=== PATIENT | female | born 1975 | race Caucasian/White ===

== ENCOUNTER 2023-07-10 13:24 | Outpatient (OUT) | payer MEDICARE, MEDICAID, SELFPAY ==
[2023-07-10 14:11] LABS: Estimated GFR (African America >60 (>=60); Estimated GFR (Non-African Ame >60 (>=60); Thyroid Stimulating Hormone 4.291 uIU/mL (0.358-3.740)
== END 2023-07-10 13:25 | disposition home or self-care (01) ==
LOC: LAB 13:29
PROVIDERS: PCP Family Medicine; Visit Provider Psychiatry & Neurology Psychiatry
DX: Z79.899 Other long term (current) drug therapy (principal); F31.9 Bipolar disorder, unspecified
CPT/HCPCS: 36415; 80178; 82565; 84443

== ENCOUNTER 2024-03-11 12:08 | Outpatient (OUT) | payer OTHER, MEDICAID, SELFPAY ==
[2024-03-11 13:36] LABS: Estimated GFR (African America >60 (>=60 mL/min/1.73m^2); Estimated GFR (Non-African Ame >60 (>=60 mL/min/1.73m^2); Thyroid Stimulating Hormone 2.339 uIU/mL (0.358-3.740)
[2024-03-12 05:08] LABS: Lithium (Eskalith(R)), Serum 1.2 mmol/L (0.5-1.2)
== END 2024-03-11 12:09 | disposition home or self-care (01) ==
LOC: LAB 12:10
PROVIDERS: PCP Family Medicine; Visit Provider Psychiatry & Neurology Psychiatry
DX: F31.89 Other bipolar disorder (principal); Z79.899 Other long term (current) drug therapy
CPT/HCPCS: 36415; 80178; 82565; 84436; 84443

== ENCOUNTER 2024-08-13 13:42 | Outpatient (OUT) | payer OTHER, MEDICAID, SELFPAY ==
--- NOTE | 2024-08-13 18:07 | PM.WCHP ---
Wound Care H&P: HPI History of Present Illness Narrative: The patient is a 49-year-old female with history of type 2 diabetes, last hemoglobin A1c was 5.3. She presents for routine nail care today. She does have history of eye problems. Exam Narrative: Exam Narrative: Derm: Toenails 1 through 10 were elongated. And dystrophic. The 1st and 5th toenails on each foot are thickened, mycotic,. No ulcerative or preulcerative lesions are noted. Skin is diffusely dry. Vascular: DP and PT pulses are 2/4 bilaterally. Capillary refills less than 3 seconds bilaterally. Superficial varicosities are noted but no significant edema. Skin is warm to the touch. Digital hair is present. Neuro: Protective sensation is intact in 5/5 areas tested on each foot. Vibratory sensation is intact bilaterally. 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 Follow-up in 3 months. The patient was counseled about proper footcare Acute Procedures Podiatry Nail Debridement Class B Findings Advanced trophic changes as evidenced by any three of the following: decreased hair growth, nail changes (thickening) and skin texture (thin or shiny) Class C Findings Claudication: No Temperature changes: No Edema: No Nail debridement paresthesia (abnormal spontaneous sensations in the feet): No Burning: No Qualifies If: Qualifiers If:: A patient qualifies for nail debridement if they have: 1 class A finding (Q7) 2 class B findings (Q8) OR 1 class B & 2 class C findings in addition to a primary condition (Q9) Nail Procedure Nail Procedure Time out: Yes Nail procedure: other (Toenail debridement toes 1 through 10) Number of affected nails: 10 Location (toes): left and right Procedure successful: Yes Patient tolerated procedure: well and no complications Additional comments: Toenails 1 through 10 were sharply debrided without incident with nail nippers
== END 2024-08-13 13:43 | disposition home or self-care (01) ==
LOC: WC 13:42
PROVIDERS: PCP Family Medicine; Visit Provider Physician Assistant
DX: B35.1 Tinea unguium (principal); E11.39 Type 2 diabetes mellitus with other diabetic ophthalmic complication; L60.8 Other nail disorders
CPT/HCPCS: 11721

== ENCOUNTER 2024-09-25 11:10 | Outpatient (OUT) | payer OTHER, MEDICAID, SELFPAY ==
[2024-09-25 12:01] LABS: Estimated GFR (African America >60 (>=60 mL/min/1.73m^2); Estimated GFR (Non-African Ame >60 (>=60 mL/min/1.73m^2); Thyroid Stimulating Hormone 3.083 uIU/mL (0.358-3.740)
[2024-09-26 03:11] LABS: Lithium (Eskalith(R)), Serum 1.4 mmol/L (0.5-1.2)
== END 2024-09-25 11:11 | disposition home or self-care (01) ==
LOC: LAB 11:13
PROVIDERS: PCP Family Medicine; Visit Provider Psychiatry & Neurology Psychiatry
DX: Z79.899 Other long term (current) drug therapy (principal)
CPT/HCPCS: 36415; 80178; 82565; 84443

== ENCOUNTER 2024-10-07 11:52 | Outpatient (OUT) | payer OTHER, MEDICAID, SELFPAY ==
--- OUTSIDE RECORDS SUMMARY | 2023-11-07 09:00 | XMS_ITS ---
Author Organization The [facility] in [place] Address [address] [place] [address] Care Team Providers Care Video Recorder Mechanic Name Role Phone Yeison Del Valle MD Primary Care Provider Annalisa Overton Unavailable [phone] Allergies No Known Allergies REASON FOR VISIT Referral from Eligio for Nail Care Medications Medication SIG (Take, Route, Frequency, Duration) Notes Start Date End Date Status Metoprolol Succinate ER 25 MG 1 tablet Orally Once a day 11/07/2023 Active Atorvastatin Calcium 40 MG 1 tablet Oral ly Once a day 11/07/2023 Active Ozempic (1 MG/DOSE) 4 MG/3ML as directed Subcutaneous 11/07/2023 Act olya Pantoprazole Sodium 40 MG 1 tablet Orall y Once a day 11/07/2023 Active Levothyroxine Sodium 75 MCG 1 tablet in the morning on an empty stomach Orally Once a day 11/07/2023 Active metFORMIN HCl ER 500 MG 1 tablet with ev ening meal Orally 4x daily 11/07/2023 Active Hatfield Carbonate ER 300 MG 1 tablet at bedtime Orally Once a day 11/07/2023 Active OLANZapine 10 MG 1 tablet Orally Once a day 11/07/2023 Active OLANZapine 20 MG 1 tablet Orally Once a day 11/07/2023 Active Hatfield Carbonate ER 450 MG 2 @ bedtime Orally Once a day 11/07/2023 Active Social History Tobacco Use: Social History Observation Description Date Details (start date - stop date) Current Smoker NA - NA Tobacco Control (Standard) Question Answer Notes Tobacco use: Current smoker Problems Problem Type SNOMED Code ICD Code Onset Dates Problem Status W/U Status Risk Notes Problem [id number] Type 2 diabetes mellitus without complications (E11.9) Active confirmed Vital Signs Weight 230 lbs 11/07/2023 Height 64 in 11/07/2023 Temperature 97 degrees Fahrenheit 11/07/2023 Heart Rate 66 /min 11/07/2023 Respiratory Rate 16 /min 11/07/2023 BMI 39.48 kg/m2 11/07/2023 Encounters Encounter Location Date Provider Diagnosis [facility] (PODIATRY) [address] [place] [address] [place] [address] 11/07/2023 Annalisa Dover Type 2 diabetes mellitus without complications E11.9 Assessments Encounter Date Diagnosis (ICD Code) Assessment Notes Treatment Notes Treatment Clinical Notes Section Notes 11/07/2023 Type 2 diabetes mellitus without complications (ICD-10 - E11.9) The patient is a 48-year-old female, recently diagnosed with type 2 diabetes, who presents for foot examination. She was referred by her primary care physician, Dr. Del Valle. She has no complaints of foot pain. She does have thickened toenails, but no evidence of paronychia today. After verbal consent, toenails 1 through 10 were sharply debrided with nail nippers. Neurologic exam is essentially normal. The patient was counseled on proper footcare including tight blood sugar control and checking her feet twice daily for any skin changes. She should not go barefoot, especially outside. She should wear supportive shoes. She was encouraged to continue diabetes management with her primary care provider and follow-up with us on an as-needed basis. Plan Of Treatment Treatment Notes Assessment Notes Type 2 diabetes mellitus wit hout complications The patient is a 48-year-old female, recently diagnosed with type 2 diabetes, who presents for foot examination. She was referred by her primary care physician, Dr. Del Valle. She has no complaints of foot pain. She does have thickened toenails, but no evidence of paronychia today. After verbal consent, toenails 1 through 10 were sharply debrided with nail nippers. Neurologic exam is essentially normal. The patient was counseled on proper footcare including tight blood sugar control and checking her feet twice daily for any skin changes. She should not go barefoot, especially outside. She should wear supportive shoes. She was encouraged to continue diabetes management with her primary care provider and follow-up with us on an as-needed basis. Next Appt Details Follow Up: prn, Reason: Progress Notes * Manuel ERAZO:1975 ( 48 yo F)Acc No.[id number]:11/07/2023 New Patient Patient: Yeni PATEL Provider: Aguilar Dover PA-C :1975 A ge:48 Y S ex:Female Date:11/07/2023 Address:[place], [id number] Pcp:Yeison Del Valle MD Check In:01:01 PM ESTCheck O ut:01:28 PM EST Subjective: * Chief Complaints: * R eferral from Eligio for Nail Care * HPI: G eneral: Pt here for diabetic foot care. Pt has bilateral calluses to both heels. PT uses pumace stone and uses r Teals lotion to feet daily. PT was diagnosed in June 2023 and placed on Ozempic. Has lost weight and last A1C was 5.5 1 week ago. * ROS: G eneral/Constitutional: Chills d enies. F ever d enies. W eight gain�denies. W eight loss d enies. S kin: Skin Ulcers d enies. S kin lesion(s) d enies. � C ardiovascular: Difficulty breathing on exertion d enies. L eg cramps�denies. E radha d enies. C hest pain d enies. R espiratory: Difficulty breathing d enies. D yspnea d enies.�Cough d enies. G astrointestinal: Diarrhea d enies. N ausea d enies. V omiting�denies. M usculoskeletal: Bone/Joint Symptoms d enies. C anette Pain d enies.�Leg cramps d enies. N eurologic: Numbness d enies. T ingling d enies . G ait abnormality d enies. � H ematology: Anemia D enies. E asy bruising d enies. � A ll Other Systems: Review of Systems (ROS) S ee HPI for details,All others negative except those mentioned in HPI. * Active Problem List E11.9 Type 2 diabetes danna itus without complications Modified On:11/07/2023W/U Status:confirmed * Medical History: * Surgical History: D enies Past Surgical History * Hospitalization/Major Diagno stic Procedure: D enies Past Hospitalization * Family History: F ather: diagnosed with Unspecified essential hypertension. M other: diagnosed with Diabetes mellitus without mention of complication, type II or unspecified type, not stated as uncontrolled. * Social History: T obacco Use: T obacco Control (Standard) T obacco use: C urrent smoker * Medications: T akingAtorvastatin Calcium 40 MG Tablet 1 tablet Orally Once a day Levothyroxine Sodium 75 MCG Tablet 1 tablet in the morning on an empty stomach Orally Once a day Hatfield Carbonate ER 450 MG Tablet Extended Release 2 @ bedtime Orally Once a day Hatfield Carbonate ER 300 MG Tablet Extended Release 1 tablet at bedtime Orally Once a day metFORMIN HCl ER 500 MG Tablet Extended Release 24 Hour 1 tablet with evening meal Orally 4x daily Metoprolol Succinate ER 25 MG Tablet Extended Release 24 Hour 1 tablet Orally Once a day OLANZapine 10 MG Tablet 1 tablet Orally Once a day OLANZapine 20 MG Tablet 1 tablet Orally Once a day Ozempic (1 MG/DOSE)(Semaglutide (1 MG/DOSE)) 4 MG/3ML Solution Pen-injector as directed Subcutaneous Pantoprazole Sodium 40 MG Tablet Delayed Release 1 tablet Orally Once a day Medication List reviewed and reconciled with the patientTaking Atorvastatin Calcium 40 MG Tablet 1 tablet Orally Once a day Taking Levothyroxine Sodium 75 MCG Tablet 1 tablet in the morning on an empty stomach Orally Once a day Taking Hatfield Carbonate ER 450 MG Tablet Extended Release 2 @ bedtime Orally Once a day Taking Hatfield Carbonate ER 300 MG Tablet Extended Release 1 tablet at bedtime Orally Once a day Taking metFORMIN HCl ER 500 MG Tablet Extended Release 24 Hour 1 tablet with evening meal Orally 4x daily Taking Metoprolol Succinate ER 25 MG Tablet Extended Release 24 Hour 1 tablet Orally Once a day Taking OLANZapine 10 MG Tablet 1 tablet Orally Once a day Taking OLANZapine 20 MG Tablet 1 tablet Orally Once a day Taking Ozempic (1 MG/DOSE)(Semaglutide (1 MG/DOSE)) 4 MG/3ML Solution Pen-injector as directed Subcutaneous Taking Pantoprazole Sodium 40 MG Tablet Delayed Release 1 tablet Orally Once a day Medication List reviewed and reconciled with the patient * Allergies: N .K.D.A.no[Allergies Verified] Objective: * Vitals: W t:230lbs, Ht:64in, Temp:97F, HR:66/min, RR:16/min, BMI:39.48Index, Pain scale:01-10, Ht-cm: 162.56 cm, Wt-k.33 kg. * Examination: P odiatry Examination: SKIN: s kin intact, n o sign of infection toenails 1-10 are mildly thickened. MUSCULOSKELETAL: N o pain on palpation, Range of motion of ankle and foot is within normal limits, Muscle strength is 5/5 in all planes. NEUROLOGICAL: L ight touch sensation is intact in all nerve distributions, Negative Tinel sign Protective sensation intact Vibratory sensation is intact. VASCULAR: P alpable pedal pulses bilaterally, No swelling, No calf pain on squeeze. Assessment: * Assessment: 1. T ype 2 diabetes mellitus without complications - E11.9 (Primary) Plan: * Treatment: * Procedure Codes: * Preventive Medicine: Screenings/Counseling: B HI ACTION PLAN Above Normal BMI Follow-up D ietary management education, guidance, and counseling F ALL RISK SCREENING Fall Risk Assessment: N o falls in the past year * Follow Up: p rn * * Sign off status: Completed Visit Status: C HK (Check Out) true * Provider: Aguilar Dover PA-C Date: 0 11/07/2023 Generated for Betsy davis/Jeanette/Rayoitting on: 0 10/07/2024 11:55 AM EDT History and Physical Notes * HPI (History of Present Illness) Category Sub-Category Detail Notes Category Not es General Pt here for ayah betic foot care. Pt has bilateral calluses to both heels. PT uses pumace stone and uses r Teals lotion to feet daily. PT was diagnosed in June 2023 and placed on Ozempic. Has lost weight and last A1C was 5.5 1 week ago Examination Category Sub-Category Detail Notes Category Not es Podiatry Examination SKIN: skin intact , no sign of infection toenails 1-10 are mildly thickened MUSCULOSKELETAL: No pain on palpation , Range of motion of ankle and foot is within normal limits, Muscle strength is 5/5 in all planes NEUROLOGICAL: Light touch sensatio n is intact in all nerve distributions, Negative Tinel sign Protective sensation intact Vibratory sensation is intact VASCULAR: Palpable pedal pulse s bilaterally, No swelling, No calf pain on squeeze
--- OUTSIDE RECORDS SUMMARY | 2024-02-20 09:00 | XMS_ITS ---
Author Organization The [facility] in [place] Address [address] [place] [address] Care Team Providers Care Peoplesoft Fscm Developer Name Role Phone Yeison Del Valle MD Primary Care Provider Annalisa Overton [facility] [phone] REASON FOR VISIT Nail Care Vital Signs Weight 230 lbs 02/20/2024 Height 64 in 02/20/2024 Temperature 97.8 degrees Fahrenheit 02/20/20 Heart Rate 64 /min 02/20/2024 Respiratory Rate 14 /min 02/20/2024 BMI 39.48 kg/m2 02/20/2024 Oximetry 99 % 02/20/2024 Encounters Encounter Location Date Provider Diagnosis [facility] (PODIATRY) [address] [place] [address] [place] [address] 02/20/2024 Annalisa Dover Type 2 diabetes mellitus without complications E11.9 Assessments Encounter Date Diagnosis (ICD Code) Assessment Notes Treatment Notes Treatment Clinical Notes Section Notes 02/20/2024 Type 2 diabetes mellitus without complications (ICD-10 - E11.9) Plan Of Treatment Next Appt Details Follow Up: 3 Months, Reason: Progress Notes * Yeni ERAZODOB:1975 ( 48 yo F)Acc No.[id number]:02/20/2024 Nurse Visit Patient: Yeni PATEL Provider: Aguilar Dover PA-C :1975 A ge:48 Y S ex:Female Date:02/20/2024 Address:[facility] [id number] Pcp:Yeison Del Valle MD Check In:12:59 PM ESTCheck O ut:01:13 PM EST Subjective: * Chief Complaints: * N ail Care * HPI: G eneral: Patient here for diabetic foot care and routine nail care. Patient uses pumice stone and uses Dr Teals lotion to feet daily. Patient was diagnosed in June 2023 and placed on Ozempic to manage her blood sugar levels. Nails 1-10 elongated and thick. Trimmed and filed today without complications. * Active Problem List E11.9 Type 2 diabetes danna itus without complications Modified On:11/07/2023W/U Status:confirmed * Medical History: * Surgical History: * Hospitalization/Major Diagno stic Procedure: * Medications: Objective: * Vitals: W t:230lbs, Ht: 64 in, Temp:97.8F, HR:64/min, RR:14/min, BMI:39.48Index, Pain scale:01-10, Oxygen sat %:99%, Ht-cm: 162.56 cm, Wt-k.33 kg. Assessment: * Assessment: 1. T ype 2 diabetes mellitus without complications - E11.9 (Primary) Plan: * Treatment: * Procedure Codes: 1 1721 DEBRIDE.NAILS;SIX OR MORE, Modifiers: Q8 * Follow Up: 3 Months * * Sign off status: Completed Visit Status: C HK (Check Out) true * Provider: Aguilar Dover PA-C Date: 04/21/2023 Generated for Betsy davis/Jeanette/Rayoitting on: 0 10/07/2024 11:55 AM EDT History and Physical Notes * HPI (History of Present Illness) Category Sub-Category Detail Notes Category Not es General Patient here fo r diabetic foot care and routine nail care. Patient uses pumice stone and uses Dr Teals lotion to feet daily. Patient was diagnosed in June 2023 and placed on Ozempic to manage her blood sugar levels. Nails 1-10 elongated and thick. Trimmed and filed today without complications.
--- OUTSIDE RECORDS SUMMARY | 2024-05-21 09:00 | XMS_ITS ---
Author Organization The [facility] in [place] Address [address] [place] [address] Care Team Providers Care Parts Fabricator Name Role Phone Yeison Del Valle MD Primary Care Provider Annalisa Overton Unavailable [phone] REASON FOR VISIT Nail Care Vital Signs Height 64 in 05/21/2024 Temperature 97.4 degrees Fahrenheit 05/21/19 25 Heart Rate 71 /min 05/21/2024 Oximetry 99 % 05/21/2024 Encounters Encounter Location Date Provider Diagnosis [facility] (PODIATRY) [address] [place] [address] [place] [address] 05/21/2024 Annalisa Dover Type 2 diabetes mellitus without complications E11.9 Assessments Encounter Date Diagnosis (ICD Code) Assessment Notes Treatment Notes Treatment Clinical Notes Section Notes 05/21/2024 Type 2 diabetes mellitus without complications (ICD-10 - E11.9) Plan Of Treatment No Information Progress Notes * Yeni ERAZODOB:1975 ( 48 yo F)Acc No.[id number]:05/21/2024 Nurse Visit Patient: Yeni PATEL Provider: Aguilar Dover PA-C :1975 A ge:48 Y S ex:Female Date:05/21/2024 [id number] Pcp:Yeison Del Valle MD Check In:12:54 PM ESTCheck O ut:01:32 PM EST Subjective: * Chief Complaints: * N ail Care * HPI: G eneral: Patient in office today for nail care. Nails were elongated and thickened. Nails 1-10 filed and trimmed to her liking. * Active Problem List E11.9 Type 2 diabetes danna itus without complications Modified On:11/07/2023W/U Status:confirmed * Medical History: * Surgical History: * Hospitalization/Major Diagno stic Procedure: * Medications: Objective: * Vitals: H t: 64 in, Temp:97.4F, HR:71/min, Pain scale:01-10, Oxygen sat %:99%, Ht-cm: 162.56 cm. Assessment: * Assessment: 1. T ype 2 diabetes mellitus without complications - E11.9 (Primary) Plan: * Treatment: * Procedure Codes: * * Sign off status: Completed Visit Status: Yen POST (Check Out) true * Provider: Aguilar Dover PA-C Date: 0 05/21/2024 Generated for Printi ng/Jeanette/eTransmitting on: 0 10/07/2024 11:55 AM EDT History and Physical Notes * HPI (History of Present Illness) Category Sub-Category Detail Notes Category Not es General Patient in offi ce today for nail care. Nails were elongated and thickened. Nails 1-10 filed and trimmed to her liking.
--- OUTSIDE RECORDS SUMMARY | 2024-10-07 11:55 | XMS_ITS | Clinical Summary ---
Author Organization [facility] Address [address] [place] [address] Care Team Providers Care Fork Truck Operator Name Role Phone Jessie Coughlin MD Primary Care Provider [phone] Allergies No known active allergies Medications ARIPiprazole ER (ABILIFY MAINTENA) 400 mg SERR Inject 400 mg into the shoulder, thigh, or buttocks every 28 days . Active nicotine polacrilex (NICORETTE) 2 mg gum Apply 2 mg to the mouth or throat as needed for smoking cessation . Active OLANZapine (ZYPREXA) 10 MG tablet Take 10 mg by mouth nightly . Active metoprolol tartrate (LOPRESSOR) 25 MG tablet Take 25 mg by mouth 2 (two) times a day . Active gemfibroziL (LOPID) 600 MG tablet Take 600 mg by mouth 2 (two) times a day before meals . Active lisinopriL (PRINIVIL,ZESTR IL) 10 MG tablet Take 10 mg by mouth daily . Active pantoprazole (PROTONIX) 40 MG tablet Take 40 mg by mouth daily . Active ziprasidone (GEODON) 80 MG capsule Take 80 mg by mouth 2 (two) times a day with meals . Active Active Problems Problem Noted Date Diagnosed Date Bipolar 1 disorder 01/19/2021 Social History Tobacco Use Types Packs/Day Years Used Date Smoking Tobacco: Unknown Alcohol Use Standard Drinks/Week Comments Not Asked 0 (1 standard drink = 0.6 oz pur e alcohol) unable to assess Comments Unknown Sex and Gender Information Value Date Recorded Sex Assigned at Not on file Legal Sex Female 8:03 PM EDT Gender Identity Female 01/18/2021 8:39 PM EDT Sexual Orientation Choose not to disclose 2020 8:39 PM EDT Last Filed Vital Signs Vital Sign Reading Time Taken Comments Blood Pressure 147/93 01/18/2021 10:18 PM EDT Pulse 111 01/18/2021 10:18 PM EDT Temperature 36.7 C (98.1 F) 01/18/2021 10:18 PM EDT Respiratory Rate 18 01/18/2021 10:18 PM EDT Oxygen Saturation 98% 01/18/2021 10:18 PM EDT Inhaled Oxygen Concentration - - Weight 117.9 kg (260 lb) 01/18/2021 10:58 PM EDT Height - - Body Mass Index - - Plan of Treatment Not on file Insurance [place]ID [place] [employer] Care Teams Fork Truck Operator Relationship Specialty Start Date End Date Jessie Coughlin MD [address] [place] [address] PCP - General Family Medicine 01/18/21
--- OUTSIDE RECORDS SUMMARY | 2024-10-07 11:55 | XMS_ITS | Encounter Summary ---
Author Organization [facility] Address [address] [facility] [place] [place] [address] Care Team Providers Care In Flight Crew Member Name Role Phone Yeison Del Valle MD Primary Care Provider [phone] Yeison Del Valle MD Primary Care Provider [phone] Encounter Details Date Type Department Care Team (Late st Contact Info) Description 01/10/2023 Orders Only [facility] [address] [facility] [address] [place] [address] Beulah Gordon DO [address] [address] Social History Tobacco Use Types Packs/Day Years Used Date Smoking Tobacco: Never Assessed Comments Unknown Sex and Gender Information Value Date Recorded Sex Assigned at Not on file Legal Sex Female 6:57 PM EDT Gender Identity Female 06/20/2022 6:57 PM EDT Sexual Orientation Choose not to disclose 2022 6:57 PM EDT documented as of this encounter Plan of Treatment Upcoming Encounters Date Type Department Care Team (Late st Contact Info) Description 09/27/2025 2:00 PM EDT Office Visit [facility] [address] [place] [address] [address] Beulah Gordon DO [address] [address] documented as of this encounter Procedures Procedure Name Priority Date/Time Associated Diagnosis Comments MAMMOGRAM-DIAGNOSTIC* Routine 01/10/2023 2:47 PM EDT documented in this encounter Results * MAMMOGRAM-DIAGNOSTIC* (01/10/2023 2:47 PM EDT) Anatomical Region Laterality Modality Radiographic Yanique ging Beulah Gordon DO IMG XR PROCEDURES Final Re sult documented in this encounter Visit Diagnoses Not on filedocumented in this encounter Care Teams In Flight Crew Member Relationship Specialty Start Date End Date Yeison Del Valle MD PCP - General Family Medicine 09/18/23 09/21/24 Yeison Del Valle MD [address] [place] [id number] PCP - General Family Medicine 09/22/24 documented as of this encounter
--- OUTSIDE RECORDS SUMMARY | 2024-10-07 11:55 | XMS_ITS | Clinical Summary ---
Author Organization [facility] Address [address] [place] [address] Care Team Providers Care Pump House Operator Name Role Phone Unavailable Primary Care Provider Unavailabl e Social History Tobacco Use Types Packs/Day Years Used Date Smoking Tobacco: Never Assessed Comments Unknown Sex and Gender Information Value Date Recorded Sex Assigned at Not on file Legal Sex Female 11:30 PM EST Gender Identity Not on file Sexual Orientation Not on file Plan of Treatment Not on file
--- OUTSIDE RECORDS SUMMARY | 2024-10-07 11:55 | XMS_ITS | Patient Health Record ---
Author Organization [facility] in [place] Address [address] [place] [address] Care Team Providers Care Acute Specialist Name Role Phone Yeison Del Valle MD Primary Care Provider Annalisa Overton Unavailable [phone] Allergies No Known Allergies Reason For Referral No Information Medications Medication SIG (Take, Route, Frequency, Duration) Notes Start Date End Date Status metFORMIN HCl ER 500 MG 1 tablet with ev ening meal Orally 4x daily 11/07/2023 Active [place] Carbonate ER 300 MG 1 tablet at bedtime Orally Once a day 11/07/2023 Active Metoprolol Succinate ER 25 MG 1 tablet [...] stomach Orally Once a day 11/07/2023 Active OLANZapine 10 MG 1 tablet Orally Once a day 11/07/2023 Active OLANZapine 20 MG 1 tablet Orally Once a day 11/07/2023 Active [place] Carbonate ER 450 MG 2 @ bedtime Orally Once a day 11/07/2023 Active Social History Tobacco Use: Social History Observation Description Date Details (start date - stop date) Current Smoker NA - NA Tobacco Control (Standard) Question Answer Notes Tobacco use: Current smoker Problems Problem Type SNOMED Code ICD Code Onset Dates Problem Status W/U Status Risk Notes Problem [id number] Type 2 diabetes mellitus without complications (E11.9) Active confirmed Vital Signs Heart Rate 71 /min 05/21/2024 Temperature 97.4 degrees Fahrenheit 05/21/2024 Respiratory Rate 14 /min 02/20/2024 Oximetry 99 % 05/21/2024 Height 64 in 05/21/2024 Weight 230 lbs 02/20/2024 BMI 39.48 kg/m2 02/20/2024 Encounters Encounter Location Date Provider Diagnosis [facility] ([facility]) [address] [place] [address] [place] [phone] 11/07/2023 Annalisa Dover Type 2 diabetes mellitus without complications E11.9 [facility] ([facility]) [address] [place] [address] [place] [address] 02/20/2024 Annalisa Dover Type 2 diabetes mellitus without complications E11.9 [facility] ([facility]) [address] [place] [address] [place] [address] 05/21/2024 Annalisa Dover Type 2 diabetes mellitus [...] follow-up with us on an as-needed basis. 02/20/2024 Type 2 diabetes mellitus without complications (ICD-10 - E11.9) 05/21/2024 Type 2 diabetes mellitus without complications (ICD-10 - E11.9) Plan Of Treatment No Information Insurance Providers Payer Name Payer Address Payer Phone Subscriber Number Group Number Insured Name Patient Relationship to Insured Coverage Start Date Coverage End Date [facility] [address] [place] [phone] [id number] Yeni Erazo Self - patient is the insured [place] 2ND INS [address] [place], [place] [id number] Yeni Erazo Self - patient is the insured Medical (General) History Medical History History ICD Code hypertension diabetes hypercholesterolemia thyroid disease
--- OUTSIDE RECORDS SUMMARY | 2024-10-07 11:55 | XMS_ITS | Encounter Summary ---
Author Organization [facility] Address [address] [place] [address] Care Team Providers Care Oral Therapist Name Role Phone Yeison Del Valle MD Primary Care Provider [phone] Yeison Del Valle MD Primary Care Provider [phone] Reason for Visit * Reason Comments Med Refill Encounter Details Date Type Department Care Team (Late st Contact Info) Description 01/05/2023 Refill [facility] [phone] Beulah Gordon DO [address] [phone] Irregular menstruation, unspecified Social History Tobacco Use Types Packs/Day Years Used Date Smoking Tobacco: Never Assessed Comments Unknown Sex and Gender Information Value Date Recorded Sex Assigned at Not on file Legal Sex Female 6:57 PM EDT Gender Identity Female 06/20/2022 6:57 PM EDT Sexual Orientation Choose not to disclose 2022 6:57 PM EDT documented as of this encounter Miscellaneous Notes * Telephone Encounter - Beulah Gordon DO - 01/07/2023 7:52 PM EDT Approving, but needs appt for additional refills. documented in this encounter Plan of Treatment Upcoming Encounters Date Type Department Care Team (Late st Contact Info) Description 09/27/2025 2:00 PM EDT Office Visit [facility] [address] [facility] [address] [place] [phone] Beulah Gordon, DO [address] [phone] documented as of this encounter Visit Diagnoses Diagnosis Irregular menstruation, unspecified documented in this encounter Care Teams Oral Therapist Relationship Specialty Start Date End Date Yeison Del Valle MD PCP - General Family Medicine 09/18/23 09/21/24 Yeison Del Valle MD [address] [place] [id number] PCP - General Family Medicine 09/22/24 documented as of this encounter
[2024-10-08 05:08] LABS: Lithium (Eskalith(R)), Serum 0.9 mmol/L (0.5-1.2)
== END 2024-10-07 11:53 | disposition home or self-care (01) ==
LOC: LAB 11:53
PROVIDERS: PCP Family Medicine; Visit Provider Psychiatry & Neurology Psychiatry
DX: Z79.899 Other long term (current) drug therapy (principal); F31.9 Bipolar disorder, unspecified
CPT/HCPCS: 36415; 80178

== ENCOUNTER 2024-11-19 13:11 | Outpatient (OUT) | payer OTHER, MEDICAID, SELFPAY ==
--- OUTSIDE RECORDS SUMMARY | 2024-11-19 13:17 | XMS_ITS | CCD ---
Author Organization [facility] Care Team Providers Care Yard Caller Name Role Phone PANFILO SHEPPARD Primary Care Unavailable WIL ZEPEDA Attending UnavailWIL Valentino Admitting Unavailjaimie granger SHEPPARD ., DR PANFILO Granger Admitting Unavailable SHEPPARD ., DR PANFILO Granger Attending Unavailable SHEPPARD ., DR PANFILO Granger Primary Care Unavailable SHEPPARD ., DR PANFILO Granger Consulting Unavailable SHEPPARD ., DR PANFILO Granger Admitting Unavailable SHEPPARD ., DR PANFILO Granger Attending Unavailable SHEPPARD ., DR PANFILO Granger Primary Care Unavailable SHEPPARD ., DR PANFILO Granger Consulting Unavailable [place], DR WIL Mendieta Consulting Unavailable SHEPPARD ., DR PANFILO Granger Admitting Unavailable SHEPPARD ., DR PANFILO Granger Attending Unavailable SHEPPARD ., DR PANFILO Granger Primary Care Unavailable SHEPPARD ., DR PANFILO Granger Consulting Unavailable SPROUT, WENDY Admitting Unavailable SPROUT, WENDY Attending Unavailable SHEPPARD ., DR PANFILO Granger Primary Care Unavailable SPROUT, WENDY Consulting Unavailable SPROUT, WENDY Admitting Unavailable SPROUT, WENDY Attending Unavailable SHEPPARD ., DR PANFILO Grangre Primary Care Unavailable SPROUTWENDY Consulting Unavailable SHEPPARD ., DR PANFILO Granger Primary Care Unavailable MARKER ., DR FORMAN Admitting Unavailable MARKER ., DR FORMAN Attending Unavailable PAY ., DR SPIVEY Consulting Unavailable MARKER ., DR FORMAN Consulting Unavailable OTTO BHARDWAJ Consulting Unavailable SHEPPARD ., DR PANFILO Granger Primary Care Unavailable SHERLY ., EL Admitting Unavailable SHERLY ., EL Attending Unavailable WALLACE, DR NIRMAL Shaikh Consulting Unavailable SHERLY ., EL Consulting Unavailable MCC, DR GRANT Admitting Unavailable MISC, DR GRANT Attending Unavailable SHEPPARD ., DR PANFILO Granger Primary Care Unavailable MISC, DR GRANT Consulting Unavailable ROSALIND, WENDY Consulting Unavailable SAVANNAH May Attending Provider [phone] Lisandra May Unavailable Yeison Del Valle. Primary Care Physician Mera Funk Unavailable Unavailable Shayani, Torres Talal Admitting Unavaila ble Sarmini, Torres Talal Attending Unavaila ble Sarmini, Torres Talal Attending Unavaila ble Sarmini, Torres Talal Referring Unavaila ble Yeison Del Valle Attending Unavailable Barneymini, Torres Talal Admitting Unavaila ble Sarmini, Torres Talal Attending Unavaila ble NO FAMILY, PHYSICIAN Primary Care Provider Unava ilable MD Jerry Aponte Attending Provider DO Beulah Gordon Attending Provider MD Yeison Del Valle Primary Care Provider Luther Markhamd Jo Attending Unavaila Amarjit Patel Attending Unavailable MD Yeison Del Valle Attending Unavailable MD Yeison Del Valle Attending Unavailable MD Yeison Del Valle Attending Unavailable MD Yeison Del Valle Attending Unavailable MD Yeison Del Valle Attending Unavailable MD Yeison Del Valle Attending Unavailable MD Yeison Del Valle Referring Unavailable Amarjit Choe Attending Unavailable Amarjit Choe Referring Unavailable MD Yeison Del Valle Admitting Unavailable MD Yeison Del Valle Attending Unavailable Kian Stevens Attending Unavailable Yeison Del Valle Admitting Unavailable Yeison Del Valle Attending Unavailable Alyx Beverly Attending Unavailable Shahrzad, Torres Jo Attending Unavaila ble Barneyminsaad, Torres Hermesal Attending Unavaila ble Shahrzad, Torres Talal Referring Unavaila Yeison Orlando Attending Unavailable Yeison Del Valle Attending Unavailable Yeison Del Valle Attending Unavailable Yeison Del Valle MD Primary Care Provider BEULAH GORDON Attending Unavailable Yeison Del Valle Primary Care Unavailable Beulah Gordon Attending Unavailable Beulah Gordon Admitting Unavailable Jerry Aponte Attending Unavailab Jerry Mccall Admitting Unavailab le NO FAMILY, PHYSICIAN Primary Care Unavailable Yeison Del Valle Admitting Unavailable Yeison Del Valle Attending Unavailable MICHELLE YUN Attending Unavailable MICHELLE YUN Attending Unavailable Amarjit Choe Attending Unavailable Amarjit Choe Referring Unavailable MICHELLE YUN Admitting Unavailable MICHELLE YUN Attending Unavailable MD Yeison Del Valle Attending Unavailable MD Yeison Del Valle Admitting Unavailable MD Yeison Del Valle Attending Unavailable MD Yeison Del Valle Admitting Unavailable MIRYAM YUN Attending UnavailMIRYAM Carlos Attending Unavailjaimie YUN, MIRYAM Greene Admitting Unavailjaimie granger Medications Current Medications Medication Drug Class(es) Dates Sig (Normalized) Sig (Original) 3 ML semaglutide 1.34 MG/ML Pen Injector [Ozempic] (10 sources) Start: 01-03-2024 inject 1 mg by subcutaneous injection every week Start: 10-31-2023 inject 1 mg by subcu taneous injection every week Start: 08-20-2023 inject 1 mg by subcu taneous injection every week Ozempic (1 mg dose) 4 mg/3 mL subcutaneous solution 1 mg, SubCutaneous, qWeek, # 3 EA, Refills(s) 0, Pharmacy: [facility]/pharmacy #[id number], 160, cm, 08/20/23 14:44:00 EDT, Height/Length Dosing, 110.5, kg, 08/20/23 14:44:00 EDT, Weight Dosing Start Date: 08/20/23 Status: Ordered [id number] 200 actuat albuterol 0.09 mg/actuat metered dose inhaler (4 sources) beta2-Adrenergic Agonist Start: 09-13-2024 albut wilmer HFA 90 mcg/act inhaler 09/13/2024 Active Start: 08-13-2022 take 2 puff(s) by in halation every four to six hours as needed Albuterol Sulfate HFA 108 (90 Base) MCG/ACT 2 puffs as needed Inhalation every 4-6 hours for 14 days August, Active ARIPiprazole 10 mg oral tablet (4 sources) Atypical Antipsychotic Start: 12-18-2020 take 10 mg by mouth once daily Aripiprazole Active 10 MG PO Daily 01 15December 18, 2020 12:00am Start: 12-18-2020 Aripiprazole ( Abilify Maintena) 400 mg Suspension,Extended Rel Recon Active 400 MG IM Q28D December 18, 2020 12:00am Due on or around 01/12/21 atorvastatin 40 mg oral tablet (10 sources) HMG-CoA Reductase Inhibitor Start: 09-05-2024 take 1 tablet by mouth once daily atorvastatin (Lipitor) 40 MG tablet Take 40 mg by mouth Daily 09/05/2024 Active Start: 03-24-2024 take 1 tablet by davion once daily atorvastatin 40 mg Tab See Instructions, TAKE 1 TABLET BY MOUTH EVERY DAY, # 90 tab(s), Refills(s) 0, Pharmacy: [id number], 160, cm, 12/22/23 12:02:00 EDT, Height/Length Dosing, 100, kg, 12/22/23 12:02:00 EDT, Weight Dosing Start Date: 03/24/24 Status: Ordered Start: 12-16-2023 take 1 tablet by [facility] once daily atorvastatin 40 mg Tab See Instructions, TAKE 1 TABLET BY MOUTH EVERY DAY, # 90 tab(s), Refills(s) 0, Pharmacy: [id number], 160, cm, 12/12/23 15:03:00 EDT, Height/Length Dosing, 102, kg, 12/12/23 15:03:00 EDT, Weight Dosing Start Date: 12/16/23 Status: Ordered Start: 09-26-2023 take 1 tablet by davion once daily Lipitor 40 mg Tab 40 mg = 1 tab(s), Oral, Daily, # 90 tab(s), Refills(s) 0, Pharmacy: [facility]/pharmacy #[id number], 160, cm, 09/26/23 12:34:00 EDT, Height/Length Dosing, 105, kg, 09/26/23 12:34:00 EDT, Weight Dosing Start Date: 09/26/23 Status: Ordered bacitracin 0.4 unt/mg / neomycin 0.0035 mg/mg / polymyxin b 5 unt/mg topical ointment (2 sources) Aminoglycoside Antibacterial, Polymyxin-class Antibacterial Start: 12-18-2020 Tymntynh-Dxlzmxiukkp-Nskrbzl nb (Triple Antibiotic) 3.5mg-400 unit- 5,000 unit/gram Ointment Active 1 APPLIC TOPICAL Three times daily 0 December 18, 2020 12:00am cetirizine hydrochloride 10 mg oral tablet (4 sources) Histamine-1 Receptor Antagonist Start: 01-17-2023 take 1 tablet by mouth once daily as needed cetirizine 10 mg Tab See Instructions, TAKE 1 TABLET BY MOUTH ONCE EVERYDAY NEEDED FOR ALLERGY SYMPTOMS, # 90 tab(s), Refills(s) 1, Pharmacy: [id number], 160, cm, 12/24/22 11:04:00 EDT, Height/Length Dosing, 121.6, kg, 12/24/22 11:04:00 EDT, Weight Dosing Start Date: 01/17/23 Status: Ordered cholecalciferol 1.25 mg oral capsule (2 sources) Vitamin D Start: 12-13-2020 take 1250 ug by mouth every week Cholecalciferol (Vitamin D3) Active 1250 MCG PO every week December 13, 2020 12:00am Continuous Glucose Sensor (FreeStyle Rosalinda 2 Sensor) misc (2 sources) Start: 09-01-2024 Continuous Glucose Sensor (FreeStyle Rosalinda 2 Sensor) [facility] USE WITH FREESTYLE ROSALINDA TO CHECK BLOOD SUGARS DAILY (E11.69) 09/01/2024 Active dextromethorphan hydrobromide 1.5 mg/ml / pyrilamine maleate 1.5 mg/ml oral solution (2 sources) Uncompetitive L-vdxcaz-U-aspart ate Receptor Antagonist, Sigma-1 Agonist Start: 08-13-2022 take 10 mL by mouth every eight hours Nathrop DM 7.5-7.5 MG/5ML 10 mL Orally every 8 hours for 5 days August, Active erythromycin 0.005 mg/mg ophthalmic ointment (1 source) Macrolide, Macrolide Antimicrobial Start: 12-22-2023 End: 12-29-2023 erythromycin Opth 0.5% Oint 1/4 inch ribbon, Eye-Right, TID for 7 day(s), 3.5 gm, Refill(s) 0, [facility]/pharmacy #[id number], 160, cm, 12/22/23 12:02:00 EDT, Height/Length Dosing, 100, kg, 12/22/23 12:02:00 EDT, Weight Dosing Start Date: 12/22/23 Stop Date: 12/29/23 Status: Ordered Free style Rosalinda 2 reader (1 source) Start: 04-20-2024 Free style Rosalinda 2 reader Fr ee style Rosalinda 2 reader, See Instructions, 1 EA, 0, use to sven bs, [facility] #[id number], Supply, 160, cm, 03/24/24 14:43:00 EST, Height/Length Dosing, 102.8, kg, 03/24/24 14:43:00 EST, Weight Dosing Start Date: 04/20/24 Status: Ordered Free Style Rosalinda 2 Sensors (10 sources) Start: 04-20-2024 Free Style Rosalinda 2 Sensors F ree Style Rosalinda 2 Sensors, See Instructions, 2 EA, 3, To be used w/FS Rosalinda to check blood sugars daily. Dx: E11.69, [facility] #[id number], Supply, 160, cm, 03/24/24 14:43:00 EST, Height/Length Dosing, 102.8, kg, 03/24/24 14:43:00 EST, Weight Dosing Start Date: 04/20/24 Status: Ordered Start: 01-03-2024 Free Style Snow re 2 Sensors Free Style Rosalinda 2 Sensors, See Instructions, 2 EA, 3, To be used w/FS Rosalinda to check blood sugars daily. Dx: E11.69, [facility] #[id number], Supply, 160, cm, 12/22/23 12:02:00 EDT, Height/Length Dosing, 100, kg, 12/22/23 12:02:00 EDT, Weight Dosing Start Date: 01/03/24 Status: Ordered Start: 09-19-2023 Free Style Snow re 2 Sensors Free Style Rosalinda 2 Sensors, See Instructions, 2 EA, 3, To be used w/FS Rosalinda to check blood sugars daily. Dx: E11.69, [facility] #[id number], Supply, 160, cm, 08/20/23 14:44:00 EDT, Height/Length Dosing, 110.5, kg, 08/20/23 14:44:00 EDT, Weight Dosing Start Date: 09/19/23 Status: Ordered gemfibrozil 600 mg oral tablet (4 sources) Peroxisome Proliferator Receptor alpha Agonist Start: 03-15-2018 take 600 mg by mouth twice daily Gemfibrozil Active 600 MG PO Twice daily March 15, 2018 1:00am hydrocortisone 10 mg/ml / neomycin 3.5 mg/ml / polymyxin b [id number] unt/ml otic solution (2 sources) Aminoglycoside Antibacterial, Polymyxin-class Antibacterial, Corticosteroid Start: 10-08-2023 End: 10-15-2023 hydrocortisone/griselda mycin/polymyxin B Otic Radha 4 drop(s), Otic, TID for 7 day(s), 10 mL, Refill(s) 0, Right ear, [facility]/pharmacy #[id number], 160, cm, 10/08/23 13:02:00 EDT, Height/Length Dosing, 104.8, kg, 10/08/23 13:02:00 EDT, Weight Dosing Start Date: 10/08/23 Stop Date: 10/15/23 Status: Ordered levothyroxine sodium 0.075 mg oral tablet (18 sources) l-Thyroxine Start: 02-10-2024 take 1 tablet by mouth once daily levothyroxine 75 mcg (0.075 mg) Tab See Instructions, TAKE 1 TABLET BY MOUTH EVERY DAY, # 90 tab(s), Refills(s) 0, Pharmacy: [id number], 160, cm, 12/22/23 12:02:00 EDT, Height/Length Dosing, 100, kg, 12/22/23 12:02:00 EDT, Weight Dosing Start Date: 02/10/24 Status: Ordered Start: 11-04-2023 take 1 tablet by davion th once daily levothyroxine 75 mcg (0.075 mg) Tab See Instructions, TAKE 1 TABLET BY MOUTH EVERY DAY, # 90 tab(s), Refills(s) 0, Pharmacy: [id number], 160, cm, 10/31/23 15:41:00 EDT, Height/Length Dosing, 104.3, kg, 10/31/23 15:41:00 EDT, Weight Dosing Start Date: 11/04/23 Status: Ordered Start: 08-20-2023 take 1 tablet by davion th once daily levothyroxine 75 mcg (0.075 mg) Tab 75 mcg = 1 tab(s), Oral, Daily, # 90 tab(s), Refills(s) 0, Pharmacy: [facility]/pharmacy #[id number], 160, cm, 08/20/23 14:44:00 EDT, Height/Length Dosing, 110.5, kg, 08/20/23 14:44:00 EDT, Weight Dosing Start Date: 08/20/23 Status: Ordered Start: 04-26-2023 take 1 tablet by davion th once daily levothyroxine 50 mcg (0.05 mg) Tab 50 mcg = 1 tab(s), Oral, Daily, # 90 tab(s), Refills(s) 3, Pharmacy: [facility]/pharmacy #[id number], 160, cm, 03/25/23 15:22:00 EST, Height/Length Dosing, 121.2, kg, 03/25/23 15:22:00 EST, Weight Dosing Start Date: 04/26/23 Status: Ordered Start: 08-29-2022 take 1 tablet by davion th once daily levothyroxine 50 mcg (0.05 mg) Tab 50 mcg = 1 tab(s), Oral, Daily, Refills(s) 0 Start Date: 08/29/22 Status: Ordered take 1 tablet by davion once daily levothyroxine (Synthroid, Levoxyl) 75 MCG tablet Take 75 mcg by mouth Daily Active Levothyroxine So dium 50 MCG Oral for 90 Days Active lisinopril 10 mg oral tablet (4 sources) Angiotensin Converting Enzyme Inhibitor Start: 03-15-2018 take 10 mg by mouth once daily Lisinopril Active 10 MG PO Daily March 15, 2018 1:00am lithium carbonate 300 mg extended release oral tablet (20 sources) Start: 09-07-2024 take 1 tablet by mouth once daily, then take 1 tablet by mouth every twelve hours lithium ER (Lithobid) 300 MG 12 hr tablet Take 300 mg by mouth Daily 09/07/2024 Active Start: 12-24-2022 take 1 capsule by mo ut once daily in the morning lithium 300 mg Cap 300 mg = 1 cap(s), Oral, Daily, in the morning, Refills(s) 0 Start Date: 12/24/22 Status: Ordered Start: 12-24-2022 take 2 tablets by mo uth at bedtime lithium 450 mg oral tablet, extended release 900 mg = 2 tab(s), Oral, Bedtime, Refills(s) 0 Start Date: 12/24/22 Status: Ordered Start: 08-13-2022 take 1 tablet by [facility] every twenty-four hours Paramount Carbonate ER 450 MG 1 tablet at bedtime Orally Once a day for 30 day(s) August, Active Paramount Carbonat e ER 300 MG Oral for 30 Days Active loratadine 10 mg oral tablet (2 sources) Start: 12-13-2020 take 10 mg by mouth at bedtime Loratadine Active 10 MG PO Bedtime December 13, 2020 12:00am 24 hr metFORMIN hydrochloride 500 mg extended release oral tablet (14 sources) Biguanide Start: 07-15-2024 take 1 tablet by mouth every twenty-four hours in the morning metFORMIN XR (Glucophage-XR) 500 MG 24 hr tablet Take 1,000 mg by mouth in the morning and 1,000 mg before bedtime. 07/15/2024 Active Start: 04-27-2024 take 2 tablets by [facility] twice daily MetFORMIN (Eqv-Glucophage XR) 500 mg oral tablet, extended release See Instructions, TAKE 2 TABLETS BY MOUTH TWICE A DAY, # 360 tab(s), Refills(s) 1, [id number], cm, 04/27/24 10:49:00 EST, Height/Length Dosing, 101.2, kg, 04/27/24 10:49:00 EST, Weight Dosing Start Date: 04/27/24 Status: Ordered Start: 01-28-2024 take 2 tablets by [facility] twice daily MetFORMIN (Eqv-Glucophage XR) 500 mg oral tablet, extended release See Instructions, TAKE 2 TABLETS BY MOUTH TWICE A DAY, # 360 tab(s), Refills(s) 1, Pharmacy: [id number], 160, cm, 12/22/23 12:02:00 EDT, Height/Length Dosing, 100, kg, 12/22/23 12:02:00 EDT, Weight Dosing Start Date: 01/28/24 Status: Ordered Start: 05-22-2023 take 2 tablets by [facility] twice daily Glucophage XR 500 mg oral tablet, extended release 1,000 mg = 2 tab(s), Oral, BID, # 360 tab(s), Refills(s) 1, Pharmacy: [facility]/pharmacy #[id number], 160, cm, 05/22/23 12:27:00 EST, Height/Length Dosing, 120.5, kg, 05/22/23 12:27:00 EST, Weight Dosing Start Date: 05/22/23 Status: Ordered Start: 03-06-2023 take 2 tablets by mo [facility] twice daily Glucophage XR 500 mg oral tablet, extended release 1,000 mg = 2 tab(s), Oral, BID, # 180 tab(s), Refills(s) 1, [id number] 160, cm, 03/06/23 13:23:00 EST, Height/Length Dosing, 121.1, kg, 03/06/23 13:23:00 EST, Weight Dosing Start Date: 03/06/23 Status: Ordered methylPREDNISolone 4 mg oral tablet (2 sources) Corticosteroid Start: 08-13-2022 methylPREDNISolone 4 MG as directed Orally for daily dose take half with breakfast, half with dinner for 6 days August, Active 24 hr metoprolol succinate 25 mg extended release oral tablet (20 sources) beta-Adrenergic Teresa Start: 01-13-2024 take 1 tablet by mouth once daily metoprolol succinate 25 mg ER Tab 25 mg = 1 tab(s), Oral, Daily, # 90 tab(s), Refills(s) 4, [id number] 160, cm, 12/22/23 12:02:00 EDT, Height/Length Dosing, 100, kg, 12/22/23 12:02:00 EDT, Weight Dosing Start Date: 01/13/24 Status: Ordered Start: 11-04-2023 take 1 tablet by [facility] once daily metoprolol succinate 25 mg ER Tab 25 mg = 1 tab(s), Oral, Daily, # 90 tab(s), Refills(s) 1, Pharmacy: [facility]/pharmacy #[id number], 160, cm, 10/31/23 15:41:00 EDT, Height/Length Dosing, 104.3, kg, 10/31/23 15:41:00 EDT, Weight Dosing Start Date: 11/04/23 Status: Ordered Start: 07-17-2023 take 1 tablet by [facility] once daily metoprolol 25 mg ER Tab 25 mg = 1 tab(s), Oral, Daily, # 90 tab(s), Refills(s) 0, Pharmacy: [facility]/pharmacy #[id number], 160, cm, 06/24/23 14:13:00 EDT, Height/Length Dosing, 117.3, kg, 06/24/23 14:13:00 EDT, Weight Dosing Start Date: 07/17/23 Status: Ordered Start: 01-23-2023 take 1 tablet by davion th once daily metoprolol 25 mg ER Tab 25 mg = 1 tab(s), Oral, Daily, # 90 tab(s), Refills(s) 0, Pharmacy: [facility]/pharmacy #[id number], 160, cm, 05/22/23 12:27:00 EST, Height/Length Dosing, 120.5, kg, 05/22/23 12:27:00 EST, Weight Dosing Start Date: 05/22/23 Status: Ordered Start: 03-15-2018 End: 12-13-2020 take 25 mg by mouth twice daily Metoprolol Tartrate Active 25 MG PO Twice daily December 13, 2020 12:00am nicotine 2 mg chewing gum (4 sources) Cholinergic Nicotinic Agonist Start: 12-18-2020 Nicotine (Polacrilex ) Active 2 MG BUCCAL Q2H 60 December 18, 2020 12:00am Start: 03-21-2018 End: 11-17-2018 Nicotine (Polacrilex) (Nicor elief) 2 mg Gum Discontinued 2 MG BUCCAL Q2H March 21, 2018 1:00am November 17, 2018 2:28pm OLANZapine 20 mg oral tablet (20 sources) Atypical Antipsychotic Start: 12-24-2022 take 1 tablet by mouth at bedtime olanzapine 20 mg oral tablet 20 mg = 1 tab(s), Oral, Bedtime, Refills(s) 0 Start Date: 12/24/22 Status: Ordered Start: 12-18-2020 take 1 tablet by davion th once daily at bedtime, then take 2 tablets by mouth at bedtime olanzapine 10 mg Tab 10 mg = 1 tab(s), Oral, Once a day (at bedtime), along with 20mg at bedtime, Refills(s) 0 Start Date: 12/24/22 Status: Ordered OLANZapine 15 MG Oral for 90 Days Active Ozempic, 1 MG/DOSE, 4 MG/3ML solution pen-injector (2 sources) inject 1 mg by subcutaneous injection every week Ozempic, 1 MG/DOSE, 4 MG/3ML solution pen-injector INJECT 1MG SUBCUTANEOUSLY ONCE A WEEK Active pantoprazole 40 mg delayed release oral tablet (20 sources) Proton Pump Inhibitor Start: 12-14-19 take 1 tablet by mouth once daily Pantoprazole [address] Tab 40 mg = 1 tab(s), Oral, Daily, # 90 tab(s), Refills(s) 4, Pharmacy: [facility] #[id number], 160, cm, 03/25/23 15:22:00 EST, Height/Length Dosing, 121.2, kg, 03/25/23 15:22:00 EST, Weight Dosing Start Date: 05/15/23 Status: Ordered Protonix Active Completed/Discontinued Medications Medication Drug Class(es) Dates Sig (Normalized) Sig (Original) Asenapine (2 sources) Atypical Antipsychotic Start: 11-17-2018 End: 12-13-2020 take 5 mg under the tongue twice daily Asenapine Maleate Discontinued 5 MG SUBLINGUAL Twice daily November 17, 2018 12:00am December 13, 2020 8:36pm cariprazine 3 mg oral capsule (6 sources) Atypical Antipsychotic Start: 12-13-2020 End: 12-18-2020 take 1 capsule by mouth once daily Cariprazine (Vraylar) 3 mg capsule Discontinued 3 MG PO Daily December 13, 2020 12:00am December 18, 2020 10:35am Start: 03-15-2018 End: 11-17-2018 take 3 mg by mouth once daily Cariprazine Discontinued 3 MG PO Daily March 15, 2018 1:00am November 17, 2018 2:26pm Vraylar Not-Taki ng glucose meter (11 sources) Start: 05-15-2023 glucose meter glucose meter, See Instructions, 1 EA, 0, to check BS daily E11.9, [facility][id number], Supply, 160, cm, 03/25/23 15:22:00 EST, Height/Length Dosing, 121.2, kg, 03/25/23 15:22:00 EST, Weight Dosing Start Date: 05/15/23 Status: Ordered lurasidone hydrochloride 120 mg oral tablet (10 sources) Atypical Antipsychotic Start: 12-13-2020 End: 12-18-2020 take 1 tablet by mouth once daily Lurasidone (Latuda) 120 mg tablet Discontinued 120 MG PO Daily with supper December 13, 2020 12:00am December 18, 2020 10:35am Start: 03-21-2018 End: 12-13-2020 take 1 tablet by mouth once daily Lurasidone (Latuda) 40 mg tablet Discontinued 120 MG PO Daily with supper November 17, 2018 2:27pm December 13, 2020 8:32pm Start: 03-15-2018 End: 03-21-2018 take 1 tablet by mouth once daily Lurasidone (Latuda) 80 mg tablet Discontinued 80 MG PO Daily March 15, 2018 1:00am March 21, 2018 12:03pm medroxyPROGESTERone acetate 10 mg oral tablet (17 sources) Progestin Start: 12-13-2020 End: 09-22-2024 take 1 tablet by mouth once daily at mealtime medroxyPROGESTERone (Provera) 10 MG tablet Indications: History of irregular menstrual cycles , Irregular menstruation, unspecified TAKE 1 TABLET BY MOUTH ONCE A DAY WITH FOOD on Day #1 to Day #10 of the month 30 tablet 4 09/18/2023 09/22/2024 Discontinued (Reorder) mupirocin 0.02 mg/mg topical ointment (2 sources) RNA Synthetase Inhibitor Antibacterial Start: 11-28-2020 Mupirocin 2 % 1 application with Qtip to affected area Externally 2 times a day for 7 days Nov, Not-Taking QUEtiapine 200 mg oral tablet (4 sources) Atypical Antipsychotic Start: 12-13-2020 End: 12-18-2020 take 200 mg by mouth at bedtime Quetiapine Discontinued 200 MG PO Bedtime December 13, 2020 12:00am December 18, 2020 10:35am SEROquel Not-Bhupinder ing reader (7 sources) Start: 09-30-2023 reader reader, See Instructions, 1 EA, 0, freestyle rosalinda reader, [facility] #[id number], Supply, 160, cm, 09/26/23 12:34:00 EDT, Height/Length Dosing, 105, kg, 09/26/23 12:34:00 EDT, Weight Dosing Start Date: 09/30/23 Status: Ordered 24 hr divalproex sodium 500 mg extended release oral tablet (6 sources) Mood Stabilizer, Anti-epilepti c Agent Start: 03-21-2018 End: 11-17-2018 take 2500 mg by mouth at bedtime Divalproex Discontinued 2500 MG PO Bedtime 70 March 21, 2018 1:00am November 17, 2018 2:27pm Start: 03-15-2018 End: 03-15-2018 Divalproex Discontinued Dece mb2017 1:00am March 15, 2018 12:04pm Start: 03-15-2018 End: 03-21-2018 take 1500 mg by mouth at bedtime Divalproex Discontinued 1500 MG PO Bedtime March 15, 2018 1:00am March 21, 2018 11:59am ziprasidone 80 mg oral capsule (4 sources) Atypical Antipsychotic Start: 03-15-2018 End: 12-13-2020 take 80 mg by mouth twice daily at mealtime Ziprasidone Hcl Discontinued 80 MG PO Twice daily with meals March 15, 2018 1:00am December 13, 2020 8:37pm Problems Active Problems Problem Classification Problem Date Documented Da te Episodic/Chronic Administrative/social admission (1 source) Counseling procedure with explicit context; Translations: [Dietary counseling and surveillance] Episodic Chronic obstructive pulmonary disease and bronchiectasis (1 source) Bronchitis, not specified as acute or chronic Episodic Contraceptive and procreative management (2 sources) Oral contraception; Translations: [Encounter for surveillance of contraceptive pills] 09-21-2024 Episodic Diabetes mellitus with complications (13 sources) Type 2 diabetes mellitus in obese; Translations: [Complication due to diabetes mellitus] 03-04-2023 Chronic Comment on above: linked DM with morbi d obesity per OP CDI policy. Diabetes mellitus without complication (1 source) Type 2 diabetes mellitus 01-30-2023 Chronic Diseases of white blood cells (1 source) Leukocytosis 04-27-2024 Chronic Disorders of lipid metabolism (2 sources) Hypertriglyceridemi a; Translations: [Pure hyperglyceridemia] 03-15-2018 Chronic Esophageal disorders (3 sources) Gastro-esophageal reflux disease without esophagitis; Translations: [Gastro-esophageal reflux disease with esophagitis] Onset: 09-08-2021 Chronic Essential hypertension (17 sources) Essential (primary) hypertension; Translations: [Hypertensive disorder] Onset: 01-01-2022 03-15-2018 Chronic Gastrointestinal hemorrhage (4 sources) Hematemesis; Translations: [Hematemesis] 11-20-2018 Episodic Genitourinary symptoms and ill-defined conditions (14 sources) Mixed urinary incontinence 02-18-2019 Chronic Inflammation; infection of eye (except that caused by tuberculosis or sexually transmitteddisease) (1 source) External hordeolum; Translations: [Hordeolum externum unspecified eye, unspecified eyelid] Onset: 12-22-2023 Episodic Malaise and fatigue (1 source) Other fatigue; Translations: [OTHER FATIGUE] Onset: 05-01-2022 Episodic Menstrual disorders (2 sources) Irregular periods; Translations: [Irregular menstruation, unspecified] 09-22-2024 Chronic Mood disorders (20 sources) Bipolar disorder, unspecified; Translations: [Bipolar affective disorder, currently manic, severe, with psychosis] Onset: 06-28-2022 Chronic Nausea and vomiting (4 sources) Nausea and vomiting; Translations: [Nausea with vomiting, unspecified] Episodic Other aftercare (1 source) Other [facility] (current) drug therapy; Translations: [[facility] CURRENT DRUG THERAPY] Onset: 2022 Episodic Other aftercare (1 source) Long-term current use of oral hypoglycemic medication; Translations: [residential (current) use of oral hypoglycemic drugs] Episodic Other and unspecified benign neoplasm (5 sources) Polyp of colon; Translations: [Polyp of colon] Onset: 12-12-2023 Episodic Other ear and sense organ disorders (1 source) Otitis externa of right ear; Translations: [Unspecified otitis externa, right ear] Onset: 10-08-2023 Chronic Other female genital disorders (2 sources) History of clinical finding in subject; Translations: [Personal history of other diseases of the female genital tract] 09-22-2024 Episodic Other gastrointestinal disorders (10 sources) Loose stool 06-24-2023 Episodic Other gastrointestinal disorders (2 sources) Abnormal feces; Translations: [Other fecal abnormalities] Onset: 09-20-2023 Episodic Other lower respiratory disease (14 sources) Cough 12-24-2022 Episodic Other nervous system disorders (9 sources) 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 Episodic Other nervous system disorders (1 source) Tremor 04-27-2024 Episodic Other nutritional; endocrine; and metabolic disorders (1 source) Morbid (severe) obesity due to excess calories; Translations: [MORBID SEVERE OBES D/T EXCESS RADHA] Onset: 09-08-2021 Chronic Other nutritional; endocrine; and metabolic disorders (1 source) Body mass index (BMI) 31.0-31.9, adult; Translations: [BODY MASS INDEX BMI 31.0-31.9 ADULT] Onset: 09-08-2021 Chronic Other nutritional; endocrine; and metabolic disorders (2 sources) Body mass index 30+ - obesity; Translations: [Body mass index (BMI) 39.0-39.9, adult] Chronic Other nutritional; endocrine; and metabolic disorders (17 sources) Body mass index 40+ - severely obese; Translations: [Body mass index (BMI) 40.0-44.9, adult] Onset: 10-08-2023 08-29-2022 Chronic Other nutritional; endocrine; and metabolic disorders (14 sources) Obese class III 08-29-2022 Chronic Other nutritional; endocrine; and metabolic disorders (1 source) Obese class II; Translations: [Body mass index (BMI) 39.0-39.9, adult] Onset: 12-22-2023 Chronic Other nutritional; endocrine; and metabolic disorders (2 sources) Morbid obesity; Translations: [Morbid (severe) obesity due to excess calories] 09-22-2024 Chronic Other upper respiratory infections (1 source) Acute pharyngitis, unspecified Episodic Residual codes; unclassified (13 sources) Obstructive sleep apnea syndrome; Translations: [Obstructive sleep apnea (adult) (pediatric)] Onset: 09-23-2023 02-20-2023 Chronic Residual codes; unclassified (14 sources) Sleep disorder 12-24-2022 Episodic Schizophrenia and other psychotic disorders (6 sources) Paranoid schizophrenia; Translations: [Unspecified psychosis not due to a substance or known physiological condition] Onset: 09-06-2021 Chronic Substance-related disorders (17 sources) Tobacco user; Translations: [Nicotine dependence, unspecified, uncomplicated] Onset: 12-22-2023 03-15-2018 Chronic Comment on above: Added secondary to d ocumentation in Social History. Thyroid disorders (20 sources) Thyroiditis, unspecified; Translations: [Hypothyroidism, unspecified] Onset: 12-12-2021 Chronic Unclassified (1 source) CONTACT W/AND (SUSP) EXPOS COVID-19; Translations: [CONTACT W/AND (SUSP) EXPOS COVID-19] Onset: 01-01-2022 Unclassified (20 sources) Patient encounter status 12-24-2022 Unclassified (5 sources) Sebaceous cyst of skin 10-31-2023 Past or Other Problems Problem Classification Problem Date Documented Date Episodic/Chronic Fluid and electrolyte disorders (1 source) Hypokalemia; Translations: [HYPOKALEMIA] Onset: 01-01-2022 Episodic Other screening for suspected conditions (not mental disorders or infectious disease) (4 sources) Screening for malignant neoplasm of colon done; Translations: [Encounter for screening for malignant neoplasm of colon] Onset: 09-20-2023 Episodic Residual codes; unclassified (1 source) Patient's other noncompliance with medication regimen; Translations: [PT OTH NONCOMPLIANCE W/ MED REGIMEN] Onset: 01-01-2022 Episodic Results Test Name Value Interpretation Reference Range Facil ity Ambulatory Visit Summaryon 0 10-26-2024 Ambulatory Visit Summary Ambulatory Visit Summary WENDY ERAZO :1975 Visit Date:10/26/2024 Ambulatory Visit Instructions Your Diagnosis Type 2 diabetes mellitus with morbid obesity Morbid (severe) obesity due to excess calories Your Care Team Attending Physician - MICHELLE YUN CNP Primary Care Physician - Yeison Del Valle MD. This Is Your Medications List Contact prescribing physician if questions or concerns Misc Prescription (#####) Misc Prescription (Free Style Rosalinda 2 Sensors) Misc Prescription (Free style Rosalinda 2 reader) Misc Prescription (Freestyle Precision Griselda test Strips) Misc Prescription (LANCETS) Misc Prescription (TEST STRIPS) Misc Prescription (glucose meter) Misc Prescription (reader) albuterol (Albuterol (Eqv-Proventil HFA) 90 mcg/inh inhalation aerosol) atorvastatin (atorvastatin 40 mg Tab) levothyroxine (levothyroxine 75 mcg (0.075 mg) Tab) lithium (lithium 300 mg Cap) lithium (lithium 450 mg oral tablet, extended release) lithium (lithium 450 mg oral tablet, extended release) medroxyPROGESTERone medroxyPROGESTERone (medroxyPROGESTERon e 10 mg Tab) metformin (MetFORMIN (Eqv-Glucophage XR) 500 mg oral tablet, extended release) metoprolol (metoprolol succinate 25 mg ER Tab) olanzapine (olanzapine 10 mg Tab) olanzapine (olanzapine 20 mg oral tablet) pantoprazole (Pantoprazole [address] Tab) semaglutide (Ozempic (1 mg dose) 4 mg/3 mL subcutaneous solution) Procedures Performed Colonoscopy (11/05/2023), Colonoscopy (10/08/2023), EGD - esophagogastroduode noscopy (10/08/2023), Biopsy of vulva, Colonoscopy, Colposcopy, EGD (esophagogastroduod enoscopic) electrohydraulic lithotripsy of bezoar in stomach. Discharge Vitals Temperature (Temporal Artery) 36.4 ???C Heart Rate (Peripheral) 88 Respiratory Rate 18 Blood Pressure 128/84 Height 160.0 cm Height 63 in Weight 102.8 kg Weight 226.635 lb BMI 40.16 What to do next Scheduled Follow-Up Appointments Saturday 1:00 PM EST With: Where: [address] [address]- Saturday 2:20 PM EST With: MICHELLE YUN CNP Where: [address] [address]- You Need to Schedule the Following Appointments Follow Up with MICHELLE YUN CNP, FAM When: In 149 days 03/24/2025 EST Comments: Diabetes Where: [address] [place] [id number] Business (1) Medications What How Much When Instructions Unchanged albuterol (Albuterol (Eqv-Proventil HFA) 90 mcg/ inh inhalation aerosol) See instructions INHALE 2 PUFFS BY MOUTH EVERY 6 HOURS Contact prescribing physician if questions or concerns Unchanged atorvastatin (atorvastatin 40 mg Tab) See instructions TAKE 1 TABLET BY MOUTH EVERY DAY Contact prescribing physician if questions or concerns Unchanged levothyroxine (levothyroxine 75 mcg (0.075 mg) Tab) See instructions TAKE 1 TABLET BY MOUTH EVERY DAY Contact prescribing physician if questions or concerns Unchanged lithium (lithium 300 mg Cap) 1 Capsules By Mouth Every day in the morning Contact prescribing physician if questions or concerns Unchanged lithium (lithium 450 mg oral tablet, extended release) 1 Tablets By Mouth 2 times a day Contact prescribing physician if questions or concerns Unchanged lithium (lithium 450 mg oral tablet, extended release) 2 Tablets By Mouth At bedtime Contact prescribing physician if questions or concerns Unchanged medroxyPROGESTERone 10 Milligram By Mouth Contact prescribing physician if questions or concerns Unchanged medroxyPROGESTERone (medroxyPROGESTERon e 10 mg Tab) 30 EA, 0 Refill(s), TAKE 1 TABLET BY MOUTH ONCE A DAY WITH FOOD ON DAYS 1-10 OF THE MONTH Contact prescribing physician if questions or concerns Unchanged metformin (MetFORMIN (Eqv-Glucophage XR) 500 mg oral tablet, extended release) See instructions TAKE 2 TABLETS BY MOUTH TWICE A DAY Contact prescribing physician if questions or concerns Unchanged metoprolol (metoprolol succinate 25 mg ER Tab) 1 Tablets By Mouth Every day Contact prescribing physician if questions or concerns Unchanged Misc Prescription (#####) 0 2 EA, 0 Refill(s), USE TO CHECK BLOOD SUGARS DAILY *TO BE USED WITH FREESTYLE ROSALINDA* Contact prescribing physician if questions or concerns Unchanged Misc Prescription (Free style Rosalinda 2 reader) See instructions use to montior bs Contact prescribing physician if questions or concerns Unchanged Misc Prescription (Free Style Rosalinda 2 Sensors) See instructions To be used w/ FS Rosalinda to check blood sugars daily. Dx: E11.69 Contact prescribing physician if questions or concerns Unchanged Misc Prescription (Freestyle Precision Griselda test Strips) See instructions Use with Freestyle Rosalinda 2 reader once daily Contact prescribing physician if questions or concerns (more content not included)... Normal [facility] Family Medicine Office/Clini c Noteon 10-26-2024 Family Medicine Office/Clinic Note Family Medicine Office/Clinic Note Chief Complaint The patient presents for a diabetic follow-up and routine examination. HPI Staff Wendy is a 49 year old female presenting with 6 month f/u Do you have any of the following symptoms? Foot Exam: due today Eye Exam: Today she is making her appt.... she did have an appt earlier this year Hgb A1C %: 5.2 % (04/13/24 09:38:00) Hgb A1c POC: 5.5 % (10/22/23 14:27:00) Statin: Atorvastatin 40 mg refills needed: none at this time Rosalinda she has a hard time keeping it on her arm, it lasts about a week in a half History of Present Illness 49-year-old female presenting with a diabetic follow-up and routine examination. The patient has a history of type 2 diabetes mellitus with morbid obesity, managed with Ozempic, which has resulted in a last recorded A1c of 5.2. She reports issues with her Rosalinda sensor not lasting the full 14 days, requiring fingerstick calibrations. Her last HgbA1C was 5.2%. The patient also has morbid obesity due to excess caloric intake. She is aware of the need for regular foot care and attends appointments with a station supervisor for nail trimming and callus management. Review of Systems PHQ Score Initial Depression Screen Score: 2 SCORE - Endocrine: Reports stable blood glucose levels with Ozempic, denies hypoglycemic episodes - Dermatological: Reports calluses on feet, denies sores Physical Exam Vitals & Measurements T: 36.4 ???C(Temporal Artery) HR: 88(Peripheral) RR: 18 BP: 128/84 SpO2: 99% HT: 63 in HT: 160.0 cm WT: 226.635 lb WT: 102.8 kg BMI: 40.16 General: alert, no acute distress Cardiovascular: regular rate and rhythm, normal peripheral perfusion Respiratory: Lungs CTA, respirations non labored Extremities: no deformity, no trauma Foot: Normal sensation, normal pulses, no lesions, Presence of calluses on feet Neurological: oriented x 4, LOC appropriate for age speech normal Diabetic Foot Exam Decreased Monofilament Sensation Foot: Left - Normal, Right - Normal Bunions/Foot Deformity: Left - Normal, Right - Normal Abnormal Pulse Foot: Left - Normal, Right - Normal Skin Lesions Foot: Left - Normal, Right - Normal Vibratory Sensation Foot: Left - Normal, Right - Normal Foot Exam Result: Normal foot exam Assessment/Plan 1. Type 2 diabetes mellitus with morbid obesity (E11.69: Type 2 diabetes mellitus with other specified complication) - Recheck A1c levels - continue Ozempic therapy 1 mg subcutaneous weekly and , metformin 500 XR - Continue CGM - Investigate issues with Rosalinda sensor longevity. - Encourage low carb diet and daily exercise - f/u in 6 months Ordered: HgbA1c Lab Specimen Collect [id number] 2. Smoker (F17.200: Nicotine dependence, unspecified, uncomplicated) We strongly recommend to quit tobacco use. Cigarette smoking harms nearly every organ of the body, causes many diseases, and reduces the health of smokers in general. Quitting smoking lowers your risk for smoking-related diseases and can add years to your life. We encourage you to visit www.smokefree.gov access to helpful resources including free telephone support. If you decide on prescription treatment to help you quit, we would be happy to provide these. 3. Obesity, morbid, BMI 40.0-49.9, (E66.01: Morbid (severe) obesity due to excess calories)Class 3 severe obesity due to excess calories with body mass index (BMI) of 40.0 to 44.9 in adult, (E66.01: Morbid (severe) obesity due to excess calories)Morbid (severe) obesity due to excess calories The standard range for ages 18 and older is >=18.5 and < 25 kg/m2. Your BMI today was above this range, this falls in the overweight to obese category and there are medical benefits to weight loss. We can offer counselling, referral, and/or medical support in addressing this problem. Your BMI and weight management will be followed at subsequent visits. Body mass index [BMI] 40.0-44.9, adult (Z68.41: Body mass index [BMI] 40.0-44.9, adult) bmi 40.16 Follow-up With When Contact Information MICHELLE YUN CNP, FAM In 149 days 03/24/[address] [phone] Business (1) Additional Instructions: Diabetes Patient Education Type 2 Diabetes Mellitus, Self-Care, Adult Problem List/Past Medical History Ongoing Bipolar disorder, current episode mixed, moderate Breast cancer screening by mammogram Colon polyps Cough Hypothyroidism Leukocytosis Loose stools Mixed incontinence urge and stress Morbid obesity with BMI of 40.0-44.9, adult MANNY (obstructive sleep apnea) Primary hypertension Sebaceous cyst Sleep disorder Tremor Type 2 diabetes mellitus with morbid obesity Historical BMI 45.0-49.9, adult Depression Procedure/Surgical History Colonoscopy (11/05/2023), Colonoscopy (10/08/2023), EGD - esophagogastroduode noscopy (10/08/2023), Biopsy of vulva, Colonoscopy, Colposcopy, EGD (esophagogastroduod enoscopic) electrohydraulic lithotripsy of bezoar i (more content not included)... Normal [facility] Comment on above: Result Comment: Elec tronically Signed By: MICHELLE YUN CNP\Date and Time Signed: 10/26/24 14:50 EDT [id number] 10-26-2024 HbA1c (Bld) [Mass fraction] 5.5 % Normal <=5.9 [facility] Comment on above: Performed By: #### [id number] #### [facility] [address] [place] [address] Sleep Office/Clinic Noteon 0 10-16-2024 Sleep Office/Clinic Note Sleep Office/Clinic Note History of Present Illness Here for follow-up for underlying obstructive sleep apnea. The patient reports that she has been using her BiPAP machine at a pressure of 24/18 cm via a fullface mask since her last visit with significant improvement in her sleep quality and daytime sleepiness. Recently she has been waking up and noticing that she takes her mask off unintentionally. Her weight has been relatively stable. Review of Systems Constitutional: no fever, no chills, no sweats, no weakness Skin: no Jaundice, no rash, no lesions, no petechiae ENT: no ear pain, no sore throat, no congestion, no hoarseness Respiratory: Denies shortness of breath, cough or wheezing Cardiovascular: no chest pain, no palpitations, no edema Gastrointestinal: no nausea, no vomiting, no diarrhea, no GI bleeding Genitourinary: no dysuria, no hematuria, no discharge, no pain Musculoskeletal: no back pain, no trauma Neurologic: no headache, no dizziness, no numbness, no weakness Psychiatric: no irritability, no mood swings/depression. Heme/Lymph: no bleeding tendency, no bruising tendency, no petechiae, no swollen nodes Allergy/Immunologic : no seasonal allergies, no food allergies, no recurrent infections, no impaired immunity Additional ROS info: Except as noted in the above Review of Systems and in the History of Present Illness all other systems have been reviewed and are negative or noncontributory. Physical Exam Vitals & Measurements HR: 98(Peripheral) BP: 129/82 SpO2: 99% HT: 160 cm WT: 101.9 kg BMI: 39.8 General: Awake and alert in no acute distress HEENT: NC, AT. Prolonged soft palate Neck: Supple no JVD Assessment/Plan 1. MANNY (obstructive sleep apnea) (G47.33: Obstructive sleep apnea (adult) (pediatric)) Appears to be doing well on current pressures without significant side effects with good tolerance and sub-optimal compliance with CPAP with a significant improvement in the apnea hypopnea index to 1.6/hour with minimal leakage based on her most recent download from September 15, 2024 till October 14, 2024 which was reviewed with the patient today. The patient was advised to clean the machine regularly and change supplies as needed. Avoid driving while sleepy and avoid sedatives and hypnotics such as alcohol. We will continue with same pressure unless new issues develop and see the patient back after 1 year. The patient will call us back in the meantime if any issues. Follow-up With When Contact Information Дмитрий MEDELLIN, Amarjit Martinez, JAS TRAN Within 1 year [address] [facility] [place] [address]- Additional Instructions: Problem List/Past Medical History Ongoing Bipolar disorder, current episode mixed, moderate BMI 40.0-44.9, adult Breast cancer screening by mammogram Class 3 obesity Colon polyps Cough Hypothyroidism Leukocytosis Loose stools Mixed incontinence urge and stress MANNY (obstructive sleep apnea) Primary hypertension Sebaceous cyst Sleep disorder Smoker Tremor Type 2 diabetes mellitus with morbid obesity Historical BMI 45.0-49.9, adult Depression Procedure/Surgical History Colonoscopy (11/05/2023), Colonoscopy (10/08/2023), EGD - esophagogastroduode noscopy (10/08/2023), Biopsy of vulva, Colonoscopy, Colposcopy, EGD (esophagogastroduod enoscopic) electrohydraulic lithotripsy of bezoar in stomach. Medications #####, 0 Albuterol (Eqv-ProAir HFA) 90 mcg/inh inhalation aerosol, 180 mcg= 2 inh, Inhalation, q6hr, 2 refills atorvastatin 40 mg Tab, See Instructions, 3 refills Free style Rosalinda 2 reader, See Instructions Free Style Rosalinda 2 Sensors, See Instructions, 3 refills Freestyle Precision Griselda test Strips, See Instructions, 11 refills glucose meter, See Instructions LANCETS, See Instructions, 4 refills levothyroxine 75 mcg (0.075 mg) Tab, See Instructions lithium 300 mg Cap, 300 mg= 1 cap(s), Oral, Daily lithium 300 mg oral tablet, extended release lithium 450 mg oral tablet, extended release, 900 mg= 2 tab(s), Oral, Bedtime medroxyPROGESTERone , 10 mg, Oral medroxyPROGESTERone 10 mg Tab MetFORMIN (Eqv-Glucophage XR) 500 mg oral tablet, extended release, See Instructions, 1 refills metoprolol succinate 25 mg ER Tab, 25 mg= 1 tab(s), Oral, Daily, 4 refills olanzapine 10 mg Tab, 10 mg= 1 tab(s), Oral, Once a day (at bedtime) olanzapine 20 mg oral tablet, 20 mg= 1 tab(s), Oral, Bedtime Ozempic (1 mg dose) 4 mg/3 mL subcutaneous solution, See Instructions Pantoprazole [address] Tab, See Instructions reader, See Instructions TEST STRIPS, See Instructions, 4 refills Allergies No Known Allergies Social History Alcohol - Denies Alcohol Use, 12/13/2020 Never., 10/15/2024 Never., 03/23/2024 Substance Abuse - Denies Substance Abuse, 12/13/2020 Never, 03/24/2024 Tobacco - High Risk, 12/13/2020 10 or more cigarettes (1/2 pack or more)/day in last 30 days Tobacco Use:. Never Smokeless Tobacco Use:. Cigarettes, 10 per day. Started age (more content not included)... Normal [facility] Comment on above: Result Comment: Elec tronically Signed By: Дмитрий MEDELLIN, Amarjit Martinez\.br\Date and Time Signed: 10/16/24 10:05 EDT Ambulatory Visit Summaryon 0 07-17-2024 Ambulatory Visit Summary Ambulatory Visit Summary WENDY ERAZO :1975 Visit Date:07/17/2024 Ambulatory Visit Instructions Your Diagnosis BMI 40.0-44.9, adult Class 3 obesity, Morbid (severe) obesity due to excess calories BMI 39.0-39.9,adult, Body mass index [BMI] 39.0-39.9, adult Class 2 severe obesity with serious comorbidity and body mass index (BMI) of 39.0 to 39.9 in adult Smoker Your Care Team Attending Physician - COURT TIMBER SPOTTER, MICHELLE A Primary Care Physician - Yeison Del Valle MD This Is Your Medications List Misc Prescription (#####) Misc Prescription (Free Style Rosalinda 2 Sensors) Misc Prescription (Free style Rosalinda 2 reader) Misc Prescription (Freestyle Precision Griselda test Strips) Misc Prescription (LANCETS) Misc Prescription (TEST STRIPS) Misc Prescription (glucose meter) Misc Prescription (reader) atorvastatin (atorvastatin 40 mg Tab) levothyroxine (levothyroxine 75 mcg (0.075 mg) Tab) lithium (lithium 300 mg Cap) lithium (lithium 300 mg oral tablet, extended release) lithium (lithium 450 mg oral tablet, extended release) medroxyPROGESTERone medroxyPROGESTERone (medroxyPROGESTERon e 10 mg Tab) metformin (MetFORMIN (Eqv-Glucophage XR) 500 mg oral tablet, extended release) metoprolol (metoprolol succinate 25 mg ER Tab) olanzapine (olanzapine 10 mg Tab) olanzapine (olanzapine 20 mg oral tablet) pantoprazole (Pantoprazole [address] Tab) semaglutide (Ozempic (1 mg dose) 4 mg/3 mL subcutaneous solution) Procedures Performed Colonoscopy (11/05/2023), Colonoscopy (10/08/2023), EGD - esophagogastroduode noscopy (10/08/2023), Biopsy of vulva, Colonoscopy, Colposcopy, EGD (esophagogastroduod enoscopic) electrohydraulic lithotripsy of bezoar in stomach. Discharge Vitals Temperature (Oral) 36.5 ???C Heart Rate (Peripheral) 114 Respiratory Rate 20 Blood Pressure 128/84 Height 160.0 cm Height 63 in Weight 101.1 kg Weight 222.887 lb BMI 39.49 What to do next Scheduled Follow-Up Appointments Saturday 1:00 PM EDT With: Yeison Del Valle MD Where: [address] [address]- Saturday 1:00 PM EST With: Where: [address] [address]- Medications What How Much When Instructions New Misc Prescription (#####) 0 2 EA, 0 Refill(s), USE TO CHECK BLOOD SUGARS DAILY *TO BE USED WITH FREESTYLE ROSALINDA* Changed lithium (lithium 300 mg Cap) 1 Capsules By Mouth Every day in the morning Changed lithium (lithium 300 mg oral tablet, extended release) 30 EA, 0 Refill(s), TAKE 1 TABLET BY MOUTH EVERY DAY Changed lithium (lithium 450 mg oral tablet, extended release) 2 Tablets By Mouth At bedtime Changed medroxyPROGESTERone 10 Milligram By Mouth Changed medroxyPROGESTERone (medroxyPROGESTERon e 10 mg Tab) 30 EA, 0 Refill(s), TAKE 1 TABLET BY MOUTH ONCE A DAY WITH FOOD ON DAYS 1-10 OF THE MONTH Unchanged atorvastatin (atorvastatin 40 mg Tab) See instructions TAKE 1 TABLET BY MOUTH EVERY DAY Unchanged levothyroxine (levothyroxine 75 mcg (0.075 mg) Tab) See instructions TAKE 1 TABLET BY MOUTH EVERY DAY Unchanged metformin (MetFORMIN (Eqv-Glucophage XR) 500 mg oral tablet, extended release) See instructions TAKE 2 TABLETS BY MOUTH TWICE A DAY Unchanged metoprolol (metoprolol succinate 25 mg ER Tab) 1 Tablets By Mouth Every day Unchanged Misc Prescription (Free style Rosalinda 2 reader) See instructions use to montior bs Unchanged Misc Prescription (Free Style Rosalinda 2 Sensors) See instructions To be used w/ FS Rosalinda to check blood sugars daily. Dx: E11.69 Unchanged Misc Prescription (Freestyle Precision Griselda test Strips) See instructions Use with Freestyle Rosalinda 2 reader once daily Unchanged Misc Prescription (glucose meter) See instructions to check BS daily E11.9 Unchanged Misc Prescription (LANCETS) See instructions use to check BS daily dx E11.9 Unchanged Misc Prescription (reader) See instructions freestyle rosalinda reader Unchanged Misc Prescription (TEST STRIPS) See instructions use to check BS daily dx E11.9 Unchanged olanzapine (olanzapine 10 mg Tab) 1 Tablets By Mouth Once a day (at bedtime) along with 20mg at bedtime Unchanged olanzapine (olanzapine 20 mg oral tablet) 1 Tablets By Mouth At bedtime Unchanged pantoprazole (Pantoprazole [address] Tab) See instructions TAKE 1 TABLET BY MOUTH EVERY DAY Unchanged semaglutide (Ozempic (1 mg dose) 4 mg/ 3 mL subcutaneous solution) See instructions INJECT 1 MG SUBCUTANEOUSLY WEEKLY Allergies No Known Allergies Problems Ongoing - Any problem that you are currently receiving treatment for. Bipolar disorder, current episode mixed, moderate BMI 40.0-44.9, adult Breast cancer screening by mammogram Class 3 obesity Colon polyps Cough Hypothyroidism Leukocytosis Loose stools Mixed incontinence urge and s (more content not included)... Normal [facility] Family Medicine Office/Clini c Noteon 07-17-2024 Family Medicine Office/Clinic Note Family Medicine Office/Clinic Note Chief Complaint Respiratory symptoms for two days. HPI Staff Wendy is a 49 year old female presenting with stuffy nose, loss of taste and smell and cough Onset: 2 days ago Body aches: yes Chills: no Fatigue: yes Cough: yes Sore throat: no Fever: no Headache: no on and off Nasal congestion: yes Loss of taste: yes Loss of smell: yes Eye itching/watering: yes Sneezing: yes SOB: yes Tried: Zyrtec and Mucinex.... did not help COVID tested IO- FLU tested IO I have reviewed and verified the staff HPI to be accurate for this encounter. History of Present Illness 49-year-old female patient of Dr. Margaret harmon presenting with respiratory symptoms, which began two days ago. She describes significant coughing, without an apparent fever, although it was noted she felt warm. Her use of feoz-anc-gmxzkvf medications includes Mucinex and Zyrtec, taken in possibly suboptimal doses. The patient's smoking habit is noted, and recent weather conditions raise concerns about mold affecting her symptoms. Initial tests for influenza and COVID-19 were negative; however, testing may have been prematurely conducted. The management plan favors a conservative approach at this time. Review of Systems PHQ Score Initial Depression Screen Score: 0 SCORE - Constitutional: Denies awareness of fever due to extensive sleep. - General: Reports feeling generally unwell, denies documented fever. - Respiratory: Reports significant coughing and slight wheezing. Physical Exam Vitals & Measurements T: 36.5 ???C(Oral) HR: 114(Peripheral) RR: 20 BP: 128/84 SpO2: 97% HT: 63 in HT: 160.0 cm WT: 101.1 kg WT: 222.887 lb BMI: 39.49 General: alert, no acute distress ENMT: TM's clear, oral mucosa moist, no pharyngeal erythema or exudate Cardiovascular: regular rate and rhythm, normal peripheral perfusion Respiratory: Lungs expiratory wheezes, respirations non labored Extremities: no deformity, no trauma Neurological: oriented x 4, LOC appropriate for age speech normal Assessment/Plan 1. Acute URI (J06.9: Acute upper respiratory infection, unspecified) - Symptomatic relief with Mucinex and Zyrtec. - [place] antibiotics for any symptoms persisting beyond seven days. - Ensure adequate hydration and rest for recovery support. - Use of albuterol inhaler for relief at 1-2 puffs every 4-6 hours. - Initiate treatment with Tessalon Perles for managing cough. - Reassess should symptoms not improve. Ordered: albuterol, 180 mcg, 2 inh, Inhalation, q6hr, 18 gm, Refill(s) 2, [id number], 160, cm, 07/17/24 11:44:00 EDT, Height/Length Dosing, 101.1, kg, 07/17/24 11:44:00 EDT, Weight Dosing benzonatate, 100 mg = 1 cap(s), Oral, TID, X 7 day(s), # 21 cap(s), Refills(s) 0, Pharmacy: [id number], 160, cm, 07/17/24 11:44:00 EDT, Height/Length Dosing, 101.1, kg, 07/17/24 11:44:00 EDT, Weight Dosing 2. BMI 40.0-44.9, adult (Z68.41: Body mass index [BMI] 40.0-44.9, adult) The standard range for ages 18 and older is >=18.5 and < 25 kg/m2. Your BMI today was above this range, this falls in the overweight to obese category and there are medical benefits to weight loss. We can offer counselling, referral, and/or medical support in addressing this problem. Your BMI and weight management will be followed at subsequent visits. Ordered: albuterol, 180 mcg, 2 inh, Inhalation, q6hr, 18 gm, Refill(s) 2, [id number], 160, cm, 07/17/24 11:44:00 EDT, Height/Length Dosing, 101.1, kg, 07/17/24 11:44:00 EDT, Weight Dosing benzonatate, 100 mg = 1 cap(s), Oral, TID, X 7 day(s), # 21 cap(s), Refills(s) 0, [id number] 160, cm, 07/17/24 11:44:00 EDT, Height/Length Dosing, 101.1, kg, 07/17/24 11:44:00 EDT, Weight Dosing 3. Class 3 obesity, (E66.01: Morbid (severe) obesity due to excess calories)Morbid (severe) obesity due to excess calories - Implement lifestyle modifications including dietary adjustments and enhancement of physical activity. - Evaluate the necessity of pharmacotherapy if lifestyle changes do not yield desired outcomes. - Schedule regular follow-ups to track weight loss progress and adjust plans as needed. Ordered: albuterol, 180 mcg, 2 inh, Inhalation, q6hr, 18 gm, Refill(s) 2, [id number], 160, cm, 07/17/24 11:44:00 EDT, Height/Length Dosing, 101.1, kg, 07/17/24 11:44:00 EDT, Weight Dosing benzonatate, 100 mg = 1 cap(s), Oral, TID, X 7 day(s), # 21 cap(s), Refills(s) 0, [id number] 160, cm, 07/17/24 11:44:00 EDT, Height/Length Dosing, 101.1, kg, 07/17/24 11:44:00 EDT, Weight Dosing 4. BMI 39.0-39.9,adult, (Z68.39: Body mass index [BMI] 39.0-39.9, adult)Body mass index [BMI] 39.0-39.9, adult Ordered: albuterol, 180 mcg, 2 inh, Inhalation, q6hr, 18 gm, Refill(s) 2, [id number], 160, cm, 07/17/24 11:44:00 EDT, Height/Length Dosing, 101.1, kg, 07/17/24 11:44:00 EDT, Weight Dosing benzonatate, 100 mg = 1 cap(s), Oral, TID, X 7 day(s), # 21 cap(s), Refills(s (more content not included)... Normal [facility] Comment on above: Result Comment: Elec tronically Signed By: MICHELLE YUN CNP\iraida\Date and Time Signed: 07/17/24 11:58 EDT Ambulatory Visit Summaryon 0 04-27-2024 Ambulatory Visit Summary Ambulatory Visit Summary WENDY ERAZO Ignacio :1975 Visit Date:04/27/2024 Ambulatory Visit Instructions Your Diagnosis Type 2 diabetes mellitus with morbid obesity Bipolar disorder, current episode mixed, moderate Morbid (severe) obesity due to excess calories Hypothyroidism Leukocytosis Tremor Your Care Team Attending Physician - Yeison Del Valle MD Primary Care Physician - Yeison Del Valle MD This Is Your Medications List metformin (MetFORMIN (Eqv-Glucophage XR) 500 mg oral tablet, extended release) Contact prescribing physician if questions or concerns Misc Prescription (Free Style Rosalinda 2 Sensors) Misc Prescription (Free style Rosalinda 2 reader) Misc Prescription (LANCETS) Misc Prescription (TEST STRIPS) Misc Prescription (glucose meter) Misc Prescription (reader) atorvastatin (atorvastatin 40 mg Tab) levothyroxine (levothyroxine 75 mcg (0.075 mg) Tab) lithium (lithium 300 mg Cap) lithium (lithium 450 mg oral tablet, extended release) medroxyPROGESTERone metoprolol (metoprolol succinate 25 mg ER Tab) olanzapine (olanzapine 10 mg Tab) olanzapine (olanzapine 20 mg oral tablet) pantoprazole (Pantoprazole [address] Tab) semaglutide (Ozempic (1 mg dose) 4 mg/3 mL subcutaneous solution) Procedures Performed Biopsy of vulva, Colonoscopy, Colposcopy, EGD (esophagogastroduod enoscopic) electrohydraulic lithotripsy of bezoar in stomach. Discharge Vitals Temperature (Oral) 36.6 ???C Heart Rate (Peripheral) 82 Respiratory Rate 18 Blood Pressure 124/82 Height 160.0 cm Height 63 in Weight 101.2 kg Weight 223.108 lb BMI 39.53 What to do next Scheduled Follow-Up Appointments Saturday 1:00 PM EDT With: Yeison Del Valle MD Where: [address] [address]- Saturday 1:00 PM EST With: Where: [facility] [place] [address] [place] [phone]- Medications What How Much When Instructions Unchanged metformin (MetFORMIN (Eqv-Glucophage XR) 500 mg oral tablet, extended release) See instructions TAKE 2 TABLETS BY MOUTH TWICE A DAY Pickup at [id number] Unchanged atorvastatin (atorvastatin 40 mg Tab) See instructions TAKE 1 TABLET BY MOUTH EVERY DAY Contact prescribing physician if questions or concerns Unchanged levothyroxine (levothyroxine 75 mcg (0.075 mg) Tab) See instructions TAKE 1 TABLET BY MOUTH EVERY DAY Contact prescribing physician if questions or concerns Unchanged lithium (lithium 300 mg Cap) 1 Capsules By Mouth Every day in the morning Contact prescribing physician if questions or concerns Unchanged lithium (lithium 450 mg oral tablet, extended release) 2 Tablets By Mouth At bedtime Contact prescribing physician if questions or concerns Unchanged medroxyPROGESTERone 10 Milligram By Mouth Contact prescribing physician if questions or concerns Unchanged metoprolol (metoprolol succinate 25 mg ER Tab) 1 Tablets By Mouth Every day Contact prescribing physician if questions or concerns Unchanged Misc Prescription (Free style Rosalinda 2 reader) See instructions use to montior bs Contact prescribing physician if questions or concerns Unchanged Misc Prescription (Free Style Rosalinda 2 Sensors) See instructions To be used w/ FS Rosalinda to check blood sugars daily. Dx: E11.69 Contact prescribing physician if questions or concerns Unchanged Misc Prescription (glucose meter) See instructions to check BS daily E11.9 Contact prescribing physician if questions or concerns Unchanged Misc Prescription (LANCETS) See instructions use to check BS daily dx E11.9 Contact prescribing physician if questions or concerns Unchanged Misc Prescription (reader) See instructions freestyle rosalinda reader Contact prescribing physician if questions or concerns Unchanged Misc Prescription (TEST STRIPS) See instructions use to check BS daily dx E11.9 Contact prescribing physician if questions or concerns Unchanged olanzapine (olanzapine 10 mg Tab) 1 Tablets By Mouth Once a day (at bedtime) along with 20mg at bedtime Contact prescribing physician if questions or concerns Unchanged olanzapine (olanzapine 20 mg oral tablet) 1 Tablets By Mouth At bedtime Contact prescribing physician if questions or concerns Unchanged pantoprazole (Pantoprazole [address] Tab) 1 Tablets By Mouth Every day Contact prescribing physician if questions or concerns Unchanged semaglutide (Ozempic (1 mg dose) 4 mg/ 3 mL subcutaneous solution) See instructions INJECT 1 MG SUBCUTANEOUSLY WEEKLY Contact prescribing physician if questions or concerns Pharmacy Information [id number]: [address], [place] [id number] [phone] Allergies No Known Allergies Problems Ongoing - Any problem that you are currently receiving treatment for. Bipolar disorder, current episode mixed, moderate BMI 40.0-44.9, adult (more content not included)... Normal [facility] CHEMISTRYOrdered By: SYSTEM SYSTEM on 04-27-2024 Albumin [Mass/Vol] 4.5 g/dL Normal 3.3 - 5.0 gm/dL R emisol Chem Albumin/Globulin [Mass ratio] 1.6 {ratio} Normal 1.1 - 2.2 Remisol Chem ALP [Catalytic activity/Vol] 113 [iU]/d High 21 - 98 Int._Unit/L Remisol Chem ALT No additional P-5'-P [Catalytic activity/Vol] 16 [iU]/d Normal 6 - 46 Int._Unit/L Remisol Chem Anion gap [Moles/Vol] 14 mmol/L Normal 6 - 16 mEq/L Remisol Chem AST [Catalytic activity/Vol] 22 [iU]/d Normal 5 - 43 Int._Unit/L Remisol Chem Bilirubin [Mass/Vol] 0.9 mg/dL Normal 0.0 - 1.1 mg/dL Remisol Chem Calcium [Mass/Vol] 9.9 mg/dL Normal 8.9 - 11.1 mg/dL Remisol Chem Chloride [Moles/Vol] 106 mmol/L Normal 101 - 111 mmol/L Remisol Chem CO2 [Moles/Vol] 21 mmol/L Normal 21 - 31 mmol/L Remis ol Chem Creatinine [Mass/Vol] 0.7 mg/dL Normal 0.5 - 1.3 mg/dL Remisol Chem eGFR 107 mL/min/1.73 m2 Normal >=59mL/min/1.73 m 2 Remisol Chem Globulin (S) [Mass/Vol] 2.9 g/dL Normal 1.4 - 4.0 gm/dL Remisol Chem Glucose [Mass/Vol] 102 mg/dL Normal 55 - 199 mg/dL Re misol Chem Potassium [Moles/Vol] 4.2 mmol/L Normal 3.5 - 5.3 mmol/L Remisol Chem Protein [Mass/Vol] 7.4 g/dL Normal 6.0 - 7.8 gm/dL R emisol Chem Sodium [Moles/Vol] 137 mmol/L Normal 135 - 145 mmol/L Remisol Chem Urea nitrogen [Mass/Vol] 8 mg/dL Normal 5 - 21 mg/dL Remisol Chem Urea nitrogen/Creatinin e [Mass ratio] 11 mg/mg Normal 10 - 20 Remisol Chem CMPon 04-27-2024 Albumin [Mass/Vol] 4.5 g/dL Normal 3.3-5.0 [facility] Comment on above: Performed By: #### 2 [id number] #### [facility] [address] [place] [address] Albumin/Globulin (S) [Mass conc ratio] 1.6 Normal 1.1-2.2 [facility] Comment on above: Performed By: #### 2 [id number] #### [facility] [address] [place] [address] ALP [Catalytic activity/Vol] 113 Int._Unit/L High 21- [facility] Comment on above: Performed By: #### 2 [id number] #### [facility] [address] [place] [address] ALT No additional P-5'-P [Catalytic activity/Vol] 16 Int._Unit/L Normal -46 [facility] Comment on above: Performed By: #### 2 [id number] #### [facility] [address] [place] [address] Anion gap [Moles/Vol] 14 mmol/L Normal 6-16 [facility] Comment on above: Performed By: #### 2 [id number] #### [facility] [address] [place] [address] AST [Catalytic activity/Vol] 22 Int._Unit/L Normal 5-43 [facility] Comment on above: Performed By: #### 2 [id number] #### [facility] [address] [place] [address] Bilirubin [Mass/Vol] 0.9 mg/dL Normal 0.0-1.1 [facility] Comment on above: Performed By: #### 2 [id number] #### [facility] [address] [place] [address] Calcium [Mass/Vol] 9.9 mg/dL Normal 8.9-11.1 [facility] Comment on above: Performed By: #### 2 [id number] #### [facility] [address] [place] [address] Chloride [Moles/Vol] 106 mmol/L Normal 101-111 [facility] Comment on above: Performed By: #### 2 [id number] #### [facility] [address] [place] [address] CO2 [Moles/Vol] 21 mmol/L Normal 21-31 [facility] Comment on above: Performed By: #### 2 [id number] #### [facility] [address] [place] [address] Creatinine [Mass/Vol] 0.7 mg/dL Normal 0.5-1.3 [facility] Comment on above: Performed By: #### 2 [id number] #### [facility] [address] [place] [address] Globulin (S) [Mass/Vol] 2.9 g/dL Normal 1.4-4.0 [facility] Comment on above: Performed By: #### 2 [id number] #### [facility] [address] [place] [address] Glucose [Mass/Vol] 102 mg/dL Normal 55-199 [facility] Comment on above: Performed By: #### 2 [id number] #### [facility] [address] [place] [address] Potassium [Moles/Vol] 4.2 mmol/L Normal 3.5-5.3 [facility] Comment on above: Performed By: #### 2 [id number] #### [facility] [address] [place] [address] Protein [Mass/Vol] 7.4 g/dL Normal 6.0-7.8 [facility] Comment on above: Performed By: #### 2 [id number] #### [facility] [address] [place] [address] Sodium [Moles/Vol] 137 mmol/L Normal 135-145 [facility] Comment on above: Performed By: #### 2 [id number] #### [facility] [address] [place] [address] Urea nitrogen [Mass/Vol] 8 mg/dL Normal 5-21 [facility] Comment on above: Performed By: #### 2 [id number] #### [facility] [address] [place] [address] Urea nitrogen/Creatinin e [Mass ratio] 11 No Units Normal 10-20 [facility] Comment on above: Performed By: #### 2 [id number] #### [facility] [address] [place] [address] Family Medicine Office/Clini c Noteon 04-27-2024 Family Medicine Office/Clinic Note Family Medicine Office/Clinic Note Chief Complaint The patient presents with concerns regarding her bipolar disorder and diabetes management. HPI Staff Wendy is a 48 year old female presenting for follow up DM- Do you have any of the following symptoms? Foot Exam: February- March 2024 Eye Exam: January 2024 Last A1C: Hgb A1C %: 8.3 % High (05/22/23 13:14:00) Hgb A1c POC: 5.5 % (10/22/23 14:27:00) Statin: atorvastatin 40 mg questions/concerns: she is fasting if labs are to be done today needs refills on Metformin History of Present Illness The patient is a 48 year old female presenting with concerns regarding the management of her bipolar disorder and type 2 diabetes mellitus. She describes experiencing involuntary shaking, specifically when performing activities, which affects her quality of life. This symptom is notable as it interfered during a social event when she felt unable to control shaking while holding a cup of coffee. She previously discussed these symptoms with her psychiatrist, but no clear etiology was established. She is currently managing these symptoms without significant exacerbation. The patient's history of type 2 diabetes is notable, with a recent assessment indicating a blood glucose level of 219 mg/dL contrasted with a hemoglobin A1c of 5.2%. This discrepancy suggests episodic hyperglycemia, with recent efforts to maintain blood glucose levels within the recommended 140 to 160 mg/dL range. She is also managing morbid obesity and hypothyroidism, for which she shows adequate thyroid control. She reports using her CPAP machine regularly, which is pertinent for her comorbid conditions. Recent laboratory evaluations are largely reassuring, with normal creatinine levels and favorable cholesterol profiles. Review of Systems PHQ Score Initial Depression Screen Score: 2 SCORE Physical Exam Vitals & Measurements T: 36.6 ???C(Oral) HR: 82(Peripheral) RR: 18 BP: 124/82 SpO2: 99% HT: 63 in HT: 160.0 cm WT: 101.2 kg WT: 223.108 lb BMI: 39.53 General: alert, no acute distress ENMT: oral mucosa moist Cardiovascular: Regular rate and rhythm, normal peripheral perfusion Respiratory: Lungs clear to auscultation, respirations non labored Extremities: no deformity, no trauma Neurological: oriented x 4, level of consciousness appropriate for age, CN II-XII intact, motor strength equal & normal bilaterally, speech normal, noted involuntary shaking when performing tasks Abdomen: Soft, Non-tender, Non-distended, + Bowel sounds Assessment/Plan 1. Type 2 diabetes mellitus with morbid obesity (E11.69: Type 2 diabetes mellitus with other specified complication) The patient should maintain efforts to keep blood glucose levels in the target range to mitigate the risk of complications from episodic hyperglycemia. Continued use of metformin is indicated, with refill confirmed. Regular monitoring of blood glucose levels is essential, and adjustments in dietary intake should be revisited. Ordered: Comprehensive Metabolic Panel 2. Bipolar disorder, current episode mixed, moderate (F31.62: Bipolar disorder, current episode mixed, moderate) Currently stable management with the psychiatrist. Monitoring for exacerbation of symptoms such as shaking is necessary, though further neurological investigation deferred at this time. Continual psychiatric review for medication adjustment as needed is recommended. Ordered: Comprehensive Metabolic Panel 3. Morbid (severe) obesity due to excess calories (E66.01: Morbid (severe) obesity due to excess calories) Weight management strategies are critical and may include dietary consultation and addressing lifestyle changes. Use of CPAP continues to be emphasized to manage obstructive sleep apnea. Ordered: Comprehensive Metabolic Panel 4. Hypothyroidism (E03.9: Hypothyroidism, unspecified) Thyroid levels appear well-controlled; no adjustment in management is noted. Continual monitoring via routine endocrine evaluation as indicated. Ordered: Comprehensive Metabolic Panel 5. Leukocytosis (D72.829: Elevated white blood cell count, unspecified) NO hx of illness at the time. Will monitor. Ordered: Comprehensive Metabolic Panel 6. Tremor (R25.1: Tremor, unspecified) Not visible when the patient does not pay attention. This maybe anxiety related. Will monitor. Ordered: Comprehensive Metabolic Panel Orders: metformin, See Instructions, TAKE 2 TABLETS BY MOUTH TWICE A DAY, # 360 tab(s), Refills(s) 1, Pharmacy: [id number], 160, cm, 04/27/24 10:49:00 EST, Height/Length Dosing, 101.2, kg, 04/27/24 10:49:00 EST, Weight Dosing 48 year old female with history of bipolar disorder, controlled with observed shaking, and type 2 diabetes mellitus presenting with concerns regarding the management of these chronic conditions. The episodic tremors seem to have a psychological component, considering absence during examination. The diabetes mellitus management is complicated b (more content not included)... Normal [facility] Comment on above: Result Comment: Elec tronically Signed By: Eligio MEDELLIN, Yeison Harris\.br\Date and Time Signed: 04/27/24 11:12 EST eGFRon 04-27-2024 eGFR 107 mL/min/1.73 m2 Normal >=59 [facility] Comment on above: Performed By: #### 1 [id number] #### [facility] [address] [place] [address] CBC w/ Auto Diffon 5 Basophils/100 WBC (Bld) 0.6 % Normal 0.0-2.0 [facility] Comment on above: Performed By: #### 2 [id number] #### [facility] [address] [place] [address] Basophils/Leukocyt es Auto (Bld) [Pure # fraction] 0.1 E9/L Normal 0.0-0.2 [facility] Comment on above: Performed By: #### 2 [id number] #### [facility] [address] [place] [address] Eosinophils (Bld) [#/Vol] 1.2 E9/L High 0.0-0.5 [facility] Comment on above: Performed By: #### 2 [id number] #### [facility] [address] [place] [address] Eosinophils/100 WBC (Bld) 9.8 % High 0.0-8.0 [facility] Comment on above: Performed By: #### 2 [id number] #### [facility] [address] [place] [address] Erythrocyte distribution width (RBC) [Ratio] 15.2 % High 10.9-14.2 [facility] Comment on above: Performed By: #### 2 [id number] #### [facility] [address] [place] [address] Hematocrit (Bld) [Volume fraction] 40.0 % Normal 34.0-46.0 [facility] Comment on above: Performed By: #### 2 [id number] #### [facility] [address] [place] [address] Hemoglobin (Bld) [Mass/Vol] 13.2 g/dL Normal 12.0-16.0 [facility] Comment on above: Performed By: #### 2 [id number] #### [facility] [address] [place] [address] Lymphocytes (Bld) [#/Vol] 3.6 E9/L Normal 1.0-4.0 [facility] Comment on above: Performed By: #### 2 [id number] #### [facility] [address] [place] [address] Lymphocytes/100 WBC (Bld) 30.0 % Normal 14.0-50.0 [facility] Comment on above: Performed By: #### 2 [id number] #### [facility] [address] [place] [address] MCH (RBC) [Entitic mass] 29.9 pg Normal 27.0-34.0 [facility] Comment on above: Performed By: #### 2 [id number] #### [facility] [address] [place] [address] MCHC (RBC) [Mass/Vol] 33.0 g/dL Normal 31.4-36.0 [facility] Comment on above: Performed By: #### 2 [id number] #### [facility] [address] [place] [address] MCV (RBC) [Entitic vol] 90.6 fL Normal 80.0-100.0 [facility] Comment on above: Performed By: #### 2 [id number] #### [facility] [address] [place] [address] Monocytes (Bld) [#/Vol] 0.6 E9/L Normal 0.2-1.0 [facility] Comment on above: Performed By: #### [id number] #### [facility] [address] [place] [address] Neutrophils (Bld) [#/Vol] 6.6 E9/L Normal 2.0-7.5 [facility] Comment on above: Performed By: #### 2 [id number] #### [facility] [address] [place] [address] Neutrophils/100 WBC (Bld) 54.6 % Normal 36.0-75.0 [facility] Comment on above: Performed By: #### 2 [id number] #### [facility] [address] [place] [address] Platelet mean volume (Bld) [Entitic vol] 9.0 fL Normal 6.4-10.8 [facility] Comment on above: Performed By: #### 2 [id number] #### [facility] [address] [place] [address] Platelets (Bld) [#/Vol] 235.0 E9/L Normal 150.0-500.0 [facility] Comment on above: Performed By: #### 2 [id number] #### [facility] [address] [place] [address] RBC (Bld) [#/Vol] 4.4 E12/L Normal 4.3-5.9 [facility] Comment on above: Performed By: #### 2 [id number] #### [facility] [address] [place] [address] WBC corrected for nucl RBC Auto (Bld) [#/Vol] 12.0 E9/L High 4.0-11.0 [facility] Comment on above: Performed By: #### 2 [id number] #### [facility] [address] [place] [address] CHEMISTRYOrdered By: SYSTEM SYSTEM on 04-13-2024 Albumin DL <= 20 mg/L (U) [Mass/Vol] 10.0 mg/dL High 0.0 - 1.9 mg/dL [facility] Albumin/Creatinine DL <= 20 mg/L (U) [Mass ratio] 104.9 mg/gm Cr High 0.0 - 30.0 mg/gm Cr [facility] Comment on above: Interpretive Data: 3 0-300 mg/g Cr indicates an increased risk for diabetic nephropathy. >300 mg/g Cr is consistent with clinical nephropathy. Cholesterol [Mass/Vol] 83 mg/dL Low 120 - 200 mg/dL [facility] Cholesterol in HDL [Mass/Vol] 31 mg/dL Invalid Interpretation Code [facility] Comment on above: Result Comment: '>= 60 LOW RISK' '<= 40 HIGH RISK' Cholesterol in LDL [Mass/Vol] 30 mg/dL Normal <=129mg/dL [facility] Cholesterol in VLDL [Mass/Vol] 55 mg/dL High 7 - 40 mg/dL [facility] Triglyceride [Mass/Vol] 276 mg/dL High <=149mg/dL [facility] TSH Qn 4.66 m[IU]/L Normal 0.34 - 5.60 mcIU/mL Rem isol Chem U Creatinine 95.3 mg/dL Invalid Interpretation Code [facility] CHEMISTRYOrdered By: Dnag Robertson on 04-13-2024 HbA1c (Bld) [Mass fraction] 5.2 % Normal <=5.9% [facility] ChemAutoSS HEMATOLOGYOrdered By: SYSTEM SYSTEM on 04-13-2024 Basophils/100 WBC (Bld) 0.6 % Normal 0.0 - 2.0 % [facility] Basophils/Leukocyt es Auto (Bld) [Pure # fraction] 0.1 E9/L Normal 0.0 - 0.2 E9/L [facility] Eosinophils (Bld) [#/Vol] 1.2 E9/L High 0.0 - 0.5 E9/L [facility] Eosinophils/100 WBC (Bld) 9.8 % High 0.0 - 8.0 % [facility] Erythrocyte distribution width (RBC) [Ratio] 15.2 % High 10.9 - 14.2 % [facility] Hematocrit (Bld) [Volume fraction] 40.0 % Normal 34.0 - 46.0 % [facility] Hemoglobin (Bld) [Mass/Vol] 13.2 g/dL Normal 12.0 - 16.0 gm/dL [facility] Lymphocytes (Bld) [#/Vol] 3.6 E9/L Normal 1.0 - 4.0 E9/L [facility] Lymphocytes/100 WBC (Bld) 30.0 % Normal 14.0 - 50.0 % [facility] MCH (RBC) [Entitic mass] 29.9 pg Normal 27.0 - 34.0 pg Rem[facility]e MCHC (RBC) [Mass/Vol] 33.0 g/dL Normal 31.4 - 36.0 gm/dL [facility] MCV (RBC) [Entitic vol] 90.6 fL Normal 80.0 - 100.0 fL [facility] Monocytes (Bld) [#/Vol] 0.6 E9/L Normal 0.2 - 1.0 E9/L [facility] Monocytes/100 WBC (Bld) 5.0 % Normal 4.0 - 14.0 % [facility] Neutrophils (Bld) [#/Vol] 6.6 E9/L Normal 2.0 - 7.5 E9/L [facility] Neutrophils/100 WBC (Bld) 54.6 % Normal 36.0 - 75.0 % [facility] Platelet mean volume (Bld) [Entitic vol] 9.0 fL Normal 6.4 - 10.8 fL [facility] Platelets (Bld) [#/Vol] 235.0 E9/L Normal 150.0 - 500.0 E9/L [facility]e RBC (Bld) [#/Vol] 4.4 E12/L Normal 4.3 - 5.9 E12/L Re misol Heme WBC corrected for nucl RBC Auto (Bld) [#/Vol] 12.0 E9/L High 4.0 - 11.0 E9/L Remisol Heme [id number] 04-13-2024 HbA1c (Bld) [Mass fraction] 5.2 % Normal <=5.9 [facility] Comment on above: Performed By: #### [id number] #### [facility] [address] [place] [address] Lipid Panelon 04-13-2024 Cholesterol [Mass/Vol] 83 mg/dL Low 120-200 [facility] Comment on above: Performed By: #### 2 [id number] #### [facility] [address] [place] [address] Cholesterol in HDL [Mass/Vol] 31 mg/dL Invalid Interpretation Code [facility] Comment on above: Result Comment: '>= 60 LOW RISK' '<= 40 HIGH RISK' Performed By: #### 2 [id number] #### [facility] [address] [place] [address] Cholesterol in LDL [Mass/Vol] 30 mg/dL Normal <=129 [facility] Comment on above: Performed By: #### 2 [id number] #### [facility] [address] [place] [address] Cholesterol in VLDL [Mass/Vol] 55 mg/dL High 7-40 [facility] Comment on above: Performed By: #### 2 [id number] #### [facility] [address] [place] [address] Triglyceride [Mass/Vol] 276 mg/dL High <=149 [facility] Comment on above: Performed By: #### 2 [id number] #### [facility] [address] [place] [address] TSHon 04-13-2024 TSH Qn 4.66 m[IU]/L Normal 0.34-5.60 [facility] Comment on above: Performed By: #### 2 [id number] #### [facility] [address] [place] [address] U MA/Cr Ratioon 04-13-2024 Albumin DL <= 20 mg/L (U) [Mass/Vol] 10.0 mg/dL High 0.0-1.9 [facility] Comment on above: Performed By: #### 1 [id number] #### [facility] [address] [place] [address] Albumin/Creatinine DL <= 20 mg/L (U) [Mass ratio] 104.9 mg/gm Cr High .0-30.0 [facility] Comment on above: Result Comment: 30-3 00 mg/g Cr indicates an increased risk for diabetic nephropathy. >300 mg/g Cr is consistent with clinical nephropathy. Performed By: #### 1 [id number] #### [facility] [address] [place] [address] U Creatinine 95.3 mg/dL Invalid Interpretation Code [facility] Comment on above: Performed By: #### 1 [id number] #### [facility] [address] [place] [address] Ambulatory Visit Summaryon 05-27-2023 Ambulatory Visit Summary Ambulatory Visit Summary WENDY ERAZO :1975 Visit Date:03/24/2024 Ambulatory Visit Instructions Your Diagnosis Encounter for subsequent annual wellness visit (AWV) in Medicare patient Type 2 diabetes mellitus with morbid obesity Class 3 obesity BMI 40.0-44.9, adult Bipolar disorder, current episode mixed, moderate Hypothyroidism Primary hypertension Screening for ischemic heart disease On statin therapy Advanced directives, counseling/discussi on Immunization declined Your Care Team Attending Physician - Yeison Del Valle MD Primary Care Physician - Yeison Del Valle MD This Is Your Medications List Misc Prescription (Free Style Rosalinda 2 Sensors) Misc Prescription (LANCETS) Misc Prescription (TEST STRIPS) Misc Prescription (glucose meter) Misc Prescription (reader) atorvastatin (atorvastatin 40 mg Tab) levothyroxine (levothyroxine 75 mcg (0.075 mg) Tab) lithium (lithium 300 mg Cap) lithium (lithium 450 mg oral tablet, extended release) medroxyPROGESTERone metformin (MetFORMIN (Eqv-Glucophage XR) 500 mg oral tablet, extended release) metoprolol (metoprolol succinate 25 mg ER Tab) olanzapine (olanzapine 10 mg Tab) olanzapine (olanzapine 20 mg oral tablet) pantoprazole (Pantoprazole [address] Tab) semaglutide (Ozempic (1 mg dose) 4 mg/3 mL subcutaneous solution) Procedures Performed Biopsy of vulva, Colonoscopy, Colposcopy, EGD (esophagogastroduod enoscopic) electrohydraulic lithotripsy of bezoar in stomach. Discharge Vitals Heart Rate (Peripheral) 84 Blood Pressure 136/74 Height 160 cm Height 63 in Weight 102.82 kg Weight 226.679 lb BMI 40.16 What to do next Scheduled Follow-Up Appointments Saturday 9:20 AM EST With: Where: [address] [address]- Saturday 10:45 AM EST With: Eligio MEDELLIN, Yeison Harris Where: [address] [address]- Saturday 1:00 PM EST With: Where: [address] [address]- You Need to Complete the Following CBC w/ Auto Diff, Blood, Routine collect, 03/24/24, Order for future visit, Lab Collect, Primary hypertension Type 2 diabetes mellitus with morbid obesity, Print Label By Order Location HgbA1c, Blood, Routine collect, 03/24/24, Order for future visit, Lab Collect, Type 2 diabetes mellitus with morbid obesity, Print Label By Order Location Lipid Panel, Blood, Routine collect, 03/24/24, Order for future visit, Lab Collect, Screening for ischemic heart disease, Print Label By Order Location Thyroid Stimulating Hormone, Blood, Routine collect, 03/24/24, Order for future visit, Lab Collect, Hypothyroidism, Print Label By Order Location Urine Microalbumin/Creati nine Ratio, Urine, Routine collect, 03/24/24, Order for future visit, Nurse collect, Primary hypertension Type 2 diabetes mellitus with morbid obesity, Print Label By Order Location Medications What How Much When Instructions Unchanged atorvastatin (atorvastatin 40 mg Tab) See instructions TAKE 1 TABLET BY MOUTH EVERY DAY Unchanged levothyroxine (levothyroxine 75 mcg (0.075 mg) Tab) See instructions TAKE 1 TABLET BY MOUTH EVERY DAY Unchanged lithium (lithium 300 mg Cap) 1 Capsules By Mouth Every day in the morning Unchanged lithium (lithium 450 mg oral tablet, extended release) 2 Tablets By Mouth At bedtime Unchanged medroxyPROGESTERone 10 Milligram By Mouth Unchanged metformin (MetFORMIN (Eqv-Glucophage XR) 500 mg oral tablet, extended release) See instructions TAKE 2 TABLETS BY MOUTH TWICE A DAY Unchanged metoprolol (metoprolol succinate 25 mg ER Tab) 1 Tablets By Mouth Every day Unchanged Misc Prescription (Free Style Rosalinda 2 Sensors) See instructions To be used w/ FS Rosalinda to check blood sugars daily. Dx: E11.69 Unchanged Misc Prescription (glucose meter) See instructions to check BS daily E11.9 Unchanged Misc Prescription (LANCETS) See instructions use to check BS daily dx E11.9 Unchanged Misc Prescription (reader) See instructions freestyle rosalinda reader Unchanged Misc Prescription (TEST STRIPS) See instructions use to check BS daily dx E11.9 Unchanged olanzapine (olanzapine 10 mg Tab) 1 Tablets By Mouth Once a day (at bedtime) along with 20mg at bedtime Unchanged olanzapine (olanzapine 20 mg oral tablet) 1 Tablets By Mouth At bedtime Unchanged pantoprazole (Pantoprazole [address] Tab) 1 Tablets By Mouth Every day Unchanged semaglutide (Ozempic (1 mg dose) 4 mg/ 3 mL subcutaneous solution) See instructions INJECT 1 MG SUBCUTANEOUSLY WEEKLY Allergies No Known Allergies Problems Ongoing - Any problem that you are currently receiving treatment for. Bipolar disorder, current episode mixed, moderate BMI 40.0-44.9, adult Breast c (more content not included)... Normal [facility] Family Medicine Office/Clini c Noteon 03-26-2024 Family Medicine Office/Clinic Note Family Medicine Office/Clinic Note Chief Complaint Subsequent Medicare Wellness Review of Systems PHQ Score Initial Depression Screen Score: 2 SCORE Physical Exam Vitals & Measurements HR: 84(Peripheral) BP: 136/74 SpO2: 98% HT: 160 cm HT: 63 in WT: 102.82 kg WT: 226.679 lb BMI: 40.16 Assessment/Plan 1. Encounter for subsequent annual wellness visit (AWV) in Medicare patient (Z00.00: Encounter for general adult medical examination without abnormal findings) The patient was given a customized and personalized print out of all the current AHRQ USPSTF???s recommendations for preventative services and all current CDC recommended immunizations, relevant risk recommendations and the following patient brochures were given. Reviewed Medicare Prevention Services checklist. CDC-Falls Prevention and home safety screening reviewed. Patient denies any falls in last 12 months, voices no worry about falling. Exhibits no problems with sitting, standing or ambulation. Patient aware with keeping walk way area free of clutter to prevent tripping and/or falling. [place] Advance Directives reviewed. Documents provided, see #9. Patient denies any problems with ADL???s and Instrumental ADL???s. Cognitive screening completed with memory and clock face drawing. No deficits noted. Patient recited 2/3 memory words. Immunization record reviewed, 2 COVID vaccines have been administered, with 1 Booster received. Allergies and medications reviewed and up to date. No concerns with taking medication as prescribed. Reviewed OTC medications, medication list up to date. Blood tests were reviewed: Discussed what tests need to be updated. Labs were ordered, will have completed prior to next PCP visit. Labs to be completed with [facility]. No concerns with bowel/ bladder. Colonoscopy last completed 11/05/2023. Reviewed pain symptoms: Patient denies pain today. Reviewed all outside providers that patient follows. Last visit summary notes available in chart and/or have been requested. Patient declines any signs or symptoms of depression at this time. 8 minutes spent with screening and documentation. PHQ2 screening score 0. Patient denies alcohol use. 8 minutes spent with screening and documentation. Audit score 0. Follow up scheduled with PCP, 04/27/2024 AWV has been scheduled, 03/24/2025 Medicare provides yearly screening for alcohol and depression concerns. This is completed during our Medicare wellness visit for those who do not have a current diagnosis of depression or concerns with alcohol use. I spent a total of 17 minutes on this date of service which included preparing to see the patient, face to face patient care, completing clinical documentation, obtaining and/or reviewing separately obtained history, counseling and educating the patient with handouts. Explanations were provided with reviewing questionnaires. AUDIT risk assessment screening completed, risk score (0) with patient denying concerns with use. Completed PHQ-2 risk assessment for depression with risk score (8), negative findings. Patient has been reminded to notify the provider if there would be a change or concerns with symptoms with fear, unable to sleep, worrying too much or feeling down and/or sad with lost of interest with daily activities. Will continue to monitor with screening yearly during Medicare wellness visits. 2. Type 2 diabetes mellitus with morbid obesity (E11.69: Type 2 diabetes mellitus with other specified complication) Patient is compliant on current DM medications: Metformin and Semaglutide. Patient does monitors BS at home: DM stoplight handout reviewed with s/s to monitor for and report to PCP. Discussed ADA dietary recommendations with low carbs and reduce sugar intake. Patient encouraged to increase daily physical activity, adequate water intake and maintain a healthy weight. Pt follows up with PCP with yearly DM foot checks, last completed . Reminded patient to perform at home foot checks to prevent future complications, wash with soap and water, apply lotion to bilateral feet and in-between toes to prevent dryness and/or cracking. Wear proper fitting shoes and loose fitting socks and/or hose. Follows up with yearly DM eye exams, last visit notes available in chart for review. A1C ordered and urine microalbumin/creati nine. see #3 3. Class 3 obesity (E66.01: Morbid (severe) obesity due to excess calories) The standard range for ages 18 and older is >=18.5 and < 25 kg/m2. Your BMI 40.16 today was above this range, this falls in the morbid obese category and there are medical benefits to weight loss. BMI monitoring is helpful with identifying a weight problem that may be related to a medical condition, or may increase the risk for medical problems. Your BMI and weight management will be followed at subsequent visits with your provider and monitored for progress. GOAL: promoting healthier lifestyle with diet changes in order to reach a healthy weight. 4. BMI 40.0-44.9, adult (Z68.41: Body mass (more content not included)... Normal [facility] Comment on above: Result Comment: Elec tronically Signed By: Alexa Kendall\.br\Date and Time Signed: 03/26/24 11:09 EST\.br\Electronically Co-Signed By: Aliyah Washington.br\Date and Time Co-Signed: 03/24/24 15:55 EST MM screening mammo BI w/CADo n 01-13-2024 MM screening mammo BI w/CAD [facility] [place] [address] [place] [address] Mammography Report Signed Patient: Wendy Erazo MR#: [id number] : 1975 Acct:[id number] Age/Sex: 48 / F ADM Date: 01/13/24 Loc: [place] Room: Type: [facility] Attending Dr: Beulah Gordon DO Copies to: BEULAH GORDON MD Ordering Provider: BEULAH GORDON DO Date of Service: 01/13/24 MM/MM screening mammo BI w/CAD: screening CLINICAL DATA: Screening for malignancy. SCREENING MAMMOGRAM - FULL FIELD DIGITAL WITH TOMOSYNTHESIS AND CAD COMPARISON:Mammogra ms dating back to 2015 Tomosynthesis craniocaudal and mediolateral oblique views of both breasts were obtained using low- dose digital technique. This examination was reviewed with the aid of CAD. FINDINGS: The breast tissue is almost entirely fatty. There are no dominant masses, typically malignant calcifications or architectural distortion. There has been no significant interval change. MM/MM screening mammo BI w/CAD IMPRESSION: NO MAMMOGRAPHIC EVIDENCE OF MALIGNANCY. ROUTINE FOLLOW-UP IS RECOMMENDED IN ONE YEAR. RESULT CODE: 1 Negative DENSITY CODE: 1 (<25% glandular) FOLLOW UP: 1YR The false-negative rate of mammography is approximately 10-percent. Management of a palpable abnormality must be based on clinical grounds. Patient was entered into a reminder system with a target due date for the next mammogram. Impression dictated by: Vikas Huerta Jr., D.O.01/13/2024 3:33 PM Dictation Location: [facility] Transcribed By: [facility] 01/13/24 1533 Dictated By: Vikas Huerta Jr, DO 01/13/24 153 Signed By: 01/13/24 1533 Normal [facility] Ambulatory Visit Summaryon 0 12-22-2023 Ambulatory Visit Summary Ambulatory Visit Summary WENDY ERAZO :1975 Visit Date:12/22/2023 Ambulatory Visit Instructions Your Diagnosis Hordeolum Smoker BMI 39.0-39.9,adult Your Care Team Attending Physician - ZHENG Beverly APRN, Alyx Segura Primary Care Physician - Yeison Del Valle MD This Is Your Medications List Contact prescribing physician if questions or concerns Misc Prescription (Free Style Rosalinda 2 Sensors) Misc Prescription (LANCETS) Misc Prescription (TEST STRIPS) Misc Prescription (glucose meter) Misc Prescription (reader) atorvastatin (atorvastatin 40 mg Tab) levothyroxine (levothyroxine 75 mcg (0.075 mg) Tab) lithium (lithium 300 mg Cap) lithium (lithium 450 mg oral tablet, extended release) medroxyPROGESTERone metformin (Glucophage XR 500 mg oral tablet, extended release) metoprolol (metoprolol succinate 25 mg ER Tab) olanzapine (olanzapine 10 mg Tab) olanzapine (olanzapine 20 mg oral tablet) pantoprazole (Pantoprazole [address] Tab) semaglutide (Ozempic (1 mg dose) 4 mg/3 mL subcutaneous solution) Procedures Performed Biopsy of vulva, Colonoscopy, Colposcopy, EGD (esophagogastroduod enoscopic) electrohydraulic lithotripsy of bezoar in stomach. Discharge Vitals Heart Rate (Peripheral) 100 Blood Pressure 120/60 Height 160 cm Height 63 in Weight 100 kg Weight 220 lb BMI 39.06 What to do next Scheduled Follow-Up Appointments Saturday 11:00 AM EST Where: [facility] [place] [address]- Medications What How Much When Instructions Unchanged atorvastatin (atorvastatin 40 mg Tab) See instructions TAKE 1 TABLET BY MOUTH EVERY DAY Contact prescribing physician if questions or concerns Unchanged levothyroxine (levothyroxine 75 mcg (0.075 mg) Tab) See instructions TAKE 1 TABLET BY MOUTH EVERY DAY Contact prescribing physician if questions or concerns Unchanged lithium (lithium 300 mg Cap) 1 Capsules By Mouth Every day in the morning Contact prescribing physician if questions or concerns Unchanged lithium (lithium 450 mg oral tablet, extended release) 2 Tablets By Mouth At bedtime Contact prescribing physician if questions or concerns Unchanged medroxyPROGESTERone 10 Milligram By Mouth Contact prescribing physician if questions or concerns Unchanged metformin (Glucophage XR 500 mg oral tablet, extended release) 2 Tablets By Mouth 2 times a day Contact prescribing physician if questions or concerns Unchanged metoprolol (metoprolol succinate 25 mg ER Tab) 1 Tablets By Mouth Every day Contact prescribing physician if questions or concerns Unchanged Misc Prescription (Free Style Rosalinda 2 Sensors) See instructions To be used w/ FS Rosalinda to check blood sugars daily. Dx: E11.69 Contact prescribing physician if questions or concerns Unchanged Misc Prescription (glucose meter) See instructions to check BS daily E11.9 Contact prescribing physician if questions or concerns Unchanged Misc Prescription (LANCETS) See instructions use to check BS daily dx E11.9 Contact prescribing physician if questions or concerns Unchanged Misc Prescription (reader) See instructions freestyle rosalinda reader Contact prescribing physician if questions or concerns Unchanged Misc Prescription (TEST STRIPS) See instructions use to check BS daily dx E11.9 Contact prescribing physician if questions or concerns Unchanged olanzapine (olanzapine 10 mg Tab) 1 Tablets By Mouth Once a day (at bedtime) along with 20mg at bedtime Contact prescribing physician if questions or concerns Unchanged olanzapine (olanzapine 20 mg oral tablet) 1 Tablets By Mouth At bedtime Contact prescribing physician if questions or concerns Unchanged pantoprazole (Pantoprazole [address] Tab) 1 Tablets By Mouth Every day Contact prescribing physician if questions or concerns Unchanged semaglutide (Ozempic (1 mg dose) 4 mg/ 3 mL subcutaneous solution) See instructions INJECT 1 MG SUBCUTANEOUSLY WEEKLY Contact prescribing physician if questions or concerns Medications and Immunizations Administered Not Given influenza virus vaccine, inactivated, Patient Refuses Allergies No Known Allergies Problems Ongoing - Any problem that you are currently receiving treatment for. Bipolar disorder, current episode mixed, moderate BMI 45.0-49.9, adult Breast cancer screening by mammogram Class 3 obesity Colon cancer screening Colon polyps Cough Hypothyroidism Loose stools Mixed incontinence urge and stress MANNY (obstructive sleep apnea) Primary hypertension Sebaceous cyst Sleep disorder Smoker Type 2 diabetes mellitus with morbid obesity Historical - Any problem that you are no longer receiving treatment for. Depression Patient Survey You may receive a survey via text or e-mail asking about your office visit. Please share your experience with us by completing your survey. We appreciate your feedback and (more content not included)... Normal [facility] Family Medicine Office/Clini c Notejessica 12-22-2023 Family Medicine Office/Clinic Note Family Medicine Office/Clinic Note Chief Complaint rt eye swelling HPI Staff complaints of rt eye pain Onset: 2 days Characteristics: swelling and drainage OTC tried: none History of Present Illness I have reviewed and verified the staff HPI to be accurate for this encounter. Portions of this record may have been created with voice recognition artificial intelligence software, specifically [employer], [employer] and or [employer]. Substitutions may have occurred due to the inherent limitations of voice recognition and artificial intelligence software. Patient presents in office today with complaints of right eyelid swelling, discomfort x 2 days. She denies any known injury or trauma. Denies any eye drainage, vision changes. Patient does wear contacts, eye make-up. She states she has been using cool compresses at home which does help to relieve the discomfort temporarily. Review of Systems PHQ Score Initial Depression Screen Score: 0 SCORE Physical Exam Vitals & Measurements HR: 100(Peripheral) BP: 120/60 SpO2: 97% HT: 63 in HT: 160 cm WT: 100 kg WT: 220 lb BMI: 39.06 General: Well developed, well nourished, in no acute distress Eyes: _PERRL, EOM intact. No drainage noted. Right lower eyelid is within normal limits. Right upper eyelid with mild edema noted more medially, there is a small augustin noted along the lash line. Patient does have increased discomfort on palpation of this area. No periorbital redness, edema, increased warmth to the touch. Ears: No deformity or lesion of external ear. Canals and TM appear normal bilaterally. TM?s intact, not inflamed, with normal light reflex. Hearing grossly normal to conversational speech Nose: No deformity, discharge, inflammation, or lesions Mouth: Mucous membranes moist. Normal oropharynx, and posterior pharynx without lesions or exudates. Tongue normal Neck: no adenopathy Lungs: clear to auscultation throughout, no wheezing, no rales. No respiratory distress Cardio: regular rate and rhythm, no murmur Abdomen: not assessed Musculoskeletal: not assessed Extremity: not assessed Neurologic: not assessed Skin: No rashes, ulcerations, or suspicious lesions Mental Status: Alert and oriented x3. Normal mood and affect Assessment/Plan 1. Hordeolum (H00.019: Hordeolum externum unspecified eye, unspecified eyelid) History exam consistent with stye. Discussed with patient styes generally resolve on their own. May use Tylenol/ibuprofen for discomfort. Encouraged use of warm compresses TID - QID to facilitate drainage. Will Rx erythromycin ophthalmic ointment to prevent further secondary infection. Patient to f/u with PCP if no gradual improvement over the next 1-2 weeks, sooner if significantly worsening. Patient verbalized understanding of tx plan. Ordered: erythromycin ophthalmic, 1/4 inch ribbon, Eye-Right, TID for 7 day(s), 3.5 gm, Refill(s) 0, [facility]/pharmacy #[id number], 160, cm, 12/22/23 12:02:00 EDT, Height/Length Dosing, 100, kg, 12/22/23 12:02:00 EDT, Weight Dosing 2. Smoker (F17.200: Nicotine dependence, unspecified, uncomplicated) We strongly recommend to quit tobacco use. Cigarette smoking harms nearly every organ of the body, causes many diseases, and reduces the health of smokers in general. Quitting smoking lowers your risk for smoking-related diseases and can add years to your life. We encourage you to visit www.smokefree.gov access to helpful resources including free telephone support. If you decide on prescription treatment to help you quit, we would be happy to provide these. 3. BMI 39.0-39.9,adult (Z68.39: Body mass index [BMI] 39.0-39.9, adult) The standard range for ages 18 and older is >=18.5 and < 25 kg/m2. Your BMI today was above this range, this falls in the overweight to obese category and there are medical benefits to weight loss. We can offer counselling, referral, and/or medical support in addressing this problem. Your BMI and weight management will be followed at subsequent visits. Ordered: Body Mass Index (BMI) documented 3008F Follow-up With When Contact Information Eligio MEDELLIN, Yeison Harris, [facility], MED Only if needed Additional Instructions: 2 weeks Patient Education Stye Steps to Quit Smoking BMI for Adults Problem List/Past Medical History Ongoing Bipolar disorder, current episode mixed, moderate BMI 45.0-49.9, adult Breast cancer screening by mammogram Class 3 obesity Colon cancer screening Colon polyps Cough Hypothyroidism Loose stools Mixed incontinence urge and stress MANNY (obstructive sleep apnea) Primary hypertension Sebaceous cyst Sleep disorder Smoker Type 2 diabetes mellitus with morbid obesity Historical Depression Procedure/Surgical History Biopsy of vulva, Colonoscopy, Colposcopy, EGD (esophagogastroduod enoscopic) electrohydraulic lithotripsy of bezoar in stomach. Medications atorvastatin 40 mg Tab, See Instructions erythromycin Opth 0.5% Oint, 1/4 inch ribbon (more content not included)... Normal [facility] Comment on above: Result Comment: Elec tronically Signed By: ZHENG Beverly APRN, Alyx Segura\.mariano\Date and Time Signed: 12/22/23 12:40 EDT Ambulatory Visit Summaryon 0 12-12-2023 Ambulatory Visit Summary Ambulatory Visit Summary WENDY ERAZO :1975 Visit Date:12/12/2023 Ambulatory Visit Instructions Your Diagnosis Loose stools Colon polyps Your Care Team Attending Physician - Shahrzad MEDELLIN, Melissa Osorio Primary Care Physician - Eligio MEDELLIN, Yeison Harris This Is Your Medications List Contact prescribing physician if questions or concerns Misc Prescription (Free Style Rosalinda 2 Sensors) Misc Prescription (LANCETS) Misc Prescription (TEST STRIPS) Misc Prescription (glucose meter) Misc Prescription (reader) atorvastatin (Lipitor 40 mg Tab) levothyroxine (levothyroxine 75 mcg (0.075 mg) Tab) lithium (lithium 300 mg Cap) lithium (lithium 450 mg oral tablet, extended release) medroxyPROGESTERone metformin (Glucophage XR 500 mg oral tablet, extended release) metoprolol (metoprolol succinate 25 mg ER Tab) olanzapine (olanzapine 10 mg Tab) olanzapine (olanzapine 20 mg oral tablet) pantoprazole (Pantoprazole [address] Tab) semaglutide (Ozempic (1 mg dose) 4 mg/3 mL subcutaneous solution) Procedures Performed Biopsy of vulva, Colonoscopy, Colposcopy, EGD (esophagogastroduod enoscopic) electrohydraulic lithotripsy of bezoar in stomach. Discharge Vitals Heart Rate (Peripheral) 76 Respiratory Rate 16 Blood Pressure 109/70 Height 160 cm Height 63 in Weight 102 kg Weight 224.4 lb BMI 39.84 What to do next Scheduled Follow-Up Appointments Saturday 11:00 AM EST Where: [facility] Medicine [address] [place] [address]- Medications What How Much When Why Instructions Unchanged atorvastatin (Lipitor 40 mg Tab) 1 Tablets By Mouth Every day Loose stools Contact prescribing physician if questions or concerns Unchanged levothyroxine (levothyroxine 75 mcg (0.075 mg) Tab) See instructions TAKE 1 TABLET BY MOUTH EVERY DAY Contact prescribing physician if questions or concerns Unchanged lithium (lithium 300 mg Cap) 1 Capsules By Mouth Every day in the morning Contact prescribing physician if questions or concerns Unchanged lithium (lithium 450 mg oral tablet, extended release) 2 Tablets By Mouth At bedtime Contact prescribing physician if questions or concerns Unchanged medroxyPROGESTERone 10 Milligram By Mouth Contact prescribing physician if questions or concerns Unchanged metformin (Glucophage XR 500 mg oral tablet, extended release) 2 Tablets By Mouth 2 times a day Contact prescribing physician if questions or concerns Unchanged metoprolol (metoprolol succinate 25 mg ER Tab) 1 Tablets By Mouth Every day Contact prescribing physician if questions or concerns Unchanged Misc Prescription (Free Style Rosalinda 2 Sensors) See instructions To be used w/ FS Rosalinda to check blood sugars daily. Dx: E11.69 Contact prescribing physician if questions or concerns Unchanged Misc Prescription (glucose meter) See instructions to check BS daily E11.9 Contact prescribing physician if questions or concerns Unchanged Misc Prescription (LANCETS) See instructions use to check BS daily dx E11.9 Contact prescribing physician if questions or concerns Unchanged Misc Prescription (reader) See instructions freestyle rosalinda reader Contact prescribing physician if questions or concerns Unchanged Misc Prescription (TEST STRIPS) See instructions use to check BS daily dx E11.9 Contact prescribing physician if questions or concerns Unchanged olanzapine (olanzapine 10 mg Tab) 1 Tablets By Mouth Once a day (at bedtime) along with 20mg at bedtime Contact prescribing physician if questions or concerns Unchanged olanzapine (olanzapine 20 mg oral tablet) 1 Tablets By Mouth At bedtime Contact prescribing physician if questions or concerns Unchanged pantoprazole (Pantoprazole [address] Tab) 1 Tablets By Mouth Every day Contact prescribing physician if questions or concerns Unchanged semaglutide (Ozempic (1 mg dose) 4 mg/ 3 mL subcutaneous solution) See instructions INJECT 1 MG SUBCUTANEOUSLY WEEKLY Contact prescribing physician if questions or concerns Medications and Immunizations Administered Not Given influenza virus vaccine, inactivated, Patient Refuses Allergies No Known Allergies Problems Ongoing - Any problem that you are currently receiving treatment for. Bipolar disorder, current episode mixed, moderate BMI 45.0-49.9, adult Breast cancer screening by mammogram Class 3 obesity Colon cancer screening Colon polyps Cough Hypothyroidism Loose stools Mixed incontinence urge and stress MANNY (obstructive sleep apnea) Primary hypertension Sebaceous cyst Sleep disorder Smoker Type 2 diabetes mellitus with morbid obesity Historical - Any problem that you are no longer receiving treatment for. Depression Patient Survey You may receive a survey via text or e-mail asking about your office visit. Please share your experience with us by completing your survey. We appreciate your feedback and than (more content not included)... Normal [facility] Gastroenterology Office/Clin ic Noteon 12-12-2023 Gastroenterology Office/Clinic Note Gastroenterology Office/Clinic Note Chief Complaint follow up to colonoscopy HPI Staff Patient is a(n) 48 year old female who presents today for a follow up to Colonoscopy on 11/05/23. Still having loose stools. BM's a day/week: morning and in the afternoon after meal. Any blood or mucus in stools? No. Takes Ozempic weekly. Denies blood thinners. Last visit 09/26/23 w/Dr. Markham: Assessment/Plan 1. Loose stools (R19.5: Other fecal abnormalities) over a year, likely d/t Paramount, DDx include celiac, IBS-D, MC... Increase Imodium to 4 mg daily, take 30 minutes before meals- If this doesn't work we will talk to Behavior health to see if we can change Paramount Thyroid was normal We will proceed with Celiac panel and Colonoscopy w/ Duodenal, random colon and TI intubation 2. Colon cancer screening (Z12.11: Encounter for screening for malignant neoplasm of colon) Proceed with Colonoscopy- hold Ozempic for a week prior- Discussed risk and benefits with patient- agreeable to proceeding EGD 10/08/23: 1. Normal examined esophagus 2. Mild patchy erythema through the antrum, minimal old blood with multiple fundic gland polyps, one of them was oozing 10mm in size, and semipedunculated, resected using cold snare completely and retrieved. Random bx were also taken to r/o h pylori 3. Normal examined duodenum, random biopsies were taken to r/o celiac disease Pathology: Final Diagnosis (Verified) A: DUODENUM, BIOPSY: - Duodenal mucosa within normal limits B: STOMACH, BIOPSY: - Gastric antral gland mucosa with mild chronic nonspecific gastritis - Negative for intestinal metaplasia or dysplasia - Negative for H. pylori (H&E stained slides) Note: H. pylori immunostaining requested and will be reported as an addendum. C: FUNDUS POLYP, POLYPECTOMY: - Fundic gland polyp - Negative for intestinal metaplasia or dysplasia - Negative for H. pylori (H&E stained slides) D: COLON, RANDOM BIOPSY: - Colonic mucosa within normal limits Addendum (Verified) No Helicobacter pylori microorganisms identified with immunohistochemical stain. Colonoscopy: 1. Small internal hemorrhoids 2. 5 mm sessile polyp in the proximal transverse colon, resected with cold snare completely and retrieved. Otherwise normal colonic mucosa. Random biopsies were taken as well to rule out microscopic colitis 3. Normal TI Recommendations: Repeat colonoscopy in 7 years. Pathology: Final Diagnosis (Verified) A: COLON, RANDOM, BIOPSY: - Benign colonic mucosa with focal hyperplastic changes. - No evidence of chronic, active or microscopic colitis identified. B: COLON, TRANSVERSE, POLYPECTOMY: - Fragments of tubular adenoma. History of Present Illness Doing well Physical Exam Vitals & Measurements HR: 76(Peripheral) RR: 16 BP: 109/70 HT: 63 in HT: 160 cm WT: 102 kg WT: 224.4 lb BMI: 39.84 Assessment/Plan 1. Loose stools (R19.5: Other fecal abnormalities) 2 bowel movements a day, loose, taking lithium We discussed using fibers [id number] Given she does not have any significant symptoms no interventions are needed at this point Random colon biopsies and random duodenal biopsies were negative 2. Colon polyps (K63.5: Polyp of colon) 1 small TA, repeat in 7 years Follow-up No qualifying data available Problem List/Past Medical History Ongoing Bipolar disorder, current episode mixed, moderate BMI 45.0-49.9, adult Breast cancer screening by mammogram Class 3 obesity Colon cancer screening Colon polyps Cough Hypothyroidism Loose stools Mixed incontinence urge and stress MANNY (obstructive sleep apnea) Primary hypertension Sebaceous cyst Sleep disorder Smoker Type 2 diabetes mellitus with morbid obesity Historical Depression Procedure/Surgical History Biopsy of vulva, Colonoscopy, Colposcopy, EGD (esophagogastroduod enoscopic) electrohydraulic lithotripsy of bezoar in stomach. Medications Free Style Rosalinda 2 Sensors, See Instructions, 3 refills Glucophage XR 500 mg oral tablet, extended release, 1000 mg= 2 tab(s), Oral, BID, 1 refills glucose meter, See Instructions LANCETS, See Instructions, 4 refills levothyroxine 75 mcg (0.075 mg) Tab, See Instructions Lipitor 40 mg Tab, 40 mg= 1 tab(s), Oral, Daily lithium 300 mg Cap, 300 mg= 1 cap(s), Oral, Daily lithium 450 mg oral tablet, extended release, 900 mg= 2 tab(s), Oral, Bedtime medroxyPROGESTERone , 10 mg, Oral metoprolol succinate 25 mg ER Tab, 25 mg= 1 tab(s), Oral, Daily, 1 refills olanzapine 10 mg Tab, 10 mg= 1 tab(s), Oral, Once a day (at bedtime) olanzapine 20 mg oral tablet, 20 mg= 1 tab(s), Oral, Bedtime Ozempic (1 mg dose) 4 mg/3 mL subcutaneous solution, See Instructions Pantoprazole [address] Tab, 40 mg= 1 tab(s), Oral, Daily, 4 refills reader, See Instructions TEST STRIPS, See Instructions, 4 refills Allergies No Known Allergies Social History Alcohol - Denies Alcohol Use, 12/13/2020 Ready to ch (more content not included)... Normal [facility] Comment on above: Result Comment: Elec tronically Signed By: Shahrzad MEDELLIN, Melissa Osorio\.br\Date and Time Signed: 12/12/23 15:19 EDT Reminderson 11-11-2023 Reminders Reminders -- From: Derick Cota To: [facility] - Reminders/Recalls; Sent: 11/11/2023 17:16:13 EDT Show up: 10/06/2030 17:16:00 EDT Subject: Ambulatory Reminder Due Date/Time: 11/04/2030 17:16:00 EDT Reminder/Recall Repeat colonoscopy in 7 years(2030) due to tubular adenoma Normal [facility] Result Letter Officeon 11-10 Result Letter Office Result Letter Office November 11, 2023 [place] [address] : 1975 Below is a summary of the results of your recent colonoscopy. Your results have been sent to your primary care provider along with recommendations on when the procedure should be repeated. COLONOSCOPY WITH POLYP REMOVAL OR BIOPSY Type of polyp tubular adenoma - not cancer but can become cancer if not removed. Additional colonoscopies will be necessary to monitor your condition and assure that new polyps have not developed. Based on your results we are recommending you repeat the procedure in 7 years You will be placed in our reminder system and will receive a reminder letter prior to your next due date. [facility] [phone] Normal [facility] Surgical Pathology Reporton 11-07-2023 Surgical Pathology Report [facility] [address] [place] [address]- Surgical Pathology Report Collected Date/Time: 11/05/2023 09:40 EDT Pathologist: Arsalan Denney MD Received Date/Time: 11/05/2023 18:00 EDT Shahrzad MEDELLIN, Melissa Markham MD, Melissa Osorio 07 Surgical Pathology Report - 11/07/2023 16:23 EDT - Auth (Verified) Final Diagnosis A: COLON, RANDOM, BIOPSY: - Benign colonic mucosa with focal hyperplastic changes. - No evidence of chronic, active or microscopic colitis identified. B: COLON, TRANSVERSE, POLYPECTOMY: - Fragments of tubular adenoma. (Electronic Signature) Yan. Jumana MD 11/07/2023 16:23 Clinical Information Pre-Op Diagnosis: Screening Procedure: Colonoscopy Specimen(s) Received A: Random Colon Biopsies B: Transverse colon polyp Gross Description A: Received in formalin labeled with patient name, number, and random colon biopsies are multiple fragments of head tissue ranging from less than 0.1 to 0.5 cm in greatest dimension. Specimen is entirely submitted in one cassette. B: Received in formalin labeled with patient name, number, and transverse colon polyp are multiple fragments of head tissue ranging from 0.2 to 0.6 cm and measuring in aggregate 1.3 x 0.6 x 0.2 cm. Specimen is entirely submitted in one cassette. (DC) DC:[facility] Microscopic Description A&B: Microscopic examination performed unless gross only specified. Normal [facility] Comment on above: Performed By: #### [id number] #### [facility] Laboratory [address] [place] [address] [facility] Medicine Office/Clini c Noteon 10-31-2023 Family Medicine Office/Clinic Note Family Medicine Office/Clinic Note HPI Staff Wendy is a 48 year old female presenting for acute visit Acute: cyst on back on neck right side present for 10 years and was lanced once then has come back and dissolved on its own and now back again and it hurts, patient wants it lanced, Dr wanted to see the cyst first to determine what kind of cyst and how to proceed Did make appt with consulting networking engineer who did it in past but can't get in til aug didn't know if Javier had one could see her sooner Physical Exam Vitals & Measurements T: 36.9 ?C(Temporal Artery) HR: 100(Peripheral) RR: 18 BP: 126/84 SpO2: 99% HT: 63 in HT: 160 cm WT: 104.3 kg WT: 229.46 lb BMI: 40.74 1cm possible cystic acne with no area of fluctuance noted. Assessment/Plan 1. Sebaceous cyst (L72.3: Sebaceous cyst) Unsure if this is a sebaceous cyst that is small versus cystic acne. There is not any area for lancing at this time. Patient will follow-up with dermatology. Warm compresses advised. Orders: semaglutide, 1 mg, SubCutaneous, qWeek, # 3 EA, Refills(s) 0, Pharmacy: [facility]/pharmacy #[id number], 160, cm, 08/20/23 14:44:00 EDT, Height/Length Dosing, 110.5, kg, 08/20/23 14:44:00 EDT, Weight Dosing semaglutide, See Instructions, INJECT 1 MG SUBCUTANEOUSLY WEEKLY, # 9 Unspecified/Unknown , Refills(s) 0, Pharmacy: [id number], 160, cm, 10/22/23 14:00:00 EDT, Height/Length Dosing, 105, kg, 10/22/23 14:00:00 EDT, Weight Dosing Follow-up No qualifying data available Problem List/Past Medical History Ongoing Bipolar disorder, current episode mixed, moderate BMI 45.0-49.9, adult Breast cancer screening by mammogram Class 3 obesity Colon cancer screening Cough Hypothyroidism Loose stools Mixed incontinence urge and stress MANNY (obstructive sleep apnea) Primary hypertension Sebaceous cyst Sleep disorder Smoker Type 2 diabetes mellitus with morbid obesity Historical Depression Procedure/Surgical History Biopsy of vulva, Colonoscopy, Colposcopy, EGD (esophagogastroduod enoscopic) electrohydraulic lithotripsy of bezoar in stomach. Medications Free Style Rosalinda 2 Sensors, See Instructions, 3 refills Glucophage XR 500 mg oral tablet, extended release, 1000 mg= 2 tab(s), Oral, BID, 1 refills glucose meter, See Instructions LANCETS, See Instructions, 4 refills levothyroxine 75 mcg (0.075 mg) Tab, 75 mcg= 1 tab(s), Oral, Daily Lipitor 40 mg Tab, 40 mg= 1 tab(s), Oral, Daily lithium 300 mg Cap, 300 mg= 1 cap(s), Oral, Daily lithium 450 mg oral tablet, extended release, 900 mg= 2 tab(s), Oral, Bedtime medroxyPROGESTERone , 10 mg, Oral metoprolol 25 mg ER Tab, 25 mg= 1 tab(s), Oral, Daily olanzapine 10 mg Tab, 10 mg= 1 tab(s), Oral, Once a day (at bedtime) olanzapine 20 mg oral tablet, 20 mg= 1 tab(s), Oral, Bedtime Ozempic (1 mg dose) 4 mg/3 mL subcutaneous solution, See Instructions Pantoprazole [address] Tab, 40 mg= 1 tab(s), Oral, Daily, 4 refills reader, See Instructions TEST STRIPS, See Instructions, 4 refills Allergies No Known Allergies Social History Alcohol - Denies Alcohol Use, 12/13/2020 Ready to change: No. Household alcohol concerns: No., 03/25/2023 Substance Abuse - Denies Substance Abuse, 12/13/2020 Tobacco - High Risk, 12/13/2020 10 or more cigarettes (1/2 pack or more)/day in last 30 days Tobacco Use:. Never Smokeless Tobacco Use:. Cigarettes, Started age 19.0 Years. Previous treatment: Counseling, Nicotine replacement. Ready to change: No. Household tobacco concerns: No. Yes, 10/31/2023 Family History Diabetes mellitus type 2: Mother. Hypertension: Father. Kidney disease: Mother. Immunizations Vaccine Date Status Comments influenza virus vaccine, inactivated - Not Given Postpone due to refusal SARS-CoV-2 (COVID-19) mRNA-1273 vaccine 07/29/2020 Recorded SARS-CoV-2 (COVID-19) mRNA-1273 vaccine 2020 Recorded SARS-CoV-2 (COVID-19) mRNA-1273 vaccine 06/21/2020 Recorded influenza virus vaccine, inactivated 02/21/2015 Recorded Normal [facility] Comment on above: Result Comment: Elec tronically Signed By: Eligio MEDELLIN, Yeison Harris\.br\Date and Time Signed: 10/31/23 15:51 EDT Ambulatory Visit Summaryon 0 10-22-2023 Ambulatory Visit Summary Ambulatory Visit Summary WENDY ERAZO Ignacio :1975 Visit Date:10/22/2023 Ambulatory Visit Instructions Your Diagnosis Primary hypertension Type 2 diabetes mellitus with morbid obesity BMI 40.0-44.9, adult Class 3 severe obesity due to excess calories with body mass index (BMI) of 40.0 to 44.9 in adult Smoker Your Care Team Attending Physician - Yeison Del Valle MD Primary Care Physician - Yeison Del Valle MD This Is Your Medications List Misc Prescription (Free Style Rosalinda 2 Sensors) Misc Prescription (LANCETS) Misc Prescription (TEST STRIPS) Misc Prescription (glucose meter) Misc Prescription (reader) atorvastatin (Lipitor 40 mg Tab) levothyroxine (levothyroxine 75 mcg (0.075 mg) Tab) lithium (lithium 300 mg Cap) lithium (lithium 450 mg oral tablet, extended release) medroxyPROGESTERone metformin (Glucophage XR 500 mg oral tablet, extended release) metoprolol (metoprolol 25 mg ER Tab) olanzapine (olanzapine 10 mg Tab) olanzapine (olanzapine 20 mg oral tablet) pantoprazole (Pantoprazole [address] Tab) semaglutide (Ozempic (1 mg dose) 4 mg/3 mL subcutaneous solution) Procedures Performed Biopsy of vulva, Colonoscopy, Colposcopy, EGD (esophagogastroduod enoscopic) electrohydraulic lithotripsy of bezoar in stomach. Discharge Vitals Temperature (Temporal Artery) 37.2 ?C Heart Rate (Peripheral) 92 Respiratory Rate 18 Blood Pressure 124/72 Height 160 cm Height 63 in Weight 105.0 kg Weight 231 lb BMI 41.02 What to do next Scheduled Follow-Up Appointments Saturday 11:00 AM EST Where: [facility] Medicine Penny Invalid Interpretation Code Type 2 diabetes mellitus with morbid obesity [facility] Office/Clini c Noteon 10-22-2023 Family Medicine Office/Clinic Note Family Medicine Office/Clinic Note HPI Staff Wendy is a 48 year old female presenting for 2 month follow up DM, htn Do you have any of the following symptoms? Foot Exam: none Eye Exam: UTD, one coming up on Last A1C: Hgb A1C %: 8.3 % High (05/22/23 13:14:00) Statin: Patient is here for follow up on hypertension. How often are you checking your blood pressure? Doesnt check BP at home What are your average readings? N/A, Not checking at home Yearly BMP: 01/23/23 questions/concerns: still having the colon issues, went for colonoscopy first part of october and she was muddy so it has to be repeated [facility] for earache, was given drops and seems to be healed History of Present Illness Patient here for follow-up. Patient states his blood sugars are 50-200. Patient taking medication. Patient needs a referral to podiatry for nail clippings. For more information see staff HPI. Physical Exam Vitals & Measurements T: 37.2 ?C(Temporal Artery) HR: 92(Peripheral) RR: 18 BP: 124/72 SpO2: 96% HT: 63 in HT: 160 cm WT: 105.0 kg WT: 231 lb BMI: 41.02 General: alert, no acute distress ENMT: oral mucosa moist, Cardiovascular: regular rate and rhythm, normal peripheral perfusion Respiratory: Lungs expiratory wheezes, respirations non labored Extremities: no deformity, no trauma Neurological: oriented x 4, LOC appropriate for age, CN II-XII intact, motor strength equal & normal bilaterally, speech normal Abdomen: Soft, Nontender, Non-distended, + BS Assessment/Plan 1. Primary hypertension (I10: Essential (primary) hypertension) - at goal. - NO issues. - Continue on meds as before Ordered: A1c POC 88173 Body Mass Index (BMI) documented 3008F Current tobacco smoker 1034F [facility] External Ambulatory Referral Influenza immunization administered or previously received 4274F Most recent diastolic blood pressure <80 mm Hg 3078F Systolic BP <130 mm Hg (Most Recent) 3074F 2. Type 2 diabetes mellitus with morbid obesity (E11.69: Type 2 diabetes mellitus with other specified complication) - Will check A1c today. -Will adjust Ozempic based off of labs. -Per patient blood sugars range from 50-200. Ordered: A1c POC 65145 Body Mass Index (BMI) documented 3008F Current tobacco smoker 1034F [facility] [place] External Ambulatory Referral Influenza immunization administered or previously received 4274F Most recent diastolic blood pressure <80 mm Hg 3078F Systolic BP <130 mm Hg (Most Recent) 3074F 3. BMI 40.0-44.9, adult (Z68.41: Body mass index [BMI] 40.0-44.9, adult) - BMI education added to the chart Ordered: A1c POC 45695 Body Mass Index (BMI) documented 3008F Current tobacco smoker 1034F [facility] [place] External Ambulatory Referral Influenza immunization administered or previously received 4274F Most recent diastolic blood pressure <80 mm Hg 3078F Systolic BP <130 mm Hg (Most Recent) 3074F 4. Class 3 severe obesity due to excess calories with body mass index (BMI) of 40.0 to 44.9 in adult (E66.01: Morbid (severe) obesity due to excess calories) - Diet and exercise advised. Ordered: A1c POC 96163 Body Mass Index (BMI) documented 3008F Current tobacco smoker 1034F [facility] External Ambulatory Referral Influenza immunization administered or previously received 4274F Most recent diastolic blood pressure <80 mm Hg 3078F Systolic BP <130 mm Hg (Most Recent) 3074F 5. Smoker (F17.200: Nicotine dependence, unspecified, uncomplicated) - Encouraged the patient to stop smoking. Patient is wheezing today. Not on any inhalers or diagnosed with COPD. Ordered: A1c POC 89667 Body Mass Index (BMI) documented 3008F Current tobacco smoker 1034F [facility] [place] External Ambulatory Referral Influenza immunization administered or previously received 4274F Most recent diastolic blood pressure <80 mm Hg 3078F Systolic BP <130 mm Hg (Most Recent) 3074F Follow-up No qualifying data available Problem List/Past Medical History Ongoing Bipolar disorder, current episode mixed, moderate BMI 45.0-49.9, adult Breast cancer screening by mammogram Class 3 obesity Colon cancer screening Cough Hypothyroidism Loose stools Mixed incontinence urge and stress MANNY (obstructive sleep apnea) Primary hypertension Sleep disorder Smoker Type 2 diabetes mellitus with morbid obesity Historical Depression Procedure/Surgical History Biopsy of vulva, Colonoscopy, Colposcopy, EGD (esophagogastroduod enoscopic) electrohydraulic lithotripsy of bezoar in stomach. Medications Free Style Rosalinda 2 Sensors, See Instructions, 3 refills Glucophage XR 500 mg oral tablet, extended release, 1000 mg= 2 tab(s), Oral, BID, 1 refills glucose meter, See Instructions LANCETS, See Instructions, 4 refills levothyroxine 75 mcg (0.075 mg) Tab, 75 mcg= 1 tab(s), Oral, Daily Lipitor 40 mg Tab, 40 mg= 1 tab(s), Oral, Daily lithium 300 mg Cap, 300 mg= 1 cap(s), Oral, Daily lithium 450 mg oral tablet, extended release, (more content not included)... Normal [facility] Comment on above: Result Comment: Elec tronically Signed By: Eligio MEDELLIN, Yeison Harris\.br\Date and Time Signed: 10/22/23 14:22 EDT 07 Addendum Reporton 024 07 Addendum Report [facility] [address] [place] [address]- Surgical Pathology Report Collected Date/Time: 10/08/2023 10:40 EDT Pathologist: Parker Duque MD Received Date/Time: 10/09/2023 07:48 EDT Shahrzad MEDELLIN, Melissa Markham MD, Melissa Osorio 07 Addendum Report - 10/14/2023 10:56 EDT - Auth (Verified) Addendum No Helicobacter pylori microorganisms identified with immunohistochemical stain. (Electronic Signature) Yan. Jumana MD 10/14/2023 10:56 Addendum Reason Initial diagnosis remains unchanged. Add procedure result or create for billing purpose. 07 Surgical Pathology Report - 10/11/2023 14:02 EDT - Auth (Verified) Final Diagnosis A: DUODENUM, BIOPSY: - Duodenal mucosa within normal limits B: STOMACH, BIOPSY: - Gastric antral gland mucosa with mild chronic nonspecific gastritis - Negative for intestinal metaplasia or dysplasia - Negative for H. pylori (H&E stained slides) Note: H. pylori immunostaining requested and will be reported as an addendum. C: FUNDUS POLYP, POLYPECTOMY: - Fundic gland polyp - Negative for intestinal metaplasia or dysplasia - Negative for H. pylori (H&E stained slides) D: COLON, RANDOM BIOPSY: - Colonic mucosa within normal limits (Electronic Signature) Shahram. Dunia MD 10/11/2023 14:02 Clinical Information Chronic diarrhea Pre-Op Diagnosis: Chronic diarrhea Procedure: EGD, colonoscopy Post-Op Diagnosis: 1. Normal examined esophagus 2. Mild patchy erythema through the antrum, minimal old blood with multiple fundic gland polyps 3. Normal examined duodenum, random biopsies were taken to rule out celiac disease 4. Significant amount of semisolid stool through the examined colon which limited the exam, but the examined colonic mucosa was normal. Random biopsies were taken to rule out microscopic colitis Specimen(s) Received A.Duodenum, Biopsy B.Gastric biopsy C.Fundus polyp D.Random colon biopsy Surgical Pathology Report Collected Date/Time: 10/08/2023 10:40 EDT Pathologist: Parker Duque MD Received Date/Time: 10/09/2023 07:48 EDT Shahrzad MEDELLIN, Melissa Markham MD, Melissa Osorio Gross Description A: Received in formalin labeled with patient name, number, and duodenal biopsy are three fragments of head/pink tissue ranging from 0.1 cm up to 0.3 cm in greatest dimension. The specimen is entirely submitted in one cassette. B: Received in formalin labeled with patient name, number, and gastric biopsy are two fragments of head tissue each measuring 0.2 cm. The specimen is entirely submitted in one cassette. C: Received in formalin labeled with patient name, number, and fundus polyp is a single head/pink polypoid tissue measuring 0.7 x 0.7 x 0.3 cm. The polyp is bisected and entirely submitted in one cassette. D: Received in formalin labeled with patient name, number, and random colon biopsy are multiple fragments of head/pink tissue ranging from less than 0.1 cm up to 0.3 cm in greatest dimension. Specimen is entirely submitted in one cassette. (DC) DC:MCA Microscopic Description Microscopic examination performed unless gross only specified. The use of one or more reagents in the above tests is regulated as an analyte specific reagent (ASR). The test or tests are ordered following initial H&E microscopic examination. The performance characteristics were determined by the Laboratory of [facility]. They have not been cleared or approved by the US Food and Drug Administration. The FDA has determined that such clearance or approval is not necessary. These tests are used for clinical purposes. They should not be regarded as investigational or for research. Appropriate positive and negative controls are performed and are acceptable. Normal [facility] Comment on above: Performed By: #### C [id number] #### [facility] [address] [place] [address] Surgical Pathology Reporton 10-11-2023 Surgical Pathology Report [facility] [address] [place] [address]- Surgical Pathology Report Collected Date/Time: 10/08/2023 10:40 EDT Pathologist: Parker Duque MD Received Date/Time: 10/09/2023 07:48 EDT Shahrzad MEDELLIN, Melissa Markham MD, Melissa Osorio 07 Surgical Pathology Report - 10/11/2023 14:02 EDT - Auth (Verified) Final Diagnosis A: DUODENUM, BIOPSY: - Duodenal mucosa within normal limits B: STOMACH, BIOPSY: - Gastric antral gland mucosa with mild chronic nonspecific gastritis - Negative for intestinal metaplasia or dysplasia - Negative for H. pylori (H&E stained slides) Note: H. pylori immunostaining requested and will be reported as an addendum. C: FUNDUS POLYP, POLYPECTOMY: - Fundic gland polyp - Negative for intestinal metaplasia or dysplasia - Negative for H. pylori (H&E stained slides) D: COLON, RANDOM BIOPSY: - Colonic mucosa within normal limits (Electronic Signature) Shahram. Dunia MD 10/11/2023 14:02 Clinical Information Chronic diarrhea Pre-Op Diagnosis: Chronic diarrhea Procedure: EGD, colonoscopy Post-Op Diagnosis: 1. Normal examined esophagus 2. Mild patchy erythema through the antrum, minimal old blood with multiple fundic gland polyps 3. Normal examined duodenum, random biopsies were taken to rule out celiac disease 4. Significant amount of semisolid stool through the examined colon which limited the exam, but the examined colonic mucosa was normal. Random biopsies were taken to rule out microscopic colitis Specimen(s) Received A.Duodenum, Biopsy B.Gastric biopsy C.Fundus polyp D.Random colon biopsy Gross Description A: Received in formalin labeled with patient name, number, and duodenal biopsy are three fragments of head/pink tissue ranging from 0.1 cm up to 0.3 cm in greatest dimension. The specimen is entirely submitted in one cassette. B: Received in formalin labeled with patient name, number, and gastric biopsy are two fragments of head tissue each measuring 0.2 cm. The specimen is entirely submitted in one cassette. C: Received in formalin labeled with patient name, number, and fundus polyp is a single head/pink polypoid tissue measuring 0.7 x 0.7 x 0.3 cm. The polyp is bisected and entirely submitted in one cassette. Surgical Pathology Report Collected Date/Time: 10/08/2023 10:40 EDT Pathologist: Parker Duque MD Received Date/Time: 10/09/2023 07:48 EDT Shahrzad MEDELLIN, Melissa Markham MD, Melissa Osorio Gross Description D: Received in formalin labeled with patient name, number, and random colon biopsy are multiple fragments of head/pink tissue ranging from less than 0.1 cm up to 0.3 cm in greatest dimension. Specimen is entirely submitted in one cassette. (DC) DC:MCA Microscopic Description Microscopic examination performed unless gross only specified. The use of one or more reagents in the above tests is regulated as an analyte specific reagent (ASR). The test or tests are ordered following initial H&E microscopic examination. The performance characteristics were determined by the [facility] of [facility]. They have not been cleared or approved by the US Food and Drug Administration. The FDA has determined that such clearance or approval is not necessary. These tests are used for clinical purposes. They should not be regarded as investigational or for research. Appropriate positive and negative controls are performed and are acceptable. Normal [facility] Comment on above: Performed By: #### [id number] #### [facility] [address] [place] [address] Ambulatory Visit Summaryon 0 10-08-2023 Ambulatory Visit Summary Ambulatory Visit Summary WENDY ERAZO :1975 Visit Date:10/08/2023 Ambulatory Visit Instructions Your Diagnosis Right otitis externa BMI 40.0-44.9, adult Your Care Team Attending Physician - Rodney VÁZQUEZ, Kian Florentino Primary Care Physician - Eligio MEDELLIN, Yeison Harris This Is Your Medications List hydrocortisone/neom ycin/polymyxin B otic (hydrocortisone/griselda mycin/polymyxin B Otic Radha) Contact prescribing physician if questions or concerns Misc Prescription (Free Style Rosalinda 2 Sensors) Misc Prescription (LANCETS) Misc Prescription (TEST STRIPS) Misc Prescription (glucose meter) Misc Prescription (reader) atorvastatin (Lipitor 40 mg Tab) levothyroxine (levothyroxine 75 mcg (0.075 mg) Tab) lithium (lithium 300 mg Cap) lithium (lithium 450 mg oral tablet, extended release) medroxyPROGESTERone metformin (Glucophage XR 500 mg oral tablet, extended release) metoprolol (metoprolol 25 mg ER Tab) olanzapine (olanzapine 10 mg Tab) olanzapine (olanzapine 20 mg oral tablet) pantoprazole (Pantoprazole [address] Tab) semaglutide (Ozempic (1 mg dose) 4 mg/3 mL subcutaneous solution) Procedures Performed Biopsy of vulva, Colposcopy, EGD (esophagogastroduod enoscopic) electrohydraulic lithotripsy of bezoar in stomach. Discharge Vitals Heart Rate (Peripheral) 96 Blood Pressure 124/86 Height 160 cm Height 63 in Weight 104.8 kg Weight 230.56 lb BMI 40.94 What to do next Scheduled Follow-Up Appointments Saturday 2:00 PM EDT With: Yeison Del Valle MD Where: [facility] Normal [address] [place], [place] [id number]- \.br\ Medications\.br\ What How Much When Why Instructions\.br\ New hydrocortisone/ neomycin/ polymyxin B otic (hydrocortisone/ neomycin/ polymyxin B Otic Radha) 4 Drops Otic 3 times a day Right otitis externa Duration: 7 Days Right ear Pickup at [id number]\.br\ Unchanged atorvastatin (Lipitor 40 mg Tab) 1 Tablets By Mouth Every day Loose stools Contact prescribing physician if questions or concerns \.br\ Unchanged levothyroxine (levothyroxine 75 mcg (0.075 mg) Tab) 1 Tablets By Mouth Every day Contact prescribing physician if questions or concerns \.br\ Unchanged lithium (lithium 300 mg Cap) 1 Capsules By Mouth Every day in the morning Contact prescribing physician if questions or concerns \.br\ Unchanged lithium (lithium 450 mg oral tablet, extended release) 2 Tablets By Mouth At bedtime Contact prescribing physician if questions or concerns \.br\ Unchanged medroxyPROGESTERone 10 Milligram By Mouth Contact prescribing physician if questions or concerns \.br\ Unchanged metformin (Glucophage XR 500 mg oral tablet, extended release) 2 Tablets By Mouth 2 times a day Contact prescribing physician if questions or concerns \.br\ Unchanged metoprolol (metoprolol 25 mg ER Tab) 1 Tablets By Mouth Every day Contact prescribing physician if questions or concerns \.br\ Unchanged Misc Prescription (Free Style Rosalinda 2 Sensors) See instructions To be used w/ FS Rosalinda to check blood sugars daily. Dx: E11.69 Contact prescribing physician if questions or concerns \.br\ Unchanged Misc Prescription (glucose meter) See instructions to check BS daily E11.9 Contact prescribing physician if questions or concerns \.br\ Unchanged Misc Prescription (LANCETS) See instructions use to check BS daily dx E11.9 Contact prescribing physician if questions or concerns \.br\ Unchanged Misc Prescription (reader) See instructions freestyle rosalinda reader Contact prescribing physician if questions or concerns \.br\ Unchanged Misc Prescription (TEST STRIPS) See instructions use to check BS daily dx E11.9 Contact prescribing physician if questions or concerns \.br\ Unchanged olanzapine (olanzapine 10 mg Tab) 1 Tablets By Mouth Once a day (at bedtime) along with 20mg at bedtime Contact prescribing physician if questions or concerns \.br\ Unchanged olanzapine (olanzapine 20 mg oral tablet) 1 Tablets By Mouth At bedtime Contact prescribing physician if questions or concerns \.br\ Unchanged pantoprazole (Pantoprazole [address] Tab) 1 Tablets By Mouth Every day Contact prescribing physician if questions or concerns \.br\ Unchanged semaglutide (Ozempic (1 mg dose) 4 mg/ 3 mL subcutaneous solution) 1 Milligram Subcutaneous Every week Contact prescribing physician if questions or concerns \.br\ Pharmacy Information\.br\ [id number]: [address], [place] [id number] [phone]\.br\ Allergies\.br\ No Known Allergies\.br\ Problems\.br\ Ongoing - Any problem that you are currently receiving treatment for.\.br\ Romero's palsy\.br\ Bipolar disorder, current episode mixed, moderate\.br\ BMI 45.0-49.9, adult\.br\ Breast cancer screening by mammogram\.br\ Class 3 obesity\.br\ Colon cancer screening\.br\ Cough\.br\ Hypothyroidism\.br\ Loose stools\.br\ Mixed incontinence urge and stress\.br\ MANNY (obstructive sleep apnea)\.br\ Primary hypertension\.br\ Sleep disorder\.br\ Smoker\.br\ Type 2 diabetes mellitus with morbid obesity\.br\ Historical - Any problem that you are no longer receiving treatment for.\.br\ Depression\.br\ Patient Survey\.br\ You may receive a survey via text or e-mail asking about your office visit. Please share your experience with us by completing your survey. We appreciate your feedback and thank you for choosing us for your care.\.br\ \.br\ [facility] Family Medicine Office/Clini c Noteon 10-08-2023 Family Medicine Office/Clinic Note Family Medicine Office/Clinic Note Chief Complaint R ear pain HPI Staff 48 yo female here d/t R ear pain radiating down side of face onset 4 days ago. Pt has tried peroxide in ear without relief. History of Present Illness I have reviewed and verified the staff HPI to be accurate for this encounter. Portions of this record have been created with voice recognition software. Occasional wrong-word or ?[id number]-[id number]? substitutions may have occurred due to the inherent limitations of voice recognition software. 48 yo female with history of Romero's palsy, bipolar disorder, hypothyroidism, sleep apnea, smoker, type 2 diabetes presents today with cc of right ear pain. Pt states ear pain started approximately 4 days ago. States she has tried peroxide in the right ear without much relief. States that the pain in the right ear will radiate down the side of her face into the right side of her neck. Patient states she had to have a colonoscopy completed this morning. States she had that done at the surgery center next-door states her ate over him of [place] but came over to see if she could be seen in regards to right ear pain. Patient states she had a small cut to the inside of her right ear in which she had been using peroxide for is unsure if that is infected but states it is very very sore. States that soreness radiates down into the right anterior cheek region. She denies any history of parotitis or salivary gland stones. She denies any dental pain or jaw pain. Denies any significant throat discomfort states a little bit from her upper EGD but denies any recent viral-like symptoms. Denies runny stuffy nose cough or cold-like symptoms. She has no other concerns at this time. Review of Systems PHQ Score Initial Depression Screen Score: 0 SCORE ROS negative unless otherwise stated in HPI. Physical Exam Vitals & Measurements HR: 96(Peripheral) BP: 124/86 HT: 63 in HT: 160 cm WT: 104.8 kg WT: 230.56 lb BMI: 40.94 General: Pleasant obese female, no acute distress Eyes: Bilateral conjunctiva within normal limits no injection Ears: Bilateral TMs are within normal limits no erythema or bulging. The right internal auditory canal appears to have an area of soreness and redness and swelling just at the internal opening. Will treat for otitis externa. Ear wick has not needed. Left external auditory canal is within normal limits no erythema edema or bulging. Nose: No deformity, discharge, inflammation, or lesions Mouth: Moist mucous membranes. Uvula is midline. There appears to be some trauma at the roof of the mouth on the left-hand side most likely due to patient's EGD this morning. No acute tonsillar erythema edema or exudate. No signs of peritonsillar abscess. No trismus or drooling. Neck: no adenopathy Lungs: Lung sounds are clear bilaterally. No wheezing rhonchi or crackles on exam. Cardio: S1, S2, regular rhythm. No murmurs gallops or rubs. Abdomen: not assessed Musculoskeletal: not assessed Extremity: not assessed Neurologic: not assessed Skin: not assessed Mental Status: Alert and oriented x3. Normal mood and affect Assessment/Plan I spoke with patient in regards to treatment for right otitis externa. Discussed treatment with Cortisporin eardrops 4 drops in the right ear 3 times daily x 7 days duration which patient agrees and understands plan if you develop any worsening or concerning symptoms she should return for evaluation or follow-up closely with her primary care provider. Patient agrees and understands plan 1. Right otitis externa (H60.91: Unspecified otitis externa, right ear) Will treat with with. Finish course. Lay with ear up for 5 minutes after applying drops. Keep ear clean and dry, avoid water activities or inserting objects into ear such as earbuds, qtips. May use OTC tylenol/ibuprofen for pain. FU with PCP if not improving over next 5 days with treatment, significantly worsening, or fevers. Patient verbalized understanding of treatment plan. Ordered: hydrocortisone/neom ycin/polymyxin B otic, 4 drop(s), Otic, TID for 7 day(s), 10 mL, Refill(s) 0, Right ear, [id number], 160, cm, 10/08/23 13:02:00 EDT, Height/Length Dosing, 104.8, kg, 10/08/23 13:02:00 EDT, Weight Dosing 2. BMI 40.0-44.9, adult (Z68.41: Body mass index [BMI] 40.0-44.9, adult) The standard range for ages 18 and older is >=18.5 and < 25 kg/m2. Your BMI today was above this range, this falls in the overweight to obese category and there are medical benefits to weight loss. We can offer counselling, referral, and/or medical support in addressing this problem. Your BMI and weight management will be followed at subsequent visits. Ordered: Body Mass Index (BMI) documented 3008F Follow-up With When Contact Information Eligio MEDELLIN, Yeison Harris, [facility], MED Additional Instructions: Patient Education Otitis Externa, [id number] Problem List/Past Medical History Ongoing Romero's palsy Bipolar disorder, current episode mixed, moderate BMI 45.0-49. (more content not included)... Normal [facility] Comment on above: Result Comment: Elec tronically Signed By: Rodney VÁZQUEZ, Kian Florentino\.br\Date and Time Signed: 10/08/23 13:26 EDT Insurance Correspondenceon 0 10-02-2023 Insurance Correspondence [id number] [email or web address] [facility] Ambulatory Visit Summaryon 0 09-26-2023 Ambulatory Visit Summary WENDY ERAZO :1975 Visit Date:09/26/2023 Ambulatory Visit Instructions Your Diagnosis Loose stools Colon cancer screening Your Care Team Attending Physician - Shahrzad MEDELLIN, Melissa Osorio Primary Care Physician - Eligio MEDELLIN, Yeison Harris This Is Your Medications List Contact prescribing physician if questions or concerns Misc Prescription (Free Style Rosalinda 2 Sensors) Misc Prescription (LANCETS) Misc Prescription (TEST STRIPS) Misc Prescription (glucose meter) levothyroxine (levothyroxine 75 mcg (0.075 mg) Tab) lithium (lithium 300 mg Cap) lithium (lithium 450 mg oral tablet, extended release) medroxyPROGESTERone metformin (Glucophage XR 500 mg oral tablet, extended release) metoprolol (metoprolol 25 mg ER Tab) olanzapine (olanzapine 10 mg Tab) olanzapine (olanzapine 20 mg oral tablet) pantoprazole (Pantoprazole [address] Tab) semaglutide (Ozempic (1 mg dose) 4 mg/3 mL subcutaneous solution) Procedures Performed Biopsy of vulva, Colposcopy, EGD (esophagogastroduod enoscopic) electrohydraulic lithotripsy of bezoar in stomach. Discharge Vitals Heart Rate (Peripheral) 76 Respiratory Rate 18 Blood Pressure 136/70 Height 160 cm Height 63 in Weight 105 kg Weight 231 lb BMI 41.02 What to do next Scheduled Follow-Up Appointments Saturday 2:00 PM EDT With: Eligio MEDELLIN, Yeison Harris Where: [address] \.br\ You Need to Complete the Following\.br\ Celiac Disease Comprehensive, Blood, Routine collect, 09/26/23, Order for future visit, Lab Collect, Loose stools, Print Label By Order Location\.br\ Medications\.br\ What How Much When Instructions\.br\ Unchanged levothyroxine (levothyroxine 75 mcg (0.075 mg) Tab) 1 Tablets By Mouth Every day Contact prescribing physician if questions or concerns \.br\ Unchanged lithium (lithium 300 mg Cap) 1 Capsules By Mouth Every day in the morning Contact prescribing physician if questions or concerns \.br\ Unchanged lithium (lithium 450 mg oral tablet, extended release) 2 Tablets By Mouth At bedtime Contact prescribing physician if questions or concerns \.br\ Unchanged medroxyPROGESTERone 10 Milligram By Mouth Contact prescribing physician if questions or concerns \.br\ Unchanged metformin (Glucophage XR 500 mg oral tablet, extended release) 2 Tablets By Mouth 2 times a day Contact prescribing physician if questions or concerns \.br\ Unchanged metoprolol (metoprolol 25 mg ER Tab) 1 Tablets By Mouth Every day Contact prescribing physician if questions or concerns \.br\ Unchanged Misc Prescription (Free Style Rosalinda 2 Sensors) See instructions To be used w/ FS Rosalinda to check blood sugars daily. Dx: E11.69 Contact prescribing physician if questions or concerns \.br\ Unchanged Misc Prescription (glucose meter) See instructions to check BS daily E11.9 Contact prescribing physician if questions or concerns \.br\ Unchanged Misc Prescription (LANCETS) See instructions use to check BS daily dx E11.9 Contact prescribing physician if questions or concerns \.br\ Unchanged Misc Prescription (TEST STRIPS) See instructions use to check BS daily dx E11.9 Contact prescribing physician if questions or concerns \.br\ Unchanged olanzapine (olanzapine 10 mg Tab) 1 Tablets By Mouth Once a day (at bedtime) along with 20mg at bedtime Contact prescribing physician if questions or concerns \.br\ Unchanged olanzapine (olanzapine 20 mg oral tablet) 1 Tablets By Mouth At bedtime Contact prescribing physician if questions or concerns \.br\ Unchanged pantoprazole (Pantoprazole [address] Tab) 1 Tablets By Mouth Every day Contact prescribing physician if questions or concerns \.br\ Unchanged semaglutide (Ozempic (1 mg dose) 4 mg/ 3 mL subcutaneous solution) 1 Milligram Subcutaneous Every week Contact prescribing physician if questions or concerns \.br\ Allergies\.br\ No Known Allergies\.br\ Problems\.br\ Ongoing - Any problem that you are currently receiving treatment for.\.br\ Romero's palsy\.br\ Bipolar disorder, current episode mixed, moderate\.br\ BMI 45.0-49.9, adult\.br\ Breast cancer screening by mammogram\.br\ Class 3 obesity\.br\ Colon cancer screening\.br\ Cough\.br\ Hypothyroidism\.br\ Loose stools\.br\ Mixed incontinence urge and stress\.br\ MANNY (obstructive sleep apnea)\.br\ Primary hypertension\.br\ Sleep disorder\.br\ Smoker\.br\ Type 2 diabetes mellitus with morbid obesity\.br\ Historical - Any problem that you are no longer receiving treatment for.\.br\ Depression\.br\ Patient Survey\.br\ You may receive a survey via text or e-mail asking about your office visit. Please share your experience with us by completing your survey. We appreciate your feedback and thank you for choosing us for your care.\.br\ \.br\ [facility] 09-26-2023 Consent [id number]#[id number] Normal [facility] Consent for Procedure/Surger yon 09-26-2023 Consent for Procedure/Surgery [id number]#[id number] Normal [facility] Gastroenterology Office/Clin ic Noteon 09-26-2023 Gastroenterology Office/Clinic Note Chief Complaint loose stools HPI Staff Patient is a 48 year old female who was referred by Eligio for loose stools. Denies previous Colonoscopy. Denies Fhx colon cancer. Any n/v/c, abd pain, mucus or blood in stools? sometimes dark stools Denies blood thinners. Takes Ozempic weekly. Takes Metformin 2,000mg daily. Diarrhea: How many BM a day (normal <4): 5 When did it start: years ago Constant? Or alternate with normal BM or constipation: constant diarrhea Associated symptoms: none Previous work up: TSH: 4.9 mcIU/mL (05/22/23 13:14:00) History of Present Illness diarrhea for over a year started metformin Apr 2023 Taking Paramount for about 2-3 years tried imodium 1 tab daily Review of Systems PHQ Score Initial Depression Screen Score: 0 SCORE All systems reviewed, negative; Except for above Physical Exam Vitals & Measurements HR: 76(Peripheral) RR: 18 BP: 136/70 HT: 63 in HT: 160 cm WT: 105 kg WT: 231 lb BMI: 41.02 General: in Nad Abdomen: Soft, NTND Assessment/Plan 1. Loose stools (R19.5: Other fecal abnormalities) over a year, likely d/t Paramount, DDx include celiac, IBS-D, MC... Increase Imodium to 4 mg daily, take 30 minutes before meals- If this doesn't work we will talk to Behavior health to see if we can change Paramount Thyroid was normal We will proceed with Celiac panel and Colonoscopy w/ Duodenal, random colon and TI intubation 2. Colon cancer screening (Z12.11: Encounter for screening for malignant neoplasm of colon) Proceed with Colonoscopy- hold Ozempic for a week prior- Discussed risk and benefits with patient- agreeable to proceeding I, Moraima Hall, personally scribed for Melissa Markham MD on 09/26/2023 13:06:59. . Documentation recorded by Moraima Hall, accurately reflects the services I performed and decisions made by me. Melissa Markham MD Follow-up No qualifying data available Problem List/Past Medical History Ongoing Romero's palsy Bipolar disorder, current episode mixed, moderate BMI 45.0-49.9, adult Breast cancer screening by mammogram Class 3 obesity Colon cancer screening Cough Hypothyroidism Loose stools Mixed incontinence urge and stress MANNY (obstructive sleep apnea) Primary hypertension Sleep disorder Smoker Type 2 diabetes mellitus with morbid obesity Historical Depression Procedure/Surgical History Biopsy of vulva, Colposcopy, EGD (esophagogastroduod enoscopic) electrohydraulic lithotripsy of bezoar in stomach. Medications Free Style Rosalinda 2 Sensors, See Instructions, 3 refills Glucophage XR 500 mg oral tablet, extended release, 1000 mg= 2 tab(s), Oral, BID, 1 refills glucose meter, See Instructions LANCETS, See Instructions, 4 refills levothyroxine 75 mcg (0.075 mg) Tab, 75 mcg= 1 tab(s), Oral, Daily lithium 300 mg Cap, 300 mg= 1 cap(s), Oral, Daily lithium 450 mg oral tablet, extended release, 900 mg= 2 tab(s), Oral, Bedtime medroxyPROGESTERone , 10 mg, Oral metoprolol 25 mg ER Tab, 25 mg= 1 tab(s), Oral, Daily olanzapine 10 mg Tab, 10 mg= 1 tab(s), Oral, Once a day (at bedtime) olanzapine 20 mg oral tablet, 20 mg= 1 tab(s), Oral, Bedtime Ozempic (1 mg dose) 4 mg/3 mL subcutaneous solution, 1 mg, SubCutaneous, qWeek Pantoprazole [address] Tab, 40 mg= 1 tab(s), Oral, Daily, 4 refills TEST STRIPS, See Instructions, 4 refills Allergies No Known Allergies Social History Alcohol - Denies Alcohol Use, 12/13/2020 Ready to change: No. Household alcohol concerns: No., 03/25/2023 Substance Abuse - Denies Substance Abuse, 12/13/2020 Tobacco - High Risk, 12/13/2020 10 or more cigarettes (1/2 pack or more)/day in last 30 days Tobacco Use:. Never Smokeless Tobacco Use:. Cigarettes, Started age 17.0 Years. Previous treatment: Counseling, Nicotine replacement. Ready to change: No. Household tobacco concerns: No. Yes, 09/26/2023 Family History Diabetes mellitus type 2: Mother. Hypertension: Father. Kidney disease: Mother. Immunizations Vaccine Date Status Comments influenza virus vaccine, inactivated - Not Given Postpone due to refusal SARS-CoV-2 (COVID-19) mRNA-1273 vaccine 07/29/2020 Recorded SARS-CoV-2 (COVID-19) mRNA-1273 vaccine 2020 Recorded SARS-CoV-2 (COVID-19) mRNA-1273 vaccine 06/21/2020 Recorded influenza virus vaccine, inactivated 02/21/2015 Recorded [facility] Comment on above: Result Comment: Elec tronically Signed By: Melissa Markham MD\.br\Date and Time Signed: 09/26/23 13:08 EDT\.br\Electronically Co-Signed By: Moraima Hall MA\.br\Date and Time Co-Signed: 09/26/23 13:07 EDT Patient Eval Forms Officeon 09-26-2023 Patient Eval Forms Office [id number]#[id number] [facility] Consent for Treatmenton 09-06 Consent for Treatment [id number]#[id number] [facility] Sleep Office/Clinic Noteon 0 09-23-2023 Sleep Office/Clinic Note History of Present Illness Here to establish care for underlying obstructive sleep apnea. The patient apparently was told by her mother that she snores loudly at night and stops breathing frequently while asleep. She herself felt that her sleep was quite disrupted and has significant fatigue and daytime sleepiness throughout the day. Given the above the patient underwent a sleep study which confirmed underlying obstructive sleep apnea. I have arranged for a BiPAP machine at a pressure of 24/18 cm which she has been using via a fullface mask over the past few months with significant improvement in her sleep quality and daytime sleepiness. She reports that she has been losing some weight after she started Ozempic recently. Review of Systems Constitutional: no fever, no chills, no sweats, no weakness Skin: no Jaundice, no rash, no lesions, no petechiae ENT: no ear pain, no sore throat, no congestion, no hoarseness Respiratory: Denies shortness of breath, cough or wheezing Cardiovascular: no chest pain, no palpitations, no edema Gastrointestinal: no nausea, no vomiting, no diarrhea, no GI bleeding Genitourinary: no dysuria, no hematuria, no discharge, no pain Musculoskeletal: no back pain, no trauma Neurologic: no headache, no dizziness, no numbness, no weakness Psychiatric: no irritability, no mood swings/depression. Heme/Lymph: no bleeding tendency, no bruising tendency, no petechiae, no swollen nodes Allergy/Immunologic : no seasonal allergies, no food allergies, no recurrent infections, no impaired immunity Additional ROS info: Except as noted in the above Review of Systems and in the History of Present Illness all other systems have been reviewed and are negative or noncontributory. Physical Exam General: Awake, alert, in no acute distress Skin: warm, dry Head: no trauma, normocephalic. Prolonged soft palate Neck: Trachea midline, no adenopathy, no tenderness Eye: normal conjunctiva, sclera clear ENMT: TM's clear, oral mucosa moist, no pharyngeal erythema or exudate Cardiovascular: regular rate and rhythm, normal peripheral perfusion Respiratory: Good breath sounds to both lung snider without wheezing or crackles. Gastrointestinal: soft, non distended, no tenderness, no guarding. Back: No tenderness, Normal ROM, Normal alignment. Extremities: no deformity, no trauma Neurological: oriented x 4, LOC appropriate for age, CN II-XII intact, motor strength equal & normal bilaterally, sensation equal & normal bilaterally, speech normal Psychiatric: cooperative, affect appropriate for age, normal judgement, normal psychiatric thoughts. Assessment/Plan 1. MANNY (obstructive sleep apnea) (G47.33: Obstructive sleep apnea (adult) (pediatric)) The patient's sleep study was reviewed and results were discussed with the patient in details. Evidence of severe underlying obstructive sleep apnea with an apnea hypotony index of 125/hour with mild oxygen desaturation noted. The etiology of obstructive sleep apnea and methods of treatment were discussed with the patient in details. Appears to be doing well on current pressures without significant side effects with good tolerance and compliance with CPAP with a significant improvement in the apnea hypopnea index to 2.2/hour based on her most recent download from June 21, 2023 till September 18, 2023 which was reviewed by me today. The patient was advised to clean the machine regularly and change supplies as needed. Avoid driving while sleepy and avoid sedatives and hypnotics such as alcohol. We will continue with same pressure unless new issues develop and see the patient back after 1 year. The patient will call us back in the meantime if any issues. Follow-up With When Contact Information Дмитрий MEDELLIN, Amarjit Martinez, PUL, JAS Within 1 year [address] [facility] [place] [address]- Additional Instructions: Problem List/Past Medical History Ongoing Romero's palsy Bipolar disorder, current episode mixed, moderate BMI 45.0-49.9, adult Breast cancer screening by mammogram Class 3 obesity Colon cancer screening Cough Hypothyroidism Loose stools Mixed incontinence urge and stress MANNY (obstructive sleep apnea) Primary hypertension Sleep disorder Smoker Type 2 diabetes mellitus with morbid obesity Historical Depression Procedure/Surgical History Biopsy of vulva, Colposcopy, EGD (esophagogastroduod enoscopic) electrohydraulic lithotripsy of bezoar in stomach. Medications Free Style Rosalinda 2 Sensors, See Instructions, 3 refills Glucophage XR 500 mg oral tablet, extended release, 1000 mg= 2 tab(s), Oral, BID, 1 refills glucose meter, See Instructions LANCETS, See Instructions, 4 refills levothyroxine 75 mcg (0.075 mg) Tab, 75 mcg= 1 tab(s), Oral, Daily lithium 300 mg Cap, 300 mg= 1 cap(s), Oral, Daily lithium 450 mg oral tablet, extended release, 900 mg= 2 tab(s), Oral, Bedtime medroxyPROGESTERone , 10 mg, Oral metoprolol 25 mg ER Tab, 25 mg= 1 tab(s), (more content not included)... Normal [facility] Comment on above: Result Comment: Elec tronically Signed By: Дмитрий MEDELLIN, Amarjit Martinez\.br\Date and Time Signed: 09/23/23 11:51 EDT Ambulatory Visit Summaryon 0 08-20-2023 Ambulatory Visit Summary ERAZO, WENDY Pierre :1975 Visit Date:08/20/2023 Ambulatory Visit Instructions Your Diagnosis Type 2 diabetes mellitus with morbid obesity BMI 40.0-44.9, adult, Body mass index [BMI] 40.0-44.9, adult Class 3 severe obesity due to excess calories with body mass index (BMI) of 40.0 to 44.9 in adult, Morbid (severe) obesity due to excess calories Smoker Your Care Team Attending Physician - Yeison Del Valle MD Primary Care Physician - Yeison Del Valle MD This Is Your Medications List Misc Prescription (Free Style Rosalinda 2 Sensors) Misc Prescription (LANCETS) Misc Prescription (TEST STRIPS) Misc Prescription (glucose meter) levothyroxine (levothyroxine 50 mcg (0.05 mg) Tab) lithium (lithium 300 mg Cap) lithium (lithium 450 mg oral tablet, extended release) medroxyPROGESTERone metformin (Glucophage XR 500 mg oral tablet, extended release) metoprolol (metoprolol 25 mg ER Tab) olanzapine (olanzapine 10 mg Tab) olanzapine (olanzapine 20 mg oral tablet) pantoprazole (Pantoprazole [address] Tab) semaglutide (Ozempic 2 mg/3 mL (0.25 mg or 0.5 mg dose) subcutaneous solution) Procedures Performed Biopsy of vulva, Colposcopy, EGD (esophagogastroduod enoscopic) electrohydraulic lithotripsy of bezoar in stomach. Discharge Vitals Temperature (Temporal Artery) 36.8 ?C Heart Rate (Peripheral) 90 Respiratory Rate 18 Blood Pressure 136/82 Height 160 cm Height 63 in Weight 110.5 kg Weight 243.1 lb BMI 43.16 What to do next Scheduled Follow-Up Appointments 2023 12:30 PM EDT With: Shahrzad MEDELLIN, Melissa Osorio Where: [facility] Invalid Interpretation Code [address] [place] [address]- \.br\ Saturday 11:00 AM EST \.br\ With:\.br\ Where: [facility] Medicine Office/Clini c Noteon 08-20-2023 Family Medicine Office/Clinic Note HPI Staff Wendy is a 48 year old female presenting for 2 month follow up DM MIRE[facility]LE refer GI for loose stools Has appt in September with GI, soonest opening Do you have any of the following symptoms? Foot Exam: none Eye Exam: UTD Last A1C: Hgb A1C %: 8.3 % High (05/22/23 13:14:00) Statin: none questions/concerns: need to discuss thyroid after last labs Needs the freestyle rosalinda sensors and ozempic refilled Also says the rosalinda reads her sugars about 20 points lower than the fingerstick so which is more accurate. Physical Exam Vitals & Measurements T: 36.8 ?C(Temporal Artery) HR: 90(Peripheral) RR: 18 BP: 136/82 SpO2: 99% HT: 63 in HT: 160 cm WT: 110.5 kg WT: 243.1 lb BMI: 43.16 General: alert, no acute distress ENMT: oral mucosa moist, Cardiovascular: regular rate and rhythm, normal peripheral perfusion Respiratory: Lungs CTA, respirations non labored Extremities: no deformity, no trauma Neurological: oriented x 4, LOC appropriate for age, CN II-XII intact, motor strength equal & normal bilaterally, speech normal Abdomen: Soft, Nontender, Non-distended, + BS Assessment/Plan 1. Type 2 diabetes mellitus with morbid obesity (E11.69: Type 2 diabetes mellitus with other specified complication) - Labs ordered today. - Improving. - Continue on Freestyle. Ordered: Body Mass Index (BMI) documented 3008F Current tobacco smoker 1034F Most recent diastolic blood pressure 80-89 mm Hg 3079F Systolic BP 130-139 mm Hg (Most Recent) 3075F 2. BMI 40.0-44.9, adult, (Z68.41: Body mass index [BMI] 40.0-44.9, adult)Body mass index [BMI] 40.0-44.9, adult - BMI education given Ordered: Body Mass Index (BMI) documented 3008F Current tobacco smoker 1034F Most recent diastolic blood pressure 80-89 mm Hg 3079F Systolic BP 130-139 mm Hg (Most Recent) 3075F 3. Class 3 severe obesity due to excess calories with body mass index (BMI) of 40.0 to 44.9 in adult, (E66.01: Morbid (severe) obesity due to excess calories)Morbid (severe) obesity due to excess calories - Diet and exercise advised Ordered: Body Mass Index (BMI) documented 3008F Current tobacco smoker 1034F Most recent diastolic blood pressure 80-89 mm Hg 3079F Systolic BP 130-139 mm Hg (Most Recent) 3075F 4. Smoker (F17.200: Nicotine dependence, unspecified, uncomplicated) - Please stop smoking Ordered: Body Mass Index (BMI) documented 3008F Current tobacco smoker 1034F Most recent diastolic blood pressure 80-89 mm Hg 3079F Systolic BP 130-139 mm Hg (Most Recent) 3075F 5. Hypothyroidism (E03.9: Hypothyroidism, unspecified) - Will increase meds as patient is getting closer to out of range. - Will monitor. Orders: cetirizine, See Instructions, TAKE 1 TABLET BY MOUTH ONCE EVERYDAY NEEDED FOR ALLERGY SYMPTOMS, # 90 tab(s), Refills(s) 1, Pharmacy: [id number], 160, cm, 12/24/22 11:04:00 EDT, Height/Length Dosing, 121.6, kg, 12/24/22 11:04:00 EDT, Weight Dosing levothyroxine, 75 mcg = 1 tab(s), Oral, Daily, # 90 tab(s), Refills(s) 0, Pharmacy: [facility]/pharmacy #[id number], 160, cm, 08/20/23 14:44:00 EDT, Height/Length Dosing, 110.5, kg, 08/20/23 14:44:00 EDT, Weight Dosing semaglutide, 1 mg, SubCutaneous, qWeek, # 3 EA, Refills(s) 0, Pharmacy: [facility]/pharmacy #[id number], 160, cm, 08/20/23 14:44:00 EDT, Height/Length Dosing, 110.5, kg, 08/20/23 14:44:00 EDT, Weight Dosing Follow-up No qualifying data available Patient Education BMI for Adults Problem List/Past Medical History Ongoing Romero's palsy Bipolar disorder, current episode mixed, moderate BMI 45.0-49.9, adult Breast cancer screening by mammogram Class 3 obesity Colon cancer screening Cough Hypothyroidism Loose stools Mixed incontinence urge and stress MANNY (obstructive sleep apnea) Primary hypertension Sleep disorder Smoker Type 2 diabetes mellitus with morbid obesity Historical Depression Procedure/Surgical History Biopsy of vulva, Colposcopy, EGD (esophagogastroduod enoscopic) electrohydraulic lithotripsy of bezoar in stomach. Medications Free Style Rosalinda 2 Sensors, See Instructions, 3 refills Glucophage XR 500 mg oral tablet, extended release, 1000 mg= 2 tab(s), Oral, BID, 1 refills glucose meter, See Instructions LANCETS, See Instructions, 4 refills levothyroxine 75 mcg (0.075 mg) Tab, 75 mcg= 1 tab(s), Oral, Daily lithium 300 mg Cap, 300 mg= 1 cap(s), Oral, Daily lithium 450 mg oral tablet, extended release, 900 mg= 2 tab(s), Oral, Bedtime medroxyPROGESTERone , 10 mg, Oral metoprolol 25 mg ER Tab, 25 mg= 1 tab(s), Oral, Daily olanzapine 10 mg Tab, 10 mg= 1 tab(s), Oral, Once a day (at bedtime) olanzapine 20 mg oral tablet, 20 mg= 1 tab(s), Oral, Bedtime Ozempic (1 mg dose) 4 mg/3 mL subcutaneous solution, 1 mg, SubCutaneous, qWeek Pantoprazole [address] Tab, 40 mg= 1 tab(s), Oral, Daily, 4 refills TEST STRIPS, See Instructions, 4 refills Allergies No Known Allergies Social History Alcohol - Denies Alcohol Use, 12/13/2020 Ready to odalis (more content not included)... Normal [facility] Comment on above: Result Comment: Elec tronically Signed By: Eligio MEDELLIN, Yeison Goffbr\Date and Time Signed: 08/20/23 15:11 EDT Patient Educationon 08-20-19 Patient Education Nutrition BMI for Adults What is BMI? Body mass index (BMI) is a number that is calculated from a person's weight and height. BMI can help estimate how much of a person's weight is composed of fat. BMI does not measure body fat directly. Rather, it is an alternative to procedures that directly measure body fat, which can be difficult and expensive. BMI can help identify people who may be at higher risk for certain medical problems. What are BMI measurements used for? BMI is used as a screening tool to identify possible weight problems. It helps determine whether a person is obese, overweight, a healthy weight, or underweight. BMI is useful for: ? Identifying a weight problem that may be related to a medical condition or may increase the risk for medical problems. ? Promoting changes, such as changes in diet and exercise, to help reach a healthy weight. BMI screening can be repeated to see if these changes are working. How is BMI calculated? BMI involves measuring your weight in relation to your height. Both height and weight are measured, and the BMI is calculated from those numbers. This can be done either in [place] or metric measurements. Note that charts and online BMI calculators are available to help you find your BMI quickly and easily without having to do these calculations yourself. To calculate your BMI in [place] measurements: 1. Measure your weight in pounds (lb). 2. Multiply the number of pounds by 703. ? For example, for a person who weighs 180 lb, multiply that number by 703, which equals 126,540. 3. Measure your height in inches. Then multiply that number by itself to get a measurement called inches squared. ? For example, for a person who is 70 inches tall, the inches squared measurement is 70 inches x 70 inches, which equals 4,900 inches squared. 4. Divide the total from step 2 (number of lb x 703) by the total from step 3 (inches squared): 126,540 ? 4,900 = 25.8. This is your BMI. To calculate your BMI in metric measurements: 1. Measure your weight in kilograms (kg). 2. Measure your height in meters (m). Then multiply that number by itself to get a measurement called meters squared. ? For example, for a person who is 1.75 m tall, the meters squared measurement is 1.75 m x 1.75 m, which is equal to 3.1 meters squared. 3. Divide the number of kilograms (your weight) by the meters squared number. In this example: 70 ? 3.1 = 22.6. This is your BMI. What do the results mean? BMI charts are used to identify whether you are underweight, normal weight, overweight, or obese. The following guidelines will be used: ? Underweight: BMI less than 18.5. ? Normal weight: BMI between 18.5 and 24.9. ? Overweight: BMI between 25 and 29.9. ? Obese: BMI of 30 or above. Keep these notes in mind: ? Weight includes both fat and muscle, so someone with a muscular build, such as an athlete, may have a BMI that is higher than 24.9. In cases like these, BMI is not an accurate measure of body fat. ? To determine if excess body fat is the cause of a BMI of 25 or higher, further assessments may need to be done by a health care provider. ? BMI is usually interpreted in the same way for men and women. Where to find more information For more information about BMI, including tools to quickly calculate your BMI, go to these websites: ? Centers for Disease Control and Prevention: www.cdc.gov ? [place] Heart Association: www.heart.org ? National Heart, Lung, and Blood [place]: www.nhlbi.nih.gov Summary ? Body mass index (BMI) is a number that is calculated from a person's weight and height. ? BMI may help estimate how much of a person's weight is composed of fat. BMI can help identify those who may be at higher risk for certain medical problems. ? BMI can be measured using [place] measurements or metric measurements. ? BMI charts are used to identify whether you are underweight, normal weight, overweight, or obese. This information is not intended to replace advice given to you by your health care provider. Make sure you discuss any questions you have with your health care provider. Document Revised: 12/16/2019 Document Reviewed: 10/23/2019 [employer] Patient Education ? 2022 [employer] [facility] Lab Reportson 07-26-2023 Lab Reports [id number] 11#1.00TIFF Normal [facility] Diabetic Self Management Edu cationon 07-05-2023 Diabetic Self Management Education [id number]#1.00TIFF Normal [facility] Ambulatory Visit Summaryon 0 06-24-2023 Ambulatory Visit Summary WENDY ERAZO :1975 Visit Date:06/24/2023 Ambulatory Visit Instructions Your Diagnosis Type 2 diabetes mellitus with morbid obesity Loose stools Class 3 obesity Smoker Bipolar disorder, current episode mixed, moderate Colon cancer screening BMI 45.0-49.9, adult Your Care Team Attending Physician - Yeison Del Valle MD Primary Care Physician - Yeison Del Valle MD This Is Your Medications List Misc Prescription (Free Style Rosalinda 2 Sensors) Misc Prescription (LANCETS) Misc Prescription (TEST STRIPS) Misc Prescription (glucose meter) cetirizine (cetirizine 10 mg Tab) levothyroxine (levothyroxine 50 mcg (0.05 mg) Tab) lithium (lithium 300 mg Cap) lithium (lithium 450 mg oral tablet, extended release) medroxyPROGESTERone metformin (Glucophage XR 500 mg oral tablet, extended release) metoprolol (metoprolol 25 mg ER Tab) olanzapine (olanzapine 10 mg Tab) olanzapine (olanzapine 20 mg oral tablet) pantoprazole (Pantoprazole [address] Tab) semaglutide (Ozempic 2 mg/3 mL (0.25 mg or 0.5 mg dose) subcutaneous solution) Procedures Performed Biopsy of vulva, Colposcopy, EGD (esophagogastroduod enoscopic) electrohydraulic lithotripsy of bezoar in stomach. Discharge Vitals Temperature (Temporal Artery) 36.8 ?C Heart Rate (Peripheral) 100 Respiratory Rate 18 Blood Pressure 132/80 Height 160 cm Height 63 in Weight 117.3 kg Weight 258.06 lb BMI 45.82 What to do next Scheduled Follow-Up Appointments Saturday 9:00 AM EDT With: Where: FT Dietary Saturday 2:45 PM EDT With: Yeison Del Valle MD Where: [facility] [place] Normal [facility] Family Medicine Office/Clini c Noteon 06-24-2023 Family Medicine Office/Clinic Note HPI Staff Wendy is a 47 year old female presenting for follow up medication check after labs MIREILLE gave freestyle rosalinda and A1C ordered w/ other labs Hgb A1C %: 8.3 % High (05/22/23 13:14:00) Has had 4 doses of the ozempic and using the freestyle rosalinda previous weight 265lbs today 258lbs questions/concerns: says she has about one solid BM a month for about a year now. it's mainly liquid or watery and she doesn't know what to do. Can't associate with a certain medication or any particular food she eats History of Present Illness Pt here for follow up on her Dm - Doing well with weight loss - Tolerating her shots well. - Going to weight loss classes. Concerned with her BMs More liquidity Pt is not sure why. Been happening for years. Physical Exam Vitals & Measurements T: 36.8 ?C(Temporal Artery) HR: 100(Peripheral) RR: 18 BP: 132/80 SpO2: 98% HT: 63 in HT: 160 cm WT: 117.3 kg WT: 258.06 lb BMI: 45.82 General: alert, no acute distress ENMT: oral mucosa moist, Cardiovascular: regular rate and rhythm, normal peripheral perfusion Respiratory: Lungs CTA, respirations non labored Extremities: no deformity, no trauma Neurological: oriented x 4, LOC appropriate for age, CN II-XII intact, motor strength equal & normal bilaterally, speech normal Abdomen: Soft, Nontender, Non-distended, + BS Assessment/Plan 1. Type 2 diabetes mellitus with morbid obesity (E11.69: Type 2 diabetes mellitus with other specified complication) - Improving. - Will increase to the .5 on the ozempic - Follow up in 2 months Ordered: Body Mass Index (BMI) documented 3008F Current tobacco smoker 1034F Influenza immunization status assessed 1030F Most recent diastolic blood pressure 80-89 mm Hg 3079F Systolic BP 130-139 mm Hg (Most Recent) 3075F 2. Loose stools (R19.5: Other fecal abnormalities) - Will send to Gi for further work up. 3. Class 3 obesity (E66.01: Morbid (severe) obesity due to excess calories) - Diet and exercise advised Ordered: Body Mass Index (BMI) documented 3008F Current tobacco smoker 1034F Influenza immunization status assessed 1030F Most recent diastolic blood pressure 80-89 mm Hg 3079F Systolic BP 130-139 mm Hg (Most Recent) 3075F 4. Smoker (F17.200: Nicotine dependence, unspecified, uncomplicated) - Please stop smoking Ordered: Body Mass Index (BMI) documented 3008F Current tobacco smoker 1034F Influenza immunization status assessed 1030F Most recent diastolic blood pressure 80-89 mm Hg 3079F Systolic BP 130-139 mm Hg (Most Recent) 3075F 5. Bipolar disorder, current episode mixed, moderate (F31.62: Bipolar disorder, current episode mixed, moderate) - Stable 6. Colon cancer screening (Z12.11: Encounter for screening for malignant neoplasm of colon) - Will send to GI for the loose stools 7. BMI 45.0-49.9, adult (Z68.42: Body mass index [BMI] 45.0-49.9, adult) - BMI education given Ordered: Body Mass Index (BMI) documented 3008F Current tobacco smoker 1034F Influenza immunization status assessed 1030F Most recent diastolic blood pressure 80-89 mm Hg 3079F Systolic BP 130-139 mm Hg (Most Recent) 3075F Orders: semaglutide, 0.5 mg, SubCutaneous, qWeek, # 6 EA, Refills(s) 0, Pharmacy: [facility]/pharmacy #[id number], 160, cm, 06/24/23 14:13:00 EDT, Height/Length Dosing, 117.3, kg, 06/24/23 14:13:00 EDT, Weight Dosing Follow-up No qualifying data available Patient Education BMI for Adults Problem List/Past Medical History Ongoing Romero's palsy Bipolar disorder, current episode mixed, moderate BMI 45.0-49.9, adult Breast cancer screening by mammogram Class 3 obesity Colon cancer screening Cough Hypothyroidism Loose stools Mixed incontinence urge and stress MANNY (obstructive sleep apnea) Primary hypertension Sleep disorder Smoker Type 2 diabetes mellitus with morbid obesity Historical Depression Procedure/Surgical History Biopsy of vulva, Colposcopy, EGD (esophagogastroduod enoscopic) electrohydraulic lithotripsy of bezoar in stomach. Medications cetirizine 10 mg Tab, See Instructions, Self Directed Free Style Rosalinda 2 Sensors, See Instructions, 3 refills Glucophage XR 500 mg oral tablet, extended release, 1000 mg= 2 tab(s), Oral, BID, 1 refills glucose meter, See Instructions LANCETS, See Instructions, 4 refills levothyroxine 50 mcg (0.05 mg) Tab, 50 mcg= 1 tab(s), Oral, Daily, 3 refills lithium 300 mg Cap, 300 mg= 1 cap(s), Oral, Daily lithium 450 mg oral tablet, extended release, 900 mg= 2 tab(s), Oral, Bedtime medroxyPROGESTERone , 10 mg, Oral metoprolol 25 mg ER Tab, 25 mg= 1 tab(s), Oral, Daily olanzapine 10 mg Tab, 10 mg= 1 tab(s), Oral, Once a day (at bedtime) olanzapine 20 mg oral tablet, 20 mg= 1 tab(s), Oral, Bedtime Ozempic 2 mg/3 mL (0.25 mg or 0.5 mg dose) subcutaneous solution, 0.5 mg, SubCutaneous, qWeek Pantoprazole [address] Tab, 40 mg= 1 tab(s), Oral, Daily, 4 refills TEST STRIPS, See Instructions, 4 refil (more content not included)... Normal [facility] Comment on above: Result Comment: Elec tronically Signed By: Eligio MEDELLIN, Yeison Harris\.br\Date and Time Signed: 06/24/23 14:36 EDT Patient Educationon 06-24-19 Patient Education Nutrition BMI for Adults What is BMI? Body mass index (BMI) is a number that is calculated from a person's weight and height. BMI can help estimate how much of a person's weight is composed of fat. BMI does not measure body fat directly. Rather, it is an alternative to procedures that directly measure body fat, which can be difficult and expensive. BMI can help identify people who may be at higher risk for certain medical problems. What are BMI measurements used for? BMI is used as a screening tool to identify possible weight problems. It helps determine whether a person is obese, overweight, a healthy weight, or underweight. BMI is useful for: ? Identifying a weight problem that may be related to a medical condition or may increase the risk for medical problems. ? Promoting changes, such as changes in diet and exercise, to help reach a healthy weight. BMI screening can be repeated to see if these changes are working. How is BMI calculated? BMI involves measuring your weight in relation to your height. Both height and weight are measured, and the BMI is calculated from those numbers. This can be done either in [place] or metric measurements. Note that charts and online BMI calculators are available to help you find your BMI quickly and easily without having to do these calculations yourself. To calculate your BMI in [place] measurements: 1. Measure your weight in pounds (lb). 2. Multiply the number of pounds by 703. ? For example, for a person who weighs 180 lb, multiply that number by 703, which equals 126,540. 3. Measure your height in inches. Then multiply that number by itself to get a measurement called inches squared. ? For example, for a person who is 70 inches tall, the inches squared measurement is 70 inches x 70 inches, which equals 4,900 inches squared. 4. Divide the total from step 2 (number of lb x 703) by the total from step 3 (inches squared): 126,540 ? 4,900 = 25.8. This is your BMI. To calculate your BMI in metric measurements: 1. Measure your weight in kilograms (kg). 2. Measure your height in meters (m). Then multiply that number by itself to get a measurement called meters squared. ? For example, for a person who is 1.75 m tall, the meters squared measurement is 1.75 m x 1.75 m, which is equal to 3.1 meters squared. 3. Divide the number of kilograms (your weight) by the meters squared number. In this example: 70 ? 3.1 = 22.6. This is your BMI. What do the results mean? BMI charts are used to identify whether you are underweight, normal weight, overweight, or obese. The following guidelines will be used: ? Underweight: BMI less than 18.5. ? Normal weight: BMI between 18.5 and 24.9. ? Overweight: BMI between 25 and 29.9. ? Obese: BMI of 30 or above. Keep these notes in mind: ? Weight includes both fat and muscle, so someone with a muscular build, such as an athlete, may have a BMI that is higher than 24.9. In cases like these, BMI is not an accurate measure of body fat. ? To determine if excess body fat is the cause of a BMI of 25 or higher, further assessments may need to be done by a health care provider. ? BMI is usually interpreted in the same way for men and women. Where to find more information For more information about BMI, including tools to quickly calculate your BMI, go to these websites: ? Centers for Disease Control and Prevention: www.cdc.gov ? [place] Heart Association: www.heart.org ? National Heart, Lung, and Blood [place]: www.nhlbi.nih.gov Summary ? Body mass index (BMI) is a number that is calculated from a person's weight and height. ? BMI may help estimate how much of a person's weight is composed of fat. BMI can help identify those who may be at higher risk for certain medical problems. ? BMI can be measured using [place] measurements or metric measurements. ? BMI charts are used to identify whether you are underweight, normal weight, overweight, or obese. This information is not intended to replace advice given to you by your health care provider. Make sure you discuss any questions you have with your health care provider. Document Revised: 12/16/2019 Document Reviewed: 10/23/2019 [employer] Patient Education ? 2022 [employer]. [facility] Pre-Certification Formon Pre-Certification Form [id number] B9#1.00TIFF [facility] Progress Note - Nutritionon 05-23-2023 Progress Note - Nutrition Nutrition Assessment. Food and Nutrition-Related History. NEW dm DX. Lives w mother. Dad in August. Depression reported as being hard to manage and psych issues reported by pt. New dx w new provider, Dr Del Valle. Increased Metformin to 4 per day. Food and Nutrient Intake Recall: Dining Out: sometimes daily w mother Food Allergy: NKFA Medication: metformin Behavior: willing to learn Activity: minimal does have rec for swim pass and can walk PMH: [place] Palsy, bipolar, hypothyroid, HTN, depression Anthropometric: Ht: 63? Wt: 266.6# Recent weight changes: none UBW: current wt, lost 60# previously per pt r/t psych meds IBW: 115# % IBW: 231% BMI: 47.3 Biochemical Data: random >200, 219 noted in office. A1C: not noted Fasting glucose: not noted 1-2 Hr PPG: not checking yet Nutrition Status Classification: Compromise Moderate Nutrition Diagnosis: Food- and Nutrition-Related Knowledge Deficit R/T Lack of prior nutrition-related education AEB inconsistent carbohydrate timing, excess simple sugar choices, and inability to select correct carb choices. Nutrition Intervention: Comprehensive Nutrition Education Calories: wt loss 1#/week 1687kcal Protein: 85-90gm Fluid: 2700ml 1. Modify Carbohydrates: 1600kcal for wt reduction 2. Modify distribution: Breakfast: 45 gms, Lunch: 45-60 gms, Dinner: 60gms, Snack: 30 gms 3. Schedule of foods: 3 meals and 1 snack. Education: Basic understanding of meal plan use in diabetes self-management. Modify carbohydrates: Reviewed a sample meal plan for the proper carbohydrate distribution/timing throughout the day. Demonstrated the proper portions of commonly consumed food items. Used food models and measuring cups to illustrate and facilitate dialog. Encouraged measurement of food items for one day of usual food if unsure of portions at home. Discussed food labels and reviewed carbohydrate portions with food choices. Modify Protein: Discussed portions of protein sources and distribution throughout the day. Reviewed low fat protein sources. Modify Fat: Reviewed fat portions discussing saturated and unsaturated fats. Provided other options for reducing fat content of commonly consumed foods. Modify Fiber: Reviewed high fiber foods Encouraged higher fiber foods at each meal. Nutrition Education: Education Materials: Provided material related to calories, carbohydrate distribution, portion sizes, and label reading topics from sources such as Academy of Nutrition and Dietetics, International Diabetes Center, Sasha Nordisk, and [place] Association of Diabetes Educators. Referral of Care: Recommend DSME program with RN Communication by phone, fax, or EMR from DSME staff to provider after completion of program/cessation. Chart notes will be available in EMR after 7 days of completion or cessation. Nutrition Monitoring and Evaluation: 1. Pt understanding of nutrition intervention: good 2. Monitor endocrine/glucose profile w desired readings. 3. Patient to achieve weight loss 7% of body weight. 4. Monitor motivation to change behavior to change w goal setting, self-monitoring and/or problem solving. 5. Monitor total energy intake: 1600kcal/d 6. Monitor willingness to try new foods: higher fiber foods 7. Instructed pt to contact RD for f/u or questions. Telephone number and email provided. 8. Goal: Food logs: Measure carbohydrate portions and document for 1 week. 9. Will follow for changes in progress and assist prn. Nutrition Assessment Comments The complete initial assessment may be deferred based on participants willingness to participate, learning barrier, or pending f/u for complete assessment. Wendy Almaguer, CB, RD, LD [facility] Ambulatory Visit Summaryon 0 05-22-2023 Ambulatory Visit Summary WENDY ERAZO :1975 Visit Date:05/22/2023 Ambulatory Visit Instructions Your Diagnosis Primary hypertension Type 2 diabetes mellitus with morbid obesity Morbid (severe) obesity due to excess calories Your Care Team Attending Physician - Yeison Del Valle MD Primary Care Physician - Yeison Del Valle MD This Is Your Medications List Misc Prescription (LANCETS) Misc Prescription (TEST STRIPS) Misc Prescription (glucose meter) cetirizine (cetirizine 10 mg Tab) levothyroxine (levothyroxine 50 mcg (0.05 mg) Tab) lithium (lithium 300 mg Cap) lithium (lithium 450 mg oral tablet, extended release) medroxyPROGESTERone metformin (Glucophage XR 500 mg oral tablet, extended release) metoprolol (metoprolol 25 mg ER Tab) olanzapine (olanzapine 10 mg Tab) olanzapine (olanzapine 20 mg oral tablet) pantoprazole (Pantoprazole [address] Tab) Procedures Performed Biopsy of vulva, Colposcopy, EGD (esophagogastroduod enoscopic) electrohydraulic lithotripsy of bezoar in stomach. What to do next Scheduled Follow-Up Appointments Saturday 1:00 PM EST With: Yeison Del Valle MD Where: [facility] [place] Normal [facility] CHEMISTRYOrdered By: SYSTEM SYSTEM on 05-22-2023 U Creatinine 109.7 mg/dL Invalid Interpretation Code Remisol Chem U Microalb microgram/mL Normal 0.0 - 19.0 mcg/mL Remis ol Chem U Prot/Creat Ratio 13.90 mg/gm Cr Normal 0.00 - 200.00 mg/gm Cr Remisol Chem Ur Total Protein 15.3 mg/dL Invalid Interpretation Code Remisol Chem TSH Qn 4.90 m[IU]/L Normal 0.34 - 5.60 mcIU/mL Rem isol Chem CHEMISTRYOrdered By: Marco A guillermo on 05-22-2023 HbA1c (Bld) [Mass fraction] 8.3 % High <=5.9% [facility] ChemAutoSS [facility] Medicine Office/Clini c Noteon 05-22-2023 Family Medicine Office/Clinic Note HPI Staff Wendy is a 47 year old female presenting for 3 month follow up htn and dm Do you have any of the following symptoms? Foot Exam: none Eye Exam: UTD ( 2 weeks ago) Last A1C: No qualifying data available. Statin: none Patient is here for follow up on hypertension. How often are you checking your blood pressure? Doesnt check BP at home did for a while and got out of doing it What are your average readings? N/A, Not checking at home Yearly BMP: 01/23/23_ flu: refused questions/concerns: History of Present Illness - Pt here for follow up. Physical Exam Vitals & Measurements T: 36.7 ?C(Temporal Artery) HR: 94(Peripheral) RR: 16 BP: 136/82 SpO2: 99% HT: 63 in HT: 160 cm WT: 120.5 kg WT: 265.1 lb BMI: 47.07 General: alert, no acute distress ENMT: oral mucosa moist, Cardiovascular: regular rate and rhythm, normal peripheral perfusion Respiratory: Lungs CTA, respirations non labored Extremities: no deformity, no trauma Neurological: oriented x 4, LOC appropriate for age, CN II-XII intact, motor strength equal & normal bilaterally, speech normal Abdomen: Soft, Nontender, Non-distended, + BS Assessment/Plan 1. Primary hypertension (I10: Essential (primary) hypertension) - At goal. - Continue with meds as before. Ordered: HgbA1c Lab Specimen Collect [id number] Microalbumin Level Urine TSH With T4fr Reflex U Protein/Creat Ratio 2. Type 2 diabetes mellitus with morbid obesity (E11.69: Type 2 diabetes mellitus with other specified complication) - Will recheck labs today. - Adjust meds based on labs. - Gave samples of freestyle rosalinda to help patient recognize which foods cause her BS to spike. Ordered: HgbA1c Lab Specimen Collect [id number] Microalbumin Level Urine TSH With T4fr Reflex U Protein/Creat Ratio 3. BMI 45.0-49.9, adult (Z68.42: Body mass index [BMI] 45.0-49.9, adult) - BMI education given. Ordered: HgbA1c Lab Specimen Collect [id number] Microalbumin Level Urine TSH With T4fr Reflex U Protein/Creat Ratio 4. Hypothyroidism (E03.9: Hypothyroidism, unspecified) - Will recheck today. Ordered: HgbA1c Lab Specimen Collect [id number] Microalbumin Level Urine TSH With T4fr Reflex U Protein/Creat Ratio 5. Morbid (severe) obesity due to excess calories (E66.01: Morbid (severe) obesity due to excess calories) - Diet and exercise advised Ordered: HgbA1c Lab Specimen Collect [id number] Microalbumin Level Urine TSH With T4fr Reflex U Protein/Creat Ratio 6. Smoker (F17.200: Nicotine dependence, unspecified, uncomplicated) - Please stop smoking. Ordered: HgbA1c Microalbumin Level Urine TSH With T4fr Reflex U Protein/Creat Ratio 7. Bipolar disorder, current episode mixed, moderate (F31.62: Bipolar disorder, current episode mixed, moderate) - [place] level was WNL last time. - Pt states she is doing better. Ordered: HgbA1c Microalbumin Level Urine TSH With T4fr Reflex U Protein/Creat Ratio Orders: metformin, 1,000 mg = 2 tab(s), Oral, BID, # 360 tab(s), Refills(s) 1, Pharmacy: [facility]/pharmacy #[id number], 160, cm, 05/22/23 12:27:00 EST, Height/Length Dosing, 120.5, kg, 05/22/23 12:27:00 EST, Weight Dosing metoprolol, 25 mg = 1 tab(s), Oral, Daily, # 90 tab(s), Refills(s) 0, Pharmacy: [facility]/pharmacy #[id number], 160, cm, 05/22/23 12:27:00 EST, Height/Length Dosing, 120.5, kg, 05/22/23 12:27:00 EST, Weight Dosing Follow-up No qualifying data available Problem List/Past Medical History Ongoing Romero's palsy Bipolar disorder, current episode mixed, moderate BMI 45.0-49.9, adult Breast cancer screening by mammogram Class 3 obesity Colon cancer screening Cough Hypothyroidism Mixed incontinence urge and stress MANNY (obstructive sleep apnea) Primary hypertension Sleep disorder Smoker Type 2 diabetes mellitus with morbid obesity Historical Depression Procedure/Surgical History Biopsy of vulva, Colposcopy, EGD (esophagogastroduod enoscopic) electrohydraulic lithotripsy of bezoar in stomach. Medications cetirizine 10 mg Tab, See Instructions, Self Directed Glucophage XR 500 mg oral tablet, extended release, 1000 mg= 2 tab(s), Oral, BID, 1 refills glucose meter, See Instructions LANCETS, See Instructions, 4 refills levothyroxine 50 mcg (0.05 mg) Tab, 50 mcg= 1 tab(s), Oral, Daily, 3 refills lithium 300 mg Cap, 300 mg= 1 cap(s), Oral, Daily lithium 450 mg oral tablet, extended release, 900 mg= 2 tab(s), Oral, Bedtime medroxyPROGESTERone , 10 mg, Oral metoprolol 25 mg ER Tab, 25 mg= 1 tab(s), Oral, Daily olanzapine 10 mg Tab, 10 mg= 1 tab(s), Oral, Once a day (at bedtime) olanzapine 20 mg oral tablet, 20 mg= 1 tab(s), Oral, Bedtime Pantoprazole [address] Tab, 40 mg= 1 tab(s), Oral, Daily, 4 refills TEST STRIPS, See Instructions, 4 refills Allergies No Known Allergies Social History Alcohol - Denies Alcohol Use, 12/13/2020 Ready to change: No. Household alcohol concerns: No., 03/25/2023 Substance Abuse - Denies Jerome (more content not included)... Normal [facility] Comment on above: Result Comment: Elec tronically Signed By: Eligio MEDELLIN, Yeison Devries.br\Date and Time Signed: 05/22/23 14:12 EST [id number] 05-22-2023 HbA1c (Bld) [Mass fraction] 8.3 % High <=5.9 [facility] Comment on above: Performed By: #### 7 [id number] ####[facility] [address] [place] [address] TSH With T4fr Reflexon 05-22 TSH Qn 4.90 m[IU]/L Normal 0.34-5.60 [facility] Comment on above: Performed By: #### 7 [id number] ####[facility] [address] [place] [address] U Microalbon 05-22-2023 U Microalb <2.0 Normal 0.0-19.0 [facility] Comment on above: Performed By: #### 1 [id number] ####[facility] [address] [place] [address] U Protein/Creat Ratioon 05-09 U Creatinine 109.7 mg/dL Invalid Interpretation Code [facility] Comment on above: Performed By: #### 1 [id number] ####[facility] [address] [place] [address] U Prot/Creat Ratio 13.90 mg/gm Cr Normal .00-200.00 [facility] Comment on above: Performed By: #### 1 [id number] ####[facility] [address] [place] [address] Ur Total Protein 15.3 mg/dL Invalid Interpretation Code [facility] Comment on above: Performed By: #### 1 [id number] ####[facility] [address] [place] [address] Physician Orderon 05-07-2023 Physician Order [id number]#1.00TIFF Normal [facility] Consent for Treatmenton 04-09 Consent for Treatment [id number] C6#1.00TIFF Normal [facility] Physician Orderon 04-15-2023 Physician Order [id number] 84#1.00TIFF Normal [facility] Physician Order [id number] [facility] CHEMISTRYOrdered By: SYSTEM SYSTEM on 01-23-2023 Albumin [Mass/Vol] 3.7 g/dL Normal 3.3 - 5.0 gm/dL F [facility] Albumin/Globulin [Mass ratio] 1.0 {ratio} Low 1.1 - 2.2 [facility] ALP [Catalytic activity/Vol] 102 [iU]/d High 21 - 98 Int._Unit/L [facility] ALT No additional P-5'-P [Catalytic activity/Vol] 45 [iU]/d Normal 6 - 46 Int._Unit/L [facility] Anion gap [Moles/Vol] 15 mmol/L Normal 6 - 16 mEq/L [facility] AST [Catalytic activity/Vol] 72 [iU]/d High 5 - 43 Int._Unit/L [facility] Bilirubin [Mass/Vol] 0.3 mg/dL Normal 0.0 - 1.1 mg/dL [facility] Calcium [Mass/Vol] 9.7 mg/dL Normal 8.9 - 11.1 mg/dL [facility] Chloride [Moles/Vol] 99 mmol/L Low 101 - 111 mmol/L [facility] Cholesterol [Mass/Vol] 163 mg/dL Normal 120 - 200 mg/dL [facility] Cholesterol in HDL [Mass/Vol] 34 mg/dL Invalid Interpretation Code [facility] Comment on above: Interpretive Data: H DL > or equal to 60 mg/dL: Low cardiovascular risk HDL < 40 mg/dL : High cardiovascular risk Cholesterol in LDL [Mass/Vol] 91 mg/dL Normal <=129mg/dL [facility] Cholesterol in VLDL [Mass/Vol] 51 mg/dL High 7 - 40 mg/dL [facility] CO2 [Moles/Vol] 25 mmol/L Normal 21 - 31 mmol/L [facility] Creatinine [Mass/Vol] 0.8 mg/dL Normal 0.5 - 1.3 mg/dL [facility] GFR/1.73 sq M.predicted among non-blacks MDRD (S/P/Bld) [Vol rate/Area] 93 mL/min/1.73 m2 Normal >=59mL/min/1.73 m2 [facility] Chem S Comment on above: Interpretive Data: C hronic kidney disease could be indicated at eGFR's of less than 60 mL/min/1.73m2. Kidney failure is indicated at less than 15 mL/min/1.73m2. Globulin (S) [Mass/Vol] 3.6 g/dL Normal 1.4 - 4.0 gm/dL [facility] Glucose [Mass/Vol] 219 mg/dL High 55 - 199 mg/dL [facility] Comment on above: Interpretive Data: I f this glucose result represents a fasting glucose, interpretation should refer to the following reference range: 55-99 mg/dL Potassium [Moles/Vol] 4.0 mmol/L Normal 3.5 - 5.3 mmol/L [facility] Protein [Mass/Vol] 7.3 g/dL Normal 6.0 - 7.8 gm/dL F [facility] Sodium [Moles/Vol] 135 mmol/L Normal 135 - 145 mmol/L [facility] Triglyceride [Mass/Vol] 255 mg/dL High <=149mg/dL [facility] TSH Qn 4.17 m[IU]/L Normal 0.34 - 5.60 mcIU/mL [facility] Urea nitrogen [Mass/Vol] 10 mg/dL Normal 5 - 21 mg/dL [facility] Urea nitrogen/Creatinin e [Mass ratio] 12 mg/mg Normal 10 - 20 [facility] COVID + FLU Quick Testingon 08-13-2022 SARS-CoV-2 (COVID-19) RNA NARCISA+probe Ql (Unsp spec) Negative [employer] Other COVID + FLU Quick Testing Negative [employer] Other Quick Strepon 08-13-2022 S. pyogenes Org specific cx Ql (Throat) Negative [employer] Other Quick Strep [employer] Other LITHIUMon 07-31-2022 [employer] (Eskalith(R)), Serum 0.9 mmol/L Normal 0.5-1.2 [facility] Comment on above: Result Comment: A co ncentration of 0.5-0.8 mmol/L is advised for long-term use; concentrations of up to 1.2 mmol/L may be necessary during acute treatment. Detection Limit = 0.1 <0.1 indicates None Detected Performed By: #### C VDTBH #### [facility] [address] [place] [address] Dr. Peter Ramos LITHIUMon 06-29-2022 [employer] (Eskalith(R)), Serum 0.4 mmol/L Critically low 0.5-1.2 [facility] Comment on above: Result Comment: A co ncentration of 0.5-0.8 mmol/L is advised for long-term use; concentrations of up to 1.2 mmol/L may be necessary during acute treatment. Detection Limit = 0.1 <0.1 indicates None Detected Performed By: #### C VDTBH #### [facility] [address] [place] [address] Dr. Peter Ramos CREATININEon 06-28-2022 Creatinine [Mass/Vol] 0.75 mg/dL Normal 0.55-1.02 [facility] Comment on above: Performed By: #### C VDTBH #### [facility] [address] [place] [address] Dr. Peter Ramos EGFR-AF NAMIBIAN >60 Normal >=60 [facility] Comment on above: Performed By: #### C VDTBH #### [facility] [address] [place] [address] Dr. Peter Ramos EGFR-NON AF NAMIBIAN >60 Normal >=60 [facility] Comment on above: Performed By: #### C VDTBH #### [facility] [address] [place] [address] Dr. Peter Ramos DIRECT LDLon 06-28-2022 Cholesterol in LDL [Mass/Vol] 79 mg/dL Normal [facility] Comment on above: Performed By: #### C VDTBH #### [facility] [address] [place] [address] Dr. Peter Ramos DLDL NORMAL SEE BELOW Normal [facility] Comment on above: Result Comment: <100 mg/dl OPTIMAL 100 - 129 mg/dl NEAR OR ABOVE OPTIMAL 130 - 159 mg/dl BORDERLINE HIGH 160 - 189 mg/dl HIGH >190 mg/dl VERY HIGH Performed By: #### C VDTBH #### [facility] [address] [address] [address] Peter Ramos GLUCOSE BLOODon 06-28-2022 Glucose [Mass/Vol] 114 mg/dL Critically high 74-106 [facility] Comment on above: Performed By: #### C VDTBH #### [facility] [address] [place] [address] Dr. Peter Ramos LIPID PROFILEon 06-28-2022 CHOL-HDL RATIO NORM SEE BELOW Normal [facility] Comment on above: Result Comment: 3.3 - 4.4 LOW RISK 4.4 - 7.1 AVERAGE RISK 7.1 - 11.0 MODERATE RISK >11.0 HIGH RISK Performed By: #### C VDTBH #### [facility] [address] [place] [address] Dr. Peter Ramos Cholesterol [Mass/Vol] 167 mg/dL Normal <=200 [facility] Comment on above: Performed By: #### C VDTBH #### [facility] [address] [place] [address] Dr. Peter Ramos Cholesterol in HDL [Mass/Vol] 35 mg/dL Critically low 40-60 [facility] Comment on above: Performed By: #### C VDTBH #### [facility] [address] [place] [address] Dr. Peter Ramos Cholesterol in LDL [Mass/Vol] 47.0 mg/dL Normal [facility] Comment on above: Performed By: #### C VDTBH #### [facility] [address] [place] [address] Dr. Peter Ramos Cholesterol.total/ Cholesterol in HDL [Mass ratio] 4.8 {ratio} Normal [facility] Comment on above: Performed By: #### C VDTBH #### [facility] [address] [place] [address] Dr. Peter Ramos HDL NORMAL > or = 60 mg/dl - LOW CARDIOVASCULAR RISK <40 mg/dl - HIGH CARDIOVASCULAR RISK Normal [facility] Comment on above: Performed By: #### C VDTBH #### [facility] [address] [place] [address] Dr. Peter Ramos LDL CALC NORMAL SEE BELOW Normal [facility] Comment on above: Result Comment: <100 mg/dl OPTIMAL 100 - 129 mg/dl NEAR OR ABOVE OPTIMAL 130 - 159 mg/dl BORDERLINE HIGH 160 - 189 mg/dl HIGH >190 mg/dl VERY HIGH Performed By: #### C VDTBH #### [facility] [address] [place] [address] Dr. Peter Ramos Triglyceride [Mass/Vol] 425 mg/dL Critically high <=150 [facility] Comment on above: Performed By: #### C VDTBH #### [facility] [address] [address] [address] Peter Ramos VLDL CALC 85.0 mg/dL Normal [facility] Comment on above: Performed By: #### C VDTBH #### [facility] [address] [place] [address] Dr. Peter Ramos TSHon 06-28-2022 TSH 1.826 uIU/mL Normal 0.358-3.740 [facility] Comment on above: Performed By: #### C VDTBH #### [facility] [address] [address] [address] Peter Ramos CBC AUTO DIFFon 04-26-2022 BASO # 0.1 103/ul Normal 0.0-0.1 [facility] Comment on above: Performed By: #### C VDTBH #### [facility] [address] [place] [address] Dr. Peter Ramos Basophils/100 WBC (Bld) 0.5 % Normal 0.2-2.0 [facility] Comment on above: Performed By: #### C VDTBH #### [facility] [address] [address] [address] Peter Ramos EO # 0.3 103/ul Normal 0.0-0.7 [facility] Comment on above: Performed By: #### C VDTBH #### [facility] [address] [place] [address] Dr. Peter Ramos Eosinophils/100 WBC (Bld) 3.1 % Normal 0.9-7.0 [facility] Comment on above: Performed By: #### C VDTBH #### [facility] [address] [place] [address] Dr. Peter Ramos Erythrocyte distribution width (RBC) [Ratio] 15.5 % Critically high 11.0-15.0 [facility] Comment on above: Performed By: #### C VDTBH #### [facility] [address] [place] [address] Dr. Peter Ramos Hematocrit (Bld) [Volume fraction] 37.8 % Normal 36.0-48.0 [facility] Comment on above: Performed By: #### C VDTBH #### [facility] [address] [place] [address] Dr. Peter Ramos Hemoglobin (Bld) [Mass/Vol] 12.6 g/dL Normal 12.0-16.0 [facility] Comment on above: Performed By: #### C VDTBH #### [facility] [address] [place] [address] Dr. Peter Ramos IG # 0.07 10e3/ul Critically high 0.00-0.03 [facility] Comment on above: Performed By: #### C VDTBH #### [facility] [address] [place] [address] Dr. Peter Ramos IG % 0.7 % Critically high 0.0-0.5 [facility] Comment on above: Performed By: #### C VDTBH #### [facility] [address] [place] [address] Dr. Peter Ramos LYMPH # 2.6 103/ul Normal 1.2-3.8 [facility] Comment on above: Performed By: #### C VDTBH #### [facility] [address] [place] [address] Dr. Peter Ramos Lymphocytes/100 WBC (Bld) 27.4 % Normal 20.5-60.0 [facility] Comment on above: Performed By: #### C VDTBH #### [facility] [address] [place] [address] Dr. Peter Ramos MANUAL DIFF REQ NO Normal [facility] Comment on above: Performed By: #### C VDTBH #### [facility] [address] [place] [address] Dr. Peter Ramos MCH (RBC) [Entitic mass] 28.1 pg Normal 26.7-34.0 [facility] Comment on above: Performed By: #### C VDTBH #### [facility] [address] [place] [address] Dr. Peter Ramos MCHC (RBC) [Mass/Vol] 33.3 g/dL Normal 29.9-35.2 [facility] Comment on above: Performed By: #### C VDTBH #### [facility] [address] [place] [address] Dr. Peter Ramos MCV (RBC) [Entitic vol] 84.2 fL Normal 81.0-99.0 [facility] Comment on above: Performed By: #### C VDTBH #### [facility] [address] [place] [address] Dr. Peter Ramos MONO # 0.5 103/ul Normal 0.3-0.8 [facility] Comment on above: Performed By: #### C VDTBH #### [facility] [address] [place] [address] Dr. Peter Ramos Monocytes/100 WBC (Bld) 5.5 % Normal 1.7-12.0 [facility] Comment on above: Performed By: #### C VDTBH #### [facility] [address] [place] [address] Dr. Peter Ramos NEUT # 5.9 103/ul Normal 1.4-6.5 [facility] Comment on above: Performed By: #### C VDTBH #### [facility] [address] [place] [address] Dr. Peter Ramos Neutrophils/100 WBC (Bld) 62.8 % Normal 43.0-75.0 [facility] Comment on above: Performed By: #### C VDTBH #### [facility] [address] [place] [address] Dr. Peter Ramos Platelet mean volume (Bld) [Entitic vol] 10.4 fL Normal 9.5-13.5 [facility] Comment on above: Performed By: #### C VDTBH #### [facility] [address] [place] [address] Dr. Peter Ramos PLT 236 103/ul Normal 150-450 [facility] Comment on above: Performed By: #### C VDTBH #### [facility] [address] [place] [address] Dr. Peter Ramos RBC 4.49 106/ul Normal 4.20-5.40 [facility] Comment on above: Performed By: #### C VDTBH #### [facility] [address] [place] [address] Dr. Peter Ramos WBC 9.4 103/ul Normal 4.0-11.0 [facility] Comment on above: Performed By: #### C VDTBH #### [facility] [address] [place] [address] Dr. Peter Ramos FREE T3on 04-26-2022 FREE T3 2.14 pg/mlL Critically low 2.18-3.98 [facility] Comment on above: Performed By: #### C VDTBH #### [facility] [address] [place] [address] Dr. Peter Ramos FREE T4on 04-26-2022 Free T4 [Mass/Vol] 0.65 ng/dL Critically low 0.76-1.46 [facility] Comment on above: Performed By: #### C BC #### [facility] [address] [place] [address] Dr. Peter Ramos PROF 14(COMP METB)on 023 Albumin [Mass/Vol] 3.0 g/dL Critically low 3.4-5.0 [facility] Comment on above: Performed By: #### C BC #### [facility] [address] [place] [address] Dr. Peter Ramos Albumin/Globulin [Mass ratio] 0.8 {ratio} Normal [facility] Comment on above: Performed By: #### C BC #### [facility] [address] [address] [address] Peter Ramos ALP [Catalytic activity/Vol] 105 U/L Normal 46-116 [facility] Comment on above: Performed By: #### C BC #### [facility] [address] [address] [address] Peter Ramos ALT [Catalytic activity/Vol] 20 U/L Normal 14-59 [facility] Comment on above: Performed By: #### C BC #### [facility] [address] [address] [address] Peter Ramos Anion gap [Moles/Vol] 11.3 mmol/L Normal [facility] Comment on above: Performed By: #### C BC #### [facility] [address] [place] [address] Dr. Peter Ramos AST [Catalytic activity/Vol] 13 U/L Critically low 15-37 [facility] Comment on above: Performed By: #### C BC #### [facility] [address] [place] [address] Dr. Peter Ramos Bilirubin [Mass/Vol] 0.3 mg/dL Normal 0.2-1.0 [facility] Comment on above: Performed By: #### C BC #### [facility] [address] [place] [address] Dr. Peter Ramos Calcium [Mass/Vol] 9.0 mg/dL Normal 8.5-10.1 [facility] Comment on above: Performed By: #### C BC #### [facility] [address] [place] [address] Dr. Peter Ramos Chloride [Moles/Vol] 107 mmol/L Normal 98-107 [facility] Comment on above: Performed By: #### C BC #### [facility] [address] [place] [address] Dr. Peter Ramos CO2 [Moles/Vol] 27.2 mmol/L Normal 21.0-32.0 [facility] Comment on above: Performed By: #### C BC #### [facility] [address] [place] [address] Dr. Peter Ramos Creatinine [Mass/Vol] 0.71 mg/dL Normal 0.55-1.02 [facility] Comment on above: Performed By: #### C BC #### [facility] [address] [place] [address] Dr. Peter Ramos EGFR-AF NAMIBIAN >60 Normal >=60 [facility] Comment on above: Performed By: #### C BC #### [facility] [address] [address] [address] Peter Ramos EGFR-NON AF NAMIBIAN >60 Normal >=60 [facility] Comment on above: Performed By: #### C BC #### [facility] [address] [place] [address] Dr. Peter Ramos Globulin (S) [Mass/Vol] 3.6 g/dL Normal [facility] Comment on above: Performed By: #### C BC #### [facility] [address] [place] [address] Dr. Peter Ramos Glucose [Mass/Vol] 122 mg/dL Critically high 74-106 [facility] Comment on above: Performed By: #### C BC #### [facility] [address] [place] [address] Dr. Peter Ramos Potassium [Moles/Vol] 3.5 mmol/L Normal 3.5-5.1 [facility] Comment on above: Performed By: #### C BC #### [facility] [address] [place] [address] Dr. Peter Ramos Protein [Mass/Vol] 6.6 g/dL Normal 6.4-8.2 [facility] Comment on above: Performed By: #### C BC #### [facility] [address] [place] [address] Dr. Peter Ramos Sodium [Moles/Vol] 142 mmol/L Normal 136-145 [facility] Comment on above: Performed By: #### C BC #### [facility] [address] [place] [address] Dr. Peter Ramos Urea nitrogen [Mass/Vol] 10.0 mg/dL Normal 7.0-18.0 [facility] Comment on above: Performed By: #### C BC #### [facility] [address] [place] [address] Dr. Peter Ramos Urea nitrogen/Creatinin e [Mass ratio] 14.1 mg/mg Normal [facility] Comment on above: Performed By: #### C BC #### [facility] [address] [place] [address] Dr. Peter Ramos TSHon 04-26-2022 TSH 2.010 uIU/mL Normal 0.358-3.740 [facility] Comment on above: Performed By: #### C VDTBH #### [facility] [address] [place] [address] Dr. Peter Ramos LITHIUMon 12-30-2021 [facility] (Eskalith(R)), Serum <0.1 Critically low 0.5-1.2 [facility] Comment on above: Result Comment: Plas ma concentration of 0.5 - 0.8 mmol/L are advised for long-term use; concentrations of up to 1.2 mmol/L may be necessary during acute treatment. Verified by repeat analysis Detection Limit = 0.1 <0.1 indicates None Detected Performed By: #### L ITHIUM #### [facility] [address] [place] [address] Dr. Peter Ramos ACETAMINOPHENon 12-28-2021 Acetaminophen [Mass/Vol] ug/mL Critically low 10.0-30.0 [facility] Comment on above: Performed By: #### C VDTBH #### [facility] [address] [place] [address] Dr. Peter Ramos CBC AUTO DIFFon 12-28-2021 BASO # 0.0 103/ul Normal 0.0-0.1 [facility] Comment on above: Performed By: #### C VDTBH #### [facility] [address] [place] [address] Dr. Peter Ramos Basophils/100 WBC (Bld) 0.2 % Normal 0.2-2.0 [facility] Comment on above: Performed By: #### C VDTBH #### [facility] [address] [place] [address] Dr. Peter Rmaos EO # 0.2 103/ul Normal 0.0-0.7 [facility] Comment on above: Performed By: #### C VDTBH #### [facility] [address] [place] [address] Dr. Peter Ramos Eosinophils/100 WBC (Bld) 1.7 % Normal 0.9-7.0 [facility] Comment on above: Performed By: #### C VDTBH #### [facility] [address] [place] [address] Dr. Peter Ramos Erythrocyte distribution width (RBC) [Ratio] 14.6 % Normal 11.0-15.0 [facility] Comment on above: Performed By: #### C VDTBH #### [facility] [address] [place] [address] Dr. Peter Ramos Hematocrit (Bld) [Volume fraction] 38.9 % Normal 36.0-48.0 [facility] Comment on above: Performed By: #### C VDTBH #### [facility] [address] [place] [address] Dr. Peter Ramos Hemoglobin (Bld) [Mass/Vol] 13.1 g/dL Normal 12.0-16.0 [facility] Comment on above: Performed By: #### C VDTBH #### [facility] [address] [place] [address] Dr. Peter Ramos IG # 0.02 10e3/ul Normal 0.00-0.03 [facility] Comment on above: Performed By: #### C VDTBH #### [facility] [address] [place] [address] Dr. Peter Ramos IG % 0.2 % Normal 0.0-0.5 [facility] Comment on above: Performed By: #### C VDTBH #### [facility] [address] [place] [address] Dr. Peter Ramos LYMPH # 2.6 103/ul Normal 1.2-3.8 [facility] Comment on above: Performed By: #### C VDTBH #### [facility] [address] [address] [address] Peter Ramos Lymphocytes/100 WBC (Bld) 27.1 % Normal 20.5-60.0 [facility] Comment on above: Performed By: #### C VDTBH #### [facility] [address] [address] [address] Peter Ramos MANUAL DIFF REQ NO Normal [facility] Comment on above: Performed By: #### C VDTBH #### [facility] [address] [place] [address] Dr. Peter Ramos MCH (RBC) [Entitic mass] 27.9 pg Normal 26.7-34.0 [facility] Comment on above: Performed By: #### C VDTBH #### [facility] [address] [place] [address] Dr. Peter Ramos MCHC (RBC) [Mass/Vol] 33.7 g/dL Normal 29.9-35.2 [facility] Comment on above: Performed By: #### C VDTBH #### [facility] [address] [place] [address] Dr. Peter Ramos MCV (RBC) [Entitic vol] 82.9 fL Normal 81.0-99.0 [facility] Comment on above: Performed By: #### C VDTBH #### [facility] [address] [place] [address] Dr. Peter Ramos MONO # 0.8 103/ul Normal 0.3-0.8 [facility] Comment on above: Performed By: #### C VDTBH #### [facility] [address] [place] [address] Dr. Peter Ramos Monocytes/100 WBC (Bld) 7.9 % Normal 1.7-12.0 [facility] Comment on above: Performed By: #### C VDTBH #### [facility] [address] [place] [address] Dr. Peter Ramos NEUT # 6.0 103/ul Normal 1.4-6.5 [facility] Comment on above: Performed By: #### C VDTBH #### [facility] [address] [address] [address] Peter Ramos Neutrophils/100 WBC (Bld) 62.9 % Normal 43.0-75.0 [facility] Comment on above: Performed By: #### C VDTBH #### [facility] [address] [place] [address] Dr. Peter Ramos Platelet mean volume (Bld) [Entitic vol] 9.8 fL Normal 9.5-13.5 [facility] Comment on above: Performed By: #### C VDTBH #### [facility] [address] [place] [address] Dr. Peter Ramos PLT 240 103/ul Normal 150-450 [facility] Comment on above: Performed By: #### C VDTBH #### [facility] [address] [place] [address] Dr. Peter Ramos RBC 4.69 106/ul Normal 4.20-5.40 [facility] Comment on above: Performed By: #### C VDTBH #### [facility] [address] [place] [address] Dr. Peter Ramos WBC 9.6 103/ul Normal 4.0-11.0 [facility] Comment on above: Performed By: #### C VDTBH #### [facility] [address] [place] [address] Dr. Peter Ramos Covid-19 PCR ([facility])on 12-08 SARS-CoV-2 (COVID-19) RNA NARCISA+probe Ql (Unsp spec) Not detected Normal NOT DETECTED [facility] Comment on above: Result Comment: When diagnostic testing is negative, the possibility of a false negative should be considered in the context of a patient's recent exposures and the presence of clinical signs and symptoms consistent with SARS-CoV-2. This test is not yet approved or cleared by the [place] FDA. When there are no FDA-approved or cleared tests available, and other criteria are met, FDA can make tests available under an emergency access mechanism called an Emergency Use Authorization (EUA). The EUA for this test is supported by the [place] of Health and Human Service's declaration that circumstances exist to justify the emergency use of in vitro diagnostics for the detection and/or diagnosis of the virus that causes COVID-19. This EUA will remain in effect for the duration of the COVID-19 declaration justifying emergency of IVDs, unless it is terminated or revoked by the FDA (after which the test may no longer be used). Performed By: #### C VDTB #### [facility] [address] [place] [address] Dr. Peter Ramos DRUG SCREEN RAPID (URINE)on 12-28-2021 AMP Negative Normal NEGATIVE [facility] Comment on above: Performed By: #### C BC #### [facility] [address] [place] [address] Dr. Peter Ramos BAR Negative Normal NEGATIVE [facility] Comment on above: Performed By: #### C BC #### [facility] [address] [place] [address] Dr. Peter Ramos BUP Negative Normal NEGATIVE [facility] Comment on above: Performed By: #### C BC #### [facility] [address] [place] [address] Dr. Peter Ramos BZO Negative Normal NEGATIVE [facility] Comment on above: Performed By: #### C BC #### [facility] [address] [place] [address] Dr. Peter Ramos NEEMA Negative Normal NEGATIVE [facility] Comment on above: Performed By: #### C BC #### [facility] [address] [place] [address] Dr. Peter Ramos CUT-OFFS SEE BELOW Normal [facility] Comment on above: Result Comment: AMP (Amphetamine): 500ng/mL, BAR (Barbituates): 200 ng/mL, BZO (Benzodiazepines): 150 ng/mL, BUP (Buprenorphine): 10 ng/mL, NEEMA (Cocaine): 150 ng/mL, mAMP (Methamphetamine): 500 ng/mL, MTD (Methadone): 200 ng/mL, OPI (Opiates): 100 ng/mL, OXY (Oxycodone): 100 ng/mL, PCP (Phencyclidine): 25 ng/mL, PPX (Propoxyphene): 300 ng/mL, THC (Cannabinoids): 50 ng/mL, TCA (Trycyclic Antidepressants): 300 ng/mL Performed By: #### C BC #### [facility] [address] [place] [address] Dr. Peter Ramos DRUG CUT HEADER DRUG CLASS TEST SYSTEM CUT-OFF CONCENTRATIONS ARE FOLLOWS: Normal [facility] Comment on above: Performed By: #### C BC #### [facility] [address] [place] [address] Dr. Peter Ramos mAMP Negative Normal NEGATIVE [facility] Comment on above: Performed By: #### C BC #### [facility] [address] [place] [address] Dr. Peter Ramos MTD Negative Normal NEGATIVE [facility] Comment on above: Performed By: #### C BC #### [facility] [address] [place] [address] Dr. Peter Ramos OPI Negative Normal NEGATIVE [facility] Comment on above: Performed By: #### C BC #### [facility] [address] [place] [address] Dr. Peter Ramos OXY Negative Normal NEGATIVE [facility] Comment on above: Performed By: #### C BC #### [facility] [address] [place] [address] Dr. Peter Ramos PCP Negative Normal NEGATIVE [facility] Comment on above: Performed By: #### C BC #### [facility] [address] [place] [address] Dr. Peter Ramos PPX Negative Normal NEGATIVE [facility] Comment on above: Performed By: #### C BC #### [facility] [address] [place] [address] Dr. Peter Ramos TCA Negative Normal NEGATIVE [facility] Comment on above: Performed By: #### C BC #### [facility] [address] [place] [address] Dr. Peter Ramos THC Negative Normal NEGATIVE [facility] Comment on above: Performed By: #### C BC #### [facility] [address] [address] [address] Peter Ramos ETHANOL (BLD ALC)on 12-29-19 ALC NOTE NOTE: 80 mg/dl is the legal limit for a blood alcohol level Normal [facility] Comment on above: Performed By: #### C BC #### [facility] [address] [place] [address] Dr. Peter Ramos Ethanol [Mass/Vol] mg/dL Normal [facility] Comment on above: Performed By: #### C BC #### [facility] [address] [place] [address] Dr. Peter Ramos PREG HCG QUALon 12-28-2021 , QUAL Negative Normal NEGATIVE [facility] Comment on above: Performed By: #### C BC #### [facility] [address] [place] [address] Dr. Peter Ramos PROF 14(COMP METB)on 022 Albumin [Mass/Vol] 3.6 g/dL Normal 3.4-5.0 [facility] Comment on above: Performed By: #### C VDTBH #### [facility] [address] [place] [address] Dr. Peter Ramos Albumin/Globulin [Mass ratio] 1.1 {ratio} [facility] Comment on above: Performed By: #### C VDTBH #### [facility] [address] [place] [address] Dr. Peter Ramos ALP [Catalytic activity/Vol] 102 U/L Normal 46-116 [facility] Comment on above: Performed By: #### C VDTBH #### [facility] [address] [place] [address] Dr. Peter Ramos ALT [Catalytic activity/Vol] 37 U/L Normal 14-59 [facility] Comment on above: Performed By: #### C VDTBH #### [facility] [address] [place] [address] Dr. Peter Ramos Anion gap [Moles/Vol] 11.3 mmol/L Normal [facility] Comment on above: Performed By: #### C VDTBH #### [facility] [address] [address] [address] Peter Ramos AST [Catalytic activity/Vol] 27 U/L Normal 15-37 [facility] Comment on above: Performed By: #### C VDTBH #### [facility] [address] [address] [address] Peter Ramos Bilirubin [Mass/Vol] 0.4 mg/dL Normal 0.2-1.0 [facility] Comment on above: Performed By: #### C VDTBH #### [facility] [address] [address] [address] Peter Ramos Calcium [Mass/Vol] 9.0 mg/dL Normal 8.5-10.1 [facility] Comment on above: Performed By: #### C VDTBH #### [facility] [address] [place] [address] Dr. Peter Ramos Chloride [Moles/Vol] 104 mmol/L Normal 98-107 [facility] Comment on above: Performed By: #### C VDTBH #### [facility] [address] [place] [address] Dr. Peter Ramos CO2 [Moles/Vol] 25.6 mmol/L Normal 21.0-32.0 [facility] Comment on above: Performed By: #### C VDTBH #### [facility] [address] [place] [address] Dr. Peter Ramos Creatinine [Mass/Vol] 0.87 mg/dL Normal 0.55-1.02 [facility] Comment on above: Performed By: #### C VDTBH #### [facility] [address] [place] [address] Dr. Peter Ramos EGFR-AF NAMIBIAN >60 Normal >=60 [facility] Comment on above: Performed By: #### C VDTBH #### [facility] [address] [address] [address] Peter Ramos EGFR-NON AF NAMIBIAN >60 Normal >=60 [facility] Comment on above: Performed By: #### C VDTBH #### [facility] [address] [address] [address] Peter Ramos Globulin (S) [Mass/Vol] 3.4 g/dL Normal [facility] Comment on above: Performed By: #### C VDTBH #### [facility] [address] [address] [address] Peter Ramos Glucose [Mass/Vol] 138 mg/dL Critically high 74-106 [facility] Comment on above: Performed By: #### C VDTBH #### [facility] [address] [place] [address] Dr. Pteer Ramos Potassium [Moles/Vol] 2.9 mmol/L Critically low 3.5-5.1 [facility] Comment on above: Performed By: #### C VDTBH #### [facility] [address] [place] [address] Dr. Peter Ramos Protein [Mass/Vol] 7.0 g/dL Normal 6.4-8.2 [facility] Comment on above: Performed By: #### C VDTBH #### [facility] [address] [place] [address] Dr. Peter Ramos Sodium [Moles/Vol] 138 mmol/L Normal 136-145 [facility] Comment on above: Performed By: #### C VDTBH #### [facility] [address] [place] [address] Dr. Peter Ramos Urea nitrogen [Mass/Vol] 4.0 mg/dL Critically low 7.0-18.0 [facility] Comment on above: Performed By: #### C VDTBH #### [facility] [address] [place] [address] Dr. Peter Ramos Urea nitrogen/Creatinin e [Mass ratio] 4.6 mg/mg Normal [facility] Comment on above: Performed By: #### C VDTBH #### [facility] [address] [place] [address] Dr. Peter Ramos SALICYLATEon 12-28-2021 SALICYLATE 4.2 mg/dL Normal <=19.9 [facility] Comment on above: Performed By: #### C VDTBH #### [facility] [address] [place] [address] Dr. Peter Ramos TSHon 12-28-2021 TSH 1.901 uIU/mL Normal 0.358-3.740 [facility] Comment on above: Performed By: #### T SH #### [facility] [address] [place] [address] Dr. Peter Ramos US THYROIDon 12-12-2021 US THYROID EXAMINATION: US THYROID HISTORY: Hypothyroidism COMPARISON: No relevant comparison available. TECHNIQUE: Sonographic images of the thyroid gland were obtained. FINDINGS: The right thyroid lobe is normal in size, contour and echotexture measuring 4.9 x 1.5 1.4 cm. No focal nodule The thyroid isthmus measures 1 mm, no focal nodule The left thyroid lobe is normal in size, contour and echotexture measuring 4.7 x 1.6 x 1.6 cm. No focal nodule IMPRESSION: Normal examination. Electronically authenticated by: WIL FORMAN Date: 2021-12-12 19:49 Normal [facility] FREE T3on 12-01-2021 FREE T3 2.17 pg/mlL Critically low 2.18-3.98 [facility] Comment on above: Performed By: #### C VDTBH #### [facility] [address] [place] [address] Dr. Peter Ramos FREE T4on 12-01-2021 Free T4 [Mass/Vol] 0.78 ng/dL Normal 0.76-1.46 [facility] Comment on above: Performed By: #### F T4 #### [facility] [address] [place] [address] Dr. Peter Ramos LITHIUMon 11-28-2021 [facility] (Eskalith(R)), Serum 0.9 mmol/L Normal 0.5-1.2 [facility] Comment on above: Result Comment: Plas ma concentration of 0.5 - 0.8 mmol/L are advised for long-term use; concentrations of up to 1.2 mmol/L may be necessary during acute treatment. Detection Limit = 0.1 <0.1 indicates None Detected Performed By: #### C BC #### [facility] [address] [address] [address] Peter Ramos CREATININEon 11-25-2021 Creatinine [Mass/Vol] 0.99 mg/dL Normal 0.55-1.02 [facility] Comment on above: Performed By: #### C VDTBH #### [facility] [address] [address] [address] Peter Ramos EGFR-AF NAMIBIAN >60 Normal >=60 [facility] Comment on above: Performed By: #### C VDTBH #### [facility] [address] [address] [address] Peter Ramos EGFR-NON AF NAMIBIAN >60 Normal >=60 [facility] Comment on above: Performed By: #### C VDTBH #### [facility] [address] [place] [address] Dr. Peter Ramos GLUCOSE BLOODon 11-25-2021 Glucose [Mass/Vol] 102 mg/dL Normal 74-106 [facility] Comment on above: Performed By: #### G SONI #### [facility] [address] [place] [address] Dr. Peter Ramos LIPID PROFILEon 11-25-2021 CHOL-HDL RATIO NORM SEE BELOW Normal [facility] Comment on above: Result Comment: 3.3 - 4.4 LOW RISK 4.4 - 7.1 AVERAGE RISK 7.1 - 11.0 MODERATE RISK >11.0 HIGH RISK Performed By: #### C VDTBH #### [facility] [address] [place] [address] Dr. Peter Ramos Cholesterol [Mass/Vol] 175 mg/dL Normal <=200 [facility] Comment on above: Performed By: #### C VDTBH #### [facility] [address] [place] [address] Dr. Peter Ramos Cholesterol in HDL [Mass/Vol] 49 mg/dL Normal 40-60 [facility] Comment on above: Performed By: #### C VDTBH #### [facility] [address] [place] [address] Dr. Peter Ramos Cholesterol in LDL [Mass/Vol] 100.6 mg/dL Normal [facility] Comment on above: Performed By: #### C VDTBH #### [facility] [address] [place] [address] Dr. Peter Ramos Cholesterol.total/ Cholesterol in HDL [Mass ratio] 3.6 {ratio} Normal [facility] Comment on above: Performed By: #### C VDTBH #### [facility] [address] [place] [address] Dr. Peter Ramos HDL NORMAL > or = 60 mg/dl - LOW CARDIOVASCULAR RISK <40 mg/dl - HIGH CARDIOVASCULAR RISK Normal [facility] Comment on above: Performed By: #### C VDTBH #### [facility] [address] [place] [address] Dr. Peter Ramos LDL CALC NORMAL SEE BELOW Normal [facility] Comment on above: Result Comment: <100 mg/dl OPTIMAL 100 - 129 mg/dl NEAR OR ABOVE OPTIMAL 130 - 159 mg/dl BORDERLINE HIGH 160 - 189 mg/dl HIGH >190 mg/dl VERY HIGH Performed By: #### C VDTBH #### [facility] [address] [place] [address] Dr. Peter Ramos Triglyceride [Mass/Vol] 127 mg/dL Normal <=150 [facility] Comment on above: Performed By: #### C VDTBH #### [facility] [address] [place] [address] Dr. Peter Ramos VLDL CALC 25.4 mg/dL Normal [facility] Comment on above: Performed By: #### C VDTBH #### [facility] [address] [place] [address] Dr. Peter Ramos TSHon 11-25-2021 TSH 4.336 uIU/mL Critically high 0.358-3.740 [facility] Comment on above: Performed By: #### C VDTBH #### [facility] [address] [place] [address] Dr. Peter Ramos ACETAMINOPHENon 09-06-2021 Acetaminophen [Mass/Vol] ug/mL Critically low 10.0-30.0 [facility] Comment on above: Performed By: #### A CET, SALYC, ETH, CMP #### [facility] [address] [address] [address] Peter Ramos CBC AUTO DIFFon 09-06-2021 BASO # 0.0 103/ul Normal 0.0-0.1 [facility] Comment on above: Performed By: #### C BC #### [facility] [address] [address] [address] Peter Ramos Basophils/100 WBC (Bld) 0.3 % Normal 0.2-2.0 [facility] Comment on above: Performed By: #### C BC #### [facility] [address] [address] [address] Peter Ramos EO # 0.1 103/ul Normal 0.0-0.7 [facility] Comment on above: Performed By: #### C BC #### [facility] [address] [place] [address] Dr. Peter Ramos Eosinophils/100 WBC (Bld) 1.2 % Normal 0.9-7.0 [facility] Comment on above: Performed By: #### C BC #### [facility] [address] [place] [address] Dr. Peter Ramos Erythrocyte distribution width (RBC) [Ratio] 15.6 % Critically high 11.0-15.0 [facility] Comment on above: Performed By: #### C BC #### [facility] [address] [place] [address] Dr. Peter Ramos Hematocrit (Bld) [Volume fraction] 38.2 % Normal 36.0-48.0 [facility] Comment on above: Performed By: #### C BC #### [facility] [address] [address] [address] Peter Ramos Hemoglobin (Bld) [Mass/Vol] 12.8 g/dL Normal 12.0-16.0 [facility] Comment on above: Performed By: #### C BC #### [facility] [address] [address] [address] Peter Ramos IG # 0.05 10e3/ul Critically high 0.00-0.03 [facility] Comment on above: Performed By: #### C BC #### [facility] [address] [place] [address] Dr. Peter Ramos IG % 0.5 % Normal 0.0-0.5 [facility] Comment on above: Performed By: #### C BC #### [facility] [address] [place] [address] Dr. Peter Ramos LYMPH # 2.2 103/ul Normal 1.2-3.8 [facility] Comment on above: Performed By: #### C BC #### [facility] [address] [place] [address] Dr. Peter Ramos Lymphocytes/100 WBC (Bld) 22.7 % Normal 20.5-60.0 [facility] Comment on above: Performed By: #### C BC #### [facility] [address] [place] [address] Dr. Peter Ramos MANUAL DIFF REQ NO Normal [facility] Comment on above: Performed By: #### C BC #### [facility] [address] [place] [address] Dr. Peter Ramos MCH (RBC) [Entitic mass] 28.7 pg Normal 26.7-34.0 [facility] Comment on above: Performed By: #### C BC #### [facility] [address] [place] [address] Dr. Peter Ramos MCHC (RBC) [Mass/Vol] 33.5 g/dL Normal 29.9-35.2 [facility] Comment on above: Performed By: #### C BC #### [facility] [address] [place] [address] Dr. Peter Ramos MCV (RBC) [Entitic vol] 85.7 fL Normal 81.0-99.0 [facility] Comment on above: Performed By: #### C BC #### [facility] [address] [place] [address] Dr. Peter Ramos MONO # 0.7 103/ul Normal 0.3-0.8 [facility] Comment on above: Performed By: #### C BC #### [facility] [address] [address] [address] Peter Ramos Monocytes/100 WBC (Bld) 7.4 % Normal 1.7-12.0 [facility] Comment on above: Performed By: #### C BC #### [facility] [address] [address] [address] Peter Ramos NEUT # 6.7 103/ul Critically high 1.4-6.5 [facility] Comment on above: Performed By: #### C BC #### [facility] [address] [place] [address] Dr. Peter Ramos Neutrophils/100 WBC (Bld) 67.9 % Normal 43.0-75.0 [facility] Comment on above: Performed By: #### C BC #### [facility] [address] [place] [address] Dr. Peter Ramos Platelet mean volume (Bld) [Entitic vol] 9.6 fL Normal 9.5-13.5 [facility] Comment on above: Performed By: #### C BC #### [facility] [address] [place] [address] Dr. Peter Ramos PLT 246 103/ul Normal 150-450 [facility] Comment on above: Performed By: #### C BC #### [facility] [address] [place] [address] Dr. Peter Ramos RBC 4.46 106/ul Normal 4.20-5.40 [facility] Comment on above: Performed By: #### C BC #### [facility] [address] [place] [address] Dr. Peter Ramos WBC 9.9 103/ul Normal 4.0-11.0 [facility] Comment on above: Performed By: #### C BC #### [facility] [address] [place] [address] Dr. Peter Ramos [facility]on SARS-CoV-2 (COVID-19) RNA NARCISA+probe Ql (Unsp spec) Not detected Normal NOT DETECTED [facility] Comment on above: Result Comment: When diagnostic testing is negative, the possibility of a false negative should be considered in the context of a patient's recent exposures and the presence of clinical signs and symptoms consistent with SARS-CoV-2. This test is not yet approved or cleared by the [place] FDA. When there are no FDA-approved or cleared tests available, and other criteria are met, FDA can make tests available under an emergency access mechanism called an Emergency Use Authorization (EUA). The EUA for this test is supported by the [place] of Health and Human Service's declaration that circumstances exist to justify the emergency use of in vitro diagnostics for the detection and/or diagnosis of the virus that causes COVID-19. This EUA will remain in effect for the duration of the COVID-19 declaration justifying emergency of IVDs, unless it is terminated or revoked by the FDA (after which the test may no longer be used). Performed By: #### C VDTB #### [facility] [address] [place] [address] Dr. Peter Ramos DRUG SCREEN RAPID (URINE)on 09-06-2021 AMP Negative Normal NEGATIVE [facility] Comment on above: Performed By: #### C BC #### [facility] [address] [place] [address] Dr. Peter Ramos BAR Negative Normal NEGATIVE [facility] Comment on above: Performed By: #### C BC #### [facility] [address] [place] [address] Dr. Peter Ramos BUP Negative Normal NEGATIVE [facility] Comment on above: Performed By: #### C BC #### [facility] [address] [place] [address] Dr. Peter Ramos BZO Negative Normal NEGATIVE [facility] Comment on above: Performed By: #### C BC #### [facility] [address] [place] [address] Dr. Peter Ramos NEEMA Negative Normal NEGATIVE [facility] Comment on above: Performed By: #### C BC #### [facility] [address] [place] [address] Dr. Peter Ramos CUT-OFFS SEE BELOW Normal [facility] Comment on above: Result Comment: AMP (Amphetamine): 500ng/mL, BAR (Barbituates): 200 ng/mL, BZO (Benzodiazepines): 150 ng/mL, BUP (Buprenorphine): 10 ng/mL, NEEMA (Cocaine): 150 ng/mL, mAMP (Methamphetamine): 500 ng/mL, MTD (Methadone): 200 ng/mL, OPI (Opiates): 100 ng/mL, OXY (Oxycodone): 100 ng/mL, PCP (Phencyclidine): 25 ng/mL, PPX (Propoxyphene): 300 ng/mL, THC (Cannabinoids): 50 ng/mL, TCA (Trycyclic Antidepressants): 300 ng/mL Performed By: #### C BC #### [facility] [address] [place] [address] Dr. Peter Ramos DRUG CUT HEADER DRUG CLASS TEST SYSTEM CUT-OFF CONCENTRATIONS ARE FOLLOWS: Normal [facility] Comment on above: Performed By: #### C BC #### [facility] [address] [place] [address] Dr. Peter Ramos mAMP Negative Normal NEGATIVE [facility] Comment on above: Performed By: #### C BC #### [facility] [address] [place] [address] Dr. Peter Ramos MTD Negative Normal NEGATIVE [facility] Comment on above: Performed By: #### C BC #### [facility] [address] [place] [address] Dr. Peter Ramos OPI Negative Normal NEGATIVE [facility] Comment on above: Performed By: #### C BC #### [facility] [address] [place] [address] Dr. Peter Ramos OXY Negative Normal NEGATIVE [facility] Comment on above: Performed By: #### C BC #### [facility] [address] [place] [address] Dr. Peter Ramos PCP Negative Normal NEGATIVE [facility] Comment on above: Performed By: #### C BC #### [facility] [address] [place] [address] Dr. Peter Ramos PPX Negative Normal NEGATIVE [facility] Comment on above: Performed By: #### C BC #### [facility] [address] [place] [address] Dr. Peter Ramos TCA Negative Normal NEGATIVE [facility] Comment on above: Performed By: #### C BC #### [facility] [address] [place] [address] Dr. Peter Ramos THC Negative Normal NEGATIVE [facility] Comment on above: Performed By: #### C BC #### [facility] [address] [place] [address] Dr. Peter Ramos ER URINE PROFILEon 2 Bilirubin Ql (U) Negative Normal NEGATIVE [facility] Comment on above: Performed By: #### C BC #### [facility] [address] [place] [address] Dr. Peter Ramos Clarity (U) CLEAR Normal CLEAR [facility] Comment on above: Performed By: #### C BC #### [facility] [address] [place] [address] Dr. Peter Ramos Color (U) LT. YELLOW Normal YELLOW [facility] Comment on above: Performed By: #### C BC #### [facility] [address] [place] [address] Dr. Peter MATTHEW A micrscopic examination will be performed if indicated. Normal [facility] Comment on above: Performed By: #### C BC #### [facility] [address] [place] [address] Dr. Peter Ramos Glucose Ql (U) Negative Normal NEGATIVE [facility] Comment on above: Performed By: #### C BC #### [facility] [address] [place] [address] Dr. Peter Ramos Hemoglobin Ql (U) Negative Normal NEGATIVE [facility] Comment on above: Performed By: #### C BC #### [facility] [address] [place] [address] Dr. Peter Ramos Ketones Ql (U) 15 mg/dl Abnormal NEGATIVE [facility] Comment on above: Performed By: #### C BC #### [facility] [address] [place] [address] Dr. Peter Ramos LEUKOCYTES Negative Normal NEGATIVE [facility] Comment on above: Performed By: #### C BC #### [facility] [address] [place] [address] Dr. Peter Ramos Nitrite Ql (U) Negative Normal NEGATIVE [facility] Comment on above: Performed By: #### C BC #### [facility] [address] [place] [address] Dr. Peter Ramos pH (U) 6.0 [pH] Normal 5-9 [facility] Comment on above: Performed By: #### C BC #### [facility] [address] [place] [address] Dr. Peter Ramos SPEC GRAVITY 1.015 Normal 1.005-<=1.025 [facility] Comment on above: Performed By: #### C BC #### [facility] [address] [place] [address] Dr. Peter Ramos UA PROTEIN Negative Normal NEGATIVE/ TRACE [facility] Comment on above: Performed By: #### C BC #### [facility] [address] [place] [address] Dr. Peter Ramos UR MICRO IND NOT INDICATED Normal [facility] Comment on above: Performed By: #### C BC #### [facility] [address] [place] [address] Dr. Peter Ramos Urobilinogen Qn (U) 0.2 {Lula'U}/dL Normal 0.2 - 1.0 [facility] Comment on above: Performed By: #### C BC #### [facility] [address] [place] [address] Dr. Peter Ramos ETHANOL (BLD ALC)on 09-07-19 ALC NOTE NOTE: 80 mg/dl is the legal limit for a blood alcohol level Normal [facility] Comment on above: Performed By: #### A CET, GENESIS, ETH, CMP #### [facility] [address] [place] [address] Dr. Peter Ramos Ethanol [Mass/Vol] mg/dL Normal [facility] Comment on above: Performed By: #### A CET, SALYC, ETH, CMP #### [facility] [address] [address] [address] Peter Ramos PREG HCG QUALon 09-06-2021 , QUAL Negative Normal NEGATIVE [facility] Comment on above: Performed By: #### C VDTBH #### [facility] [address] [place] [address] Dr. Peter Ramos PROF 14(COMP METB)on 022 Albumin [Mass/Vol] 3.7 g/dL Normal 3.4-5.0 [facility] Comment on above: Performed By: #### C BC #### [facility] [address] [place] [address] Dr. Peter Ramos Albumin/Globulin [Mass ratio] 1.0 {ratio} Normal [facility] Comment on above: Performed By: #### C BC #### [facility] [address] [place] [address] Dr. Peter Ramos ALP [Catalytic activity/Vol] 102 U/L Normal 46-116 [facility] Comment on above: Performed By: #### C BC #### [facility] [address] [address] [address] Peter Ramos ALT [Catalytic activity/Vol] 29 U/L Normal 14-59 [facility] Comment on above: Performed By: #### C BC #### [facility] [address] [place] [address] Dr. Peter Ramos Anion gap [Moles/Vol] 17.7 mmol/L Normal [facility] Comment on above: Performed By: #### C BC #### [facility] [address] [place] [address] Dr. Peter Ramos AST [Catalytic activity/Vol] 23 U/L Normal 15-37 [facility] Comment on above: Performed By: #### C BC #### [facility] [address] [place] [address] Dr. Peter Ramos Bilirubin [Mass/Vol] 0.9 mg/dL Normal 0.2-1.0 [facility] Comment on above: Performed By: #### C BC #### [facility] [address] [address] [address] Peter Ramos Calcium [Mass/Vol] 9.6 mg/dL Normal 8.5-10.1 [facility] Comment on above: Performed By: #### C BC #### [facility] [address] [address] [address] Peter Ramos Chloride [Moles/Vol] 99 mmol/L Normal 98-107 [facility] Comment on above: Performed By: #### C BC #### [facility] [address] [place] [address] Dr. Peter Ramos CO2 [Moles/Vol] 21.3 mmol/L Normal 21.0-32.0 [facility] Comment on above: Performed By: #### C BC #### [facility] [address] [place] [address] Dr. Peter Ramos Creatinine [Mass/Vol] 0.92 mg/dL Normal 0.55-1.02 [facility] Comment on above: Performed By: #### C BC #### [facility] [address] [place] [address] Dr. Peter Ramos EGFR-AF NAMIBIAN >60 Normal >=60 [facility] Comment on above: Performed By: #### C BC #### [facility] [address] [place] [address] Dr. Peter Ramos EGFR-NON AF NAMIBIAN >60 Normal >=60 [facility] Comment on above: Performed By: #### C BC #### [facility] [address] [place] [address] Dr. Peter Ramos Globulin (S) [Mass/Vol] 3.7 g/dL Normal [facility] Comment on above: Performed By: #### C BC #### [facility] [address] [place] [address] Dr. Peter Ramos Glucose [Mass/Vol] 117 mg/dL Critically high 74-106 [facility] Comment on above: Performed By: #### C BC #### [facility] [address] [place] [address] Dr. Peter Ramos Potassium [Moles/Vol] 3.0 mmol/L Critically low 3.5-5.1 [facility] Comment on above: Performed By: #### C BC #### [facility] [address] [place] [address] Dr. Peter Ramos Protein [Mass/Vol] 7.4 g/dL Normal 6.4-8.2 [facility] Comment on above: Performed By: #### C BC #### [facility] [address] [address] [address] Peter Ramos Sodium [Moles/Vol] 135 mmol/L Critically low 136-145 Th [facility] Comment on above: Performed By: #### C BC #### [facility] [address] [place] [address] Dr. Peter Ramos Urea nitrogen [Mass/Vol] 11.0 mg/dL Normal 7.0-18.0 [facility] Comment on above: Performed By: #### C BC #### [facility] [address] [place] [address] Dr. Peter Ramos Urea nitrogen/Creatinin e [Mass ratio] 12.0 mg/mg Normal [facility] Comment on above: Performed By: #### C BC #### [facility] [address] [place] [address] Dr. Peter Ramos PROF CHEM 8 (BAS METB)on Anion gap [Moles/Vol] 12.5 mmol/L Normal [facility] Comment on above: Performed By: #### C VDTBH #### [facility] [address] [place] [address] Dr. Peter Ramos Calcium [Mass/Vol] 9.3 mg/dL Normal 8.5-10.1 [facility] Comment on above: Performed By: #### C VDTBH #### [facility] [address] [place] [address] Dr. Peter Ramos Chloride [Moles/Vol] 102 mmol/L Normal 98-107 [facility] Comment on above: Performed By: #### C VDTBH #### [facility] [address] [address] [address] Peter Ramos CO2 [Moles/Vol] 24.8 mmol/L Normal 21.0-32.0 [facility] Comment on above: Performed By: #### C VDTBH #### [facility] [address] [place] [address] Dr. Peter Ramos Creatinine [Mass/Vol] 0.73 mg/dL Normal 0.55-1.02 [facility] Comment on above: Performed By: #### C VDTBH #### [facility] [address] [place] [address] Dr. Peter Ramos EGFR-AF NAMIBIAN >60 Normal >=60 [facility] Comment on above: Performed By: #### C VDTBH #### [facility] [address] [place] [address] Dr. Peter Ramos EGFR-NON AF NAMIBIAN >60 Normal >=60 [facility] Comment on above: Performed By: #### C VDTBH #### [facility] [address] [place] [address] Dr. Peter Ramos Glucose [Mass/Vol] 86 mg/dL Normal 74-106 [facility] Comment on above: Performed By: #### C VDTBH #### [facility] [address] [place] [address] Dr. Peter Ramos Potassium [Moles/Vol] 3.3 mmol/L Critically low 3.5-5.1 [facility] Comment on above: Performed By: #### C VDTBH #### [facility] [address] [place] [address] Dr. Peter Ramos Sodium [Moles/Vol] 136 mmol/L Normal 136-145 [facility] Comment on above: Performed By: #### C VDTBH #### [facility] [address] [place] [address] Dr. Peter Ramos Urea nitrogen [Mass/Vol] 11.0 mg/dL Normal 7.0-18.0 [facility] Comment on above: Performed By: #### C VDTBH #### [facility] [address] [place] [address] Dr. Peter Ramos Urea nitrogen/Creatinin e [Mass ratio] 15.1 mg/mg Normal [facility] Comment on above: Performed By: #### C VDTBH #### [facility] [address] [address] [address] Peter Ramos SALICYLATEon 09-06-2021 SALICYLATE 3.6 mg/dL Normal <=19.9 [facility] Comment on above: Performed By: #### A CET, SALYC, ETH, CMP #### [facility] [address] [address] [address] Peter Ramos Vital Signs Date Time Vital Sign Value Performing Clinician Faci lity 09-22-2024 13:52-0400 Body mass index (BMI) [Ratio] 41.52 kg/m2 Beulah Nataprawira DO Work Phone: [facility] 09-22-2024 13:52-0400 Body weight 102.97 kg Beulah Nataprawira DO Work Phone: [facility] 09-22-2024 13:52-0400 Diastolic blood pressure 82 mm[Hg] Beulah Nataprawira DO Work Phone: [facility] 09-22-2024 13:52-0400 Systolic blood pressure 134 mm[Hg] Beulah Nataprawira DO Work Phone: [facility] 12-22-2023 11:58-0400 Diastolic blood pressure 60 mm[Hg] [facility] [employer] [facility] 12-22-2023 11:58-0400 Heart rate 100 /min Alyx Orzech [facility] 12-22-2023 11:58-0400 SaO2% (BldA) [Mass fraction] 97 % [employer] [facility] 12-22-2023 11:58-0400 Systolic blood pressure 120 mm[Hg] [facility] [employer] [facility] 12-12-2023 15:01-0400 Blood Pressure Location Torres Sarmini [facility] 12-12-2023 15:01-0400 Diastolic blood pressure 70 mm[Hg] Torres Sarmini [facility] 12-12-2023 15:01-0400 Heart rate 76 /min Torres Sarmini [facility] 12-12-2023 15:01-0400 Respiratory rate 16 /min Torres Sarmini [facility] 12-12-2023 15:01-0400 Systolic blood pressure 109 mm[Hg] Torres Sarmini [facility] 10-08-2023 12:58-0400 Blood Pressure Location Kian Rodney [facility] 10-08-2023 12:58-0400 Diastolic blood pressure 86 mm[Hg] Kian Rodney [facility] 10-08-2023 12:58-0400 Heart rate 96 /min Kian Rodney [facility] 10-08-2023 12:58-0400 Systolic blood pressure 124 mm[Hg] Kian Rodney [facility] 09-26-2023 12:28-0400 Blood Pressure Location Torres Sarmini [facility] 09-26-2023 12:28-0400 Diastolic blood pressure 70 mm[Hg] Torres Sarmini [facility] 09-26-2023 12:28-0400 Heart rate 76 /min Torres Sarmini [facility] 09-26-2023 12:28-0400 Respiratory rate 18 /min Melissa Markham [facility] 09-26-2023 12:28-0400 Systolic blood pressure 136 mm[Hg] Melissa Markham [facility] 08-13-2022 16:20-0400 Body height 158.12 cm Lisandra May Other [employer] Other 08-13-2022 16:20-0400 Body mass index (BMI) [Ratio] 48.44 kg/m2 Lisandra May Other [employer] Other 08-13-2022 16:20-0400 Body temperature 101 [degF] Lisandra May Other [employer] Other 08-13-2022 16:20-0400 Body weight 121.11 kg Lisandra May Other [employer] Other 08-13-2022 16:20-0400 Respiratory rate 18 /min Lisandra May Other [employer] Other 08-13-2022 16:20-0400 SaO2% (BldA) [Mass fraction] 97 % Lisandra May Other [employer] Other Encounters Encounter Date Encounter Type Care Provider Facility Start: 03-24-2025 ambulatory Yeison Del Valle Facility :[facility] Start: 10-26-2024 End: 10-26-2024 ambulatory MICHELLE YUN Facility:[facility] Start: 10-16-2024 End: 10-16-2024 ambulatory Amarjit Choe Facility:[facility] Start: 09-29-2024 ambulatory Jerry Sanchez acility:[facility] Start: 09-22-2024 End: 09-22-2024 Patient encounter status Beulah Gordon DO Work Phone: [facility] Start: 09-22-2024 End: 09-22-2024 Periodic preventive med est patient 40-64yrs Beulah Auguste Jenniferadriel DO Work Phone: [facility] Comment on above: Encounter for gyneco logical examination without abnormal finding (Primary Dx); Other screening mammogram; Encounter for surveillance of contraceptive pills; History of irregular menstrual cycles; Irregular menstruation, unspecified; Obesity, morbid ([facility]) Start: 09-22-2024 End: 09-22-2024 ambulatory BEULAH GORDON Not Available Start: 07-17-2024 End: 07-17-2024 ambulatory MICHELLE YUN Facility:[facility] [place] Start: 04-27-2024 End: 04-27-2024 Lab Drop off Yeison Del Valle [facility] Start: 04-27-2024 End: 04-27-2024 ambulatory Yeison Del Valle Facility: [facility] Start: 04-13-2024 End: 04-13-2024 Lab Drop off Yeison Del Valle [facility] Start: 04-13-2024 End: 04-13-2024 ambulatory Yeison Del Valle Facility:[facility] [place] Start: 03-24-2024 End: 03-24-2024 ambulatory MD Yeison Del Valle Facility: [facility] [place] Start: 01-13-2024 End: 01-13-2024 Patient encounter procedure PHYSICIAN NO [facility] Work Phone: Start: 01-13-2024 End: 01-13-2024 ambulatory PHYSICIAN NO [facility] Work Phone: Start: 12-31-2023 Registered Recurring PHYSICIAN NO FA [facility] Start: 12-22-2023 End: 12-22-2023 ambulatory Alyx X Orzech Facility:[facility] Start: 12-22-2023 End: 12-22-2023 Patient encounter procedure Alyx X Orzech [facility] Start: 12-12-2023 End: 12-12-2023 ambulatory Torres Talal Sarmini Facility:[facility] Start: 12-12-2023 End: 12-12-2023 Patient encounter procedure Torres Talal Sarmini [facility] Start: 11-05-2023 End: 11-05-2023 Lab Drop off Torres Talal Sarmini [facility] Start: 11-05-2023 End: 11-05-2023 ambulatory Torres Talal Sarmini Facility:[facility] Start: 11-05-2023 End: 11-05-2023 ambulatory Torres Talal Sarmini Facility:CD:[id number] Start: 10-31-2023 End: 10-31-2023 ambulatory Yeison Del Valle Facility:[facility] [place] Start: 10-22-2023 End: 10-22-2023 ambulatory MD Yeison Del Valle Facility:[facility] [place] Start: 10-08-2023 End: 10-08-2023 Lab Drop off Torres Talal Sarmini [facility] Start: 10-08-2023 End: 10-08-2023 ambulatory Kian Stevens Facility:[facility] Start: 10-08-2023 End: 10-08-2023 Patient encounter procedure Kian Stevens [facility] Start: 10-08-2023 End: 10-08-2023 ambulatory Melissa Corleymini Facility:[facility] Start: 10-08-2023 End: 10-08-2023 ambulatory Torressilviano Corleymini Facility::[id number] Start: 09-26-2023 End: 09-26-2023 ambulatory Melissa Downeyi Facility:[facility] Start: 09-26-2023 End: 09-26-2023 Patient encounter procedure Melissa Downeyi [facility] Start: 09-23-2023 End: 09-23-2023 ambulatory Amarjit Choe Facility:[facility] Start: 09-23-2023 End: 09-23-2023 Patient encounter procedure Amarjit Choe [facility] Start: 08-20-2023 End: 08-20-2023 ambulatory MD Yeison Del Valle Facility:[facility] Start: 07-17-2023 ambulatory Amarjit Choe [facility] y:[facility] Start: 06-24-2023 End: 06-24-2023 ambulatory MD Yeison Del Valle Facility:[facility] Start: 05-22-2023 End: 05-22-2023 Lab Drop off Yeison Del Valle [facility] Start: 05-22-2023 End: 05-22-2023 ambulatory MD Yeison Del Valle Facility:[facility] Start: 04-23-2023 End: 09-23-2023 ambulatory MD Yeison Del Valle Facility:[facility] Start: 04-23-2023 End: 09-23-2023 Recurring Yeison Del Valle [facility] Start: 03-07-2023 End: 03-07-2023 Patient encounter procedure Amarjit Choe [facility] Start: 02-11-2023 End: 02-11-2023 Patient encounter procedure Amarjit Choe [facility] Start: 01-23-2023 End: 01-23-2023 Lab Drop off Yeison Del Valle [facility] Start: 08-16-2022 End: 08-16-2022 ambulatory Lisandra May Other [facility] [employer] Other Start: 08-16-2022 Telephone encounter Lisandra May [facility] [address] Start: 08-13-2022 End: 08-13-2022 Departed Referred 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 May Work Phone: [facility] [place] Work Phone: Start: 08-13-2022 End: 08-13-2022 ambulatory 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 Lisandra May Work Phone: [facility] Work Phone: Start: 08-13-2022 Office outpatient vi sit 15 minutes Lisandra May [facility] Start: 07-30-2022 End: 07-31-2022 ambulatory WENDY BOYER Facility:[facility] Start: 06-28-2022 End: 06-29-2022 ambulatory WENDY BOYER Facility:[facility] Start: 04-26-2022 End: 04-27-[address] PANFILO SHEPPARD . Facility:[facility]1 Start: 12-28-2021 End: 12-29-[address] PANFILO SHEPPARD . Facility:[facility] Start: 12-12-2021 End: 12-13-[address] PANFILO SHEPPARD . Facility:[facility] Start: 12-01-2021 End: 12-02-[address] PANFILO SHEPPARD . Facility:[facility] Start: 11-25-2021 End: 11-26-[address] DOCTOR EVANS Facility:[facility] Start: 09-06-2021 End: 09-06-[address] PANFILO SHEPPARD . Facility:[facility] Start: 01-18-2021 End: 01-19-2021 Emergency department patient visit PANFILO SHEPPARD [facility] Procedures Date Procedure Procedure Detail Performing Clinician Start: 01-13-2024 End: 01-13-2024 Screening mammography of bilateral breasts PHYSICIAN NO FAMILY Start: 11-05-2023 Colonoscopy Beulah Gordon DO Work Phone: Start: 08-08-2022 Microscopic observation [Identifier] in Cervix by Cyto stain Beulah Gordon DO Work Phone: Biopsy of vulva Yeison Del Valle Colonoscopy Melissa Downey i Comment on above: beginning October Colposcopy Yeison Del Valle Diabetes mellitus screening Lisandra May Other Esophagogastroduoden oscopic electrohydraulic lithotripsy of bezoar in stomach Yeison Del Valle Hyperlipidemia screening Amb er May Other Plan of Treatment Date Care Activity Detail Author Start: 11-04-2033 Screening for malignant neoplasm of colon [facility] Start: 11-07-2025 Screening for malignant neoplasm of cervix [facility] Start: 09-27-2025 End: 09-27-2025 Patient encounter procedure 09/27/2025 2:00 PM EDT Office Visit [facility] [address] DELRO[place] D [address] [address] Beulah Gordon DO [address] [address] [facility] Start: 08-08-2025 Screening for malignant neoplasm of cervix Pap Smear [facility] Start: 01-13-2025 End: 11-21-2025 DBT Breast - bilateral screening Bilateral screening mammogram with tomosynthesis Imaging Routine Other screening mammogram Expected: 01/13/2025, Expires: 11/21/2025 [facility] Work Phone: Comment on above: Expected: 01/13/2025 , Expires: 11/21/2025 Start: 01-12-2025 Screening for malignant neoplasm of breast Mammogram [facility] Start: 12-07-2024 Influenza vaccination Influenz a Vaccine (Season Ended) [facility] Start: 08-13-2022 Throat culture Throat Culture [facility] Start: 1975 Screening for malignant neoplasm of colon [facility] Bacteria identified in Throat by Aerobe culture [facility] Immunizations Immunization Date Immunization Notes Care Provider Fa cility 07-29-2020 SARS-CoV-2 (COVID-19 ) mRNA-1273 vaccine Yeison Del Valle [facility] 2020 COVID-19 mRNA-1273 (Moderna) 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 Lisandra May Work Phone: [facility] 06-21-2020 SARS-CoV-2 (COVID-19 ) mRNA-1273 vaccine Yeison Del Valle [facility] 02-21-2015 influenza, injectable, quadrivalent, preservative free Lisandra May Other [employer] Other 02-21-2015 influenza virus vaccine, unspecified formulation Yeison Eligio [facility] 02-21-2015 influenza, injectable, quadrivalent, contains preservative PHYSICIAN NO [facility] NEGATED: Highlighted row has not occurred!12-22-2023 influenza virus vaccine, unspecified formulation [facility] NEGATED: Highlighted row has not occurred!12-12-2023 influenza virus vaccine, unspecified formulation Melissa Markham [facility] NEGATED: Highlighted row has not occurred!12-24-2022 influenza virus vaccine, unspecified formulation Yeison Del Valle [facility] Payers Date Payer Category Payer Self-pay [id number] 2020 Medicaid [place] [id number] 2014 Medicare MEDICARE [id number] 2014 Medicare [id number] 1975 Unknown [id number] 05.24.840.1.903009.3.579.2.900 1977 Unknown [id number] .16840.1.912658.3.579.2.593 1977 Unknown [id number] 2.16840.1.174959.3.579.2.593 1977 Unknown [id number] 2.16840.1.268870.3.579.2.593 1977 Unknown [id number] 2.16840.1.274872.3.579.2.593 1977 Unknown [id number] 2.16.840.1.957887.3.579.2.593 1977 Unknown [id number] 2.16.840.1.754876.3.579.259 1977 Unknown [id number] 2.16.840.1.734369.3.579.2593 1977 Unknown [id number] 2.16.840.1.555862.3.579.259 1977 Unknown [id number] 2.16.840.1.975990.3.579.272 1977 Unknown [id number] 2.16.840.1.926875.3.579.2 1977 Unknown [id number] 2.16.840.1.219381.3.579.272 1977 Unknown [id number] 2.16.840.1.338094.3.579.272 1977 Unknown [id number] 2.16.840.1.254666.3.579.272 1977 Unknown [id number] 2.16.840.1.119574.3.579.2 1977 Unknown [id number] 2.16.840.1.945541.3.579.272 1977 Unknown [id number] 2.16.840.1.638090.3.579.272 1977 Unknown [id number] 2.16.840.1.353351.3.579.272 1977 Unknown [id number] 2.16.840.1.577214.3.579.2 1977 Unknown [id number] 2.16.840.1.854598.3.579.272 1977 Unknown [id number] 2.16.840.1.745302.3.579.272 1977 Unknown [id number] 2.16.840.1.761310.3.579.2 1977 Unknown [id number] 2.16.840.1.917284.3.579.2 1977 Unknown [id number] 2.16.840.1.660891.3.579.2 1977 Unknown [id number] 2.16.840.1.125120.3.579.2 1977 Unknown [id number] 2.16.840.1.349626.3.579.2 1977 Unknown [id number] 2.16.840.1.496454.3.579.2 1977 Unknown [id number] 2.16.840.1.123498.3.579.2 1977 Unknown [id number] 2.16.840.1.894036.3.579. 1977 Unknown [id number] 2.16.840.1.668728.3.579.2 1977 Unknown [id number] 2.16.840.1.621562.3.579.2 1977 Unknown [id number] 2.16.840.1.785001.3.579.2 1977 Unknown [id number] 2.16.840.1.463059.3.579.2.9 1977 Unknown [id number] 2.16.840.1.100393.3.579.2 1977 Unknown [id number] 2.16.840.1.150857.3.579.2 1977 Unknown [id number] 2.16.840.1.499360.3.579.2 1977 Unknown [id number] 2.16.840.1.181700.3.579.2 1977 Unknown [id number] 2.16.840.1.004888.3.579.2.727 1977 Unknown [id number] 2.16.840.1.743846.3.579.2.727 1957 Medicaid [id number] 1957 Medicare [id number] Unknown [facility] Mammogram [facility] [id number] Unknown [id number] 2.16.840.1.712642.3.579.2.531 Unknown [id number] 2.16.840.1.063732.3.579.2.531 Social History Date Type Detail Facility Start: 12-14-2020 Tobacco smoking stat [facility] Smoker (finding) [facility] Start: 1975 Sex Assigned At Female F [facility] Start: 09-22-2024 [address] F [facility] Start: 01-23-2023 End: 04-27-2024 Tobacco smoking status [facility]: patient smokes 0.5 p pd since she was 19 Tobacco smoking status [facility] Comment on above: patient smokes 0.5 p pd since she was 19 Start: 08-13-2022 Tobacco smoking stat [facility] Ex-smoker (finding) [facility] Start: 12-29-1995 Tobacco smoking stat [facility] Smokes tobacco daily [facility] Start: 12-29-1995 History of tobacco use Cigarette Smo ker [facility] Start: 09-18-2023 End: 09-22-2024 Cigarettes smoked current (pack per day) - Reported 0.5 [facility] Start: 09-18-2023 Tobacco use and exposure Smokeless tobacco non-user [facility] Start: 09-22-2024 Alcoholic beverage intake Lifetime non-drinker (finding) [facility] Start: 1975 Sex assigned at Not on file [facility] Start: 06-20-2022 Gender identity Identifies as female gender (finding) [facility] Start: 06-20-2022 Sexual orientation Choose not to dis close [facility] Medical Equipment Procedure Code Equipment Code Equipment Origin al Text Equipment Identifier Dates LANCETS, See Instructions, 100 EA, 4, use to check BS daily dx E11.9, [id number], Supply, 160, cm, 03/25/23 15:22:00 EST, Height/Length Dosing, 121.2, kg, 03/25/23 15:22:00 EST, Weight Dosing Start: 05-15-2023 TEST STRIPS, See Instructions, 100 EA, 4, use to check BS daily dx E11.9, [id number], Supply, 160, cm, 03/25/23 15:22:00 EST, Height/Length Dosing, 121.2, kg, 03/25/23 15:22:00 EST, Weight Dosing Start: 05-15-2023 LANCETS, See Instructions, 100 EA, 4, use to check BS daily dx E11.9, [facility], Supply, 160, cm, 03/25/23 15:22:00 EST, Height/Length Dosing, 121.2, kg, 03/25/23 15:22:00 EST, Weight Dosing Start: 05-15-2023 TEST STRIPS, See Instructions, 100 EA, 4, use to check BS daily dx E11.9, [facility], Supply, 160, cm, 03/25/23 15:22:00 EST, Height/Length Dosing, 121.2, kg, 03/25/23 15:22:00 EST, Weight Dosing Start: 05-15-2023 LANCETS, See Instructions, 100 EA, 4, use to check BS daily dx E11.9, [facility], Supply, 160, cm, 03/25/23 15:22:00 EST, Height/Length Dosing, 121.2, kg, 03/25/23 15:22:00 EST, Weight Dosing Start: 05-15-2023 TEST STRIPS, See Instructions, 100 EA, 4, use to check BS daily dx E11.9, [facility], Supply, 160, cm, 03/25/23 15:22:00 EST, Height/Length Dosing, 121.2, kg, 03/25/23 15:22:00 EST, Weight Dosing Start: 05-15-2023 LANCETS, See Instructions, 100 EA, 4, use to check BS daily dx E11.9, [facility], Supply, 160, cm, 03/25/23 15:22:00 EST, Height/Length Dosing, 121.2, kg, 03/25/23 15:22:00 EST, Weight Dosing Start: 05-15-2023 TEST STRIPS, See Instructions, 100 EA, 4, use to check BS daily dx E11.9, [facility], Supply, 160, cm, 03/25/23 15:22:00 EST, Height/Length Dosing, 121.2, kg, 03/25/23 15:22:00 EST, Weight Dosing Start: 05-15-2023 LANCETS, See Instructions, 100 EA, 4, use to check BS daily dx E11.9, [facility], Supply, 160, cm, 03/25/23 15:22:00 EST, Height/Length Dosing, 121.2, kg, 03/25/23 15:22:00 EST, Weight Dosing Start: 05-15-2023 TEST STRIPS, See Instructions, 100 EA, 4, use to check BS daily dx E11.9, [facility], Supply, 160, cm, 03/25/23 15:22:00 EST, Height/Length Dosing, 121.2, kg, 03/25/23 15:22:00 EST, Weight Dosing Start: 05-15-2023 LANCETS, See Instructions, 100 EA, 4, use to check BS daily dx E11.9, [facility], Supply, 160, cm, 03/25/23 15:22:00 EST, Height/Length Dosing, 121.2, kg, 03/25/23 15:22:00 EST, Weight Dosing Start: 05-15-2023 TEST STRIPS, See Instructions, 100 EA, 4, use to check BS daily dx E11.9, [facility], Supply, 160, cm, 03/25/23 15:22:00 EST, Height/Length Dosing, 121.2, kg, 03/25/23 15:22:00 EST, Weight Dosing Start: 05-15-2023 LANCETS, See Instructions, 100 EA, 4, use to check BS daily dx E11.9, [facility], Supply, 160, cm, 03/25/23 15:22:00 EST, Height/Length Dosing, 121.2, kg, 03/25/23 15:22:00 EST, Weight Dosing Start: 05-15-2023 TEST STRIPS, See Instructions, 100 EA, 4, use to check BS daily dx E11.9, [facility], Supply, 160, cm, 03/25/23 15:22:00 EST, Height/Length Dosing, 121.2, kg, 03/25/23 15:22:00 EST, Weight Dosing Start: 05-15-2023 LANCETS, See Instructions, 100 EA, 4, use to check BS daily dx E11.9, [facility], Supply, 160, cm, 03/25/23 15:22:00 EST, Height/Length Dosing, 121.2, kg, 03/25/23 15:22:00 EST, Weight Dosing Start: 05-15-2023 TEST STRIPS, See Instructions, 100 EA, 4, use to check BS daily dx E11.9, [facility], Supply, 160, cm, 03/25/23 15:22:00 EST, Height/Length Dosing, 121.2, kg, 03/25/23 15:22:00 EST, Weight Dosing Start: 05-15-2023 LANCETS, See Instructions, 100 EA, 4, use to check BS daily dx E11.9, [facility], Supply, 160, cm, 03/25/23 15:22:00 EST, Height/Length Dosing, 121.2, kg, 03/25/23 15:22:00 EST, Weight Dosing Start: 05-15-2023 TEST STRIPS, See Instructions, 100 EA, 4, use to check BS daily dx E11.9, [facility], Supply, 160, cm, 03/25/23 15:22:00 EST, Height/Length Dosing, 121.2, kg, 03/25/23 15:22:00 EST, Weight Dosing Start: 05-15-2023 LANCETS, See Instructions, 100 EA, 4, use to check BS daily dx E11.9, [id number], Supply, 160, cm, 03/25/23 15:22:00 EST, Height/Length Dosing, 121.2, kg, 03/25/23 15:22:00 EST, Weight Dosing Start: 05-15-2023 TEST STRIPS, See Instructions, 100 EA, 4, use to check BS daily dx E11.9, [facility], Supply, 160, cm, 03/25/23 15:22:00 EST, Height/Length Dosing, 121.2, kg, 03/25/23 15:22:00 EST, Weight Dosing Start: 05-15-2023 LANCETS, See Instructions, 100 EA, 4, use to check BS daily dx E11.9, [id number], Supply, 160, cm, 03/25/23 15:22:00 EST, Height/Length Dosing, 121.2, kg, 03/25/23 15:22:00 EST, Weight Dosing Start: 05-15-2023 TEST STRIPS, See Instructions, 100 EA, 4, use to check BS daily dx E11.9, [id number], Supply, 160, cm, 03/25/23 15:22:00 EST, Height/Length Dosing, 121.2, kg, 03/25/23 15:22:00 EST, Weight Dosing Start: 05-15-2023 USE DIRECTED WITH [employer] [facility] Start: 08-04-2024 Functional Status Date Assessment Result Facility 12-12-2023 Functional Status N/A [facility] 10-08-2023 Functional Status N/A [facility] 09-26-2023 Functional Status N/A [facility] Clinical Notes 08-13-2022 to 10-26-2024 Beulah Gordon, DO - 09/22/2024 2:00 PM EDT Note Date & Type Note Facility 10-26-2024 Note Patient Education Endocrinology Type 2 Diabetes Mellitus, Self-Care, Adult Caring for yourself after you have been diagnosed with type 2 diabetes (type 2 diabetes mellitus) means keeping your blood sugar (glucose) under control with a balance of: ??? Nutrition. ??? Exercise. ??? Lifestyle changes. ??? Medicines or insulin, if needed. ??? Support from your team of health care providers and others. What are the risks? Having type 2 diabetes can put you at risk for other long-term (chronic) conditions, such as heart disease and kidney disease. Your health care provider may prescribe medicines to help prevent complications from diabetes. How to monitor your blood glucose ??? Check your blood glucose every day or as often as told by your health care provider. ??? Have your A1C (hemoglobin A1C) level checked two or more times a year, or as often as told by your health care provider. ??? Your health care provider will set personalized treatment goals for you. Generally, the goal of treatment is to maintain the following blood glucose levels: ? Before meals: 80?130 mg/dL (4.4?7.2 mmol/L). ? After meals: below 180 mg/dL (10 mmol/L). ? A1C level: less than 7%. How to manage hyperglycemia and hypoglycemia Hyperglycemia symptoms Hyperglycemia, also called high blood glucose, occurs when blood glucose is too high. Make sure you know the early signs of hyperglycemia, such as: ??? Increased thirst. ??? Hunger. ??? Feeling very tired. ??? Needing to urinate more often than usual. ??? Blurry vision. Hypoglycemia symptoms Hypoglycemia, also called low blood glucose, occurs with a blood glucose level at or below 70 mg/dL (3.9 mmol/L). Diabetes medicines lower your blood glucose and can cause hypoglycemia. The risk for hypoglycemia increases during or after exercise, during sleep, during illness, and when skipping meals or not eating for a long time (fasting). It is important to know the symptoms of hypoglycemia and treat it right away. Always have a 15-gram rapid-acting carbohydrate snack with you to treat low blood glucose. Family members and close friends should also know the symptoms and understand how to treat hypoglycemia, in case you are not able to treat yourself. Symptoms may include: ??? Hunger. ??? Anxiety. ??? Sweating and feeling clammy. ??? Dizziness or feeling light-headed. ??? Sleepiness. ??? Increased heart rate. ??? Irritability. ??? Tingling or numbness around the mouth, lips, or tongue. ??? Restless sleep. Severe hypoglycemia is when your blood glucose level is at or below 54 mg/dL (3 mmol/L). Severe hypoglycemia is an emergency. Do not wait to see if the symptoms will go away. Get medical help right away. Call your local emergency services (911 in the [place] Do not drive yourself to the hospital. If you have severe hypoglycemia and you cannot eat or drink, you may need glucagon. A family member or close friend should learn how to check your blood glucose and how to give you glucagon. Ask your health care provider if you need to have an emergency glucagon kit available. Follow these instructions at home: Medicines ??? Take prescribed insulin or diabetes medicines as told by your health care provider. ??? Do not run out of insulin or other diabetes medicines. Plan ahead so you always have these available. ??? If you use insulin, adjust your dosage based on your physical activity and what foods you eat. Your health care provider will tell you how to adjust your dosage. ??? Take [id number] and prescription medicines only as told by your health care provider. Eating and drinking What you eat and drink affects your blood glucose and your insulin dosage. Making good choices helps to control your diabetes and prevent other health problems. A healthy meal plan includes eating lean proteins, complex carbohydrates, fresh fruits and vegetables, low-fat dairy products, and healthy fats. Make an appointment to see a registered dietitian to help you create an eating plan that is right for you. Make sure that you: ??? Follow instructions from your health care provider about eating or drinking restrictions. ??? Drink enough fluid to keep your urine pale yellow. ??? Keep a record of the carbohydrates that you eat. Do this by reading food labels and learning the standard serving sizes of foods. ??? Follow your sick-day plan whenever you cannot eat or drink as usual. Make this plan in advance with your health care provider. Activity ??? Stay active. Exercise regularly, as told by your health care provider. This may include: ? Stretching and doing strength exercises, such as yoga or weight lifting, two or more times a week. ? Doing 150 minutes or more of moderate-intensity or vigorous-intensity exercise each week. This could be brisk walking, biking, or water aerobics. ? Spread out your activity over 3 or more days of the week. ? (more content not included)... [facility] 09-22-2024 History of Present illness Narrative Images from the original note were not included. Beulah Gordon DO Obstetrics and Gynecology Name: Wendy Erazo Date/Time of Service:09/22/2024 2:28 PM :1975 Age: 49 y.o. Subjective Wendy Erazo is a 49 y.o. female who is here for a routine exam. Gynecologic Exam (Patient here for yearly. Patient states that she has been having a period every month up until now. She has not started a period yet for September, Currently on on Provera-needs refill. LMP 08/18/24 Mammogram order sent to [facility]. Colonoscopy 2023-normal ) Control Contraception: abstinence. LMP: Patient's last menstrual period was 08/18/2024. Last Mammogram Results for orders placed in visit on 09/18/23 Bilateral screening mammogram with tomosynthesis [facility] [place] [address] [place] [address] Mammography Report Signed Patient: Wendy Erazo MR#: [id number] 7 : 1975 Acct:[id number] Age/Sex: 48 / F ADM Date: 01/13/24 Loc: [place] Room: Type: [facility] Attending Dr: Beulah Gordon DO Copies to: BEULAH GORDON MD Ordering Provider: BEULAH GORDON DO Date of Service: 01/13/24 MM/MM screening mammo BI w/CAD: screening CLINICAL DATA: Screening for malignancy. SCREENING MAMMOGRAM - FULL FIELD DIGITAL WITH TOMOSYNTHESIS AND CAD COMPARISON:Mammograms dating back to 2016 Tomosynthesis craniocaudal and mediolateral oblique views of both breasts were obtained using low- dose digital technique. This examination was reviewed with the aid of CAD. FINDINGS: The breast tissue is almost entirely fatty. There are no dominant masses, typically malignant calcifications or architectural distortion. There has been no significant interval change. MM/MM screening mammo BI w/CAD Impression NO MAMMOGRAPHIC EVIDENCE OF MALIGNANCY. ROUTINE FOLLOW-UP IS RECOMMENDED IN ONE YEAR. RESULT CODE: 1 Negative DENSITY CODE: 1 (<25% glandular) FOLLOW UP: 1YR The false-negative rate of mammography is approximately 10-percent. Management of a palpable abnormality must be based on clinical grounds. Patient was entered into a reminder system with a target due date for the next mammogram. Impression dictated by: Vikas Huerta Jr., D.O.01/13/2024 3:33 PM Dictation Location: [facility] Transcribed By: JOSE 01/13/24 1533 Dictated By: Vikas Huerta Jr, DO 01/13/24 1532 Signed By: <Electronically signed by Vikas Huerta Jr, DO in [place]> 01/13/24 1533 Current Outpatient Medications on File Prior to Visit Medication Sig Dispense Refill albuterol HFA 90 mcg/act inhaler atorvastatin (Lipitor) 40 MG tablet Take 40 mg by mouth Daily Continuous Glucose Sensor (FreeStyle Rosalinda 2 Sensor) misc USE WITH FREESTYLE ROSALINDA TO CHECK BLOOD SUGARS DAILY (E11.69) FreeStyle Precision Griselda Test test strip USE DIRECTED WITH FREESTYLE ROSALINDA 2 READER lithium ER (Lithobid) 300 MG 12 hr tablet Take 300 mg by mouth Daily metFORMIN XR (Glucophage-XR) 500 MG 24 hr tablet Take 1,000 mg by mouth in the morning and 1,000 mg before bedtime. levothyroxine (Synthroid, Levoxyl) 75 MCG tablet Take 75 mcg by mouth Daily metoprolol succinate XL (Toprol-XL) 25 MG 24 hr tablet Take 25 mg by mouth Daily OLANZapine (ZyPREXA) 10 MG tablet TAKE 1 TABLET BY MOUTH AT BEDTIME (TAKE WITH A 20 MG AT NIGHT FOR 30 MG TOTAL) OLANZapine (ZyPREXA) 20 MG tablet Take 1 tablet by mouth at bedtime Ozempic, 1 MG/DOSE, 4 MG/3ML solution pen-injector INJECT 1MG SUBCUTANEOUSLY ONCE A WEEK pantoprazole (ProtoNix) 40 MG EC tablet Take 40 mg by mouth Daily [DISCONTINUED] medroxyPROGESTERone (Provera) 10 MG tablet TAKE 1 TABLET BY MOUTH ONCE A DAY WITH FOOD on Day #1 to Day #10 of the month 30 tablet 4 No current facility-administered medications on file prior to visit. 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 Past Surgical History: Procedure Laterality Date COLPOSCOPY with biopsy CIN1 EGD 2019 EGD negative OTHER SURGICAL HISTORY biopsy of vulva or perineum; WISDOM TOOTH EXTRACTION Family History Problem Relation Name Age of Onset Diabetes Mother Anais Hypertension Father Escobar Social History Tobacco Use Smoking status: Every Day Current packs/day: 0.50 Average packs/day: 0.5 packs/day for 28.7 years (14.4 ttl pk-yrs) Types: Cigarettes Start date: 12/29/1995 Smokeless tobacco: Never Substance Use Topics Alcohol use: Never Drug use: Never OB History Para Term AB Living 0 0 0 0 0 0 SAB IAB Ectopic Multiple Live Births 0 0 0 0 0 No Known Allergies Review of Systems Constitutional: Negative. Respiratory: Negative. Cardiovascular: Negative. Gastrointestinal: Negative. Musculoskeletal: Negative. Skin: Negative. Neurological: Negative. Endocrine: Negative. Objective BP 134/82 Wt 227 lb LMP 08/18/2024 BMI 41.52 kg/m Body mass index is 41.52 kg/m . Physical Exam Genitourinary: Urethral meatus normal. No lesions in the vagina. Right Labia: No lesions. Left Labia: No lesions. No vaginal discharge. Right Adnexa: not tender and no mass present. Left Adnexa: not tender and no mass present. No cervical lesion. Uterus is not tender. Uterus is anteverted. No urethral stress urinary incontinence with cough stress test present. Bladder is not tender. Breasts: Right: No mass, nipple discharge, skin change or tenderness. Left: No mass, nipple discharge, skin change or tenderness. HENT: Head: Normocephalic and atraumatic. Mouth/Throat: Mouth: Mucous membranes are moist. Cardiovascular: Rate and Rhythm: Normal rate and regular rhythm. Pulmonary: Effort: Pulmonary effort is normal. Breath sounds: Normal breath sounds. Abdominal: General: Bowel sounds are normal. Palpations: Abdomen is soft. Comments: Obese Musculoskeletal: General: No tenderness. Cervical back: Neck supple. Neurological: Mental Status: She is alert and oriented to person, place, and time. Skin: General: Skin is warm and dry. Psychiatric: Mood and Affect: Mood normal. Vitals and nursing note reviewed. Assessment/Plan 1. Encounter for gynecological examination without abnormal finding (Primary) Breast and pelvic exam performed. Discussed findings. Patient to contact the office with any changes to her gynecological condition. 2. Other screening mammogram Mammogram order sent. Patient to schedule appointment - Bilateral screening mammogram with tomosynthesis; Future 3. Encounter for surveillance of contraceptive pills Continue current treatment. Refills sent 4. History of irregular menstrual cycles Continue current Medroxyprogesterone cycles - medroxyPROGESTERone (Provera) 10 MG tablet; TAKE 1 TABLET BY MOUTH ONCE A DAY WITH FOOD on Day #1 to Day #10 of the month Dispense: 30 tablet; Refill: 4 5. Irregular menstruation, unspecified Patient to continue to monitor cycles in the next 4-5 months. If cycles continues to be irregular, patient to contact the office and will consider assessing FSH level. Patient voiced understanding and agreed with the plan - medroxyPROGESTERone (Provera) 10 MG tablet; TAKE 1 TABLET BY MOUTH ONCE A DAY WITH FOOD on Day #1 to Day #10 of the month Dispense: 30 tablet; Refill: 4 6. Obesity, morbid ([facility]) - medroxyPROGESTERone (Provera) 10 MG tablet; TAKE 1 TABLET BY MOUTH ONCE A DAY WITH FOOD on Day #1 to Day #10 of the month Dispense: 30 tablet; Refill: 4 ICD-10-CM 1. Encounter for gynecological examination without abnormal finding Z01.419 2. Other screening mammogram Z12.31 Bilateral screening mammogram with tomosynthesis 3. Encounter for surveillance of contraceptive pills Z30.41 4. History of irregular menstrual cycles Z87.42 medroxyPROGESTERone (Provera) 10 MG tablet 5. Irregular menstruation, unspecified N92.6 medroxyPROGESTERone (Provera) 10 MG tablet 6. 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 Beulah Gordon DO 09/22/2024 2:28 PM documented in this encounter [facility] 07-17-2024 Note Patient Education Infectious Disease Upper Respiratory Infection, Adult An upper respiratory infection (URI) affects the nose, throat, and upper airways that lead to the lungs. The most common type of URI is often called the common cold. URIs usually get better on their own, without medical treatment. What are the causes? A URI is caused by a germ (virus). You may catch these germs by: ??? Breathing in droplets from an infected person's cough or sneeze. ??? Touching something that has the germ on it (is contaminated) and then touching your mouth, nose, or eyes. What increases the risk? You are more likely to get a URI if: ??? You are very young or very old. ??? You have close contact with others, such as at work, school, or a health care facility. ??? You smoke. ??? You have long-term (chronic) heart or lung disease. ??? You have a weakened disease-fighting system (immune system). ??? You have nasal allergies or asthma. ??? You have a lot of stress. ??? You have poor nutrition. What are the signs or symptoms? Runny or stuffy (congested) nose. ??? Cough. ??? Sneezing. ??? Sore throat. ??? Headache. ??? Feeling tired (fatigue). ??? Fever. ??? Not wanting to eat as much as usual. ??? Pain in your forehead, behind your eyes, and over your cheekbones (sinus pain). ??? Muscle aches. ??? Redness or irritation of the eyes. ??? Pressure in the ears or face. How is this treated? URIs usually get better on their own within 7?10 days. Medicines cannot cure URIs, but your doctor may recommend certain medicines to help relieve symptoms, such as: ??? Wdep-bec-wztaxnw cold medicines. ??? Medicines to reduce coughing (cough suppressants). Coughing is a type of defense against infection that helps to clear the nose, throat, windpipe, and lungs (respiratory system). Take these medicines only as told by your doctor. ??? Medicines to lower your fever. Follow these instructions at home: Activity ??? Rest as needed. ??? If you have a fever, stay home from work or school until your fever is gone, or until your doctor says you may return to work or school. ? You should stay home until you cannot spread the infection anymore (you are not contagious). ? Your doctor may have you wear a face mask so you have less risk of spreading the infection. Relieving symptoms ??? Rinse your mouth often with salt water. To make salt water, dissolve ??1 tsp (3?6 g) of salt in 1 cup (237 mL) of warm water. ??? Use a cool-mist humidifier to add moisture to the air. This can help you breathe more easily. Eating and drinking ??? Drink enough fluid to keep your pee (urine) pale yellow. ??? Eat soups and other clear broths. General instructions ??? Take gyyu-rei-muofdrn and prescription medicines only as told by your doctor. ??? Do not smoke or use any products that contain nicotine or tobacco. If you need help quitting, ask your doctor. ??? Avoid being where people are smoking (avoid secondhand smoke). ??? Stay up to date on all your shots (immunizations), and get the flu shot every year. ??? Keep all follow-up visits. How to prevent the spread of infection to others ??? Wash your hands with soap and water for at least 20 seconds. If you cannot use soap and water, use hand parts puller. ??? Avoid touching your mouth, face, eyes, or nose. ??? Cough or sneeze into a tissue or your sleeve or elbow. Do not cough or sneeze into your hand or into the air. Contact a doctor if: ??? You are getting worse, not better. ??? You have any of these: ? A fever or chills. ? Brown or red mucus in your nose. ? Yellow or brown fluid (discharge)coming from your nose. ? Pain in your face, especially when you bend forward. ? Swollen neck glands. ? Pain when you swallow. ? White areas in the back of your throat. Get help right away if: ??? You have shortness of breath that gets worse. ??? You have very bad or constant: ? Headache. ? Ear pain. ? Pain in your forehead, behind your eyes, and over your cheekbones (sinus pain). ? Chest pain. ??? You have long-lasting (chronic) lung disease along with any of these: ? Making high-pitched whistling sounds when you breathe, most often when you breathe out (wheezing). ? Long-lasting cough (more than 14 days). ? Coughing up blood. ? A change in your usual mucus. ??? You have a stiff neck. ??? You have changes in your: ? Vision. ? Hearing. ? Thinking. ? Mood. These symptoms may be an emergency. Get help right away. Call 911. ??? Do not wait to see if the symptoms will go away. ??? Do not drive yourself to the hospital. Summary ??? An upper respiratory infection (URI) is caused by a germ (virus). The most common type of URI is often called the common cold. ??? URIs usually get better within 7?10 days. ??? Take cnrd-sxu-weshwgr and prescription med (more content not included)... [facility] 04-13-2024 Note Nurse Consultation [place] Reason for Visit Pt presents today for annual wellness labs Assessment/Plan Routine lab draw (Z01.89: Encounter for other specified special examinations) Medications atorvastatin 40 mg Tab, See Instructions Free Style Rosalinda 2 Sensors, See Instructions, 3 refills glucose meter, See Instructions LANCETS, See Instructions, 4 refills levothyroxine 75 mcg (0.075 mg) Tab, See Instructions lithium 300 mg Cap, 300 mg= 1 cap(s), Oral, Daily lithium 450 mg oral tablet, extended release, 900 mg= 2 tab(s), Oral, Bedtime medroxyPROGESTERone, 10 mg, Oral MetFORMIN (Eqv-Glucophage XR) 500 mg oral tablet, extended release, See Instructions metoprolol succinate 25 mg ER Tab, 25 mg= 1 tab(s), Oral, Daily, 4 refills olanzapine 10 mg Tab, 10 mg= 1 tab(s), Oral, Once a day (at bedtime) olanzapine 20 mg oral tablet, 20 mg= 1 tab(s), Oral, Bedtime Ozempic (1 mg dose) 4 mg/3 mL subcutaneous solution, See Instructions Pantoprazole [address] Tab, 40 mg= 1 tab(s), Oral, Daily, 4 refills reader, See Instructions TEST STRIPS, See Instructions, 4 refills Allergies No Known Allergies Immunizations Vaccine Date Status Comments influenza virus vaccine, inactivated - Not Given Patient Refuses influenza virus vaccine, inactivated - Not Given Patient Refuses influenza virus vaccine, inactivated - Not Given Postpone due to refusal SARS-CoV-2 (COVID-19) mRNA-1273 vaccine 07/29/2020 Recorded SARS-CoV-2 (COVID-19) mRNA-1273 vaccine 2020 Recorded SARS-CoV-2 (COVID-19) mRNA-1273 vaccine 06/21/2020 Recorded influenza virus vaccine, inactivated 02/21/2015 Recorded [facility] 03-24-2024 Note Patient Education Emergency Medicine Heart Attack A heart attack occurs when blood and oxygen supply to the heart is cut off. A heart attack can cause damage to the heart that cannot be fixed. A heart attack is also called a myocardial infarction, or [place]. If you think you are having a heart attack, do not wait to see if the symptoms will go away. Get medical help right away. What are the causes? This condition may be caused by: ??? A fatty substance (plaque) in the blood vessels (arteries). This can block the flow of blood to the heart. ??? A blood clot in the blood vessels that go to the heart. The blood clot blocks blood flow. ??? An abnormal heartbeat. ??? Some diseases, such as problems in red blood cells (anemia)orproblems in breathing (respiratory failure). ??? Tightening (spasm) of a blood vessel that cuts off blood to the heart. ??? A tear in a blood vessel of the heart. Other causes may include: ??? Using drugs such as cocaine or methamphetamine. ??? Low blood pressure. What increases the risk? Aging. The risk gets higher as you get older. ??? Having a personal or family history of chest pain, heart attack, stroke, or narrowing of the arteries in the legs, arms, head, or stomach (peripheral vascular disease). ??? Having taken chemotherapy or immune-suppressing medicines. ??? Being male. ??? Being overweight or obese. ??? Having any of these conditions: ? High blood pressure. ? High cholesterol. ? Diabetes. ??? Making lifestyle choices such as: ? Drinking too much alcohol. ? Not getting regular exercise. ? Smoking. What are the signs or symptoms? Chest pain. It may feel like: ? Crushing or squeezing. ? Tightness, pressure, fullness, or heaviness. ??? Pain in the arm, neck, jaw, back, or upper body. ??? Heartburn. ??? Upset stomach (indigestion). ??? Shortness of breath. ??? Feeling like you may vomit (nauseous). ??? Cold sweats. ??? Sudden light-headedness, dizziness, or passing out. ??? Feeling tired. How is this treated? A heart attack must be treated as soon as possible. Treatment may include: ??? Medicines to: ? Break up or dissolve blood clots. ? Thin your blood and help prevent blood clots. ? Treat blood pressure. ? Improve blood flow to the heart. ? Reduce pain. ? Reduce cholesterol. ??? Procedures to widen a blocked artery and keep it open. ??? Open heart surgery. ??? Making your heart strong again (cardiac rehabilitation) through exercise, education, and counseling. Follow these instructions at home: Medicines ??? Take wwcx-ttt-ickukkq and prescription medicines only as told by your doctor. ??? Do not take these medicines unless your doctor says it is okay: ? NSAIDs, such as ibuprofen, naproxen, or celecoxib. ? Any vitamins or supplements. ? Hormone replacement therapy that has estrogen with or without progestin. ??? If you are taking blood thinners: ? Talk with your doctor before taking any medicines that have aspirin or NSAIDs, such as ibuprofen. ? Take medicines exactly as told. Take them at the same time each day. ? Avoid doing things that could hurt or bruise you. Take action to prevent falls. ? Wear an alert bracelet or carry a card that shows you are taking blood thinners. Lifestyle ??? Do not smoke or use any products that contain nicotine or tobacco. If you need help quitting, ask your doctor. ??? Avoid secondhand smoke. ??? Exercise regularly. Ask your doctor about a cardiac rehab program. ??? Eat heart-healthy foods. Your doctor will tell you what foods to eat. ??? Stay at a healthy weight. ??? Learn ways to lower your stress level. ??? Do not use illegal drugs. Alcohol use ??? Do not drink alcohol if: ? Your doctor tells you not to drink. ? You are , may be , or are planning to become . ??? If you drink alcohol: ? Limit how much you have to: ? 0?1 drink a day for women. ? 0?2 drinks a day for men. ? Know how much alcohol is in your drink. In the [place] one drink equals one 12 oz bottle of beer (355 mL), one 5 oz glass of wine (148 mL), or one 1? oz glass of hard liquor (44 mL). General instructions ??? Work with your doctor to treat other problems you may have, such as diabetes or high blood pressure. ??? Get screened for depression. Get treatment if needed. ??? Keep your vaccines up to date. Get the flu shot (influenza vaccine) every year. ??? Keep all follow-up visits. Contact a doctor if: ??? You feel very sad. ??? You have trouble doing your daily activities. ??? You get light-headed or dizzy. Get help right away if: ??? You have sudden, unexplained discomfort in your chest, arms, back, neck, jaw, or upper body. ??? You have shortness of breath. ??? You have sudden sweating or clammy skin. ??? You feel like you may vomit or you vomit. ??? You fe (more content not included)... [facility] 12-22-2023 Hospital Discharge instructions Patient Education 12/22/2023 12:40:38 Stye Stye A stye, also known as a hordeolum, is a bump that forms on an eyelid. It may look like a pimple next to the eyelash. A stye can form inside the eyelid (internal stye) or outside the eyelid (external stye). A stye can cause redness, swelling, and pain on the eyelid. Styes are very common. Anyone can get them at any age. They usually occur in just one eye at a time, but you may have more than one in either eye. What are the causes? A stye is caused by an infection. The infection is almost always caused by bacteria called Staphylococcus aureus. This is a common type of bacteria that lives on the skin. An internal stye may result from an infected oil-producing gland inside the eyelid. An external stye may be caused by an infection at the base of the eyelash (hair follicle). What increases the risk? You are more likely to develop a stye if: You have had a stye before. You have any of these conditions: ?Red, itchy, inflamed eyelids (blepharitis). ?A skin condition such as seborrheic dermatitis or rosacea. ?High fat levels in your blood (lipids). ?Dry eyes. What are the signs or symptoms? The most common symptom of a stye is eyelid pain. Internal styes are more painful than external styes. Other symptoms may include: Painful swelling of your eyelid. A scratchy feeling in your eye. Tearing and redness of your eye. A pimple-like bump on the edge of the eyelid. Pus draining from the stye. How is this diagnosed? Your health care provider may be able to diagnose a stye just by examining your eye. The health care provider may also check to make sure: You do not have a fever or other signs of a more serious infection. The infection has not spread to other parts of your eye or areas around your eye. How is this treated? Most styes will clear up in a few days without treatment or with warm compresses applied to the area. You may need to use antibiotic drops or ointment to treat an infection. Sometimes, steroid drops or ointment are used in addition to antibiotics. In some cases, your health care provider may give you a small steroid injection in the eyelid. If your stye does not heal with routine treatment, your health care provider may drain pus from the stye using a thin blade or needle. This may be done if the stye is large, causing a lot of pain, or affecting your vision. Follow these instructions at home: Take bbtk-ksb-vueubwc and prescription medicines only as told by your health care provider. This includes eye drops or ointments. If you were prescribed an antibiotic medicine, steroid medicine, or both, apply or use them as told by your health care provider. Do not stop using the medicine even if your condition improves. Apply a warm, wet cloth (warm compress) to your eye for 5 10 minutes, 4 to 6 times a day. Clean the affected eyelid as directed by your health care provider. Do not wear contact lenses or eye makeup until your stye has healed and your health care provider says that it is safe. Do not try to pop or drain the stye. Do not rub your eye. Contact a health care provider if: You have chills or a fever. Your stye does not go away after several days. Your stye affects your vision. Your eyeball becomes swollen, red, or painful. Get help right away if: You have pain when moving your eye around. Summary A stye is a bump that forms on an eyelid. It may look like a pimple next to the eyelash. A stye can form inside the eyelid (internal stye) or outside the eyelid (external stye). A stye can cause redness, swelling, and pain on the eyelid. Your health care provider may be able to diagnose a stye just by examining your eye. Apply a warm, wet cloth (warm compress) to your eye for 5 10 minutes, 4 to 6 times a day. This information is not intended to replace advice given to you by your health care provider. Make sure you discuss any questions you have with your health care provider. Document Revised: 05/31/2021 Document Reviewed: 05/31/2021 [employer] Patient Education 2023 [employer]. 12/22/2023 12:40:34 Steps to Quit Smoking Steps to Quit Smoking Smoking tobacco is the leading cause of preventable . It can affect almost every organ in the body. Smoking puts you and those around you at risk for developing many serious chronic diseases. Quitting smoking can be very challenging. Do not get discouraged if you are not successful the first time. Some people need to make many attempts to quit before they achieve long-term success. Do your best to stick to your quit plan, and talk with your health care provider if you have any questions or concerns. How do I get ready to quit? When you decide to quit smoking, create a plan to help you succeed. Before you quit: Pick a date to quit. Set a date within the next 2 weeks to give you time to prepare. Write down the reasons why you are quitting. Keep this list in places where you will see it often. Tell your family, friends, and co-workers that you are quitting. Support from people you are close to can make quitting easier. Talk with your health care provider about your options for quitting smoking. Find out what treatment options are covered by your health insurance. Identify people, places, things, and activities that make you want to smoke (triggers). Avoid them. What first steps can I take to quit smoking? Throw away all cigarettes at home, at work, and in your car. Throw away smoking accessories, such as ashtrays and lighters. Clean your car. Make sure to empty the ashtray. Clean your home, including curtains and carpets. What strategies can I use to quit smoking? Talk with your health care provider about combining strategies, such as taking medicines while you are also receiving in-person counseling. Using these two strategies together makes you more likely to succeed in quitting than if you used either strategy on its own. If you are or , talk with your health care provider about finding counseling or other support strategies to quit smoking. Do not take medicine to help you quit smoking unless your health care provider tells you to. Quit right away Quit smoking completely, instead of gradually reducing how much you smoke over a period of time. Stopping smoking right away may be more successful than gradually quitting. Attend in-person counseling to help you build problem-solving skills. You are more likely to succeed in quitting if you attend counseling sessions regularly. Even short sessions of 10 minutes can be effective. Take medicine You may take medicines to help you quit smoking. Some medicines require a prescription. You can also purchase kruj-nnu-enqilbb medicines. Medicines may have nicotine in them to replace the nicotine in cigarettes. Medicines may: Help to stop cravings. Help to relieve withdrawal symptoms. Your health care provider may recommend: Nicotine patches, gum, or lozenges. Nicotine inhalers or sprays. Non-nicotine medicine that you take by mouth. Find resources Find resources and support systems that can help you quit smoking and remain smoke-free after you quit. These resources are most helpful when you use them often. They include: Online chats with a counselor. Telephone quitlines. Printed self-help materials. Support groups or group counseling. Text messaging programs. Mobile phone apps or applications. Use apps that can help you stick to your quit plan by providing reminders, tips, and encouragement. Examples of free services include Quit Guide from the CDC and smokefree.gov What can I do to make it easier to quit? Reach out to your family and friends for support and encouragement. Call telephone quitlines, such as 9-701-PGVF-NOW, reach out to support groups, or work with a counselor for support. Ask people who smoke to avoid smoking around you. Avoid places that trigger you to smoke, such as bars, parties, or smoke-break areas at work. Spend time with people who do not smoke. Lessen the stress in your life. Stress can be a smoking trigger for some people. To lessen stress, try: ?Exercising regularly. ?Doing deep-breathing exercises. ?Doing yoga. ?Meditating. What benefits will I see if I quit smoking? Over time, you should start to see positive results, such as: Improved sense of smell and taste. Decreased coughing and sore throat. Slower heart rate. Lower blood pressure. Clearer and healthier skin. The ability to breathe more easily. Fewer sick days. Summary Quitting smoking can be very challenging. Do not get discouraged if you are not successful the first time. Some people need to make many attempts to quit before they achieve long-term success. When you decide to quit smoking, create a plan to help you succeed. Quit smoking right away, not slowly over a period of time. Find resources and support systems that can help you quit smoking and remain smoke-free after you quit. This information is not intended to replace advice given to you by your health care provider. Make sure you discuss any questions you have with your health care provider. Document Revised: 03/16/2022 Document Reviewed: 03/16/2022 [employer] Patient Education 2023 [employer]. 12/22/2023 12:40:33 BMI for Adults BMI for Adults Body mass index (BMI) is a number found using a person's weight and height. BMI can help tell how much of a person's weight is made up of fat. BMI does not measure body fat directly. It is used instead of tests that directly measure body fat, which can be difficult and expensive. What are BMI measurements used for? BMI is useful to: Find out if your weight puts you at higher risk for medical problems. Help recommend changes, such as in diet and exercise. This can help you reach a healthy weight. BMI screening can be done again to see if these changes are working. How is BMI calculated? Your height and weight are measured. The BMI is found from those numbers. This can be done with [place] or metric measurements. Note that charts and online BMI calculators are available to help you find your BMI quickly and easily without doing these calculations. To calculate your BMI in [place] measurements: 1.Measure your weight in pounds (lb). 2.Multiply the number of pounds by 703. So, for an adult who weighs 150 lb, multiply that number by 703: 150 x 703, which equals 105,450. 3.Measure your height in inches. Then multiply that number by itself to get a measurement called inches squared. So, for an adult who is 70 inches tall, the inches squared measurement is 70 inches x 70 inches, which equals 4,900 inches squared. 4.Divide the total from step 2 (number of lb x 703) by the total from step 3 (inches squared): 105,450 4,900 = 21.5. This is your BMI. To calculate your BMI in metric measurements: 1.Measure your weight in kilograms (kg). For this example, the weight is 70 kg. 2.Measure your height in meters (m). Then multiply that number by itself to get a measurement called meters squared. So, for an adult who is 1.75 m tall, the meters squared measurement is 1.75 m x 1.75 m, which equals 3.1 meters squared. 3.Divide the number of kilograms (your weight) by the meters squared number. In this example: 70 3.1 = 22.6. This is your BMI. What do the results mean? BMI charts are used to see if you are underweight, normal weight, overweight, or obese. The following guidelines will be used: Underweight: BMI less than 18.5. Normal weight: BMI between 18.5 and 24.9. Overweight: BMI between 25 and 29.9. Obese: BMI of 30 or above. BMI is a tool and cannot diagnose a condition. Talk with your health care provider about what your BMI means for you. Keep these notes in mind: Weight includes fat and muscle. Someone with a muscular build, such as an athlete, may have a BMI that is higher than 24.9. In cases like these, BMI is not a correct measure of body fat. If you have a BMI of 25 or higher, your provider may need to do more testing to find out if excess body fat is the cause. BMI is measured the same way for males and females. Females usually have more body fat than males of the same height and weight. Where to find more information For more information about BMI, including tools to quickly find your BMI, go to: Centers for Disease Control and Prevention: cdc.gov Citizen Of [place] Heart Association: heart.org National Heart, Lung, and Blood [place]: nhlbi.nih.gov This information is not intended to replace advice given to you by your health care provider. Make sure you discuss any questions you have with your health care provider. Document Revised: 12/13/2022 Document Reviewed: 12/06/2022 [employer] Patient Education 2023 [employer]. Follow Up Care 12/22/2023 10:49:21 With:Eligio MEDELLIN, Yeison Harris [facility] Address: When: only if needed Comments:2 weeks [facility] 12-22-2023 Note Patient Education Infectious Disease Stye A stye, also known as a hordeolum, is a bump that forms on an eyelid. It may look like a pimple next to the eyelash. A stye can form inside the eyelid (internal stye) or outside the eyelid (external stye). A stye can cause redness, swelling, and pain on the eyelid. Styes are very common. Anyone can get them at any age. They usually occur in just one eye at a time, but you may have more than one in either eye. What are the causes? A stye is caused by an infection. The infection is almost always caused by bacteria called Staphylococcus aureus. This is a common type of bacteria that lives on the skin. An internal stye may result from an infected oil-producing gland inside the eyelid. An external stye may be caused by an infection at the base of the eyelash (hair follicle). What increases the risk? You are more likely to develop a stye if: ? You have had a stye before. ? You have any of these conditions: ? Red, itchy, inflamed eyelids (blepharitis). ? A skin condition such as seborrheic dermatitis or rosacea. ? High fat levels in your blood (lipids). ? Dry eyes. What are the signs or symptoms? The most common symptom of a stye is eyelid pain. Internal styes are more painful than external styes. Other symptoms may include: ? Painful swelling of your eyelid. ? A scratchy feeling in your eye. ? Tearing and redness of your eye. ? A pimple-like bump on the edge of the eyelid. ? Pus draining from the stye. How is this diagnosed? Your health care provider may be able to diagnose a stye just by examining your eye. The health care provider may also check to make sure: ? You do not have a fever or other signs of a more serious infection. ? The infection has not spread to other parts of your eye or areas around your eye. How is this treated? Most styes will clear up in a few days without treatment or with warm compresses applied to the area. You may need to use antibiotic drops or ointment to treat an infection. Sometimes, steroid drops or ointment are used in addition to antibiotics. In some cases, your health care provider may give you a small steroid injection in the eyelid. If your stye does not heal with routine treatment, your health care provider may drain pus from the stye using a thin blade or needle. This may be done if the stye is large, causing a lot of pain, or affecting your vision. Follow these instructions at home: ? Take bysr-pkb-zzcwqra and prescription medicines only as told by your health care provider. This includes eye drops or ointments. ? If you were prescribed an antibiotic medicine, steroid medicine, or both, apply or use them as told by your health care provider. Do not stop using the medicine even if your condition improves. ? Apply a warm, wet cloth (warm compress) to your eye for 5?10 minutes, 4 to 6 times a day. ? Clean the affected eyelid as directed by your health care provider. ? Do not wear contact lenses or eye makeup until your stye has healed and your health care provider says that it is safe. ? Do not try to pop or drain the stye. ? Do not rub your eye. Contact a health care provider if: ? You have chills or a fever. ? Your stye does not go away after several days. ? Your stye affects your vision. ? Your eyeball becomes swollen, red, or painful. Get help right away if: ? You have pain when moving your eye around. Summary ? A stye is a bump that forms on an eyelid. It may look like a pimple next to the eyelash. ? A stye can form inside the eyelid (internal stye) or outside the eyelid (external stye). A stye can cause redness, swelling, and pain on the eyelid. ? Your health care provider may be able to diagnose a stye just by examining your eye. ? Apply a warm, wet cloth (warm compress) to your eye for 5?10 minutes, 4 to 6 times a day. This information is not intended to replace advice given to you by your health care provider. Make sure you discuss any questions you have with your health care provider. Document Revised: 05/31/2021 Document Reviewed: 05/31/2021 [employer] Patient Education ? 2023 [employer]. Nutrition BMI for Adults Body mass index (BMI) is a number found using a person's weight and height. BMI can help tell how much of a person's weight is made up of fat. BMI does not measure body fat directly. It is used instead of tests that directly measure body fat, which can be difficult and expensive. What are BMI measurements used for? BMI is useful to: ? Find out if your weight puts you at higher risk for medical problems. ? Help recommend changes, such as in diet and exercise. This can help you reach a healthy weight. BMI screening can be done again to see if these changes are working. How is BMI calculated? Your height and weight are measured. The BMI is found from those numbers. This can be done with [place] or metric measurements. Note that charts and online BMI calculators are (more content not included)... [facility] 10-23-2023 Note Patient Education Nutrition BMI for Adults What is BMI? Body mass index (BMI) is a number that is calculated from a person's weight and height. BMI can help estimate how much of a person's weight is composed of fat. BMI does not measure body fat directly. Rather, it is an alternative to procedures that directly measure body fat, which can be difficult and expensive. BMI can help identify people who may be at higher risk for certain medical problems. What are BMI measurements used for? BMI is used as a screening tool to identify possible weight problems. It helps determine whether a person is obese, overweight, a healthy weight, or underweight. BMI is useful for: ? Identifying a weight problem that may be related to a medical condition or may increase the risk for medical problems. ? Promoting changes, such as changes in diet and exercise, to help reach a healthy weight. BMI screening can be repeated to see if these changes are working. How is BMI calculated? BMI involves measuring your weight in relation to your height. Both height and weight are measured, and the BMI is calculated from those numbers. This can be done either in [place] ([place] or metric measurements. Note that charts and online BMI calculators are available to help you find your BMI quickly and easily without having to do these calculations yourself. To calculate your BMI in [place] ([place] measurements: 1. Measure your weight in pounds (lb). 2. Multiply the number of pounds by 703. ? For example, for a person who weighs 180 lb, multiply that number by 703, which equals 126,540. 3. Measure your height in inches. Then multiply that number by itself to get a measurement called inches squared. ? For example, for a person who is 70 inches tall, the inches squared measurement is 70 inches x 70 inches, which equals 4,900 inches squared. 4. Divide the total from step 2 (number of lb x 703) by the total from step 3 (inches squared): 126,540 ? 4,900 = 25.8. This is your BMI. To calculate your BMI in metric measurements: 1. Measure your weight in kilograms (kg). 2. Measure your height in meters (m). Then multiply that number by itself to get a measurement called meters squared. ? For example, for a person who is 1.75 m tall, the meters squared measurement is 1.75 m x 1.75 m, which is equal to 3.1 meters squared. 3. Divide the number of kilograms (your weight) by the meters squared number. In this example: 70 ? 3.1 = 22.6. This is your BMI. What do the results mean? BMI charts are used to identify whether you are underweight, normal weight, overweight, or obese. The following guidelines will be used: ? Underweight: BMI less than 18.5. ? Normal weight: BMI between 18.5 and 24.9. ? Overweight: BMI between 25 and 29.9. ? Obese: BMI of 30 or above. Keep these notes in mind: ? Weight includes both fat and muscle, so someone with a muscular build, such as an athlete, may have a BMI that is higher than 24.9. In cases like these, BMI is not an accurate measure of body fat. ? To determine if excess body fat is the cause of a BMI of 25 or higher, further assessments may need to be done by a health care provider. ? BMI is usually interpreted in the same way for men and women. Where to find more information For more information about BMI, including tools to quickly calculate your BMI, go to these websites: ? Centers for Disease Control and Prevention: www.cdc.gov ? [place] Heart Association: www.heart.org ? National Heart, Lung, and Blood [place]: www.nhlbi.nih.gov Summary ? Body mass index (BMI) is a number that is calculated from a person's weight and height. ? BMI may help estimate how much of a person's weight is composed of fat. BMI can help identify those who may be at higher risk for certain medical problems. ? BMI can be measured using [place] measurements or metric measurements. ? BMI charts are used to identify whether you are underweight, normal weight, overweight, or obese. This information is not intended to replace advice given to you by your health care provider. Make sure you discuss any questions you have with your health care provider. Document Revised: 12/16/2019 Document Reviewed: 10/23/2019 [employer] Patient Education ? 2022 [employer]. [facility] 10-08-2023 Hospital Discharge instructions Patient Education 10/08/2023 13:25:39 Otitis Externa, Usbh-om-Kejw Otitis Externa Otitis externa is an infection of the outer ear canal. The outer ear canal is the area between the outside of the ear and the eardrum. Otitis externa is sometimes called swimmer's ear. What are the causes? Common causes of this condition include: Swimming in dirty water. Moisture in the ear. An injury to the inside of the ear. An object stuck in the ear. A cut or scrape on the outside of the ear or in the ear canal. What increases the risk? You are more likely to get this condition if you go swimming often. What are the signs or symptoms? Itching in the ear. This is often the first symptom. Swelling of the ear. Redness in the ear. Ear pain. The pain may get worse when you pull on your ear. Pus coming from the ear. How is this treated? This condition may be treated with: Antibiotic ear drops. These are often given for 10 14 days. Medicines to reduce itching and swelling. Follow these instructions at home: If you were prescribed antibiotic ear drops, use them as told by your doctor. Do not stop using them even if you start to feel better. Take pwig-jas-qhepeij and prescription medicines only as told by your doctor. Avoid getting water in your ears as told by your doctor. You may be told to avoid swimming or water sports for a few days. Keep all follow-up visits. How is this prevented? Keep your ears dry. Use the corner of a towel to dry your ears after you swim or bathe. Try not to scratch or put things in your ear. Doing these things makes it easier for germs to grow in your ear. Avoid swimming in lakes, dirty water, or swimming pools that may not have the right amount of a chemical called chlorine. Contact a doctor if: You have a fever. Your ear is still red, swollen, or painful after 3 days. You still have pus coming from your ear after 3 days. Your redness, swelling, or pain gets worse. You have a very bad headache. Get help right away if: You have redness, swelling, and pain or tenderness behind your ear. Summary Otitis externa is an infection of the outer ear canal. Symptoms include pain, redness, and swelling of the ear. If you were prescribed antibiotic ear drops, use them as told by your doctor. Do not stop using them even if you start to feel better. Try not to scratch or put things in your ear. This information is not intended to replace advice given to you by your health care provider. Make sure you discuss any questions you have with your health care provider. Document Revised: 06/07/2021 Document Reviewed: 06/07/2021 [employer] Patient Education 2022 [employer]. Follow Up Care 10/08/2023 07:41:20 With:Eligio MEDELLIN, GRACY Junior, MED Address:Unknown When: Unknown [facility] 10-08-2023 Note Patient Education Infectious Disease Otitis Externa Otitis externa is an infection of the outer ear canal. The outer ear canal is the area between the outside of the ear and the eardrum. Otitis externa is sometimes called swimmer's ear. What are the causes? Common causes of this condition include: ? Swimming in dirty water. ? Moisture in the ear. ? An injury to the inside of the ear. ? An object stuck in the ear. ? A cut or scrape on the outside of the ear or in the ear canal. What increases the risk? You are more likely to get this condition if you go swimming often. What are the signs or symptoms? ? Itching in the ear. This is often the first symptom. ? Swelling of the ear. ? Redness in the ear. ? Ear pain. The pain may get worse when you pull on your ear. ? Pus coming from the ear. How is this treated? This condition may be treated with: ? Antibiotic ear drops. These are often given for 10?14 days. ? Medicines to reduce itching and swelling. Follow these instructions at home: ? If you were prescribed antibiotic ear drops, use them as told by your doctor. Do not stop using them even if you start to feel better. ? Take ebri-gir-kqynlfq and prescription medicines only as told by your doctor. ? Avoid getting water in your ears as told by your doctor. You may be told to avoid swimming or water sports for a few days. ? Keep all follow-up visits. How is this prevented? ? Keep your ears dry. Use the corner of a towel to dry your ears after you swim or bathe. ? Try not to scratch or put things in your ear. Doing these things makes it easier for germs to grow in your ear. ? Avoid swimming in lakes, dirty water, or swimming pools that may not have the right amount of a chemical called chlorine. Contact a doctor if: ? You have a fever. ? Your ear is still red, swollen, or painful after 3 days. ? You still have pus coming from your ear after 3 days. ? Your redness, swelling, or pain gets worse. ? You have a very bad headache. Get help right away if: ? You have redness, swelling, and pain or tenderness behind your ear. Summary ? Otitis externa is an infection of the outer ear canal. ? Symptoms include pain, redness, and swelling of the ear. ? If you were prescribed antibiotic ear drops, use them as told by your doctor. Do not stop using them even if you start to feel better. ? Try not to scratch or put things in your ear. This information is not intended to replace advice given to you by your health care provider. Make sure you discuss any questions you have with your health care provider. Document Revised: 06/07/2021 Document Reviewed: 06/07/2021 [employer] Patient Education ? 2022 [employer]. [facility] 09-23-2023 Hospital Discharge instructions Follow Up Care 09/23/2023 10:53:06 With:Дмитрий MEDELLIN, Amarjit Martinez, PUL, JAS Address: [address] [place] [address] [place] [address]- When:3 year [facility] 08-13-2022 Evaluation note Encounter Date Diagnosis Assessment Notes August, Sore throat (ICD-10 - J02.9) Advised patient that rapid strep test was negative today in office. Based on physical exam, will send in throat culture. Advised patient that we will call with results in 2 to 5 days, at time of results treatment plan may change. Encouraged supportive care as directed throat lozenges, Tylenol/Motrin, salt water gargles. Follow above treatment plan recommendations. August, Bronchitis (ICD-10 - J40) Advise patient that rapid COVID/influenza A/B and rapid strep test were negative today in office. Discussed diagnosis with patient in detail. Will treat as viral today based on physical exam and duration of symptoms, antibiotics are not indicated for viral infections. Advised patient that viral syndromes last 7-10 days, cough may linger for 3 weeks. Take medications as prescribed, reviewed side effects of steroid, take with food and plenty of water. Supportive care as directed, push fluids and rest, may use Tylenol as needed for fever/discomfort , cool mist humidifier. May use Nathrop as needed for cough, do not take any other OTCs while using Nathrop. Patient to follow up with PCP in 2-3 days. Immediate eval if SOB, difficulty breathing, chest pain, dizziness, or other concerning symptoms. Patient verbalizes understanding and is agreeable to treatment plan. [employer] Other Evaluation + Plan note Future Appointments Appointment Date:02/11/2023 08:15:00 PM Scheduled Provider: Location:.SLEEP LAB_ Appointment Type:RN WELLNESS Sleep Study PSG (FT) Appointment Date:03/06/2023 01:20:00 PM Scheduled Provider:Yeison Del Valle MD Location[facility] Appointment Type: Open Appointment Date:03/25/2023 01:00:00 PM Scheduled Provider: Location:[facility] Appointment Type: Medicare Wellness Initial Appointment Date:03/25/2023 01:40:00 PM Scheduled Provider:Yeison Del Valle MD Location[facility] Appointment Type: Open Diagnostic Tests Pending * [place] Level 01/23/23 Future Scheduled Tests Laboratory* CBC w/ [facility] Appointment Date:03/06/2023 01:20:00 PM Scheduled Provider:Yeison Del Valle MD Location[facility] Appointment Type: Open Appointment Date:03/25/2023 01:00:00 PM Scheduled Provider: Location:[facility] Appointment Type: Medicare Wellness Initial Appointment Date:03/25/2023 01:40:00 PM Scheduled Provider:Yeison Del Valle MD Location[facility] Appointment Type: Open Future Scheduled Tests Laboratory* CBC w/ Auto Diff [facility] Future App[facility]ments Appointment Date:03/25/2023 01:00:00 PM Scheduled Provider: Location[facility] Appointment Type: Medicare Wellness Initial Appointment Date:03/25/2023 01:40:00 PM Scheduled Provider:Yeison Del Valle MD Location[facility] Appointment Type: Open Appointment Date:06/06/2023 01:15:00 PM Scheduled Provider:Yeison Del Valle MD Location[facility] Appointment Type: Open Future Scheduled Tests Laboratory* CBC w/ Auto Diff [facility] Future App[facility]ments Appointment Date:06/03/2023 01:00:00 PM Scheduled Provider: [facility] App[facility] Type:DM Diabetes Group_C Appointment Date:06/12/2023 01:00:00 PM Scheduled Provider: [facility] Appointment Type:DM Diabetes Group_A Future Scheduled Tests Laboratory* CBC w/ Auto Diff [facility] Future [facility]ments Appointment Date:09/26/2023 12:30:00 PM Scheduled Provider:Melissa Markham MD Location:[facility] Appointment Type:[facility] New Patient Appointment Date:10/22/2023 02:00:00 PM Scheduled Provider:Yeison Del Valle MD Location:[facility] Appointment Type: Open Appointment Date:03/30/2024 11:00:00 AM Scheduled Provider: Location:[facility] Appointment Type: Medicare Wellness Subsequent Future Scheduled Tests Laboratory* CBC w/ Auto Diff [facility] Future [facility]ments Appointment Date:10/22/2023 02:00:00 PM Scheduled Provider:Yeison Del Valle MD Location:[facility] Appointment Type: Open Appointment Date:03/30/2024 11:00:00 AM Scheduled Provider: Location:[facility] Appointment Type: Medicare Wellness Subsequent Future Scheduled Tests Laboratory* Celiac Disease Comprehensive 09/26/23 * CBC w/ Auto Diff 01/23/23 [facility] evaluation + Plan note Future Appointments Appointment Date:03/30/2024 11:00:00 AM Scheduled Provider: Location:[facility] Appointment Type: Medicare Wellness Subsequent Future Scheduled Tests Laboratory* Celiac Disease Comprehensive 09/26/23 * CBC w/ Auto Diff 01/23/23 [facility] Evaluation + Plan note Future Appointments Appointment Date:04/27/2024 10:45:00 AM Scheduled Provider:Yeison Del Valle MD Location:[facility] Appointment Type: Open Appointment Date:03/24/2025 01:00:00 PM Scheduled Provider: Location:[facility] Appointment Type:FM Medicare Wellness Subsequent Future Scheduled Tests Laboratory* Celiac Disease Comprehensive 09/26/23 [facility] evaluation + Plan note Future Appointments Appointment Date:10/26/2024 01:00:00 PM Scheduled Provider:Yeison Del Valle MD Location:[facility] Appointment Type: Open Appointment Date:03/24/2025 01:00:00 PM Scheduled Provider: Location:[facility] Appointment Type:FM Medicare Wellness Subsequent Future Scheduled Tests Laboratory* Celiac Disease Comprehensive 09/26/23 [facility] evaluation noteNo assessment information available [facility] Work Phone: evaluation noteNo InformationNortNew [facility]ec[facility] [employer] Other evaluation note* Diagnosis Encounter for gynecological examination without abnormal finding- Primary Other screening mammogram Encounter for surveillance of contraceptive pills History of irregular menstrual cycles Irregular menstruation, unspecified Obesity, morbid ([facility]) Morbid obesity documented in this encounter [facility] N[facility]ative - Reported* Type Description Date Medical History HYPERTENSION Medical History HYPERLIPIDEMIA Medical History BIPOLAR DISORDER Medical History URINARY INCONTINENCE Surgical History WISDOM TEETH Surgical History EGD Hospitalization History [facility] Hospitalization History see above [place] [facility] Other Hospital course Narrative No data available for this section [facility] No data available for this section [facility] No data available for this section [facility] Summary Purpose Family History No Family History Records Found Relationship Condition Age at Onset Recorded Date/T ivan Not Specified No pertinent family history Unknown Relationship Condition Age at Onset Recorded Date/T ivan Not Specified No pertinent family history Unknown father Hypertension Unknown Malignant neoplasm of skin Unknown Malignant neoplasm Unknown grandparent History of stroke Unknown Unknown grandparent Heart disease Unknown History of stroke Unknown Advance Directives No Advanced Directives Records Found Advance Directive Response Recorded Date/ Time Advance Directives No December 02, 2017 9:36am Chief Complaint and Reason for Visit Chief Complaint Sore throat Chief Complaint Z12.31 Additional Source Comments INFORMATION SOURCE (unrecogn ized section and content) DATE CREATED AUTHOR 01/23/2021 [facility] DATE CREATED AUTHOR AUTHOR'S ORGANIZ ATION 07/31/2022 [facility] DATE CREATED AUTHOR AUTHOR'S ORGANIZ ATION 10/12/2023 [facility] DATE CREATED AUTHOR AUTHOR'S ORGANIZ ATION 10/15/2023 [facility] DATE CREATED AUTHOR AUTHOR'S ORGANIZ ATION 11/10/2023 [facility] DATE CREATED AUTHOR AUTHOR'S ORGANIZ ATION 11/26/2023 [facility] DATE CREATED AUTHOR AUTHOR'S ORGANIZ ATION 03/29/2024 [facility] DATE CREATED AUTHOR AUTHOR'S ORGANIZ ATION 04/19/2024 [facility] DATE CREATED AUTHOR AUTHOR'S ORGANIZ ATION 04/28/2024 [facility] DATE CREATED AUTHOR AUTHOR'S ORGANIZ ATION 04/29/2024 [facility] DATE CREATED AUTHOR AUTHOR'S ORGANIZ ATION [facility]/20[facility] DATE CREATED AUTHOR AUTHOR'S ORGANIZ ATION 10/01/2024 [facility] DATE CREATED AUTHOR AUTHOR'S ORGANIZ ATION 10/28/2024 [facility] DATE CREATED AUTHOR AUTHOR'S ORGANIZ ATION 11/04/2024 [facility] Care Teams (unrecognized sec tion and content) Team Status: Inactive Member Role Status Dates Lisandra May APRN Attending Provider Active Team Status: Active Member Role Status Dates Yeison Del Valle MD Primary Care Provider Active Team Status: Active Member Role Status Dates PHYSICIAN NO FAMILY Primary Care Provider Active Start: December 31, 2023 Jerry Aponte MD Attending Provider Active Start: December 31, 2023 Team Status: Inactive Member Role Status Dates Beulah Godron DO Attending Provider Active Start: January 13, 2024 End: January 13, 2024 Yeison Del Valle MD Primary Care Provider Active Start: January 13, 2024 End: January 13, 2024 Yard Caller Relationship Specialty Start Date End Date Yeison Del Valle MD [address] [place], [place] [id number] PCP - General Family Medicine 6/17/25 Goals (unrecognized section and content) Goals may be documented in a n alternate sectionNo InformationNo Information No data available for this section No data available for this section No data available for this section No data available for this section No data available for this section No data available for this section No data available for this section No data available for this section No data available for this section No data available for this section No data available for this sectionGoals may be documented in an alternate section No data available for this section No data available for this section No data available for this section REASON FOR VISIT (unrecogniz ed section and content) Reason Comments Gynecologic Exam Patient here for patricia richards. Patient states that she has been having a period every month up until now. She has not started a period yet for September, Currently on on Provera-needs refill. LMP 08/18/24 Mammogram order sent [place] [facility] [place] Colonoscopy 2023-normal FOR RECORDS PERTAINING TO PATIENTS WHO ARE OR HAVE BEEN ENROLLED IN A CHEMICAL DEPENDENCY/SUBSTANCEABUSE PROGRAM, SOME INFORMATION MAY BE OMITTED. This clinical summary was aggregated from multiple sources. Caution should be exercised in using it in the provision of clinical care. This summary normalizes information from multiple sources, and as a consequence, information in this document may materially change the coding, format and clinical context of patient data. In addition, data may be omitted in some cases. CLINICAL DECISIONS SHOULD BE BASED ON THE PRIMARY CLINICAL RECORDS. [employer] provides no warranty or guarantee of the accuracy or completeness of information in this document.
--- NOTE | 2024-11-19 13:36 | PM.WCHP ---
Wound Care H&P: HPI History of Present Illness Narrative: The patient is a 49-year-old female with history of type 2 diabetes, last hemoglobin A1c was 5.5. She presents for routine nail care today. She has no complaints today. Exam Narrative: Exam Narrative: Derm: Toenails 1 through 10 are elongated, thickened, and dystrophic. The 1st and 5th toenails on each foot are mycotic. No ulcerative or preulcerative lesions are noted. Skin is diffusely dry. Vascular: DP and PT pulses are 2/4 bilaterally. Capillary refills less than 3 seconds bilaterally. Superficial varicosities are noted but no significant edema. Skin is warm to the touch. Digital hair is present. Neuro: Protective sensation is intact in 5/5 areas tested on each foot. Vibratory sensation is intact bilaterally. 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 Follow-up in 3 months or as needed. Acute Procedures Podiatry Nail Debridement Class B Findings Advanced trophic changes as evidenced by any three of the following: decreased hair growth, nail changes (thickening) and skin texture (thin or shiny) Class C Findings Claudication: No Temperature changes: No Edema: No Nail debridement paresthesia (abnormal spontaneous sensations in the feet): No Burning: No Qualifies If: Qualifiers If:: A patient qualifies for nail debridement if they have: 1 class A finding (Q7) 2 class B findings (Q8) OR 1 class B & 2 class C findings in addition to a primary condition (Q9) Nail Procedure Nail Procedure Time out: Yes Nail procedure: other (Toenail debridement toes 1 through 10) Number of affected nails: 10 Location (toes): left and right Procedure successful: Yes Patient tolerated procedure: well and no complications Additional comments: Toenails 1 through 10 were sharply debrided without incident with nail nippers
== END 2024-11-19 13:12 | disposition home or self-care (01) ==
LOC: WC 13:11
PROVIDERS: PCP Family Medicine; Visit Provider Physician Assistant
DX: B35.1 Tinea unguium (principal); E11.39 Type 2 diabetes mellitus with other diabetic ophthalmic complication; L60.8 Other nail disorders
CPT/HCPCS: 11721

== ENCOUNTER 2025-01-07 12:58 | Outpatient (OUT) | payer OTHER, MEDICAID, SELFPAY ==
--- NOTE | 2025-01-07 13:01 | MM_ITS ---
Patient Name: WENDY GUY MR#: [id number] : 1975 Exam Date: 01/07/2025 Ordering Doctor: DR. JACQUIE BARROS D.O. RADIOLOGY REPORT PROCEDURE: MM TOMOSYNTHESIS SCREENING BI COMPARISON: MM TOMOSYNTHESIS SCREENING BI, 01/13/2024. MM TOMOSYNTHESIS SCREENING BI, 01/10/2023. MG MAMM IMTIAZ SCRN W CAD DIG, 11/22/2015. MG MAMM IMTIAZ SCRN W CAD DIG, 01/24/2013. INDICATIONS: Screening Calculator Name NCI Breast Cancer Risk Assessment Tool 5 Year Breast Cancer Risk 1.00% Lifetime Breast Cancer Risk 10.30% Personal Breast Cancer No Personal Ovarian Cancer No Treatments None Family Cancers None LOCATION: [facility] BREAST COMPOSITION: There are scattered areas of fibroglandular density. FINDINGS: RIGHT BREAST: No significant suspicious finding. Benign-appearing calcification is noted. LEFT BREAST: No significant suspicious finding. Benign-appearing calcifications are present. There is a similar focal asymmetry on the left. DIAGNOSTIC CATEGORY 2--BENIGN FINDING. NO CHANGE FROM COMPARISON. RECOMMENDATIONS: ROUTINE MAMMOGRAM AND CLINICAL EVALUATION IN 12 MONTHS. Dictated by: Ap Lynn MD on 01/07/2025 at 17:11 Approved by: Ap Lynn MD on 01/07/2025 at 17:13
--- OUTSIDE RECORDS SUMMARY | 2025-01-07 18:56 | XMS_ITS | CCD ---
Author Organization [facility] Care Team Providers Care Process Line Operator Name Role Phone PANFILO SHEPPARD Primary Care [...] SHEPPARD ., DR PANFILO Granger [employer] Unavailable [place], DR WIL Mendieta Consulting Unavailable SHEPPARD ., [...] ., DR PANFILO Granger Primary Care Unavailable SPROUTWENDY [employer] Unavailable SHEPPARD [...] WENDY Consulting Unavailable SAVANNAH May Attending Provider Lisandra May Unavailable Yeison Del Valle. Primary [...] Attending Provider DO Beulah Gordon Attending Provider [phone] MD Yeison Del Valle Primary Care Provider [...] YUN Admitting Unavailable MICHELLE YUN Attending Unavailable MIRYAM YUN Attending UnavailMIRYAM Carlos Admitting UnavailYeison Hunter Attending Unavailable Yeison Del Valle Admitting Unavailable Yeison Del Valle Attending Unavailable Yeison Del Valle Admitting Unavailable MICHELLE YUN Attending Unavailable Medications Current Medications Medication Drug Class(es) Dates [...] qWeek, # 3 EA, Refills(s) 0, Pharmacy: [facility]/pharmacy #[id number], 160, cm, 08/20/23 14:44:00 EDT, Height/Length Dosing, 110.5, kg, 08/20/23 14:44:00 EDT, Weight Dosing Start Date: 08/20/23 Status: Ordered [id number] 200 actuat albuterol 0.09 mg/actuat metered dose [...] 18, 2020 12:00am Start: 12-18-2020 Aripiprazole ( Abilifdavid Maintena) 400 mg Suspension,Extended Rel Recon Active [...] DAY, # 90 tab(s), Refills(s) 0, Pharmacy: [facility] STORE [id number], 160, cm, 12/22/23 12:02:00 EDT, Height/Length Dosing, 100, kg, 12/22/23 12:02:00 EDT, Weight Dosing Start Date: 03/24/24 Status: Ordered Start: 12-16-2023 take 1 tablet by [facility] once daily atorvastatin 40 mg Tab See Instructions, TAKE 1 TABLET BY MOUTH EVERY DAY, # 90 tab(s), Refills(s) 0, Pharmacy: [facility] STORE 11758, 160, cm, 12/12/23 15:03:00 EDT, Height/Length Dosing, 102, kg, 12/12/23 15:03:00 EDT, Weight Dosing Start Date: 12/16/23 Status: Ordered Start: 09-26-2023 take 1 tablet by [facility] once daily Lipitor 40 mg Tab 40 mg = 1 tab(s), Oral, Daily, # 90 tab(s), Refills(s) 0, Pharmacy: [facility]/pharmacy #[id number], 160, cm, 09/26/23 12:34:00 EDT, Height/Length Dosing, 105, kg, 09/26/23 12:34:00 EDT, Weight Dosing Start Date: 09/26/23 Status: Ordered bacitracin 0.4 unt/mg / neomycin 0.0035 mg/mg / polymyxin b 5 unt/mg topical ointment (2 sources) Aminoglycoside Antibacterial, Polymyxin-class Antibacterial Start: 12-18-2020 Qlcfwcdd-Vtlchiwmpth-Fdjdgnq nb (Triple Antibiotic) 3.5mg-400 unit- 5,000 unit/gram [...] SYMPTOMS, # 90 tab(s), Refills(s) 1, Pharmacy: [facility] STORE [id number], 160, cm, 12/24/22 11:04:00 EDT, Height/Length Dosing, [...] 1.5 mg/ml oral solution (2 sources) Uncompetitive O-tkikna-E-aspart ate Receptor Antagonist, Sigma-1 Agonist Start: 08-13-2022 take 10 mL by mouth every eight hours [place] DM 7.5-7.5 MG/5ML 10 mL Orally every 8 hours for 5 days August, Active erythromycin 0.005 mg/mg ophthalmic ointment (1 source) Macrolide, Macrolide Antimicrobial Start: 12-22-2023 End: 12-29-2023 erythromycin Opth 0.5% Oint 1/4 inch ribbon, Eye-Right, TID for 7 day(s), 3.5 gm, Refill(s) 0, [facility]/pharmacy #[id number], 160, cm, 12/22/23 12:02:00 EDT, Height/Length Dosing, 100, kg, 12/22/23 12:02:00 EDT, Weight Dosing Start Date: 12/22/23 Stop Date: 12/29/23 Status: Ordered Free style Rosalinda 2 reader (1 source) Start: 04-20-2024 Free style Rosalinda 2 reader Fr ee style Rosalinda 2 reader, See Instructions, 1 EA, 0, use to romanariela bs, [facility]/pharmacy #6177, Supply, 160, cm, 03/24/24 14:43:00 EST, Height/Length Dosing, 102.8, kg, 03/24/24 14:43:00 EST, Weight Dosing Start Date: 04/20/24 Status: Ordered Free Style Rosalinda 2 Sensors (10 sources) Start: 04-20-2024 Free Style Rosalinda 2 Sensors F ree Style Rosalinda 2 Sensors, See Instructions, 2 EA, 3, To be used w/FS Rosalinda to check blood sugars daily. Dx: E11.69, [facility]/pharmacy #[id number], Supply, 160, cm, 03/24/24 14:43:00 EST, Height/Length Dosing, 102.8, kg, 03/24/24 14:43:00 EST, Weight Dosing Start Date: 04/20/24 Status: Ordered Start: 01-03-2024 Free Style Snow re 2 Sensors Free Style Rosalinda 2 Sensors, See Instructions, 2 EA, 3, To be used w/FS Rosalinda to check blood sugars daily. Dx: E11.69, [facility]/pharmacy #6177, Supply, 160, cm, 12/22/23 12:02:00 EDT, Height/Length Dosing, 100, kg, 12/22/23 12:02:00 EDT, Weight Dosing Start Date: 01/03/24 Status: Ordered Start: 09-19-2023 Free Style Snow re 2 Sensors Free Style Rosalinda 2 Sensors, See Instructions, 2 EA, 3, To be used w/FS Rosalinda to check blood sugars daily. Dx: E11.69, [facility]/pharmacy #[id number], Supply, 160, cm, 08/20/23 14:44:00 EDT, Height/Length Dosing, 110.5, kg, 08/20/23 14:44:00 EDT, Weight Dosing Start Date: 09/19/23 Status: Ordered gemfibrozil 600 mg oral tablet (4 sources) Peroxisome Proliferator Receptor alpha Agonist Start: 03-15-2018 take 600 mg by mouth twice daily Gemfibrozil Active 600 MG PO Twice daily March 15, 2018 1:00am hydrocortisone 10 mg/ml / neomycin 3.5 mg/ml / polymyxin b [id number] unt/ml otic solution (2 sources) Aminoglycoside Antibacterial, Polymyxin-class Antibacterial, Corticosteroid Start: 10-08-2023 End: 10-15-2023 hydrocortisone/griselda mycin/polymyxin B Otic Radha 4 drop(s), Otic, TID for 7 day(s), 10 mL, Refill(s) 0, Right ear, [facility]/pharmacy #[id number], 160, cm, 10/08/23 13:02:00 EDT, Height/Length Dosing, 104.8, kg, 10/08/23 13:02:00 EDT, Weight Dosing Start Date: 10/08/23 Stop Date: 10/15/23 Status: Ordered levothyroxine sodium 0.075 mg oral tablet (18 sources) l-Thyroxine Start: 02-10-2024 take 1 tablet by mouth once daily levothyroxine 75 mcg (0.075 mg) Tab See Instructions, TAKE 1 TABLET BY MOUTH EVERY DAY, # 90 tab(s), Refills(s) 0, Pharmacy: [facility] STORE [id number], 160, cm, 12/22/23 12:02:00 EDT, Height/Length Dosing, 100, kg, 12/22/23 12:02:00 EDT, Weight Dosing Start Date: 02/10/24 Status: Ordered Start: 11-04-2023 take 1 tablet by davion [facility] once daily levothyroxine 75 mcg (0.075 mg) Tab See Instructions, TAKE 1 TABLET BY MOUTH EVERY DAY, # 90 tab(s), Refills(s) 0, Pharmacy: [facility] STORE 11756, 160, cm, 10/31/23 15:41:00 EDT, Height/Length Dosing, 104.3, kg, 10/31/23 15:41:00 EDT, Weight Dosing Start Date: 11/04/23 Status: Ordered Start: 08-20-2023 take 1 tablet by davion [facility] once daily levothyroxine 75 mcg (0.075 mg) Tab 75 mcg = 1 tab(s), Oral, Daily, # 90 tab(s), Refills(s) 0, Pharmacy: [facility]/pharmacy #6177, 160, cm, 08/20/23 14:44:00 EDT, Height/Length Dosing, 110.5, kg, 08/20/23 14:44:00 EDT, Weight Dosing Start Date: 08/20/23 Status: Ordered Start: 04-26-2023 take 1 tablet by [facility] once daily levothyroxine 50 mcg (0.05 mg) Tab 50 mcg = 1 tab(s), Oral, Daily, # 90 tab(s), Refills(s) 3, Pharmacy: [facility]/pharmacy #[id number], 160, cm, 03/25/23 15:22:00 EST, Height/Length Dosing, 121.2, kg, 03/25/23 15:22:00 EST, Weight Dosing Start Date: 04/26/23 Status: Ordered Start: 08-29-2022 take 1 tablet by [facility] once daily levothyroxine 50 mcg (0.05 mg) Tab 50 mcg = 1 tab(s), Oral, Daily, Refills(s) 0 Start Date: 08/29/22 Status: Ordered take 1 tablet by [facility] once daily levothyroxine (Synthroid, Levoxyl) 75 MCG [...] Start: 12-24-2022 take 2 tablets by mo ut at bedtime lithium 450 mg oral tablet, extended release 900 mg = 2 tab(s), Oral, Bedtime, Refills(s) 0 Start Date: 12/24/22 Status: Ordered Start: 08-13-2022 take 1 tablet by davion th every twenty-four hours [place] Carbonate ER 450 MG 1 tablet at bedtime Orally Once a day for 30 day(s) August, Active [place] Carbonat e ER 300 MG Oral for [...] Active Start: 04-27-2024 take 2 tablets by [facility] MetFORMIN (Eqv-Glucophage XR) 500 mg oral tablet, extended release See Instructions, TAKE 2 TABLETS BY MOUTH TWICE A DAY, # 360 tab(s), Refills(s) 1, [id number], 160, cm, 04/27/24 10:49:00 EST, Height/Length Dosing, 101.2, kg, 04/27/24 10:49:00 EST, Weight Dosing Start Date: 04/27/24 Status: Ordered Start: 01-28-2024 take 2 tablets by [facility] daily MetFORMIN (Eqv-Glucophage XR) 500 mg oral tablet, extended release See Instructions, TAKE 2 TABLETS BY MOUTH TWICE A DAY, # 360 tab(s), Refills(s) 1, Pharmacy: [facility] [id number], 160, cm, 12/22/23 12:02:00 EDT, Height/Length Dosing, 100, kg, 12/22/23 12:02:00 EDT, Weight Dosing Start Date: 01/28/24 Status: Ordered Start: 05-22-2023 take 2 tablets by [facility] twice daily Glucophage XR 500 mg oral tablet, extended release 1,000 mg = 2 tab(s), Oral, BID, # 360 tab(s), Refills(s) 1, [id number], 160, cm, 05/22/23 12:27:00 EST, Height/Length Dosing, 120.5, kg, 05/22/23 12:27:00 EST, Weight Dosing Start Date: 05/22/23 Status: Ordered Start: 03-06-2023 take 2 tablets by [facility] twice daily Glucophage XR 500 mg oral tablet, extended release 1,000 mg = 2 tab(s), Oral, BID, # 180 tab(s), Refills(s) 1, Pharmacy: [facility]/pharmacy #[id number], 160, cm, 03/06/23 13:23:00 EST, Height/Length [...] Daily, # 90 tab(s), Refills(s) 4, [id number], 160, cm, 12/22/23 12:02:00 EDT, Height/Length Dosing, 100, kg, 12/22/23 12:02:00 EDT, Weight Dosing Start Date: 01/13/24 Status: Ordered Start: 11-04-2023 take 1 tablet by [facility] once daily metoprolol succinate 25 mg ER Tab 25 mg = 1 tab(s), Oral, Daily, # 90 tab(s), Refills(s) 1, Pharmacy: [facility]/pharmacy #6177, 160, cm, 10/31/23 15:41:00 EDT, Height/Length Dosing, 104.3, kg, 10/31/23 15:41:00 EDT, Weight Dosing Start Date: 11/04/23 Status: Ordered Start: 07-17-2023 take 1 tablet by [facility] once daily metoprolol 25 mg ER Tab 25 mg = 1 tab(s), Oral, Daily, # 90 tab(s), Refills(s) 0, Pharmacy: [facility]/pharmacy #6177, 160, cm, 06/24/23 14:13:00 EDT, Height/Length Dosing, 117.3, kg, 06/24/23 14:13:00 EDT, Weight Dosing Start Date: 07/17/23 Status: Ordered Start: 01-23-2023 take 1 tablet by davion [facility] once daily metoprolol 25 mg ER Tab 25 mg = 1 tab(s), Oral, Daily, # 90 tab(s), Refills(s) 0, Pharmacy: [facility]/pharmacy #6177, 160, cm, 05/22/23 12:27:00 EST, Height/Length [...] Daily, # 90 tab(s), Refills(s) 4, Pharmacy: [facility]/pharmacy #[id number], 160, cm, 03/25/23 15:22:00 EST, Height/Length [...] EA, 0, to check BS daily E11.9, [facility]/pharmacy #6177, Supply, 160, cm, 03/25/23 15:22:00 EST, [...] Instructions, 1 EA, 0, freestyle rosalinda reader, [id number], Supply, 160, cm, 09/26/23 12:34:00 EDT, Height/Length [...] unspecified] Episodic Other aftercare (1 source) Other fpc (current) drug therapy; Translations: [OTH RESIDENTIAL CURRENT DRUG THERAPY] Onset: 2022 Episodic Other [...] 01-01-2022 Unclassified (20 sources) Patient encounter status 09-18-2023 Unclassified (5 sources) Sebaceous cyst of skin [...] Appointments Saturday 1:00 PM EST With: Where: [address] [address]- Saturday 2:20 PM EST With: MICHELLE YUN CNP Where: [address] [address]- You Need to Schedule the Following Appointments Follow Up with MICHELLE YUN CNP, FAM When: In 149 days 03/24/2025 EST Comments: Diabetes Where: [address] [place] [phone] Business (1) Medications What How Much When [...] or concerns (more content not included)... Normal [facility] Family Medicine Office/Clini c Noteon 10-26-2024 [...] foot care and attends appointments with a envelope maker for nail trimming and callus management. Review [...] 6 months Ordered: HgbA1c Lab Specimen Collect [id number] 2. Smoker (F17.200: Nicotine dependence, unspecified, uncomplicated) [...] YUN CNP, FAM In 149 days 03/24/[address] [phone] [facility] (1) Additional Instructions: Diabetes Patient Education Type [...] bezoar i (more content not included)... Normal [facility] Comment on above: Result Comment: Elec tronically Signed By: MICHELLE YUN CNP\Date and Time Signed: 10/26/24 14:50 EDT [id number] 10-26-2024 HbA1c (Bld) [Mass fraction] 5.5 % Normal <=5.9 [facility] Comment on above: Performed By: #### 7 [id number] #### [facility] [address] [place] [address] Sleep Office/Clinic Noteon 0 10-16-2024 Sleep Office/Clinic [...] Martinez, PUL, JAS Within 1 year [address] [facility] [place] [address]- Additional Instructions: Problem List/Past Medical History Ongoing [...] Started age (more content not included)... Normal [facility] Comment on above: Result Comment: Elec [...] Smoker Your Care Team Attending Physician - MICHELLE [...] EDT With: Yeison Del Valle MD Where: [address] [address]- Saturday 1:00 PM EST With: Where: [address] [address]- Medications What How Much When Instructions New [...] and s (more content not included)... Normal [facility] Family Medicine Office/Clini c Noteon 07-17-2024 Family [...] noted she felt warm. Her use of nyuu-nwq-usmgium medications includes Mucinex and Zyrtec, taken in [...] Symptomatic relief with Mucinex and Zyrtec. - Tidioute antibiotics for any symptoms persisting beyond seven [...] day(s), # 21 cap(s), Refills(s) 0, [id number], 160, cm, 07/17/24 11:44:00 EDT, [...] inh, Inhalation, q6hr, 18 gm, Refill(s) 2, [facility]/pharmacy #[id number], 160, cm, 07/17/24 11:44:00 EDT, Height/Length Dosing, 101.1, kg, 07/17/24 11:44:00 EDT, Weight Dosing benzonatate, 100 mg = 1 cap(s), Oral, TID, X 7 day(s), # 21 cap(s), Refills(s) 0, Pharmacy: [facility]/pharmacy #[id number], 160, cm, 07/17/24 11:44:00 EDT, Height/Length Dosing, 101.1, kg, 07/17/24 11:44:00 EDT, Weight Dosing 4. BMI 39.0-39.9,adult, (Z68.39: Body mass index [BMI] 39.0-39.9, adult)Body mass index [BMI] 39.0-39.9, adult Ordered: albuterol, 180 mcg, 2 inh, Inhalation, q6hr, 18 gm, Refill(s) 2, [facility]/pharmacy #6177, 160, cm, 07/17/24 11:44:00 EDT, Height/Length Dosing, 101.1, kg, 07/17/24 11:44:00 EDT, Weight Dosing benzonatate, 100 mg = 1 cap(s), Oral, TID, X 7 day(s), # 21 cap(s), Refills(s (more content not included)... Normal [facility] Comment on above: Result Comment: Elec tronically Signed By: MICHELLE YUN CNP\iraida\Date and Time Signed: 07/17/24 11:58 EDT Ambulatory Visit Summaryon 0 04-27-2024 Ambulatory Visit Summary Ambulatory Visit Summary WENDY ERAZO :1975 Visit Date:04/27/2024 Ambulatory Visit Instructions Your [...] EDT With: Yeison Del Valle MD Where: [place] [id number]- Saturday 1:00 PM EST With: Where: [place] [phone]- Medications What How Much When Instructions Unchanged metformin (MetFORMIN (Eqv-Glucophage XR) 500 mg oral tablet, extended release) See instructions TAKE 2 TABLETS BY MOUTH TWICE A DAY Pickup at [facility]/pharmacy #9830 Unchanged atorvastatin (atorvastatin 40 mg Tab) See [...] physician if questions or concerns Pharmacy Information [facility]/pharmacy #[id number]: [address], [place] [id number] [phone] Allergies No Known Allergies Problems Ongoing - Any problem that you are currently receiving treatment for. Bipolar disorder, current episode mixed, moderate BMI 40.0-44.9, adult (more content not included)... Normal [facility] CHEMISTRYOrdered By: SYSTEM SYSTEM on 04-27-2024 [...] 04-27-2024 Albumin [Mass/Vol] 4.5 g/dL Normal 3.3-5.0 [facility] Comment on above: Performed By: #### 2 [id number] #### [facility] [address] [place] [address] Albumin/Globulin (S) [Mass conc ratio] 1.6 Normal 1.1-2.2 [facility] Comment on above: Performed By: #### 2 [id number] #### [facility] [address] [place] [address] ALP [Catalytic activity/Vol] 113 Int._Unit/L High 21-98 [facility] Comment on above: Performed By: #### 2 [id number] #### [facility] [address] [place] [address] ALT No additional P-5'-P [Catalytic activity/Vol] 16 Int._Unit/L Normal 6-46 [facility] Comment on above: Performed By: #### 2 [id number] #### [facility] [address] [place] [address] Anion gap [Moles/Vol] 14 mmol/L Normal 6-16 [facility] Comment on above: Performed By: #### 2 547132 #### [facility] [address] [place] [address] AST [Catalytic activity/Vol] 22 Int._Unit/L Normal 5-43 [facility] Comment on above: Performed By: #### 2 [id number] #### [facility] [address] [place] [address] Bilirubin [Mass/Vol] 0.9 mg/dL Normal 0.0-1.1 [facility] Comment on above: Performed By: #### 2 [id number] #### [facility] [address] [place] [address] Calcium [Mass/Vol] 9.9 mg/dL Normal 8.9-11.1 [facility] Comment on above: Performed By: #### 2 449672 #### [facility] [address] [place] [address] Chloride [Moles/Vol] 106 mmol/L Normal 101-111 [facility] Comment on above: Performed By: #### 2 104436 #### [facility] [address] [place] [address] CO2 [Moles/Vol] 21 mmol/L Normal 21-31 [place] Comment on above: Performed By: #### 2 [id number] #### [facility] [address] [place] [address] Creatinine [Mass/Vol] 0.7 mg/dL Normal 0.5-1.3 [facility] Comment on above: Performed By: #### 2 [id number] #### [facility] [address] [place] [address] Globulin (S) [Mass/Vol] 2.9 g/dL Normal 1.4-4.0 [facility] Comment on above: Performed By: #### 2 [id number] #### [facility] [address] [place] [address] Glucose [Mass/Vol] 102 mg/dL Normal 55-199 [facility] Comment on above: Performed By: #### 2 266646 #### [facility] [address] [place] [address] Potassium [Moles/Vol] 4.2 mmol/L Normal 3.5-5.3 [facility] Comment on above: Performed By: #### 2 [id number] #### [facility] [address] [place] [address] Protein [Mass/Vol] 7.4 g/dL Normal 6.0-7.8 [facility] Comment on above: Performed By: #### 2 788177 #### [facility] [address] [place] [address] Sodium [Moles/Vol] 137 mmol/L Normal 135-145 [facility] Comment on above: Performed By: #### 2 [id number] #### [facility] [address] [place] [address] Urea nitrogen [Mass/Vol] 8 mg/dL Normal 5-21 [facility] Comment on above: Performed By: #### 2 [id number] #### [facility] [address] [place] [address] Urea nitrogen/Creatinin e [Mass ratio] 11 No Units Normal 10-20 [facility] Comment on above: Performed By: #### 2 [id number] #### [facility] [address] [place] [address] Family Medicine Office/Clini c Noteon 04-27-2024 Family [...] DAY, # 360 tab(s), Refills(s) 1, Pharmacy: [facility]/pharmacy #6177, 160, cm, 04/27/24 10:49:00 EST, Height/Length [...] complicated b (more content not included)... Normal [facility] Comment on above: Result Comment: Elec tronically Signed By: Eligio MEDELLIN, Yeison Harris\.br\Date and Time Signed: 04/27/24 11:12 EST eGFRon 04-27-2024 eGFR 107 mL/min/1.73 m2 Normal >=59 [facility] Comment on above: Performed By: #### 1 [id number] #### [facility] [address] [place] [address] CBC w/ Auto Diffon 5 Basophils/100 WBC (Bld) 0.6 % Normal 0.0-2.0 [facility] Comment on above: Performed By: #### 2 [id number] #### [facility] [address] [place] [address] Basophils/Leukocyt es Auto (Bld) [Pure # fraction] 0.1 E9/L Normal 0.0-0.2 [facility] Comment on above: Performed By: #### 2 [id number] #### [facility] [address] [place] [address] Eosinophils (Bld) [#/Vol] 1.2 E9/L High 0.0-0.5 [facility] Comment on above: Performed By: #### 2 [id number] #### [facility] [address] [place] [address] Eosinophils/100 WBC (Bld) 9.8 % High 0.0-8.0 [facility] Comment on above: Performed By: #### 2 [id number] #### [facility] [address] [place] [address] Erythrocyte distribution width (RBC) [Ratio] 15.2 % High 10.9-14.2 [facility] Comment on above: Performed By: #### 2 [id number] #### [facility] [address] [place] [address] Hematocrit (Bld) [Volume fraction] 40.0 % Normal 34.0-46.0 [facility] Comment on above: Performed By: #### 2 119614 #### [facility] [address] [place] [address] Hemoglobin (Bld) [Mass/Vol] 13.2 g/dL Normal 12.0-16.0 [facility] Comment on above: Performed By: #### 2 [id number] #### [facility] [address] [place] [address] Lymphocytes (Bld) [#/Vol] 3.6 E9/L Normal 1.0-4.0 [facility] Comment on above: Performed By: #### 2 894270 #### [facility] [address] [place] [address] Lymphocytes/100 WBC (Bld) 30.0 % Normal 14.0-50.0 [facility] Comment on above: Performed By: #### 2 [id number] #### [facility] [address] [place] [address] MCH (RBC) [Entitic mass] 29.9 pg Normal 27.0-34.0 [facility] Comment on above: Performed By: #### 2 606185 #### [facility] [address] [place] [address] MCHC (RBC) [Mass/Vol] 33.0 g/dL Normal 31.4-36.0 [facility] Comment on above: Performed By: #### 2 [id number] #### [facility] [address] [place] [address] MCV (RBC) [Entitic vol] 90.6 fL Normal 80.0-100.0 [facility] Comment on above: Performed By: #### 2 [id number] #### [facility] [address] [place] [address] Monocytes (Bld) [#/Vol] 0.6 E9/L Normal 0.2-1.0 [facility] Comment on above: Performed By: #### 2 040297 #### [facility] [address] [place] [address] Neutrophils (Bld) [#/Vol] 6.6 E9/L Normal 2.0-7.5 [facility] Comment on above: Performed By: #### 2 [id number] #### [facility] [address] [place] [address] Neutrophils/100 WBC (Bld) 54.6 % Normal 36.0-75.0 [facility] Comment on above: Performed By: #### 2 [id number] #### [facility] [address] [place] [address] Platelet mean volume (Bld) [Entitic vol] 9.0 fL Normal 6.4-10.8 [facility] Comment on above: Performed By: #### 2 445809 #### [facility] [address] [place] [address] Platelets (Bld) [#/Vol] 235.0 E9/L Normal 150.0-500.0 [facility] Comment on above: Performed By: #### 2 [id number] #### [facility] [address] [place] [address] RBC (Bld) [#/Vol] 4.4 E12/L Normal 4.3-5.9 [facility] Comment on above: Performed By: #### 2 [id number] #### [facility] [address] [place] [address] WBC corrected for nucl RBC Auto (Bld) [#/Vol] 12.0 E9/L High 4.0-11.0 [facility] Comment on above: Performed By: #### 2 479114 #### [facility] [address] [place] [address] CHEMISTRYOrdered By: SYSTEM SYSTEM on 04-13-2024 Albumin [...] Invalid Interpretation Code Remisol Chem CHEMISTRYOrdered By: Dang Robertson on 04-13-2024 HbA1c (Bld) [Mass fraction] 5.2 % Normal <=5.9% [facility] ChemAutoSS HEMATOLOGYOrdered By: SYSTEM SYSTEM on 04-13-2024 [...] High 4.0 - 11.0 E9/L Remisol Heme [id number] 04-13-2024 HbA1c (Bld) [Mass fraction] 5.2 % Normal <=5.9 [facility] Comment on above: Performed By: #### 7 [id number] #### [facility] [address] [place] [address] Lipid Panelon 04-13-2024 Cholesterol [Mass/Vol] 83 mg/dL Low 120-200 [facility] Comment on above: Performed By: #### 2 [id number] #### [facility] [address] [place] [address] Cholesterol in HDL [Mass/Vol] 31 mg/dL Invalid Interpretation Code [facility] Comment on above: Result Comment: '>= 60 LOW RISK' '<= 40 HIGH RISK' Performed By: #### 2 [id number] #### [facility] [address] [place] [address] Cholesterol in LDL [Mass/Vol] 30 mg/dL Normal <=129 [facility] Comment on above: Performed By: #### 2 047912 #### [facility] [address] [place] [address] Cholesterol in VLDL [Mass/Vol] 55 mg/dL High 7-40 [facility] Comment on above: Performed By: #### 2 [id number] #### [facility] [address] [place] [address] Triglyceride [Mass/Vol] 276 mg/dL High <=149 [facility] Comment on above: Performed By: #### 2 [id number] #### [facility] [address] [place] [address] TSHon 04-13-2024 TSH Qn 4.66 m[IU]/L Normal 0.34-5.60 [facility] Comment on above: Performed By: #### 2 [id number] #### [facility] [address] [place] [address] U MA/Cr Ratioon 04-13-2024 Albumin DL <= 20 mg/L (U) [Mass/Vol] 10.0 mg/dL High 0.0-1.9 [facility] Comment on above: Performed By: #### 1 [id number] #### [facility] [address] [place] [address] Albumin/Creatinine DL <= 20 mg/L (U) [Mass ratio] 104.9 mg/gm Cr High .0-30.0 [facility] Comment on above: Result Comment: 30-3 00 mg/g Cr indicates an increased risk for diabetic nephropathy. >300 mg/g Cr is consistent with clinical nephropathy. Performed By: #### 1 [id number] #### [facility] [address] [place] [address] U Creatinine 95.3 mg/dL Invalid Interpretation Code [facility] Comment on above: Performed By: #### 1 [id number] #### [facility] [address] [place] [address] Ambulatory Visit Summaryon 05-27-2023 Ambulatory Visit Summary [...] Appointments Saturday 9:20 AM EST With: Where: [address] [address]- Saturday 10:45 AM EST With: Eligio MEDELLIN, Yeison Harris Where: [address] [id number]- Saturday 1:00 PM EST With: Where: [address] [address]- You Need to Complete the Following CBC [...] Breast c (more content not included)... Normal [facility] Family Medicine Office/Clini c Noteon 03-26-2024 [...] of clutter to prevent tripping and/or falling. [place] Advance Directives reviewed. Documents provided, see #9. [...] PCP visit. Labs to be completed with [facility]. No concerns with bowel/ bladder. Colonoscopy last [...] Body mass (more content not included)... Normal [facility] Comment on above: Result Comment: Elec tronically Signed By: Alexa Kendall\.br\Date and Time Signed: 03/26/24 11:09 EST\.br\Electronically Co-Signed By: Aliyah [place]\.br\Date and Time Co-Signed: 03/24/24 15:55 EST MM screening mammo BI w/CADo n 01-13-2024 MM screening mammo BI w/CAD [facility] [address] [place] [id number] Mammography Report Signed Patient: Wendy Erazo MR#: [id number] : 1975 Acct:[id number] Age/Sex: 48 / F ADM Date: 01/13/24 Loc: [place] Room: Type: [facility] Attending Dr: Beulah Gordon DO Copies [...] Location: [facility] Transcribed By: [facility] 01/13/24 1533 Dictated By: Vikas Huerta Jr, DO 01/13/24 153 Signed By: 01/13/24 1533 Normal [facility] Ambulatory Visit Summaryon 0 12-22-2023 Ambulatory Visit Summary Ambulatory Visit Summary WENDY ERAZO :1975 Visit Date:12/22/2023 Ambulatory Visit Instructions Your Diagnosis Hordeolum Smoker BMI 39.0-39.9,adult Your Care Team Attending Physician - ZHENG Beverly APRN, Alyx Segura Primary Care Physician - Eligio MEDELLIN, Yeison [...] Follow-Up Appointments Saturday 11:00 AM EST Where: [place] [id number]- Medications What How Much When Instructions Unchanged [...] feedback and (more content not included)... Normal [facility] Family Medicine Office/Clini c Noteon 12-22-2023 Family Medicine Office/Clinic Note Family Medicine [...] with voice recognition artificial intelligence software, specifically [employer] and or [employer]. Substitutions may have occurred due to the [...] for 7 day(s), 3.5 gm, Refill(s) 0, [facility]/pharmacy #[id number], 160, cm, 12/22/23 12:02:00 EDT, Height/Length [...] When Contact Information Eligio MEDELLIN, Yeison Harris, [facility], MED Only if needed Additional Instructions: 2 [...] inch ribbon (more content not included)... Normal [facility] Comment on above: Result Comment: Elec tronically Signed By: ZHENG Beverly APRN, Alyx Segura\.mariano\Date and Time Signed: 12/22/23 12:40 EDT Ambulatory Visit Summaryon 0 12-12-2023 Ambulatory Visit Summary Ambulatory Visit Summary WENDY ERAZO Ignacio :1975 Visit Date:12/12/2023 Ambulatory Visit Instructions Your [...] Follow-Up Appointments Saturday 11:00 AM EST Where: [address] [address]- Medications What How Much When Why Instructions [...] and than (more content not included)... Normal [facility] Gastroenterology Office/Clin ic Noteon 12-12-2023 Gastroenterology Office/Clinic [...] fecal abnormalities) over a year, likely d/t [place], DDx include celiac, IBS-D, MC... Increase Imodium to 4 mg daily, take 30 minutes before meals- If this doesn't work we will talk to Behavior health to see if we can change [place] Thyroid was normal We will proceed with [...] loose, taking lithium We discussed using fibers exma-jir-xgslzbh Given she does not have any significant [...] to ch (more content not included)... Normal [facility] Comment on above: Result Comment: Elec tronically Signed By: Shahrzad MEDELLIN, Melissa Osorio\.br\Date and Time Signed: 12/12/23 15:19 EDT Reminderson 11-11-2023 Reminders Reminders -- From: Derick Cota To: [facility] - Reminders/Recalls; Sent: 11/11/2023 17:16:13 EDT Show up: 10/06/2030 17:16:00 EDT Subject: Ambulatory Reminder Due Date/Time: 11/04/2030 17:16:00 EDT Reminder/Recall Repeat colonoscopy in 7 years(2030) due to tubular adenoma Normal [facility] Result Letter Officeon 11-10 Result Letter Office Result Letter Office November 11, 2023 [place] [address] : 1975 Below is a summary of [...] letter prior to your next due date. [facility] [phone] Normal [facility] Surgical Pathology Reporton 11-07-2023 Surgical Pathology Report [facility] [address] [place] [address]- Surgical Pathology Report Collected Date/Time: 11/05/2023 09:40 [...] is entirely submitted in one cassette. (DC) DC:[facility] Microscopic Description A&B: Microscopic examination performed unless gross only specified. Normal [facility] Comment on above: Performed By: #### 4 [id number] #### [facility] [address] [place] [address] Family Medicine Office/Clini c Noteon 10-31-2023 Family Medicine [...] how to proceed Did make appt with pairer who did it in past but can't [...] qWeek, # 3 EA, Refills(s) 0, Pharmacy: [facility]/pharmacy #[id number], 160, cm, 08/20/23 14:44:00 EDT, Height/Length Dosing, 110.5, kg, 08/20/23 14:44:00 EDT, Weight Dosing semaglutide, See Instructions, INJECT 1 MG SUBCUTANEOUSLY WEEKLY, # 9 Unspecified/Unknown , Refills(s) 0, Pharmacy: [facility] STORE [id number], 160, cm, 10/22/23 14:00:00 EDT, Height/Length Dosing, [...] influenza virus vaccine, inactivated 02/21/2015 Recorded Normal [facility] Comment on above: Result Comment: Elec tronically Signed By: Yeison Del Valle MD\.br\Date and Time Signed: 10/31/23 15:51 EDT Ambulatory Visit Summaryon 0 10-22-2023 Ambulatory Visit Summary Ambulatory Visit Summary ERAZOWENDY MOLINA Ignacio :1975 Visit Date:10/22/2023 Ambulatory Visit Instructions [...] Follow-Up Appointments Saturday 11:00 AM EST Where: [facility] Medicine Deposit Invalid Interpretation Code Type 2 diabetes mellitus with morbid obesity [facility] Office/Clini c Noteon 10-22-2023 Family Medicine Office/Clinic [...] on meds as before Ordered: A1c POC 68628 Body Mass Index (BMI) documented 3008F Current tobacco smoker 1034F [facility] External Ambulatory Referral Influenza immunization administered or [...] sugars range from 50-200. Ordered: A1c POC 03710 Body Mass Index (BMI) documented 3008F Current tobacco smoker 1034F [facility] External Ambulatory Referral Influenza immunization administered or previously received 4274F Most recent diastolic blood pressure <80 mm Hg 3078F Systolic BP <130 mm Hg (Most Recent) 3074F 3. BMI 40.0-44.9, adult (Z68.41: Body mass index [BMI] 40.0-44.9, adult) - BMI education added to the chart Ordered: A1c POC 48725 Body Mass Index (BMI) documented 3008F Current tobacco smoker 1034F [facility] External Ambulatory Referral Influenza immunization administered or previously received 4274F Most recent diastolic blood pressure <80 mm Hg 3078F Systolic BP <130 mm Hg (Most Recent) 3074F 4. Class 3 severe obesity due to excess calories with body mass index (BMI) of 40.0 to 44.9 in adult (E66.01: Morbid (severe) obesity due to excess calories) - Diet and exercise advised. Ordered: A1c POC 46579 Body Mass Index (BMI) documented 3008F Current tobacco smoker 1034F [facility] External Ambulatory Referral Influenza immunization administered or previously received 4274F Most recent diastolic blood pressure <80 mm Hg 3078F Systolic BP <130 mm Hg (Most Recent) 3074F 5. Smoker (F17.200: Nicotine dependence, unspecified, uncomplicated) - Encouraged the patient to stop smoking. Patient is wheezing today. Not on any inhalers or diagnosed with COPD. Ordered: A1c POC 81709 Body Mass Index (BMI) documented 3008F Current tobacco smoker 1034F [facility] External Ambulatory Referral Influenza immunization administered or [...] extended release, (more content not included)... Normal [facility] Comment on above: Result Comment: Elec tronically Signed By: Eligio MEDELLIN, Yeison Harris\.br\Date and Time Signed: 10/22/23 14:22 EDT 07 Addendum Reporton Addendum Report [facility] [address] [place] [address]- Surgical Pathology Report Collected Date/Time: 10/08/2023 10:40 [...] characteristics were determined by the [facility]. They have not been cleared or approved by the US Food and Drug Administration. The FDA has determined that such clearance or approval is not necessary. These tests are used for clinical purposes. They should not be regarded as investigational or for research. Appropriate positive and negative controls are performed and are acceptable. Normal [facility] Comment on above: Performed By: #### C [id number] #### [facility] [address] [place] [address] Surgical Pathology Reporton 10-11-2023 Surgical Pathology Report [facility] [address] [place] [address]- Surgical Pathology Report Collected Date/Time: 10/08/2023 10:40 [...] is entirely submitted in one cassette. (DC) DC:[facility] Microscopic Description Microscopic examination performed unless gross only specified. The use of one or more reagents in the above tests is regulated as an analyte specific reagent (ASR). The test or tests are ordered following initial H&E microscopic examination. The performance characteristics were determined by the [facility]. They have not been cleared or approved by the US Food and Drug Administration. The FDA has determined that such clearance or approval is not necessary. These tests are used for clinical purposes. They should not be regarded as investigational or for research. Appropriate positive and negative controls are performed and are acceptable. Normal [facility] Comment on above: Performed By: #### 4 [id number] #### [facility] [address] [place] [address] Ambulatory Visit Summaryon 0 10-08-2023 Ambulatory Visit Summary Ambulatory Visit Summary WENDY ERAZO :1975 Visit Date:10/08/2023 Ambulatory Visit Instructions Your Diagnosis Right otitis externa BMI 40.0-44.9, adult Your Care Team Attending Physician - Rodney VÁZQUEZ, Kian Florentino Primary Care Physician - Yeison Del Valle MD This Is Your Medications List hydrocortisone/neom ycin/polymyxin [...] EDT With: Yeison Del Valle MD Where: [facility] Normal [address] [place] [address] \.br\ Medications\.br\ What How Much When Why Instructions\.br\ New hydrocortisone/ neomycin/ polymyxin B otic (hydrocortisone/ neomycin/ polymyxin B Otic Radha) 4 Drops Otic 3 times a day Right otitis externa Duration: 7 Days Right ear Pickup at [facility]/pharmacy #[id number]\.br\ Unchanged atorvastatin (Lipitor 40 mg Tab) 1 [...] \.br\ Pharmacy Information\.br\ [id number]: [address], [place] [id number] [phone]\.br\ Allergies\.br\ No Known Allergies\.br\ Problems\.br\ Ongoing - [...] for choosing us for your care.\.br\ \.br\ [facility] Office/Clini c Noteon 10-08-2023 [...] with voice recognition software. Occasional wrong-word or ?itewi-b-zbqv? substitutions may have occurred due to the [...] day(s), 10 mL, Refill(s) 0, Right ear, [facility]/pharmacy #[id number], 160, cm, 10/08/23 13:02:00 EDT, Height/Length [...] When Contact Information Eligio MEDELLIN, Yeison Harris, [facility], MED Additional Instructions: Patient Education Otitis Externa, Sfok-gs-Qkfr Problem List/Past Medical History Ongoing Romero's palsy Bipolar disorder, current episode mixed, moderate BMI 45.0-49. (more content not included)... Normal [facility] Comment on above: Result Comment: Elec tronically Signed By: Rodney VÁZQUEZ, Kian Florentino\.br\Date and Time Signed: 10/08/23 13:26 EDT Insurance Correspondenceon 0 10-02-2023 Insurance Correspondence [id number] 34#1.00TIFF Normal [facility] Ambulatory Visit Summaryon 0 09-26-2023 Ambulatory [...] EDT With: Eligio MEDELLIN, Yeison Harris Where: [place] [id number]- \.br\ You Need to Complete the Following\.br\ [...] for choosing us for your care.\.br\ \.br\ [facility] Consenton 09-26-2023 Consent [id number] 6691#1.00TIFF Normal [facility] Consent for Procedure/Surger yon 09-26-2023 Consent for Procedure/Surgery [id number] 673#1.00TIFF Normal [facility] Gastroenterology Office/Clin ic Noteon 09-26-2023 Gastroenterology [...] a year started metformin Apr 2023 Taking [place] for about 2-3 years tried imodium 1 [...] fecal abnormalities) over a year, likely d/t [place], DDx include celiac, IBS-D, MC... Increase Imodium to 4 mg daily, take 30 minutes before meals- If this doesn't work we will talk to Behavior health to see if we can change [place] Thyroid was normal We will proceed with [...] Recorded influenza virus vaccine, inactivated 02/21/2015 Recorded [facility] Comment on above: Result Comment: Elec tronically Signed By: Melissa Markham MD\.br\Date and Time Signed: 09/26/23 13:08 EDT\.br\Electronically Co-Signed By: Moraima Hall MA\.br\Date and Time Co-Signed: 09/26/23 13:07 EDT Patient Eval Forms Officeon 09-26-2023 Patient Eval Forms Office [id number] 6471#1.00TIFF [facility] Consent for Treatmenton 09-06 Consent for Treatment [id number] 8907#1.00TIFF [facility] Sleep Office/Clinic Noteon 0 09-23-2023 Sleep [...] Martinez, PUL, JAS Within 1 year [address] [place] [place] [address]- Additional Instructions: Problem List/Past Medical [...] 1 tab(s), (more content not included)... Normal [facility] Comment on above: Result Comment: Elec tronically Signed By: Дмитрий MEDELLIN, Amarjit Martinez\.br\Date and Time Signed: 09/23/23 11:51 EDT Ambulatory Visit Summaryon 0 08-20-2023 Ambulatory Visit Summary WENDY ERAZO :1975 Visit Date:08/20/2023 Ambulatory Visit Instructions Your [...] EDT With: Shahrzad MEDELLIN, Melissa Osorio Where: [facility] Invalid Interpretation Code [address] [place] [address]- \.br\ Saturday 11:00 AM EST \.br\ With:\.br\ Where: [facility] Medicine Office/Clini c Noteon 08-20-2023 Family [...] SYMPTOMS, # 90 tab(s), Refills(s) 1, Pharmacy: [facility] ST[facility], 160, cm, 12/24/22 11:04:00 EDT, Height/Length Dosing, 121.6, kg, 12/24/22 11:04:00 EDT, Weight Dosing levothyroxine, 75 mcg = 1 tab(s), Oral, Daily, # 90 tab(s), Refills(s) 0, Pharmacy: [facility] #[id number], 160, cm, 08/20/23 14:44:00 EDT, Height/Length Dosing, 110.5, kg, 08/20/23 14:44:00 EDT, Weight Dosing semaglutide, 1 mg, SubCutaneous, qWeek, # 3 EA, Refills(s) 0, [id number], 160, cm, 08/20/23 14:44:00 EDT, Height/Length [...] to odalis (more content not included)... Normal [facility] Comment on above: Result Comment: Elec tronically Signed By: Eligio MEDELLIN, Yeison Goffbr\Date and Time Signed: 08/20/23 15:11 EDT Patient Educationon 08-20-19 24 Patient Education Nutrition BMI for Adults What [...] numbers. This can be done either in [place]ian (U.S.) or metric measurements. Note that charts and online BMI calculators are available to help you find your BMI quickly and easily without having to do these calculations yourself. To calculate your BMI in [place]ian (U.S.) measurements: 1. Measure your weight in [...] for Disease Control and Prevention: www.cdc.gov ? [place] Heart Association: www.heart.org ? National Heart, Lung, and Blood [place]: www.nhlbi.nih.gov Summary ? Body mass index (BMI) is a number that is calculated from a person's weight and height. ? BMI may help estimate how much of a person's weight is composed of fat. BMI can help identify those who may be at higher risk for certain medical problems. ? BMI can be measured using Bulgarian measurements or metric measurements. ? BMI charts are used to identify whether you are underweight, normal weight, overweight, or obese. This information is not intended to replace advice given to you by your health care provider. Make sure you discuss any questions you have with your health care provider. Document Revised: 12/16/2019 Document Reviewed: 10/23/2019 [employer] Patient Education ? 2022 [employer] [facility] Lab Reportson 07-26-2023 Lab Reports [id number] 11#1.00TIFF [facility] Diabetic Self Management Edu cationon 07-05-2023 Diabetic Self Management Education [id number] 791#1.00TIFF [facility] Ambulatory Visit Summaryon 0 06-24-2023 Ambulatory [...] EDT With: Yeison Del Valle MD Where: [facility] Medicine Office/Clini c Noteon 06-24-2023 Family Medicine [...] qWeek, # 6 EA, Refills(s) 0, Pharmacy: [facility]/pharmacy #[id number], 160, cm, 06/24/23 14:13:00 EDT, Height/Length [...] 4 refil (more content not included)... Normal [facility] Comment on above: Result Comment: Elec [...] numbers. This can be done either in Bulgarian (U.S.) or metric measurements. Note that charts and online BMI calculators are available to help you find your BMI quickly and easily without having to do these calculations yourself. To calculate your BMI in [place]ian (U.S.) measurements: 1. Measure your weight in [...] for Disease Control and Prevention: www.cdc.gov ? [place] Heart Association: www.heart.org ? National Heart, Lung, and Blood [place]: www.nhlbi.nih.gov Summary ? Body mass index (BMI) is a number that is calculated from a person's weight and height. ? BMI may help estimate how much of a person's weight is composed of fat. BMI can help identify those who may be at higher risk for certain medical problems. ? BMI can be measured using Bulgarian measurements or metric measurements. ? BMI charts are used to identify whether you are underweight, normal weight, overweight, or obese. This information is not intended to replace advice given to you by your health care provider. Make sure you discuss any questions you have with your health care provider. Document Revised: 12/16/2019 Document Reviewed: 10/23/2019 [employer] Patient Education ? 2022 [employer] [facility] Pre-Certification Formon Pre-Certification Form [id number] B9#1.00TIFF [facility] Progress Note - Nutritionon 05-23-2023 Progress [...] for swim pass and can walk PMH: [place] Palsy, bipolar, hypothyroid, HTN, depression Anthropometric: Ht: [...] Dietetics, [facility], Sasha Nordisk, and [place] [employer]ators. Referral of Care: [...] barrier, or pending f/u for complete assessment. CB Aranda, RD, LD [facility] Ambulatory Visit Summaryon 0 05-22-2023 Ambulatory [...] EST With: Yeison Del Valle MD Where: [facility] Deposit Normal [facility] CHEMISTRYOrdered By: SYSTEM SYSTEM on 05-22-2023 [...] (Bld) [Mass fraction] 8.3 % High <=5.9% [facility] Chem[employer] Family Medicine Office/Clini c Noteon 05-22-2023 Family Medicine [...] as before. Ordered: HgbA1c Lab Specimen Collect [id number] Microalbumin Level Urine TSH With T4fr Reflex U Protein/Creat Ratio 2. Type 2 diabetes mellitus with morbid obesity (E11.69: Type 2 diabetes mellitus with other specified complication) - Will recheck labs today. - Adjust meds based on labs. - Gave samples of freestyle rosalinda to help patient recognize which foods cause her BS to spike. Ordered: HgbA1c Lab Specimen Collect [id number] Microalbumin Level Urine TSH With T4fr Reflex U Protein/Creat Ratio 3. BMI 45.0-49.9, adult (Z68.42: Body mass index [BMI] 45.0-49.9, adult) - BMI education given. Ordered: HgbA1c Lab Specimen Collect 83872 Microalbumin Level Urine TSH With T4fr Reflex U Protein/Creat Ratio 4. Hypothyroidism (E03.9: Hypothyroidism, unspecified) - Will recheck today. Ordered: HgbA1c Lab Specimen Collect 19757 Microalbumin Level Urine TSH With T4fr Reflex U Protein/Creat Ratio 5. Morbid (severe) obesity due to excess calories (E66.01: Morbid (severe) obesity due to excess calories) - Diet and exercise advised Ordered: HgbA1c Lab Specimen Collect 69996 Microalbumin Level Urine TSH With T4fr Reflex U Protein/Creat Ratio 6. Smoker (F17.200: Nicotine dependence, unspecified, uncomplicated) - Please stop smoking. Ordered: HgbA1c Microalbumin Level Urine TSH With T4fr Reflex U Protein/Creat Ratio 7. Bipolar disorder, current episode mixed, moderate (F31.62: Bipolar disorder, current episode mixed, moderate) - [place] level was WNL last time. - Pt states she is doing better. Ordered: HgbA1c Microalbumin Level Urine TSH With T4fr Reflex U Protein/Creat Ratio Orders: metformin, 1,000 mg = 2 tab(s), Oral, BID, # 360 tab(s), Refills(s) 1, Pharmacy: [facility]/pharmacy #[id number], 160, cm, 05/22/23 12:27:00 EST, Height/Length Dosing, 120.5, kg, 05/22/23 12:27:00 EST, Weight Dosing metoprolol, 25 mg = 1 tab(s), Oral, Daily, # 90 tab(s), Refills(s) 0, Pharmacy: [facility]/pharmacy #[id number], 160, cm, 05/22/23 12:27:00 EST, Height/Length [...] Denies Jerome (more content not included)... Normal [facility] Comment on above: Result Comment: Elec tronically Signed By: Eligio MEDELLIN, Yeison Harris\.br\Date and Time Signed: 05/22/23 14:12 EST [id number] 05-22-2023 HbA1c (Bld) [Mass fraction] 8.3 % High <=5.9 [facility] Comment on above: Performed By: #### 7 [id number] ####[facility] [address] [place] [address] TSH With T4fr Reflexon 05-22 TSH Qn 4.90 m[IU]/L Normal 0.34-5.60 [facility] Comment on above: Performed By: #### 7 [id number] ####[facility] [address] [place] [address] U Microalbon 05-22-2023 U Microalb <2.0 Normal 0.0-19.0 [facility] Comment on above: Performed By: #### 1 [id number] ####[facility] [address] [place] [address] U Protein/Creat Ratioon 05-09 U Creatinine 109.7 mg/dL Invalid Interpretation Code [facility] Comment on above: Performed By: #### 1 [id number] ####[facility] [address] [place] [address] U Prot/Creat Ratio 13.90 mg/gm Cr Normal .00-200.00 [facility] [facility] Comment on above: Performed By: #### 1 [id number] ####[facility] [address] [place] [id number] Ur Total Protein 15.3 mg/dL Invalid Interpretation Code [facility] Comment on above: Performed By: #### 1 [id number] ####[facility] [address] [place] [address] Physician Orderon 05-07-2023 Physician Order [id number] Normal [facility] Consent for Treatmenton 04-09 Consent for Treatment [id number] Normal [facility] Physician Orderon 04-15-2023 Physician Order [id number]#[id number] Normal [facility] Physician Order [id number] Normal [facility] CHEMISTRYOrdered By: SYSTEM SYSTEM on 01-23-2023 Albumin [Mass/Vol] 3.7 g/dL Normal 3.3 - 5.0 gm/dL [facility] Remisol Albumin/Globulin [Mass ratio] 1.0 {ratio} Low [...] rate/Area] 93 mL/min/1.73 m2 Normal >=59mL/min/1.73 m2 [facility] Chem S Comment on above: Interpretive Data: [...] (COVID-19) RNA NARCISA+probe Ql (Unsp spec) Negative [employer] Other COVID + FLU Quick Testing Negative [employer] Other Quick Strepon 08-13-2022 S. pyogenes Org specific cx Ql (Throat) Negative [employer] Other Quick Strep [employer] Other LITHIUMon 07-31-2022 [place] (Eskalith(R)), Serum 0.9 mmol/L Normal 0.5-1.2 [facility] Comment on above: Result Comment: A co ncentration of 0.5-0.8 mmol/L is advised for long-term use; concentrations of up to 1.2 mmol/L may be necessary during acute treatment. Detection Limit = 0.1 <0.1 indicates None Detected Performed By: #### C VDTBH #### [facility] [address] [place] [address] Dr. Peter Ramos LITHIUMon 06-29-2022 [place] (Eskalith(R)), Serum 0.4 mmol/L Critically low 0.5-1.2 [facility] Comment on above: Result Comment: A co ncentration of 0.5-0.8 mmol/L is advised for long-term use; concentrations of up to 1.2 mmol/L may be necessary during acute treatment. Detection Limit = 0.1 <0.1 indicates None Detected Performed By: #### C VDTBH #### [facility] [address] [place] [address] Dr. Peter Ramos CREATININEon 06-28-2022 Creatinine [Mass/Vol] 0.75 mg/dL Normal 0.55-1.02 [facility] Comment on above: Performed By: #### C VDTBH #### [facility] [address] [place] [address] Dr. Peter Ramos EGFR-AF AUSTRALIAN >60 Normal >=60 [facility] Comment on above: Performed By: #### C VDTBH #### [facility] [address] [place] [address] Dr. Peter Ramos EGFR-NON AF AUSTRALIAN >60 Normal >=60 [facility] Comment on above: Performed By: #### C VDTBH #### [facility] [address] [place] [address] Dr. Peter Ramos DIRECT LDLon 06-28-2022 Cholesterol in LDL [Mass/Vol] 79 mg/dL Normal [facility] Comment on above: Performed By: #### C VDTBH #### [facility] [address] [place] [address] Dr. Peter Ramos DLDL NORMAL SEE BELOW Normal [facility] Comment on above: Result Comment: <100 mg/dl OPTIMAL 100 - 129 mg/dl NEAR OR ABOVE OPTIMAL 130 - 159 mg/dl BORDERLINE HIGH 160 - 189 mg/dl HIGH >190 mg/dl VERY HIGH Performed By: #### C VDTBH #### [facility] [address] [place] [address] Dr. Peter Ramos GLUCOSE BLOODon 06-28-2022 Glucose [Mass/Vol] 114 mg/dL Critically high 74-106 [facility] Comment on above: Performed By: #### C VDTBH #### [facility] [address] [place] [address] Dr. Peter Ramos LIPID PROFILEon 06-28-2022 CHOL-HDL RATIO NORM SEE BELOW Normal [facility] Comment on above: Result Comment: 3.3 - 4.4 LOW RISK 4.4 - 7.1 AVERAGE RISK 7.1 - 11.0 MODERATE RISK >11.0 HIGH RISK Performed By: #### C VDTBH #### [facility] [address] [place] [address] Dr. Peter Ramos Cholesterol [Mass/Vol] 167 mg/dL Normal <=200 [facility] Comment on above: Performed By: #### C VDTBH #### [facility] [address] [place] [address] Dr. Peter Ramos Cholesterol in HDL [Mass/Vol] 35 mg/dL Critically low 40-60 [facility] Comment on above: Performed By: #### C VDTBH #### [facility] [address] [place] [address] Dr. Peter Ramos Cholesterol in LDL [Mass/Vol] 47.0 mg/dL Normal [facility] Comment on above: Performed By: #### C VDTBH #### [facility] [address] [place] [address] Dr. Peter Ramos Cholesterol.total/ Cholesterol in HDL [Mass ratio] 4.8 {ratio} Normal [facility] Comment on above: Performed By: #### C VDTBH #### [facility] [address] [place] [address] Dr. Peter Ramos HDL NORMAL > or = 60 mg/dl - LOW CARDIOVASCULAR RISK <40 mg/dl - HIGH CARDIOVASCULAR RISK Normal [facility] Comment on above: Performed By: #### C VDTBH #### [facility] [address] [place] [address] Dr. Peter Ramos LDL CALC NORMAL SEE BELOW Normal [facility] Comment on above: Result Comment: <100 mg/dl OPTIMAL 100 - 129 mg/dl NEAR OR ABOVE OPTIMAL 130 - 159 mg/dl BORDERLINE HIGH 160 - 189 mg/dl HIGH >190 mg/dl VERY HIGH Performed By: #### C VDTBH #### [facility] [address] [place] [address] Dr. Peter Ramos Triglyceride [Mass/Vol] 425 mg/dL Critically high <=150 [facility] Comment on above: Performed By: #### C VDTBH #### [facility] [address] [place] [address] Dr. Peter Ramos VLDL CALC 85.0 mg/dL Normal [facility] Comment on above: Performed By: #### C VDTBH #### [facility] [address] [place] [address] Dr. Peter Ramos TSHon 06-28-2022 TSH 1.826 uIU/mL Normal 0.358-3.740 [facility] Comment on above: Performed By: #### C VDTBH #### [facility] [address] [place] [address] Dr. Peter Ramos CBC AUTO DIFFon 04-26-2022 BASO # 0.1 103/ul Normal 0.0-0.1 [facility] Comment on above: Performed By: #### C VDTBH #### [facility] [address] [place] [address] Dr. Peter Ramos Basophils/100 WBC (Bld) 0.5 % Normal 0.2-2.0 [facility] Comment on above: Performed By: #### C VDTBH #### [facility] [address] [place] [address] Dr. Peter Ramos EO # 0.3 103/ul Normal 0.0-0.7 [facility] Comment on above: Performed By: #### C VDTBH #### [facility] [address] [place] [address] Dr. Peter Ramos Eosinophils/100 WBC (Bld) 3.1 % Normal 0.9-7.0 [facility] Comment on above: Performed By: #### C VDTBH #### [facility] [address] [place] [address] Dr. Peter Ramos Erythrocyte distribution width (RBC) [Ratio] 15.5 % Critically high 11.0-15.0 [facility] Comment on above: Performed By: #### C VDTBH #### [facility] [address] [place] [address] Dr. Peter Ramos Hematocrit (Bld) [Volume fraction] 37.8 % Normal 36.0-48.0 [facility] Comment on above: Performed By: #### C VDTBH #### [facility] [address] [place] [address] Dr. Peter Ramos Hemoglobin (Bld) [Mass/Vol] 12.6 g/dL Normal 12.0-16.0 [facility] Comment on above: Performed By: #### C VDTBH #### [facility] [address] [place] [address] Dr. Peter Ramos IG # 0.07 10e3/ul Critically high 0.00-0.03 [facility] Comment on above: Performed By: #### C VDTBH #### [facility] [address] [place] [address] Dr. Peter Ramos IG % 0.7 % Critically high 0.0-0.5 [facility] Comment on above: Performed By: #### C VDTBH #### [facility] [address] [place] [address] Dr. Peter Ramos LYMPH # 2.6 103/ul Normal 1.2-3.8 [facility] Comment on above: Performed By: #### C VDTBH #### [facility] [address] [place] [address] Dr. Peter Ramos Lymphocytes/100 WBC (Bld) 27.4 % Normal 20.5-60.0 [facility] Comment on above: Performed By: #### C VDTBH #### [facility] [address] [place] [address] Dr. Peter Ramos MANUAL DIFF REQ NO Normal [facility] Comment on above: Performed By: #### C VDTBH #### [facility] [address] [place] [address] Dr. Peter Ramos MCH (RBC) [Entitic mass] 28.1 pg Normal 26.7-34.0 [facility] Comment on above: Performed By: #### C VDTBH #### [facility] [address] [place] [address] Dr. Peter Ramos MCHC (RBC) [Mass/Vol] 33.3 g/dL Normal 29.9-35.2 [facility] Comment on above: Performed By: #### C VDTBH #### [facility] [address] [place] [address] Dr. Peter Ramos MCV (RBC) [Entitic vol] 84.2 fL Normal 81.0-99.0 [facility] Comment on above: Performed By: #### C VDTBH #### [facility] [address] [place] [address] Dr. Peter Ramos MONO # 0.5 103/ul Normal 0.3-0.8 [facility] Comment on above: Performed By: #### C VDTBH #### [facility] [address] [place] [address] Dr. Peter Ramos Monocytes/100 WBC (Bld) 5.5 % Normal 1.7-12.0 [facility] Comment on above: Performed By: #### C VDTBH #### [facility] [address] [place] [address] Dr. Peter Ramos NEUT # 5.9 103/ul Normal 1.4-6.5 [facility] Comment on above: Performed By: #### C VDTBH #### [facility] [address] [place] [address] Dr. Peter Ramos Neutrophils/100 WBC (Bld) 62.8 % Normal 43.0-75.0 [facility] Comment on above: Performed By: #### C VDTBH #### [facility] [address] [place] [address] Dr. Peter Ramos Platelet mean volume (Bld) [Entitic vol] 10.4 fL Normal 9.5-13.5 [facility] Comment on above: Performed By: #### C VDTBH #### [facility] [address] [place] [address] Dr. Peter Ramos PLT 236 103/ul Normal 150-450 [facility] Comment on above: Performed By: #### C VDTBH #### [facility] [address] [place] [address] Dr. Peter Ramos RBC 4.49 106/ul Normal 4.20-5.40 [facility] Comment on above: Performed By: #### C VDTBH #### [facility] [address] [place] [address] Dr. Peter Ramos WBC 9.4 103/ul Normal 4.0-11.0 [facility] Comment on above: Performed By: #### C VDTBH #### [facility] [address] [place] [address] Dr. Peter Ramos FREE T3on 04-26-2022 FREE T3 2.14 pg/mlL Critically low 2.18-3.98 [facility] Comment on above: Performed By: #### C VDTBH #### [facility] [address] [place] [address] Dr. Peter Ramos FREE T4on 04-26-2022 Free T4 [Mass/Vol] 0.65 ng/dL Critically low 0.76-1.46 [facility] Comment on above: Performed By: #### C BC #### [facility] [address] [place] [address] Dr. Peter Ramos PROF 14(COMP METB)on 023 Albumin [Mass/Vol] 3.0 g/dL Critically low 3.4-5.0 [facility] Comment on above: Performed By: #### C BC #### [facility] [address] [place] [address] Dr. Peter Ramos Albumin/Globulin [Mass ratio] 0.8 {ratio} Normal [facility] Comment on above: Performed By: #### C BC #### [facility] [address] [address] [address] Peter Ramos ALP [Catalytic activity/Vol] 105 U/L Normal 46-116 [facility] Comment on above: Performed By: #### C BC #### [facility] [address] [address] [address] Peter Ramos ALT [Catalytic activity/Vol] 20 U/L Normal 14-59 [facility] Comment on above: Performed By: #### C BC #### [facility] [address] [place] [address] Dr. Peter Ramos Anion gap [Moles/Vol] 11.3 mmol/L Normal [facility] Comment on above: Performed By: #### C BC #### [facility] [address] [place] [address] Dr. Peter Ramos AST [Catalytic activity/Vol] 13 U/L Critically low 15-37 [facility] Comment on above: Performed By: #### C BC #### [facility] [address] [place] [address] Dr. Peter Ramos Bilirubin [Mass/Vol] 0.3 mg/dL Normal 0.2-1.0 [facility] Comment on above: Performed By: #### C BC #### [facility] [address] [place] [address] Dr. Peter Ramos Calcium [Mass/Vol] 9.0 mg/dL Normal 8.5-10.1 [facility] Comment on above: Performed By: #### C BC #### [facility] [address] [place] [address] Dr. Peter Ramos Chloride [Moles/Vol] 107 mmol/L Normal 98-107 [facility] Comment on above: Performed By: #### C BC #### [facility] [address] [place] [address] Dr. Peter Ramos CO2 [Moles/Vol] 27.2 mmol/L Normal 21.0-32.0 [facility] Comment on above: Performed By: #### C BC #### [facility] [address] [place] [address] Dr. Peter Ramos Creatinine [Mass/Vol] 0.71 mg/dL Normal 0.55-1.02 [facility] Comment on above: Performed By: #### C BC #### [facility] [address] [place] [address] Dr. Peter Ramos EGFR-AF AUSTRALIAN >60 Normal >=60 [facility] Comment on above: Performed By: #### C BC #### [facility] [address] [place] [address] Dr. Peter Ramos EGFR-NON AF AUSTRALIAN >60 Normal >=60 [facility] Comment on above: Performed By: #### C BC #### [facility] [address] [place] [address] Dr. Peter Ramos Globulin (S) [Mass/Vol] 3.6 g/dL Normal [facility] Comment on above: Performed By: #### C BC #### [facility] [address] [place] [address] Dr. Peetr Ramos Glucose [Mass/Vol] 122 mg/dL Critically high 74-106 [facility] Comment on above: Performed By: #### C BC #### [facility] [address] [place] [address] Dr. Peter Ramos Potassium [Moles/Vol] 3.5 mmol/L Normal 3.5-5.1 [facility] Comment on above: Performed By: #### C BC #### [facility] [address] [place] [address] Dr. Peter Ramos Protein [Mass/Vol] 6.6 g/dL Normal 6.4-8.2 [facility] Comment on above: Performed By: #### C BC #### [facility] [address] [place] [address] Dr. Peter Ramos Sodium [Moles/Vol] 142 mmol/L Normal 136-145 [facility] Comment on above: Performed By: #### C BC #### [facility] [address] [place] [address] Dr. Peter Ramos Urea nitrogen [Mass/Vol] 10.0 mg/dL Normal 7.0-18.0 [facility] Comment on above: Performed By: #### C BC #### [facility] [address] [place] [address] Dr. Peter Ramos Urea nitrogen/Creatinin e [Mass ratio] 14.1 mg/mg Normal [facility] Comment on above: Performed By: #### C BC #### [facility] [address] [place] [address] Dr. Peter Ramos TSHon 04-26-2022 TSH 2.010 uIU/mL Normal 0.358-3.740 [facility] Comment on above: Performed By: #### C VDTBH #### [facility] [address] [place] [address] Dr. Peter Ramos LITHIUMon 12-30-2021 [place] (Eskalith(R)), Serum <0.1 Critically low 0.5-1.2 [facility] Comment on above: Result Comment: Plas ma concentration of 0.5 - 0.8 mmol/L are advised for long-term use; concentrations of up to 1.2 mmol/L may be necessary during acute treatment. Verified by repeat analysis Detection Limit = 0.1 <0.1 indicates None Detected Performed By: #### L ITHIUM #### [facility] [address] [place] [address] Dr. Peter Ramos ACETAMINOPHENon 12-28-2021 Acetaminophen [Mass/Vol] ug/mL Critically low 10.0-30.0 [facility] Comment on above: Performed By: #### C VDTBH #### [facility] [address] [place] [address] Dr. Peter Ramos CBC AUTO DIFFon 12-28-2021 BASO # 0.0 103/ul Normal 0.0-0.1 [facility] Comment on above: Performed By: #### C VDTBH #### [facility] [address] [place] [address] Dr. Peter Ramos Basophils/100 WBC (Bld) 0.2 % Normal 0.2-2.0 [facility] Comment on above: Performed By: #### C VDTBH #### [facility] [address] [place] [address] Dr. Peter Ramos EO # 0.2 103/ul Normal 0.0-0.7 [facility] Comment on above: Performed By: #### C VDTBH #### [facility] [address] [place] [address] Dr. Peter Ramos Eosinophils/100 WBC (Bld) 1.7 % Normal 0.9-7.0 [facility] Comment on above: Performed By: #### C VDTBH #### [facility] [address] [place] [address] Dr. Peter Ramos Erythrocyte distribution width (RBC) [Ratio] 14.6 % Normal 11.0-15.0 [facility] Comment on above: Performed By: #### C VDTBH #### [facility] [address] [place] [address] Dr. Peter Ramos Hematocrit (Bld) [Volume fraction] 38.9 % Normal 36.0-48.0 [facility] Comment on above: Performed By: #### C VDTBH #### [facility] [address] [place] [address] Dr. Peter Ramos Hemoglobin (Bld) [Mass/Vol] 13.1 g/dL Normal 12.0-16.0 [facility] Comment on above: Performed By: #### C VDTBH #### [facility] [address] [place] [address] Dr. Peter Ramos IG # 0.02 10e3/ul Normal 0.00-0.03 [facility] Comment on above: Performed By: #### C VDTBH #### [facility] [address] [place] [address] Dr. Peter Ramos IG % 0.2 % Normal 0.0-0.5 [facility] Comment on above: Performed By: #### C VDTBH #### [facility] [address] [place] [address] Dr. Peter Ramos LYMPH # 2.6 103/ul Normal 1.2-3.8 [facility] Comment on above: Performed By: #### C VDTBH #### [facility] [address] [place] [address] Dr. Peter Ramos Lymphocytes/100 WBC (Bld) 27.1 % Normal 20.5-60.0 [facility] Comment on above: Performed By: #### C VDTBH #### [facility] [address] [place] [address] Dr. Peter Ramos MANUAL DIFF REQ NO Normal [facility] Comment on above: Performed By: #### C VDTBH #### [facility] [address] [place] [address] Dr. Peter Ramos MCH (RBC) [Entitic mass] 27.9 pg Normal 26.7-34.0 [facility] Comment on above: Performed By: #### C VDTBH #### [facility] [address] [place] [address] Dr. Peter Ramos MCHC (RBC) [Mass/Vol] 33.7 g/dL Normal 29.9-35.2 [facility] Comment on above: Performed By: #### C VDTBH #### [facility] [address] [place] [address] Dr. Peter Ramos MCV (RBC) [Entitic vol] 82.9 fL Normal 81.0-99.0 [facility] Comment on above: Performed By: #### C VDTBH #### [facility] [address] [place] [address] Dr. Peter Ramos MONO # 0.8 103/ul Normal 0.3-0.8 [facility] Comment on above: Performed By: #### C VDTBH #### [facility] [address] [place] [address] Dr. Peter Ramos Monocytes/100 WBC (Bld) 7.9 % Normal 1.7-12.0 [facility] Comment on above: Performed By: #### C VDTBH #### [facility] [address] [place] [address] Dr. Peter Ramos NEUT # 6.0 103/ul Normal 1.4-6.5 [facility] Comment on above: Performed By: #### C VDTBH #### [facility] [address] [address] [address] Peter Ramos Neutrophils/100 WBC (Bld) 62.9 % Normal 43.0-75.0 [facility] Comment on above: Performed By: #### C VDTBH #### [facility] [address] [address] [address] Peter Ramos Platelet mean volume (Bld) [Entitic vol] 9.8 fL Normal 9.5-13.5 [facility] Comment on above: Performed By: #### C VDTBH #### [facility] [address] [address] [address] Peter Ramos PLT 240 103/ul Normal 150-450 [facility] Comment on above: Performed By: #### C VDTBH #### [facility] [address] [place] [address] Dr. Peter Ramos RBC 4.69 106/ul Normal 4.20-5.40 [facility] Comment on above: Performed By: #### C VDTBH #### [facility] [address] [address] [address] Peter Ramos WBC 9.6 103/ul Normal 4.0-11.0 [facility] Comment on above: Performed By: #### C VDTBH #### [facility] [address] [place] [address] Dr. Peter Ramos Covid-19 PCR ([facility])on 12-08 SARS-CoV-2 (COVID-19) RNA NARCISA+probe Ql (Unsp spec) Not detected Normal NOT DETECTED [facility] Comment on above: Result Comment: [...] for this test is supported by the [place] of Health and Human Service's declaration that [...] By: #### C VDTB #### [facility] [address] [place] [address] Dr. Peter Ramos DRUG SCREEN RAPID (URINE)on 12-28-2021 AMP Negative Normal NEGATIVE [facility] Comment on above: Performed By: #### C BC #### [facility] [address] [place] [address] Dr. Peter Ramos BAR Negative Normal NEGATIVE [facility] Comment on above: Performed By: #### C BC #### [facility] [address] [place] [address] Dr. Peter Ramos BUP Negative Normal NEGATIVE [facility] Comment on above: Performed By: #### C BC #### [facility] [address] [place] [address] Dr. Peter Ramos BZO Negative Normal NEGATIVE [facility] Comment on above: Performed By: #### C BC #### [facility] [address] [place] [address] Dr. Peter Ramos NEEMA Negative Normal NEGATIVE [facility] Comment on above: Performed By: #### C BC #### [facility] [address] [place] [address] Dr. Peter Ramos CUT-OFFS SEE BELOW Normal [facility] Comment on above: Result Comment: AMP (Amphetamine): [...] By: #### C BC #### [facility] [address] [place] [address] Dr. Peter Ramos DRUG CUT HEADER DRUG CLASS TEST SYSTEM CUT-OFF CONCENTRATIONS ARE FOLLOWS: Normal [facility] Comment on above: Performed By: #### C BC #### [facility] [address] [place] [address] Dr. Peter Ramos mAMP Negative Normal NEGATIVE [facility] Comment on above: Performed By: #### C BC #### [facility] [address] [place] [address] Dr. Peter Ramos MTD Negative Normal NEGATIVE [facility] Comment on above: Performed By: #### C BC #### [facility] [address] [place] [address] Dr. Peter Ramos OPI Negative Normal NEGATIVE [facility] Comment on above: Performed By: #### C BC #### [facility] [address] [place] [address] Dr. Peter Ramos OXY Negative Normal NEGATIVE [facility] Comment on above: Performed By: #### C BC #### [facility] [address] [place] [address] Dr. Peter Ramos PCP Negative Normal NEGATIVE [facility] Comment on above: Performed By: #### C BC #### [facility] [address] [place] [address] Dr. Peter Ramos PPX Negative Normal NEGATIVE [facility] Comment on above: Performed By: #### C BC #### [facility] [address] [place] [address] Dr. Peter Ramos TCA Negative Normal NEGATIVE [facility] Comment on above: Performed By: #### C BC #### [facility] [address] [place] [address] Dr. Peter Ramos THC Negative Normal NEGATIVE [facility] Comment on above: Performed By: #### C BC #### [facility] [address] [address] [address] Peter Ramos ETHANOL (BLD ALC)on 12-29-19 22 ALC NOTE NOTE: 80 mg/dl is the legal limit for a blood alcohol level Normal [facility] Comment on above: Performed By: #### C BC #### [facility] [address] [address] [address] Peter Ramos Ethanol [Mass/Vol] mg/dL Normal [facility] Comment on above: Performed By: #### C BC #### [facility] [address] [address] [address] Peter Ramos PREG HCG QUALon 12-28-2021 , QUAL Negative Normal NEGATIVE [facility] Comment on above: Performed By: #### C BC #### [facility] [address] [place] [address] Dr. Peter Ramos PROF 14(COMP METB)on 022 Albumin [Mass/Vol] 3.6 g/dL Normal 3.4-5.0 [facility] Comment on above: Performed By: #### C VDTBH #### [facility] [address] [address] [address] Peter Ramos Albumin/Globulin [Mass ratio] 1.1 {ratio} Normal [facility] Comment on above: Performed By: #### C VDTBH #### [facility] [address] [place] [address] Dr. Peter Ramos ALP [Catalytic activity/Vol] 102 U/L Normal 46-116 [facility] Comment on above: Performed By: #### C VDTBH #### [facility] [address] [place] [address] Dr. Peter Ramos ALT [Catalytic activity/Vol] 37 U/L Normal 14-59 [facility] Comment on above: Performed By: #### C VDTBH #### [facility] [address] [place] [address] Dr. Peter Ramos Anion gap [Moles/Vol] 11.3 mmol/L Normal [facility] Comment on above: Performed By: #### C VDTBH #### [facility] [address] [address] [address] Peter Ramos AST [Catalytic activity/Vol] 27 U/L Normal 15-37 [facility] Comment on above: Performed By: #### C VDTBH #### [facility] [address] [address] [address] Peter Ramos Bilirubin [Mass/Vol] 0.4 mg/dL Normal 0.2-1.0 [facility] Comment on above: Performed By: #### C VDTBH #### [facility] [address] [place] [address] Dr. Peter Ramos Calcium [Mass/Vol] 9.0 mg/dL Normal 8.5-10.1 [facility] Comment on above: Performed By: #### C VDTBH #### [facility] [address] [place] [address] Dr. Peter Ramos Chloride [Moles/Vol] 104 mmol/L Normal 98-107 [facility] Comment on above: Performed By: #### C VDTBH #### [facility] [address] [place] [address] Dr. Peter Ramos CO2 [Moles/Vol] 25.6 mmol/L Normal 21.0-32.0 [facility] Comment on above: Performed By: #### C VDTBH #### [facility] [address] [place] [address] Dr. Peter Ramos Creatinine [Mass/Vol] 0.87 mg/dL Normal 0.55-1.02 [facility] Comment on above: Performed By: #### C VDTBH #### [facility] [address] [place] [address] Dr. Peter Ramos EGFR-AF AUSTRALIAN >60 Normal >=60 [facility] Comment on above: Performed By: #### C VDTBH #### [facility] [address] [place] [address] Dr. Peter Ramos EGFR-NON AF AUSTRALIAN >60 Normal >=60 [facility] Comment on above: Performed By: #### C VDTBH #### [facility] [address] [address] [address] Peter Ramos Globulin (S) [Mass/Vol] 3.4 g/dL Normal [facility] Comment on above: Performed By: #### C VDTBH #### [facility] [address] [place] [address] Dr. Peter Ramos Glucose [Mass/Vol] 138 mg/dL Critically high 74-106 [facility] Comment on above: Performed By: #### C VDTBH #### [facility] [address] [place] [address] Dr. Peter Ramos Potassium [Moles/Vol] 2.9 mmol/L Critically low 3.5-5.1 [facility] Comment on above: Performed By: #### C VDTBH #### [facility] [address] [place] [address] Dr. Peter Ramos Protein [Mass/Vol] 7.0 g/dL Normal 6.4-8.2 [facility] Comment on above: Performed By: #### C VDTBH #### [facility] [address] [place] [address] Dr. Peter Ramos Sodium [Moles/Vol] 138 mmol/L Normal 136-145 [facility] Comment on above: Performed By: #### C VDTBH #### [facility] [address] [place] [address] Dr. Peter Ramos Urea nitrogen [Mass/Vol] 4.0 mg/dL Critically low 7.0-18.0 [facility] Comment on above: Performed By: #### C VDTBH #### [facility] [address] [place] [address] Dr. Peter Ramos Urea nitrogen/Creatinin e [Mass ratio] 4.6 mg/mg Normal [facility] Comment on above: Performed By: #### C VDTBH #### [facility] [address] [place] [address] Dr. Peter Ramos SALICYLATEon 12-28-2021 SALICYLATE 4.2 mg/dL Normal <=19.9 [facility] Comment on above: Performed By: #### C VDTBH #### [facility] [address] [place] [address] Dr. Peter Ramos TSHon 12-28-2021 TSH 1.901 uIU/mL Normal 0.358-3.740 [facility] Comment on above: Performed By: #### T SH #### [facility] [address] [place] [address] Dr. Peter Ramos US THYROIDon 12-12-2021 US [...] by: WIL FORMAN Date: 2021-12-12 19:49 Normal [facility] FREE T3on 12-01-2021 FREE T3 2.17 pg/mlL Critically low 2.18-3.98 [facility] Comment on above: Performed By: #### C VDTBH #### [facility] [address] [place] [address] Dr. Peter Ramos FREE T4on 12-01-2021 Free T4 [Mass/Vol] 0.78 ng/dL Normal 0.76-1.46 [facility] Comment on above: Performed By: #### F T4 #### [facility] [address] [place] [address] Dr. Peter Ramos LITHIUMon 11-28-2021 [place] (Eskalith(R)), Serum 0.9 mmol/L Normal 0.5-1.2 [facility] Comment on above: Result Comment: Plas ma concentration of 0.5 - 0.8 mmol/L are advised for long-term use; concentrations of up to 1.2 mmol/L may be necessary during acute treatment. Detection Limit = 0.1 <0.1 indicates None Detected Performed By: #### C BC #### [facility] [address] [address] [address] Peter Ramos CREATININEon 11-25-2021 Creatinine [Mass/Vol] 0.99 mg/dL Normal 0.55-1.02 [facility] Comment on above: Performed By: #### C VDTBH #### [facility] [address] [address] [address] Peter Ramos EGFR-AF AUSTRALIAN >60 Normal >=60 [facility] Comment on above: Performed By: #### C VDTBH #### [facility] [address] [address] [address] Peter Ramos EGFR-NON AF AUSTRALIAN >60 Normal >=60 [facility] Comment on above: Performed By: #### C VDTBH #### [facility] [address] [place] [address] Dr. Peter Ramos GLUCOSE BLOODon 11-25-2021 Glucose [Mass/Vol] 102 mg/dL Normal 74-106 [facility] Comment on above: Performed By: #### G SONI #### [facility] [address] [address] [address] Peter Ramos LIPID PROFILEon 11-25-2021 CHOL-HDL RATIO NORM SEE BELOW Normal [facility] Comment on above: Result Comment: 3.3 - 4.4 LOW RISK 4.4 - 7.1 AVERAGE RISK 7.1 - 11.0 MODERATE RISK >11.0 HIGH RISK Performed By: #### C VDTBH #### [facility] [address] [place] [address] Dr. Peter Ramos Cholesterol [Mass/Vol] 175 mg/dL Normal <=200 [facility] Comment on above: Performed By: #### C VDTBH #### [facility] [address] [address] [address] Peter Ramos Cholesterol in HDL [Mass/Vol] 49 mg/dL Normal 40-60 [facility] Comment on above: Performed By: #### C VDTBH #### [facility] [address] [address] [address] Peter Ramos Cholesterol in LDL [Mass/Vol] 100.6 mg/dL Normal [facility] Comment on above: Performed By: #### C VDTBH #### [facility] [address] [address] [address] Peter Ramos Cholesterol.total/ Cholesterol in HDL [Mass ratio] 3.6 {ratio} Normal [facility] Comment on above: Performed By: #### C VDTBH #### [facility] [address] [address] [address] Peter Ramos HDL NORMAL > or = 60 mg/dl - LOW CARDIOVASCULAR RISK <40 mg/dl - HIGH CARDIOVASCULAR RISK Normal [facility] Comment on above: Performed By: #### C VDTBH #### [facility] [address] [place] [address] Dr. Peter Ramos LDL CALC NORMAL SEE BELOW Normal [facility] Comment on above: Result Comment: <100 mg/dl OPTIMAL 100 - 129 mg/dl NEAR OR ABOVE OPTIMAL 130 - 159 mg/dl BORDERLINE HIGH 160 - 189 mg/dl HIGH >190 mg/dl VERY HIGH Performed By: #### C VDTBH #### [facility] [address] [place] [address] Dr. Peter Ramos Triglyceride [Mass/Vol] 127 mg/dL Normal <=150 [facility] Comment on above: Performed By: #### C VDTBH #### [facility] [address] [place] [address] Dr. Peter Ramos VLDL CALC 25.4 mg/dL Normal [facility] Comment on above: Performed By: #### C VDTBH #### [facility] [address] [place] [address] Dr. Peter Ramos TSHon 11-25-2021 TSH 4.336 uIU/mL Critically high 0.358-3.740 [facility] Comment on above: Performed By: #### C VDTBH #### [facility] [address] [place] [address] Dr. Peter Ramos ACETAMINOPHENon 09-06-2021 Acetaminophen [Mass/Vol] ug/mL Critically low 10.0-30.0 [facility] Comment on above: Performed By: #### A CET, SALYC, ETH, CMP #### [facility] [address] [address] [address] Peter Ramos CBC AUTO DIFFon 09-06-2021 BASO # 0.0 103/ul Normal 0.0-0.1 [facility] Comment on above: Performed By: #### C BC #### [facility] [address] [address] [address] Peter Ramos Basophils/100 WBC (Bld) 0.3 % Normal 0.2-2.0 [facility] Comment on above: Performed By: #### C BC #### [facility] [address] [address] [address] Peter Ramos EO # 0.1 103/ul Normal 0.0-0.7 [facility] Comment on above: Performed By: #### C BC #### [facility] [address] [address] [address] Peter Ramos Eosinophils/100 WBC (Bld) 1.2 % Normal 0.9-7.0 [facility] Comment on above: Performed By: #### C BC #### [facility] [address] [address] [address] Peter Ramos Erythrocyte distribution width (RBC) [Ratio] 15.6 % Critically high 11.0-15.0 [facility] Comment on above: Performed By: #### C BC #### [facility] [address] [address] [address] Peter Ramos Hematocrit (Bld) [Volume fraction] 38.2 % Normal 36.0-48.0 [facility] Comment on above: Performed By: #### C BC #### [facility] [address] [address] [address] Peter Ramos Hemoglobin (Bld) [Mass/Vol] 12.8 g/dL Normal 12.0-16.0 [facility] Comment on above: Performed By: #### C BC #### [facility] [address] [address] [address] Peter Ramos IG # 0.05 10e3/ul Critically high 0.00-0.03 [facility] Comment on above: Performed By: #### C BC #### [facility] [address] [place] [address] Dr. Peter Ramos IG % 0.5 % Normal 0.0-0.5 [facility] Comment on above: Performed By: #### C BC #### [facility] [address] [place] [address] Dr. Peter Ramos LYMPH # 2.2 103/ul Normal 1.2-3.8 [facility] Comment on above: Performed By: #### C BC #### [facility] [address] [place] [address] Dr. Peter Ramos Lymphocytes/100 WBC (Bld) 22.7 % Normal 20.5-60.0 [facility] Comment on above: Performed By: #### C BC #### [facility] [address] [place] [address] Dr. Peter Ramos MANUAL DIFF REQ NO Normal [facility] Comment on above: Performed By: #### C BC #### [facility] [address] [place] [address] Dr. Peter Ramos MCH (RBC) [Entitic mass] 28.7 pg Normal 26.7-34.0 [facility] Comment on above: Performed By: #### C BC #### [facility] [address] [place] [address] Dr. Peter Ramos MCHC (RBC) [Mass/Vol] 33.5 g/dL Normal 29.9-35.2 [facility] Comment on above: Performed By: #### C BC #### [facility] [address] [place] [address] Dr. Peter Ramos MCV (RBC) [Entitic vol] 85.7 fL Normal 81.0-99.0 [facility] Comment on above: Performed By: #### C BC #### [facility] [address] [place] [address] Dr. Peter Ramos MONO # 0.7 103/ul Normal 0.3-0.8 [facility] Comment on above: Performed By: #### C BC #### [facility] [address] [place] [address] Dr. Peter Ramos Monocytes/100 WBC (Bld) 7.4 % Normal 1.7-12.0 [facility] Comment on above: Performed By: #### C BC #### [facility] [address] [place] [address] Dr. Peter Ramos NEUT # 6.7 103/ul Critically high 1.4-6.5 [facility] Comment on above: Performed By: #### C BC #### [facility] [address] [place] [address] Dr. Peter Ramos Neutrophils/100 WBC (Bld) 67.9 % Normal 43.0-75.0 [facility] Comment on above: Performed By: #### C BC #### [facility] [address] [place] [address] Dr. Peter Ramos Platelet mean volume (Bld) [Entitic vol] 9.6 fL Normal 9.5-13.5 [facility] Comment on above: Performed By: #### C BC #### [facility] [address] [place] [address] Dr. Peter Ramos PLT 246 103/ul Normal 150-450 [facility] Comment on above: Performed By: #### C BC #### [facility] [address] [place] [address] Dr. Peter Ramos RBC 4.46 106/ul Normal 4.20-5.40 [facility] Comment on above: Performed By: #### C BC #### [facility] [address] [place] [address] Dr. Peter Ramos WBC 9.9 103/ul Normal 4.0-11.0 [facility] Comment on above: Performed By: #### C BC #### [facility] [address] [place] [address] Dr. Peter Ramos [facility]on SARS-CoV-2 (COVID-19) RNA NARCISA+probe Ql (Unsp spec) Not detected Normal NOT DETECTED [facility] Comment on above: Result Comment: [...] for this test is supported by the [employer] and Human Service's declaration that [...] By: #### C VDTB #### [facility] [address] [place] [address] Dr. Peter Ramos DRUG SCREEN RAPID (URINE)on 09-06-2021 AMP Negative Normal NEGATIVE [facility] Comment on above: Performed By: #### C BC #### [facility] [address] [place] [address] Dr. Peter Ramos BAR Negative Normal NEGATIVE [facility] Comment on above: Performed By: #### C BC #### [facility] [address] [place] [address] Dr. Peter Ramos BUP Negative Normal NEGATIVE [facility] Comment on above: Performed By: #### C BC #### [facility] [address] [place] [address] Dr. Peter Ramos BZO Negative Normal NEGATIVE [facility] [facility] Comment on above: Performed By: #### C BC #### [facility] [address] [place] [address] Dr. Peter Ramos NEEMA Negative Normal NEGATIVE [facility] Comment on above: Performed By: #### C BC #### [facility] [address] [place] [address] Dr. Peter Ramos CUT-OFFS SEE BELOW Normal [facility] Comment on above: Result Comment: AMP (Amphetamine): [...] By: #### C BC #### [facility] [address] [place] [address] Dr. Peter Ramos DRUG CUT HEADER DRUG CLASS TEST SYSTEM CUT-OFF CONCENTRATIONS ARE FOLLOWS: Normal [facility] Comment on above: Performed By: #### C BC #### [facility] [address] [place] [address] Dr. Peter Ramos mAMP Negative Normal NEGATIVE [facility] Comment on above: Performed By: #### C BC #### [facility] [address] [place] [address] Dr. Peter Ramos MTD Negative Normal NEGATIVE [facility] Comment on above: Performed By: #### C BC #### [facility] [address] [place] [address] Dr. Peter Ramos OPI Negative Normal NEGATIVE [facility] Comment on above: Performed By: #### C BC #### [facility] [address] [place] [address] Dr. Peter Ramos OXY Negative Normal NEGATIVE [facility] Comment on above: Performed By: #### C BC #### [facility] [address] [place] [address] Dr. Peter Ramos PCP Negative Normal NEGATIVE [facility] Comment on above: Performed By: #### C BC #### [facility] [address] [place] [address] Dr. Peter Ramos PPX Negative Normal NEGATIVE [facility] Comment on above: Performed By: #### C BC #### [facility] [address] [place] [address] Dr. Peter Ramos TCA Negative Normal NEGATIVE [facility] Comment on above: Performed By: #### C BC #### [facility] [address] [place] [address] Dr. Peter Ramos THC Negative Normal NEGATIVE [facility] Comment on above: Performed By: #### C BC #### [facility] [address] [place] [address] Dr. Peter Ramos ER URINE PROFILEon 2 Bilirubin Ql (U) Negative Normal NEGATIVE [facility] Comment on above: Performed By: #### C BC #### [facility] [address] [place] [address] Dr. Peter Ramos Clarity (U) CLEAR Normal CLEAR [facility] Comment on above: Performed By: #### C BC #### [facility] [address] [place] [address] Dr. Peter Ramos Color (U) LT. YELLOW Normal YELLOW [facility] Comment on above: Performed By: #### C BC #### [facility] [address] [place] [address] Dr. Peter Ramos ERUAHD A micrscopic examination will be performed if indicated. Normal [facility] Comment on above: Performed By: #### C BC #### [facility] [address] [place] [address] Dr. Peter Ramos Glucose Ql (U) Negative Normal NEGATIVE [facility] Comment on above: Performed By: #### C BC #### [facility] [address] [place] [address] Dr. Peter Ramos Hemoglobin Ql (U) Negative Normal NEGATIVE [facility] Comment on above: Performed By: #### C BC #### [facility] [address] [place] [address] Dr. Peter Ramos Ketones Ql (U) 15 mg/dl Abnormal NEGATIVE [facility] Comment on above: Performed By: #### C BC #### [facility] [address] [place] [address] Dr. Peter Ramos LEUKOCYTES Negative Normal NEGATIVE [facility] Comment on above: Performed By: #### C BC #### [facility] [address] [place] [address] Dr. Peter Ramos Nitrite Ql (U) Negative Normal NEGATIVE [facility] Comment on above: Performed By: #### C BC #### [facility] [address] [place] [address] Dr. Peter Ramos pH (U) 6.0 [pH] Normal 5-9 [facility] Comment on above: Performed By: #### C BC #### [facility] [address] [place] [address] Dr. Peter Ramos SPEC GRAVITY 1.015 Normal 1.005-<=1.025 [facility] Comment on above: Performed By: #### C BC #### [facility] [address] [place] [address] Dr. Peter Ramos UA PROTEIN Negative Normal NEGATIVE/ TRACE [facility] Comment on above: Performed By: #### C BC #### [facility] [address] [place] [address] Dr. Peter Ramos UR MICRO IND NOT INDICATED Normal [facility] Comment on above: Performed By: #### C BC #### [facility] [address] [place] [address] Dr. Peter Ramos Urobilinogen Qn (U) 0.2 {Lula'U}/dL Normal 0.2 - 1.0 [facility] Comment on above: Performed By: #### C BC #### [facility] [address] [place] [address] Dr. Peter Ramos ETHANOL (BLD ALC)on 09-07-19 ALC NOTE NOTE: 80 mg/dl is the legal limit for a blood alcohol level Normal [facility] Comment on above: Performed By: #### A GENESIS HAYNES ETH, CMP #### [facility] [address] [place] [address] Dr. Peter Ramos Ethanol [Mass/Vol] mg/dL Normal [facility] Comment on above: Performed By: #### A CET, SALYC, ETH, CMP #### [facility] [address] [address] [address] Peter Ramos PREG HCG QUALon 09-06-2021 , QUAL Negative Normal NEGATIVE [facility] Comment on above: Performed By: #### C VDTBH #### [facility] [address] [place] [address] Dr. Peter Ramos PROF 14(COMP METB)on 022 Albumin [Mass/Vol] 3.7 g/dL Normal 3.4-5.0 [facility] Comment on above: Performed By: #### C BC #### [facility] [address] [place] [address] Dr. Peter Ramos Albumin/Globulin [Mass ratio] 1.0 {ratio} Normal [facility] Comment on above: Performed By: #### C BC #### [facility] [address] [place] [address] Dr. Peter Ramos ALP [Catalytic activity/Vol] 102 U/L Normal 46-116 [facility] Comment on above: Performed By: #### C BC #### [facility] [address] [place] [address] Dr. Peter Ramos ALT [Catalytic activity/Vol] 29 U/L Normal 14-59 [facility] Comment on above: Performed By: #### C BC #### [facility] [address] [place] [address] Dr. Peter Ramos Anion gap [Moles/Vol] 17.7 mmol/L Normal [facility] Comment on above: Performed By: #### C BC #### [facility] [address] [place] [address] Dr. Peter Ramos AST [Catalytic activity/Vol] 23 U/L Normal 15-37 [facility] Comment on above: Performed By: #### C BC #### [facility] [address] [place] [address] Dr. Peter Ramos Bilirubin [Mass/Vol] 0.9 mg/dL Normal 0.2-1.0 [facility] Comment on above: Performed By: #### C BC #### [facility] [address] [address] [address] Peter Ramos Calcium [Mass/Vol] 9.6 mg/dL Normal 8.5-10.1 [facility] Comment on above: Performed By: #### C BC #### [facility] [address] [address] [address] Peter Ramos Chloride [Moles/Vol] 99 mmol/L Normal 98-107 [facility] Comment on above: Performed By: #### C BC #### [facility] [address] [place] [address] Dr. Peter Ramos CO2 [Moles/Vol] 21.3 mmol/L Normal 21.0-32.0 [facility] Comment on above: Performed By: #### C BC #### [facility] [address] [place] [address] Dr. Peter Ramos Creatinine [Mass/Vol] 0.92 mg/dL Normal 0.55-1.02 [facility] Comment on above: Performed By: #### C BC #### [facility] [address] [place] [address] Dr. Peter Ramos EGFR-AF AUSTRALIAN >60 Normal >=60 [facility] Comment on above: Performed By: #### C BC #### [facility] [address] [place] [address] Dr. Peter Ramos EGFR-NON AF AUSTRALIAN >60 Normal >=60 [facility] Comment on above: Performed By: #### C BC #### [facility] [address] [address] [address] Peter Ramos Globulin (S) [Mass/Vol] 3.7 g/dL Normal [facility] Comment on above: Performed By: #### C BC #### [facility] [address] [place] [address] Dr. Peter Ramos Glucose [Mass/Vol] 117 mg/dL Critically high 74-106 [facility] Comment on above: Performed By: #### C BC #### [facility] [address] [address] [address] Peter Ramos Potassium [Moles/Vol] 3.0 mmol/L Critically low 3.5-5.1 [facility] Comment on above: Performed By: #### C BC #### [facility] [address] [place] [address] Dr. Peter Ramos Protein [Mass/Vol] 7.4 g/dL Normal 6.4-8.2 [facility] Comment on above: Performed By: #### C BC #### [facility] [address] [place] [address] Dr. Peter Ramos Sodium [Moles/Vol] 135 mmol/L Critically low 136-145 [facility] Comment on above: Performed By: #### C BC #### [facility] [address] [place] [address] Dr. Peter Ramos Urea nitrogen [Mass/Vol] 11.0 mg/dL Normal 7.0-18.0 [facility] Comment on above: Performed By: #### C BC #### [facility] [address] [place] [address] Dr. Peter Ramos Urea nitrogen/Creatinin e [Mass ratio] 12.0 mg/mg Normal [facility] Comment on above: Performed By: #### C BC #### [facility] [address] [place] [address] Dr. Peter Ramos PROF CHEM 8 (BAS METB)on Anion gap [Moles/Vol] 12.5 mmol/L Normal [facility] Comment on above: Performed By: #### C VDTBH #### [facility] [address] [place] [address] Dr. Peter Ramos Calcium [Mass/Vol] 9.3 mg/dL Normal 8.5-10.1 [facility] Comment on above: Performed By: #### C VDTBH #### [facility] [address] [place] [address] Dr. Peter Ramos Chloride [Moles/Vol] 102 mmol/L Normal 98-107 [facility] Comment on above: Performed By: #### C VDTBH #### [facility] [address] [place] [address] Dr. Peter Ramos CO2 [Moles/Vol] 24.8 mmol/L Normal 21.0-32.0 [facility] Comment on above: Performed By: #### C VDTBH #### [facility] [address] [place] [address] Dr. Peter Ramos Creatinine [Mass/Vol] 0.73 mg/dL Normal 0.55-1.02 [facility] Comment on above: Performed By: #### C VDTBH #### [facility] [address] [place] [address] Dr. Peter Ramos EGFR-AF AUSTRALIAN >60 Normal >=60 [facility] Comment on above: Performed By: #### C VDTBH #### [facility] [address] [place] [address] Dr. Peter Ramos EGFR-NON AF AUSTRALIAN >60 Normal >=60 [facility] Comment on above: Performed By: #### C VDTBH #### [facility] [address] [place] [address] Dr. Peter Ramos Glucose [Mass/Vol] 86 mg/dL Normal 74-106 [facility] Comment on above: Performed By: #### C VDTBH #### [facility] [address] [place] [address] Dr. Peter Ramos Potassium [Moles/Vol] 3.3 mmol/L Critically low 3.5-5.1 [facility] Comment on above: Performed By: #### C VDTBH #### [facility] [address] [place] [address] Dr. Peter Ramos Sodium [Moles/Vol] 136 mmol/L Normal 136-145 [facility] Comment on above: Performed By: #### C VDTBH #### [facility] [address] [place] [address] Dr. Peter Ramos Urea nitrogen [Mass/Vol] 11.0 mg/dL Normal 7.0-18.0 [facility] Comment on above: Performed By: #### C VDTBH #### [facility] [address] [place] [address] Dr. Peter Ramos Urea nitrogen/Creatinin e [Mass ratio] 15.1 mg/mg Normal [facility] Comment on above: Performed By: #### C VDTBH #### [facility] [address] [place], [place] [address] Dr. Peter Ramos SALICYLATEon 09-06-2021 SALICYLATE 3.6 mg/dL Normal <=19.9 [facility] Comment on above: Performed By: #### A CET, SALYC, ETH, CMP #### [facility] [address] [place], [place] [address] Dr. Peter Ramos Vital Signs Date Time Vital Sign Value Performing Clinician Faci lity 09-22-2024 13:52-0400 Body mass index (BMI) [Ratio] 41.52 kg/m2 Beulah Nataprawira DO Work Phone: [facility] 09-22-2024 13:52-0400 Body weight 102.97 kg Beulah Nataprawira DO Work Phone: [facility] 09-22-2024 13:52-0400 Diastolic blood pressure 82 mm[Hg] Beulah Nataprawira DO Work Phone: [facility] 09-22-2024 13:52-0400 Systolic blood pressure 134 mm[Hg] Beulah Nataprawira DO Work Phone: [facility] 12-22-2023 11:58-0400 Diastolic blood pressure 60 mm[Hg] [facility]back [facility] 12-22-2023 11:58-0400 Heart rate 100 /min [employer] [facility] 12-22-2023 11:58-0400 SaO2% (BldA) [Mass fraction] 97 % [employer]back [facility] 12-22-2023 11:58-0400 Systolic blood pressure 120 mm[Hg] [employer] 12-12-2023 15:01-0400 Blood Pressure Location Torres Sarmini [facility] 12-12-2023 15:01-0400 Diastolic blood pressure 70 mm[Hg] Torres Sarmini [facility] 12-12-2023 15:01-0400 Heart rate 76 /min Torres Sarmini [facility] 12-12-2023 15:01-0400 Respiratory rate 16 /min Torres Sarmini [facility] 12-12-2023 15:01-0400 Systolic blood pressure 109 mm[Hg] Torres Sarmini [facility] 10-08-2023 12:58-0400 Blood Pressure Location Kian Mauriciopsey [facility] 10-08-2023 12:58-0400 Diastolic blood pressure 86 mm[Hg] Kian Rodney [facility] 10-08-2023 12:58-0400 Heart rate 96 /min Kian Rodney [facility] 10-08-2023 12:58-0400 Systolic blood pressure 124 mm[Hg] Kian Rodney [facility] 09-26-2023 12:28-0400 Blood Pressure Location Torres Sarmini [facility] 09-26-2023 12:28-0400 Diastolic blood pressure 70 mm[Hg] Torres Sarmini [facility] 09-26-2023 12:28-0400 Heart rate 76 /min Torres Sarmini [facility] 09-26-2023 12:28-0400 Respiratory rate 18 /min Melissa Downeyi [facility] 09-26-2023 12:28-0400 Systolic blood pressure 136 mm[Hg] Melissa Corleymini [facility] 08-13-2022 16:20-0400 Body height 158.12 cm Lisandra May Other [employer] Other 08-13-2022 16:20-0400 Body mass index (BMI) [Ratio] 48.44 kg/m2 Lisandra May Other [employer] Other 08-13-2022 16:20-0400 Body temperature 101 [degF] Lisandra May Other [employer] Other 08-13-2022 16:20-0400 Body weight 121.11 kg Lisandra May Other [employer] Other 08-13-2022 16:20-0400 Respiratory rate 18 /min Lisandra May Other [employer] Other 08-13-2022 16:20-0400 SaO2% (BldA) [Mass fraction] 97 % Lisandra May Other [employer] Other Encounters Encounter Date Encounter Type Care Provider Facility Start: 03-24-2025 ambulatory Yeison Del Valle Facility :[facility] Start: 10-26-2024 End: 10-26-2024 ambulatory MICHELLE YUN Facility:[facility] Start: 10-16-2024 End: 10-16-2024 ambulatory Amarjit Choe Facility:[facility] Start: 09-29-2024 ambulatory Jerry Sanchez acility:[facility] Start: 09-22-2024 End: 09-22-2024 Patient encounter status Beulah Gordon DO Work Phone: [facility] Start: 09-22-2024 End: 09-22-2024 Periodic preventive med est patient 40-64yrs Beulah Lillynatalieshant DO Work Phone: [facility] Comment on above: Encounter for gyneco logical examination without abnormal finding (Primary Dx); Other screening mammogram; Encounter for surveillance of contraceptive pills; History of irregular menstrual cycles; Irregular menstruation, unspecified; Obesity, morbid ([facility] Start: 09-22-2024 End: 09-22-2024 ambulatory BEULAH GORDON Not Available Start: 07-17-2024 End: 07-17-2024 ambulatory MICHELLE YUN Facility:[facility] Start: 04-27-2024 End: 04-27-2024 Lab Drop off Yeison Del Valle [facility] Start: 04-27-2024 End: 04-27-2024 ambulatory Yeison Del Valle Facility:[facility] Start: 04-13-2024 End: 04-13-2024 Lab Drop off Yeison Del Valle [facility] Start: 04-13-2024 End: 04-13-2024 ambulatory Yeison Del Valle Facility: [facility] Start: 03-24-2024 End: 03-24-2024 ambulatory MD Yeison Del Valle Facility:[facility] Start: 01-13-2024 End: 01-13-2024 Patient encounter procedure PHYSICIAN NO [facility] Work Phone: Start: 01-13-2024 End: 01-13-2024 ambulatory PHYSICIAN NIKOLAY [facility] Work Phone: Start: 12-31-2023 Registered Recurring PHYSICIAN NIKOLAY [facility] Start: 12-22-2023 End: 12-22-2023 ambulatory Alyx X Orzech Facility: [place] Start: 12-22-2023 End: 12-22-2023 Patient encounter procedure Alyx X Orzech [facility] Start: 12-12-2023 End: 12-12-2023 ambulatory Torres Talal Sarmini Facility:[facility] Start: 12-12-2023 End: 12-12-2023 Patient encounter procedure Torres Talal Sarmini [facility] Start: 11-05-2023 End: 11-05-2023 Lab Drop off Torres Talal Sarmini [facility] Start: 11-05-2023 End: 11-05-2023 ambulatory Torres Talal Sarmini Facility:[facility] Start: 11-05-2023 End: 11-05-2023 ambulatory Torres Talal Sarmini Facility:CD:[id number] Start: 10-31-2023 End: 10-31-2023 ambulatory [facility] Start: 10-22-2023 End: 10-22-2023 ambulatory MD Yeison Del Valle Facility:[facility] Start: 10-08-2023 End: 10-08-2023 Lab Drop off Torres Talal Sarmini [facility] Start: 10-08-2023 End: 10-08-2023 ambulatory Kian Stevens Facility:[facility] Start: 10-08-2023 End: 10-08-2023 Patient encounter procedure Kian Stevens [facility] Start: 10-08-2023 End: 10-08-2023 ambulatory Melissa Downeyi Facility:[facility] Start: 10-08-2023 End: 10-08-2023 ambulatory Melissa Downeyi Facility::[id number] Start: 09-26-2023 End: 09-26-2023 ambulatory Melissa Downeyi Facility:[facility] Start: 09-26-2023 End: 09-26-2023 Patient encounter procedure Melissa Downeyi [facility] Start: 09-23-2023 End: 09-23-2023 ambulatory Amarjit Choe Facility:[facility] Start: 09-23-2023 End: 09-23-2023 Patient encounter procedure Amarjit Choe [facility] Start: 08-20-2023 End: 08-20-2023 ambulatory MD Yeison Del Valle Facility:[facility] Start: 07-17-2023 ambulatory Amarjit Choe [facility] y:[facility] Start: 06-24-2023 End: 06-24-2023 ambulatory MD Yeison Del Valle Facility:[facility] Start: 05-22-2023 End: 05-22-2023 Lab Drop off Yeison Del Valle [facility] Start: 05-22-2023 End: 05-22-2023 ambulatory MD Yeison Del Valle Facility:[facility] Start: 04-23-2023 End: 09-23-2023 ambulatory MD Yeison Del Valle Facility:[facility] Start: 04-23-2023 End: 09-23-2023 Recurring Yeison Del Valle [facility] Start: 03-07-2023 End: 03-07-2023 Patient encounter procedure Amarjit Choe [facility] Start: 02-11-2023 End: 02-11-2023 Patient encounter procedure Amarjit Choe [facility] Start: 01-23-2023 End: 01-23-2023 Lab Drop off Yeison Del Valle [facility] Start: 08-16-2022 End: 08-16-2022 ambulatory Lisandra May Other [employer] Other Start: 08-16-2022 Telephone encounter Lisandra May [facility] [address] Start: 08-13-2022 End: 08-13-2022 Departed Referred FOXER Lisandra May Work Phone: [facility] Work Phone: Start: 08-13-2022 End: 08-13-2022 ambulatory FOXER Lisandra May Work Phone: [facility] Work Phone: Start: 08-13-2022 Office outpatient vi [...] End: 09-06-[address] PANFILO SHEPPARD . Facility: Start: 01-18-2021 End: 01-19-2021 Emergency department patient visit PANFILO SHEPPARD [facility] Procedures Date Procedure Procedure Detail Performing Clinician Start: 01-13-2024 End: 01-13-2024 Screening mammography of bilateral breasts PHYSICIAN NO FAMILY Start: 11-05-2023 Colonoscopy Beulah Evan DO Work Phone: Start: 08-08-2022 Microscopic observation [Identifier] in Cervix by Cyto stain Beulah Evan DO Work Phone: Biopsy of vulva Yeison Del Valle Colonoscopy Torresignacio Downey i Comment on above: beginning October Colposcopy Yeison Del Valle Diabetes mellitus screening Lisandra May Other Esophagogastroduoden oscopic electrohydraulic lithotripsy of bezoar in stomach Yeison Del Valle Hyperlipidemia screening Amb er May Other Plan of Treatment Date Care Activity Detail Author Start: 11-04-2033 Screening for malignant neoplasm of colon [facility] Start: 11-07-2025 Screening for malignant neoplasm of cervix [facility] Start: 09-27-2025 End: 09-27-2025 Patient encounter procedure 09/27/2025 2:00 PM EDT Office Visit [facility] [address] [place] D [address] [address] Beulah Gordon DO [address] [address] [facility] Start: 08-08-2025 Screening for malignant neoplasm of cervix Pap Smear [facility] Start: 01-13-2025 End: 11-21-2025 DBT Breast - bilateral screening Bilateral screening mammogram with tomosynthesis Imaging Routine Other screening mammogram Expected: 01/13/2025, Expires: 11/21/2025 [facility] Work Phone: Comment on above: Expected: 01/13/2025 , Expires: 11/21/2025 Start: 01-12-2025 Screening for malignant neoplasm of breast Mammogram [facility] Start: 12-07-2024 Influenza vaccination Influenz a Vaccine (Season Ended) [facility] Start: 08-13-2022 Throat culture Throat Culture [facility] Start: 1975 Screening for malignant neoplasm of colon [facility] Bacteria identified in Throat by Aerobe culture [facility] Immunizations Immunization Date Immunization Notes Care Provider Fa cility 07-29-2020 SARS-CoV-2 (COVID-19 ) mRNA-1273 vaccine Yeison Del Valle [facility] 2020 COVID-19 mRNA-1273 (Moderna) FOXER Lisandra May Work Phone: [facility] 06-21-2020 SARS-CoV-2 (COVID-19 ) mRNA-1273 vaccine Yeison Del Valle [facility] 02-21-2015 influenza, injectable, quadrivalent, preservative free Lisandra May Other [employer] Other 02-21-2015 influenza virus vaccine, unspecified formulation Yeison Del Valle [facility] 02-21-2015 influenza, injectable, quadrivalent, contains preservative PHYSICIAN NO [facility] NEGATED: Highlighted row has not occurred!12-22-2023 influenza virus vaccine, unspecified formulation Alyx Josecynthia [facility] NEGATED: Highlighted row has not occurred!12-12-2023 influenza virus vaccine, unspecified formulation Melissa Markham [facility] NEGATED: Highlighted row has not occurred!12-24-2022 influenza virus vaccine, unspecified formulation Yeison Del Valle [facility] Payers Date Payer Category Payer Self-pay [id number] 2020 Medicaid [place]ICA[place] [id number] 2014 Medicare MEDICARE [id number] 2014 Medicare [id number] 1975 Unknown [id number] 2..840.1.135425.3.579.2.900 1977 Unknown [id number] 2.16.840.1.994022.3.579.2.593 1977 Unknown [id number] 2.16.840.1.912269.3.579.2.593 1977 Unknown [id number] 2.16840.1.994286.3.579.2.593 1977 Unknown [id number] 2.16.840.1.173597.3.579.2.593 1977 Unknown [id number] 2.16840.1.020809.3.579.2.593 1977 Unknown [id number] 2.16.840.1.343713.3.579.259 1977 Unknown [id number] 2.16.840.1.428702.3.579.2593 1977 Unknown [id number] 2.16840.1.879153.3.579.259 1977 Unknown [id number] 2.16.840.1.547001.3.579.272 1977 Unknown [id number] 2.840.1.170652.3.579.2 1977 Unknown [id number] 2.840.1.371346.3.579.2 1977 Unknown [id number] 2.840.1.338609.3.579.2 1977 Unknown [id number] 2.16840.1.483979.3.579.2 1977 Unknown [id number] 2.840.1.060336.3.579.2 1977 Unknown [id number] 2.840.1.159425.3.579.272 1977 Unknown [id number] 2.840.1.522097.3.579.2 1977 Unknown [id number] 2.16840.1.412289.3.579.272 1977 Unknown [id number] 2.16840.1.201185.3.579.2 1977 Unknown [id number] 2.16.840.1.102439.3.579.2 1977 Unknown [id number] 2.840.1.987718.3.579.2 1977 Unknown [id number] 2.16.840.1.811512.3.579.2. 1977 Unknown [id number] 2.16.840.1.840537.3.579.2 1977 Unknown [id number] 2.16.840.1.191237.3.579.2 1977 Unknown [id number] 2.16.840.1.169299.3.579.2 1977 Unknown [id number] 2.16.840.1.787402.3.579.2 1977 Unknown [id number] 2.16.840.1.883541.3.579. 1977 Unknown [id number] 2.16.840.1.696613.3.579. 1977 Unknown [id number] 2.16.840.1.142722.3.579. 1977 Unknown [id number] 2.16.840.1.054757.3.579. 1977 Unknown [id number] 2.16.840.1.012839.3.579. 1977 Unknown [id number] 2.16.840.1.389449.3.579.2 1977 Unknown [id number] 2.16.840.1.233932.3.579.2.9 1977 Unknown [id number] 2.16.840.1.015037.3.579.2 1977 Unknown [id number] 2.16.840.1.777328.3.579.2 1977 Unknown [id number] 2.16.840.1.733331.3.579.2 1977 Unknown [id number] 2.16.840.1.780736.3.579.2 1977 Unknown [id number] 2.16.840.1.989296.3.579.2.727 1977 Unknown [id number] 2.16.840.1.629956.3.579.2.727 1959 Medicaid [id number] 1959 Medicare [id number] Unknown [facility]ly [facility] Mammogram [facility] [id number] Unknown [id number] 2.16.840.1.406047.3.579.2.531 Unknown [id number] 2.16.840.1.713953.3.579.2.531 Social History Date Type Detail Facility Start: 12-14-2020 Tobacco smoking stat [facility] Smoker (finding) [facility] Start: 1975 Sex Assigned At Female F [facility] Start: 09-22-2024 Sex Assigned At F [facility] Start: 01-23-2023 End: 04-27-2024 Tobacco smoking status Heavy tobacco smoker (finding) [facility] Comment on above: patient smokes 0.5 p pd since she was 19 Tobacco smoking status [facility] on above: patient smokes 0.5 p pd since she was 19 Start: 08-13-2022 Tobacco smoking stat [facility] Ex-smoker (finding) [facility] Start: 12-29-1995 Tobacco smoking stat [facility] Smokes tobacco daily [facility] Start: 12-29-1995 History of tobacco use Cigarette Smo ker [facility] Start: 09-18-2023 End: 09-22-2024 Cigarettes smoked current (pack per day) - Reported 0.5 [facility] Start: 09-18-2023 Tobacco use and exposure Smokeless tobacco non-user [facility] Start: 09-22-2024 Alcoholic beverage intake Lifetime non-drinker (finding) [facility] Start: 1975 Sex assigned at Not on file [facility] Start: 06-20-2022 Gender identity Identifies as female gender (finding) [facility] Start: 06-20-2022 Sexual orientation Choose not [...] Weight Dosing Start: 05-15-2023 USE DIRECTED WITH [employer] Start: 08-04-2024 Functional Status Date Assessment Result Facility 12-12-2023 Functional Status N/A [facility] 10-08-2023 Functional Status N/A [facility] 09-26-2023 Functional Status N/A [facility] Clinical Notes 08-13-2022 to 10-26-2024 Beulah Gordon, - 09/22/2024 2:00 PM EDT Note Date [...] how to adjust your dosage. ??? Take blpm-hpr-bmqkskl and prescription medicines only as told by [...] the week. ? (more content not included)... [facility] 09-22-2024 History of Present illness Narrative [...] refill. LMP 08/18/24 Mammogram order sent to [facility]. Colonoscopy 2023-normal ) Control Contraception: abstinence. LMP: Patient's last menstrual period was 08/18/2024. Last Mammogram Results for orders placed in visit on 09/18/23 Bilateral screening mammogram with tomosynthesis [facility] [place] [address] [place] [address] Mammography Report Signed Patient: Wendy Erazo MR#: [id number] 7 : 1975 Acct:[id number] Age/Sex: 48 / F ADM Date: 01/13/24 Loc: [place] Room: Type: [facility] Attending Dr: Beulah Gordon DO Copies [...] Location: [facility] Transcribed By: PWS 01/13/24 153 Dictated By: Vikas Huerta Jr, DO 01/13/24 153 Signed By: <Electronically signed by Vikas Huerta [...] Diabetes mellitus (HCC) 04/2023 type 2 Hypertension [id number] Sleep apnea Squamous cell carcinoma in situ [...] 30 tablet; Refill: 4 6. Obesity, morbid ([facility]) - medroxyPROGESTERone (Provera) 10 MG tablet; TAKE [...] (Provera) 10 MG tablet 6. Obesity, morbid ([facility]) E66.01 medroxyPROGESTERone (Provera) 10 MG tablet Follow up in about 1 year (around 09/22/2025) for Yearly. Beulah Gordon DO 09/22/2024 2:28 PM documented in this encounter [facility] 07-17-2024 Note Patient Education Infectious Disease Upper [...] to help relieve symptoms, such as: ??? Nlmb-dlh-yfneurx cold medicines. ??? Medicines to reduce coughing [...] other clear broths. General instructions ??? Take fkyv-ltl-hfwzgyh and prescription medicines only as told by [...] cannot use soap and water, use hand fuse coiler. ??? Avoid touching your mouth, face, eyes, [...] get better within 7?10 days. ??? Take zdql-xsi-hlozswt and prescription med (more content not included)... [facility] 04-13-2024 Note Nurse Consultation N ote [...] Recorded influenza virus vaccine, inactivated 02/21/2015 Recorded [facility] 03-24-2024 Note Patient Education Emergency Medicine Heart Attack A heart attack occurs when blood and oxygen supply to the heart is cut off. A heart attack can cause damage to the heart that cannot be fixed. A heart attack is also called a myocardial infarction, or WI. If you think you are having a [...] these instructions at home: Medicines ??? Take mztt-xys-tlvdsxw and prescription medicines only as told by [...] ??? You fe (more content not included)... [facility] 12-22-2023 Hospital Discharge instructions Patient Education [...] vision. Follow these instructions at home: Take bbua-ylo-zvjnzgu and prescription medicines only as told by [...] provider. Document Revised: 05/31/2021 Document Reviewed: 05/31/2021 [employer] Patient Education 2023 [employer] 12/22/2023 12:40:34 Steps to Quit Smoking Steps [...] require a prescription. You can also purchase hksh-tbk-zafsphd medicines. Medicines may have nicotine in them [...] and encouragement. Call telephone quitlines, such as 6-060-VQWX-NOW, reach out to support groups, or work [...] provider. Document Revised: 03/16/2022 Document Reviewed: 03/16/2022 [employer] Patient Education 2023 [employer] 12/22/2023 12:40:33 BMI for Adults BMI for [...] Centers for Disease Control and Prevention: cdc.gov [place] Heart Association: heart.org National Heart, Lung, and Blood [place]: nhlbi.nih.gov This information is not intended to replace advice given to you by your health care provider. Make sure you discuss any questions you have with your health care provider. Document Revised: 12/13/2022 Document Reviewed: 12/06/2022 [employer] Patient Education 2023 [employer] Follow Up Care 12/22/2023 10:49:21 With:Eligio MEDELLIN, GRACY Junior, [facility] Address: When: only if needed Comments:2 weeks [facility] 12-22-2023 Note Patient Education Infectious [...] Follow these instructions at home: ? Take vmmd-fzc-tjfjknq and prescription medicines only as told by [...] provider. Document Revised: 05/31/2021 Document Reviewed: 05/31/2021 Elsevier Patient Education ? 2023 [employer] Nutrition BMI for Adults Body mass index [...] BMI calculators are (more content not included)... [facility] 10-23-2023 Note Patient Education Nutrition BMI [...] numbers. This can be done either in Bulgarian (U.S.) or metric measurements. Note that charts and online BMI calculators are available to help you find your BMI quickly and easily without having to do these calculations yourself. To calculate your BMI in Bulgarian (U.S.) measurements: 1. Measure your weight in [...] for Disease Control and Prevention: www.cdc.gov ? [place] Heart Association: www.heart.org ? National Heart, Lung, and Blood [place]: www.nhlbi.nih.gov Summary ? Body mass index (BMI) is a number that is calculated from a person's weight and height. ? BMI may help estimate how much of a person's weight is composed of fat. BMI can help identify those who may be at higher risk for certain medical problems. ? BMI can be measured using Bulgarian measurements or metric measurements. ? BMI charts are used to identify whether you are underweight, normal weight, overweight, or obese. This information is not intended to replace advice given to you by your health care provider. Make sure you discuss any questions you have with your health care provider. Document Revised: 12/16/2019 Document Reviewed: 10/23/2019 [employer] Patient Education ? 2022 [employer] [facility] 10-08-2023 Hospital Discharge instructions Patient Education 10/08/2023 13:25:39 Otitis Externa, Trtc-kq-Giph Otitis Externa Otitis externa is an infection [...] if you start to feel better. Take wuhk-dbq-mtvpoba and prescription medicines only as told by [...] provider. Document Revised: 06/07/2021 Document Reviewed: 06/07/2021 [employer] Patient Education 2022 [employer] Follow Up Care 10/08/2023 07:41:20 With:Eligio MEDELLIN, GRACY Junior, [facility] Address:Unknown When: Unknown [facility] 10-08-2023 Note Patient Education Infectious Disease [...] you start to feel better. ? Take umgi-wev-obrgmjw and prescription medicines only as told by [...] provider. Document Revised: 06/07/2021 Document Reviewed: 06/07/2021 [employer] Patient Education ? 2022 [employer] [facility] 09-23-2023 Hospital Discharge instructions Follow Up Care 09/23/2023 10:53:06 With:Дмитрий MEDELLIN, Amarjit Martinez, PUL, JAS Address: [address] [place] [address] [place] [address]- When:1 year [facility] 08-13-2022 Evaluation note Encounter Date Diagnosis Assessment [...] fever/discomfort , cool mist humidifier. May use [place] as needed for cough, do not take any other OTCs while using [place]. Patient to follow up with PCP in 2-3 days. Immediate eval if SOB, difficulty breathing, chest pain, dizziness, or other concerning symptoms. Patient verbalizes understanding and is agreeable to treatment plan. 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 () Appointment Date:03/06/2023 01:20:00 PM Scheduled Provider:Yeison Del Valle MD [facility] Type: Open Appointment Date:03/25/2023 01:00:00 PM Scheduled Provider: [facility] Appointment Type: Medicare Wellness Initial Appointment Date:03/25/2023 01:40:00 PM Scheduled Provider:Yeison Del Valle MD [facility] Appointment Type: Open Diagnostic Tests Pending * [place] Level 01/23/23 Future Scheduled Tests Laboratory* CBC w/ Auto Diff [facility] Future App[facility]ments Appointment Date:03/06/2023 01:20:00 PM Scheduled Provider:Yeison Del Valle MD [facility] Appointment Type: Open Appointment Date:03/25/2023 01:00:00 PM Scheduled Provider: [facility] Appointment Type:FM Medicare Wellness Initial Appointment Date:03/25/2023 01:40:00 PM Scheduled Provider:Yeison Del Valle MD [facility] Appointment Type: Open Future Scheduled Tests Laboratory* CBC w/ Auto Diff [facility]23[facility]23 [facility] Future App[facility]ments Appointment Date:03/25/2023 01:00:00 PM Scheduled Provider: [facility] Appointment Type: Medicare Wellness Initial Appointment Date:03/25/2023 01:40:00 PM Scheduled Provider:Yeison Del Valle MD [facility] Appointment Type: Open Appointment Date:06/06/2023 01:15:00 PM Scheduled Provider:Yeison Del Valle MD [facility] Appointment Type: Open Future Scheduled Tests Laboratory* CBC w/ Auto Diff [facility]23[facility]23 [facility] Future Appointments Appointment Date:06/03/2023 01:00:00 PM Scheduled Provider: Location:[facility] Appointment Type:DM Diabetes Group_C Appointment Date:06/12/2023 01:00:00 PM Scheduled Provider: Location:[facility] Appointment Type:DM Diabetes Group_A Future Scheduled Tests Laboratory* CBC w/ Auto Diff [facility]23[facility]23 [facility] Future Appointments Appointment Date:09/26/2023 12:30:00 PM Scheduled Provider:Melissa Markham MD Location:[facility] Appointment Type:[facility] New Patient Appointment Date:10/22/2023 02:00:00 PM Scheduled Provider:Yeison Del Valle MD Location:[facility] Appointment Type: Open Appointment Date:03/30/2024 11:00:00 AM Scheduled Provider: Location:[facility] Appointment Type: Medicare Wellness Subsequent Future Scheduled Tests Laboratory* CBC w/ Auto Diff [facility]23/23 [facility] Future Appointments Appointment Date:10/22/2023 02:00:00 PM Scheduled Provider:Yeison Del Valle MD Location:[facility] Appointment Type: Open Appointment Date:03/30/2024 11:00:00 AM Scheduled Provider: Location:[facility] Appointment Type: Medicare Wellness Subsequent Future Scheduled Tests Laboratory* Celiac Disease Comprehensive 09/26/23 * CBC w/ Auto Diff 01/23/23 [facility] Evaluation + Plan note Future Appointments Appointment Date:03/30/2024 11:00:00 AM Scheduled Provider: Location:[facility] Appointment Type: Medicare Wellness Subsequent Future Scheduled Tests Laboratory* Celiac Disease Comprehensive 09/26/23 * CBC w/ Auto Diff 01/23/23 [facility] Evaluation + Plan note Future Appointments Appointment Date:04/27/2024 10:45:00 AM Scheduled Provider:Yeison Del Valle MD Location:[facility] Appointment Type: Open Appointment Date:03/24/2025 01:00:00 PM Scheduled Provider: Location:[facility] Appointment Type: Medicare Wellness Subsequent Future Scheduled Tests Laboratory* Celiac Disease Comprehensive 09/26/23 [facility] Evaluation + Plan note Future Appointments Appointment Date:10/26/2024 01:00:00 PM Scheduled Provider:[facility]ison [facility]FM Open Appointment Date:03/24/2025 01:00:00 PM Scheduled Provider: [facility] Type:FM Medicare Wellness Subsequent Future Scheduled Tests Laboratory* Celiac Disease Comprehensive 09/26/23 [facility] Evaluation noteNo assessment information available [facility] Work Phone: [email or web address] noteNo InformationNort [employer] Other Evalufaegu note* Diagnosis Encounter for gynecological examination without abnormal finding- Primary Other screening mammogram Encounter for surveillance of contraceptive pills History of irregular menstrual cycles Irregular menstruation, unspecified Obesity, morbid ([facility]) Morbid obesity documented in this encounter [facility] N[facility] - Reported* Type Description Date Medical History HYPERTENSION Medical History HYPERLIPIDEMIA Medical History BIPOLAR DISORDER Medical History URINARY INCONTINENCE Surgical History WISDOM TEETH Surgical History EGD Hospitalization History MENTAL HEALTH Hospitalization History see above [employer] Other Hospital course Narrative No data available for this section [facility] No data available for this section [facility] No data available for this section [facility] Summary Purpose Family History No Family History [...] Visit Chief Complaint Sore throat Chief Complaint BH Z12.31 Additional Source Comments INFORMATION SOURCE (unrecogn ized section and content) DATE CREATED AUTHOR 01/23/2021 [facility] DATE CREATED AUTHOR AUTHOR'S ORGANIZ ATION 07/31/2022 [facility] DATE CREATED AUTHOR AUTHOR'S ORGANIZ ATION 10/12/2023 [facility] DATE CREATED AUTHOR AUTHOR'S ORGANIZ ATION 10/15/2023 [facility] DATE CREATED AUTHOR AUTHOR'S ORGANIZ ATION 11/10/2023 [facility] DATE CREATED AUTHOR AUTHOR'S ORGANIZ ATION 11/26/2023 [facility] DATE CREATED AUTHOR AUTHOR'S ORGANIZ ATION 03/29/2024 [facility] DATE CREATED AUTHOR AUTHOR'S ORGANIZ ATION 04/19/2024 [facility] DATE CREATED AUTHOR AUTHOR'S ORGANIZ ATION 04/28/2024 [facility] DATE CREATED AUTHOR AUTHOR'S ORGANIZ ATION 04/29/2024 [facility] DATE CREATED AUTHOR AUTHOR'S ORGANIZ ATION 09/25/2024 [facility]ical [facility] DATE CREATED AUTHOR AUTHOR'S ORGANIZ ATION 10/01/2024 [facility] DATE CREATED AUTHOR AUTHOR'S ORGANIZ ATION 10/28/2024 [facility] DATE CREATED AUTHOR AUTHOR'S ORGANIZ ATION 11/04/2024 [facility] DATE CREATED AUTHOR AUTHOR'S ORGANIZ ATION 11/28/2024 [facility] Care Teams (unrecognized sec tion [...] Status: Inactive Member Role Status Dates Beulah Gordon DO Attending Provider Active Start: January 13, 2024 End: January 13, 2024 Yeison Del Valle MD Primary Care Provider Active Start: January 13, 2024 End: January 13, 2024 Process Line Operator Relationship Specialty Start Date End Date Yeison Del Valle MD [facility] [place] [address] PCP - General Family Medicine 09/22/24 Goals (unrecognized section and content) Goals may [...] refill. LMP 08/18/24 Mammogram order sent to [facility]. Colonoscopy 2023-normal FOR RECORDS PERTAINING TO PATIENTS [...] BE BASED ON THE PRIMARY CLINICAL RECORDS. [employer] [facility]. provides no warranty or guarantee of the accuracy or completeness of information in this document.
== END 2025-01-07 12:59 | disposition home or self-care (01) ==
LOC: MAMMO 12:58
PROVIDERS: PCP Family Medicine; Visit Provider Obstetrics & Gynecology
DX: Z12.31 Encounter for screening mammogram for malignant neoplasm of breast (principal)
CPT/HCPCS: 77063; 77067

== ENCOUNTER 2025-02-18 13:37 | Outpatient (OUT) | payer OTHER, MEDICAID, SELFPAY ==
--- OUTSIDE RECORDS SUMMARY | 2025-02-18 13:39 | XMS_ITS | Clinical Summary ---
Author Organization [facility] Address [address] [place] [address], [address] [place] [address] Care Team Providers Care Ball Maker Name Role Phone Unavailable Primary Care Provider Unavailabl e Social History Tobacco UseTypesPacks/DayYears UsedDateSmoking Tobacco: Never Assessed CommentsUnknownSex and Gender InformationValueDate RecordedSex Assigned at Not on fileLegal BtgQvoykj79/12/2013 11:30 PM ESTGender IdentityNot on file Sexual OrientationNot on file Plan of Treatment Not on file
--- OUTSIDE RECORDS SUMMARY | 2025-02-18 13:39 | XMS_ITS | Clinical Summary ---
Author Organization [facility] Address [address] [place] [address] Care Team Providers Care Local Company Truck Driver Name Role Phone Jessie Coughlin MD Primary Care Provider [phone] Allergies No known active allergies Medications MedicationSigDispense QuantityRefillsLast FilledStart DateEnd DateStatus ARIPiprazole ER (ABILIFY MAINTENA) 400 mg SERR Inject 400 mg into the shoulder, thigh, or buttocks every 28 days .01/18/2021 Active nicotine polacrilex (NICORETTE) 2 mg gum Apply 2 mg to the mouth or throat as needed for smoking cessation .Active OLANZapine (ZYPREXA) 10 MG tablet Take 10 mg by mouth nightly .Active metoprolol tartrate (LOPRESSOR) 25 MG tablet Take 25 mg by mouth 2 (two) times a day .Active gemfibroziL (LOPID) 600 MG tablet Take 600 mg by mouth 2 (two) times a day before meals .Active lisinopriL (PRINIVIL,ZESTRIL) 10 MG tablet Take 10 mg by mouth daily .Active pantoprazole (PROTONIX) 40 MG tablet Take 40 mg by mouth daily .Active ziprasidone (GEODON) 80 MG capsule Take 80 mg by mouth 2 (two) times a day with meals .Active Active Problems ProblemNoted DateDiagnosed DateBipolar 1 ucvvlfds90/14/2021 Social History Tobacco UseTypesPacks/DayYears UsedDateSmoking Tobacco: UnknownAlcohol Use Standard Drinks/WeekCommentsNot Asked0 (1 standard drink = 0.6 oz pure alcohol) unable to assessCommentsUnknownSex and Gender InformationValueDate RecordedSex Assigned at BirthNot on fileLegal ZvbWdpedt70/13/2021 8:03 PM EDT Gender SnuetlrlXwjsia01/ 8:39 PM EDTSexual OrientationChoose not to cdjaebes00/13/2021 8:39 PM EDT Last Filed Vital Signs Vital SignReadingTime TakenCommentsBlood Sghtcwhq761/9301/18/2021 10:18 PM EDT Hrzyx01881/13/2021 10:18 PM JTWXhgjqtpjqiq26.7 ??C (98.1 ??F)01/18/2021 10:18 PM EDTRespiratory Gbsc4848 10:18 PM EDTOxygen Jwjzpzztdi14%01/18/2021 10:18 PM EDTInhaled Oxygen Concentration--Ocvvvq962.9 kg (260 lb)01/18/2021 10:58 PM EDTHeight--Body Mass Index-- Plan of Treatment Not on file Insurance Care Teams Team MemberRelationshipSpecialtyStart DateEnd Jessie Coughlin MD [address] [facility] [place] [address] PCP - GeneralFamily Upnojcnp36/13/21
--- OUTSIDE RECORDS SUMMARY | 2025-02-18 13:39 | XMS_ITS | Clinical Summary ---
Author Organization [facility] Address [address] [place] [address] Care Team Providers Care Consulting Database Administrator Name Role Phone Yeison Del Valle MD Primary Care Provider [phone] Allergies No known active allergies Medications MedicationSigDispense QuantityRefillsLast FilledStart DateEnd DateStatus atorvastatin (Lipitor) 40 MG tablet Take 40 mg by mouth Daily5Active albuterol HFA 90 mcg/act inhaler 5Active Continuous Glucose Sensor (FreeStyle Rupinder 2 Sensor) misc USE WITH FREESTYLE RUPINDER TO CHECK BLOOD SUGARS DAILY (E11.69)5Active FreeStyle Precision Reddy Test test strip USE DIRECTED WITH FREESTYLE RUPINDER 2 MRBZWB655Active levothyroxine (Synthroid, Levoxyl) 75 MCG tablet Take 75 mcg by mouth DailyActive lithium ER (Lithobid) 300 MG 12 hr tablet Take 300 mg by mouth Daily5Active metFORMIN XR (Glucophage-XR) 500 MG 24 hr tablet Take 1,000 mg by mouth in the morning and 1,000 mg before bedtime.07/15/2024 Active metoprolol succinate XL (Toprol-XL) 25 MG 24 hr tablet Take 25 mg by mouth DailyActive OLANZapine (ZyPREXA) 10 MG tablet TAKE 1 TABLET BY MOUTH AT BEDTIME (TAKE WITH A 20 MG AT NIGHT FOR 30 MG TOTAL) Active OLANZapine (ZyPREXA) 20 MG tablet Take 1 tablet by mouth at bedtimeActive pantoprazole (ProtoNix) 40 MG EC tablet Take 40 mg by mouth DailyActive Ozempic, 1 MG/DOSE, 4 MG/3ML solution pen-injector INJECT 1MG SUBCUTANEOUSLY ONCE A WEEKActive medroxyPROGESTERone (Provera) 10 MG tablet Indications:History of irregular menstrual cycles,Irregular menstruation, unspecified,Obesity, morbid (CMS-HCC)TAKE 1 TABLET BY MOUTH ONCE A DAY WITH FOOD on Day #1 to Day #10 of the month 30 tablet 5Active Encounters DateTypeDepartmentCare OxviOawddtwhebs67/06/2025Orders Only [facility] [address] [address] Beulah Gordon DO from Last 3 Months Family History Medical HistoryRelationNameCommentsHypertensionFatherDaveDiabetesMotherBev RelationNameStatusCommentsFatherDaveAliveMotherBevAlive Social History Tobacco UseTypesPacks/DayYears UsedDateSmoking Tobacco: Every DayCigarettes0.5 29.1Started: 12/29/1995Smokeless Tobacco: Never Tobacco Cessation:Ready to Q uit: Not Asked; Counseling Given: Not Answered Alcohol UseStandard Drinks/WeekCommentsNever0 (1 standard drink = 0.6 oz pure alcohol)CommentsNoSex and Gender InformationValueDate RecordedSex Assigned at BirthNot on fileLegal GzeOzfijp65/15/2023 6:57 PM EDTGender Identity Cviisp7406/20/2022 6:57 PM EDTSexual OrientationChoose not to jtbmfuja66/15/2023 6:57 PM EDT Last Filed Vital Signs Vital SignReadingTime TakenCommentsBlood Ahgztjdt193/8209/22/2024 1:52 PM EDT Pulse--Temperature--Respiratory Rate--Oxygen Saturation--Inhaled Oxygen Concentration--Mfulhv181 kg (227 lb)09/22/2024 1:52 PM LGOExckio947.5 cm (5' 2 ) 08/08/2022 12:00 PM EDTBody Mass Index41.52008/08/2022 12:00 PM EDT Plan of Treatment DateTypeDepartmentCare Team (Latest Contact Info)Mpnybeozgzi29/22/2026 2:00 PM EDTOffice Visit [facility] [address] [phone] Beulah Gordon, DO [address] [facility] [address] [place] [address] Health MaintenanceDue DateLast DoneCommentsCT Jpobcgghtije73/26/1978FIT-DNA 1977FIT1977FOBT1977 1683Xjwczhmtrcici89/26/1978COVID-19 Vaccine ( season)/, 2020Influenza Vaccine (#1) /Pap Smear/ervical Cancer Screening 11/07/2025HPV/Ibvezm31/05/2020, 12/24/20188414Dlabbhowx71/02/2026 01/07/2025, 01/13/2024, 01/10/2023, Additional history existsColonoscopy , 11/05/2023, 10/08/2023, Additional history exists Colorectal Cancer Ahdmhvjvn67/30/2034neumococcal Vaccine: Pediatrics (0 to 5 Years) and At-Risk Patients (6 to 64 Years)Aged OutNo longer eligible based on patient's age to complete this topic Procedures Procedure NamePriorityDate/TimeAssociated DiagnosisCommentsMAMMO 3D,BILATERAL SCREENING MAMMOGRAM WITH RHMWCQDxjprkg43/02/2025 10:57 AM EDTTHINPREP TIS PAP AND HPV MRNA E6/E7 REFLEX HPV 16,18/45 ([id number])Wcdhkzj9508/08/2022 THINPREP TIS PAP REFLEX HPV MRNA E6/E7 (07432)Bdezdit1511/07/2020 from Last 3 Months or Most Recently Relevant to Health Maintenance Results * MAMMO 3D,BILATERAL SCREENING MAMMOGRAM WITH TOMOSY (01/07/2025 10:57 AM EDT) Anatomical RegionLateralityModalityRadiographic Imaging Narrative Authorizing ProviderResult TypeResult StatusBeulah Lillyaprawi DOIMG XR PROCEDURESFinal Result * THINPREP TIS PAP AND HPV MRNA E6/E7 REFLEX HPV 16,18/45 ([id number]) (08/08/2022) ComponentValueRef RangeTest MethodAnalysis TimePerformed AtPathologist SignatureCLINICAL INFORMATION:None givenNOMS LEGACY EXTERNAL LABLMP:None given [facility] LEGACY EXTERNAL LABPREV. PAP:None givenNOMS LEGACY EXTERNAL LABPREV. BX: None givenNOMS LEGACY EXTERNAL LABSOURCE:Cervix, EndocervixNOMS LEGACY EXTERNAL LABSTATEMENT OF ADEQUACY:SEE COMMENTNOMS LEGACY EXTERNAL LABComment: Satisfactory for evaluation. Endocervical/transformation zone component absent. INTERPRETATION/RESULT:Negative for intraepithelial lesion or malignancy.[facility] EX[facility] LABCOMMENT:This Pap test has been evaluated with computer assisted technology.[facility] LABCYTOTECHNOLOGIST:SEE COMMENTNOMS LEGACY EXTERNAL LABComment: [facility] [place], [place]) CT Screening Location: [employer] [address] ??[address] COMMENTSEE COMMENTNOMS LEGACY EXTERNAL LABComment: EXPLANATORY NOTE: The Pap is a screening test for cervical cancer. It is not a diagnostic test and is subject to false negative and false positive results. It is most reliable when a satisfactory sample, regularly obtained, is submitted with relevant clinical findings and history, and when the Pap result is evaluated along with historic and current clinical information. HPV MRNA E6/E7Not DetectedNot DetectedNOMS LEGACY EXTERNAL LABComment: Methodology: [employer] Black Trainer-Mediated Amplification This assay detects E6/E7 viral messenger RNA (mRNA) from 14 high-risk HPV types (16,18,31,33,35,39,45,51,52,56,58,59,66,68). Cervical sources are required for HPV testing. If a vaginal source from a patient who has had a total hysterectomy with removal of cervix was submitted, please contact the testing laboratory for alternative testing options. For additional information, please refer to http://education.[employer]/faq/OIX989p6 (This link if provided for information/ educational purposes only.) Specimen (Source)Anatomical Location / LateralityCollection Method / Volume Collection TimeReceived Time08/08/2022 Narrative Authorizing ProviderResult TypeResult StatusMona Molina Nataprawi DOECW LABSFinal ResultPerforming OrganizationAddressCity/State/ZIP CodePhone Number [facility] * THINPREP TIS PAP REFLEX HPV MRNA E6/E7 ([id number]) (11/07/2020)ComponentValueRef RangeTest MethodAnalysis TimePerformed AtPathologist SignatureCLINICAL INFORMATION:None givenNOMS LEGACY EXTERNAL LABLMP:09/26/20N[facility] LEGACY EXTERNAL LABPREV. PAP:12/24/18 NEGATIVENOMS LEGACY EXTERNAL LABPREV. BX:NONOMS LEGACY EXTERNAL LABSOURCE:Cervix, EndocervixNOMS LEGACY EXTERNAL LABSTATEMENT OF ADEQUACY:SEE COMMENTNOMS LEGACY EXTERNAL LABComment: Satisfactory for evaluation. Endocervical/transformation zone component absent. INTERPRETATION/RESULT:Negative for intraepithelial lesion or malignancy.[facility] EXTER[facility] LABCOMMENT:This Pap test has been evaluated with computer assisted technology.[facility] LABCYTOTECHNOLOGIST:SEE COMMENTNOMS LEGACY EXTERNAL LABComment: [facility], CT(ASCP) CT screening location: [employer] [facility], [address] [place] [address]. COMMENTSEE COMMENTNOMS LEGACY EXTERNAL LABComment: EXPLANATORY NOTE: The Pap is a screening test for cervical cancer. It is not a diagnostic test and is subject to false negative and false positive results. It is most reliable when a satisfactory sample, regularly obtained, is submitted with relevant clinical findings and history, and when the Pap result is evaluated along with historic and current clinical information. Specimen (Source)Anatomical Location / LateralityCollection Method / Volume Collection TimeReceived Time11/07/2020 Narrative Authorizing ProviderResult TypeResult StatusJonathan F LeakeECW LABSFinal Result Performing OrganizationAddressCity/State/ZIP CodePhone Number [facility] from Last 3 Months or Most Recently Relevant to Health Maintenance Insurance Care Teams Team MemberRelationshipSpecialtyStart DateEnd Date Yeison Del Valle MD [address] [place] [address] PCP - GeneralFamily Medicine09/22/24
--- OUTSIDE RECORDS SUMMARY | 2025-02-18 13:40 | XMS_ITS | Patient Health Record ---
Author Organization [facility] [place] Address [address] [place] [address] Care Team Providers Care Transmission System Operator Name Role Phone Yeison Del Valle MD Primary Care Provider Annalisa Overton Unavailable [phone] Allergies No Known Allergies Reason For Referral No Information Medications Medication SIG (Take, Route, Frequency, Duration) Notes Start Date End Date Status metFORMIN HCl ER 500 MG 1 tablet with evening me al Orally 4x daily 11/07/2023ctiveLithium Carbonate ER 300 MG1 tablet at bedtime Orally Once a day 11/07/2023ctiveMetoprolol Succinate ER 25 MG1 tablet Orally Once a day 11/07/2023ctiveAtorvastatin Calcium 40 MG1 tablet Orally Once a day11/07/2023 ActiveOzempic (1 MG/DOSE) 4 MG/3MLas directed Fftpduckgndd48/01/2024ctive Pantoprazole Sodium 40 MG1 tablet Orally Once a day11/07/2023ctiveLevothyroxine Sodium 75 MCG1 tablet in the morning on an empty stomach Orally Once a day 11/07/2023ctiveOLANZapine 10 MG1 tablet Orally Once a day11/07/2023ctive OLANZapine 20 MG1 tablet Orally Once a day11/07/2023ctiveLithium Carbonate ER 450 MG2 @ bedtime Orally Once a day11/07/2023ctive Social History Tobacco Use: Social History Observation Description Date Details (start date - stop date) Current Smoker NA - NA Tobacco Control (Standard) Question Answer Notes Tobacco use: Current smoker Problems Problem Type SNOMED Code ICD Code Onset Dates Problem Status W/U Status Risk Notes Problem Type II diabetes haleigh litus without complication ([id number]) Type 2 diabetes mellitus without complications (E11.9) Activeconfirmed Vital Signs Heart Rate 71 /min 05/21/2024 Gvthzzsoyir43.4 degrees Yjgtybhhyn89/13/2025Respiratory Rate14 /min02/20/2024 Zsejcehm66 %05/21/20241272Pzwdek21 in05/21/20249970Nzetha934 lbs104/21/2023BMI39.48 kg/m2 02/20/2024 Encounters Encounter Location Date Provider Diagnosis [facility] (PODIATRY) [address] [place] [address] [place] [address] 02/20/2024 Annalisaedel Dongen Type 2 diabetes mellitus without complications E11.9 [facility] (PODIATRY) [address] [place] [address] [place] [address] 05/21/2024 Annalisa Dongen Type 2 diabetes mellitus without complications E11.9 Assessments Encounter Date Diagnosis (ICD Code) Assessment Notes Treatment Notes Treatment Clinical Notes Section Notes 02/20/2024 Type 2 diabetes mellitus without complications (ICD-10 - E11.9) 05/21/2024Type 2 diabetes mellitus without complications (ICD-10 - E11.9) Plan Of Treatment No Information Insurance Providers Payer Name Payer Address Payer Phone Subscriber Number Group Number Insured Name Patient Relationship to Insured Coverage Start Date Coverage End Date [employer] [facility] [address] [place] [phone] [id number] Carlyle Erazo - patient is the insuredMEDICAID [facility] [address] OFF[place] OF [place], [place] [id number], [employer] - patient is the insured Medical (General) History Medical History History ICD Code hypertension diabeteshypercholesterolemiathyroid disease
--- OUTSIDE RECORDS SUMMARY | 2025-02-18 13:48 | XMS_ITS | CCD ---
Author Organization [facility] Care Team Providers Care It Help Desk Technician Name Role Phone PANFILO SHEPPARD Primary Care Unavailable WIL ZEPEDA Attending UnavailWIL Valentino Admitting Unavailjaimie flower SHEPPARD ., DR PANFILO Flower Admitting Unavailable SHEPPARD ., DR PANFILO Flower Attending Unavailable SHEPPARD ., DR PANFILO Flower Primary Care Unavailable SHEPPARD ., DR PANFILO Flower Consulting Unavailable SHEPPARD ., DR PANFILO Flower Admitting Unavailable SHEPPARD ., DR PANFILO Flower Attending Unavailable SHEPPARD ., DR PANFILO Flower Primary Care Unavailable SHEPPARD ., DR PANFILO Flower Consulting Unavailable HOUSTON, DR WIL Mendieta Consulting Unavailable SHEPPARD ., DR PANFILO Flower Admitting Unavailable SHEPPARD ., DR PANFILO Flower Attending Unavailable SHEPPARD ., DR PANFILO Flower Primary Care Unavailable SHEPPARD ., DR PANFILO Flower Consulting Unavailable SPROUT, WENDY Admitting Unavailable SPROUT, WENDY Attending Unavailable SHEPPARD ., DR PANFILO Flower Primary Care Unavailable SPROUT, WENDY Consulting Unavailable SPROUT, WENDY Admitting Unavailable SPROUT, WENDY Attending Unavailable SHEPPARD ., DR PANFILO Flower Primary Care Unavailable SPROUTWENDY Consulting Unavailable SHEPPARD ., DR PANFILO Flower Primary Care Unavailable MARKER ., DR FORMAN Admitting Unavailable MARKER ., DR FORMAN Attending Unavailable PAY ., DR SPIVEY Consulting Unavailable MARKER ., DR FORMAN Consulting Unavailable OTTO BHARDWAJ Consulting Unavailable SHEPPARD ., DR PANFILO Flower Primary Care Unavailable SHERLY ., EL Admitting Unavailable SHERLY ., EL Attending Unavailable WALLACE, DR NIRMAL Shaikh Consulting Unavailable SHERLY ., EL Consulting Unavailable MISC, DR GRANT Admitting Unavailable MISC, DR GRANT Attending Unavailable SHEPPARD ., DR PANFILO Flower Primary Care Unavailable MISC, DR GRANT Consulting Unavailable ROSALIND, WENDY Consulting Unavailable SAVANNAH May Attending Provider [phone] Lisandra May Unavailable Yeison Del Valle. Primary Care Physician Mera Funk Unavailable Unavailable Sarmini, Torres Talal Admitting Unavaila ble Sarmini, Torres Talal Attending Unavaila ble Sarmini, Torres Talal Attending Unavaila ble Sarmini, Torres Talal Referring Unavaila ble Yeison Del Valle Attending Unavailable Sarmini, Torres Talal Admitting Unavaila ble Sarmini, Torres Talal Attending Unavaila ble NO FAMILY, PHYSICIAN Primary Care Provider Unava ilable MD Jerry Aponte Attending Provider DO Beulah Gordon Attending Provider MD Yeison Del Valle Primary Care Provider Shahrzad, Torres Talal Attending Unavaila ble Choe, Basemacario GEarl Attending Unavailable MD Yeison Del Valle Attending Unavailable MD Yeison Del Valle Attending Unavailable MD Yeison Del Valle Attending Unavailable MD Yeison Del Valle Attending Unavailable MD Yeison Del Valle Attending Unavailable MD Yeison Del Valle Attending Unavailable MD Yeison Del Valle Referring Unavailable Amarjit Choe Attending Unavailable Дмитрий Basemacario GEarl Referring Unavailable MD Yeison Del Valle Admitting Unavailable MD Yeison Del Valle Attending Unavailable Kian Stevens Attending Unavailable Yeison Del Valle Admitting Unavailable Yeison Del Valle Attending Unavailable Alyx Beverly Attending Unavailable Barneymini, Torres Talal Attending Unavaila ble Barneymini, Torres Talal Attending Unavaila ble Barneymini, Torres Talal Referring Unavaila Yeison Orlando Attending Unavailable Yeison Del Valle Attending Unavailable Yeison Del Valle Attending Unavailable Yeison Del Valle MD Primary Care Provider BEULAH GORDON Attending Unavailable MIRYAM YUN Attending UnavailMIRYAM Carlos Admitting UnavailYeison Hunter Attending Unavailable Yeison Del Valle Admitting Unavailable Yeison Del Valle Attending Unavailable Yeison Del Valle Admitting Unavailable MICHELLE YUN Attending Unavailable Beulah Gordon Admitting Unavailable Beulah Gordon Attending Unavailable Yeison Del Valle Primary Care Unavailable Jerry Aponte Admitting Unavailab Jerry Mccall Attending Unavailab le NIKOLAY FAMILY, PHYSICIAN Primary Care Unavailable Yeison Del Valle Admitting Unavailable Yeison Del Valle Attending Unavailable Hill Pagan Attending Unavailable MICHELLE YUN Attending Unavailable Amarjit Choe Attending Unavailable Amarjit Choe Referring Unavailable MICHELLE YUN Admitting Unavailable MICHELLE YUN Attending Unavailable Medications Current Medications MedicationDrug Class(es)DatesSig (Normalized)Sig (Original)3 ML semaglutide 1.34 MG/ML Pen Injector [Ozempic] (10 sources)Start: 04-70-9371arfmzy 1 mg by subcutaneous injection every week Start: 62-39-1929rxcxrn 1 mg by subcutaneous injection every weekStart: 67-96-2561vyzgum 1 mg by subcutaneous injection every weekOzempic (1 mg dose) 4 mg/3 mL subcutaneous solution 1 mg, SubCutaneous, qWeek, # 3 EA, Refills(s) 0, Pharmacy: [facility]/pharmacy #[id number], 160, cm, 08/20/23 14:44:00 EDT, Height/Length Dosing, 110.5, kg, 08/20/23 14:44:00 EDT, Weight Dosing Start Date: 08/20/23 Status: [id number] 200 actuat albuterol 0.09 mg/actuat metered dose inhaler (4 sources)beta2-Adrenergic AgonistStart: 66-48-0419edpipoonj HFA 90 mcg/act inhaler 09/13/2024 ActiveStart: 36-04-5848jrnd 2 puff(s) by inhalation every four to six hours as neededAlbuterol Sulfate HFA 108 (90 Base) MCG/ACT 2 puffs as needed Inhalation every 4-6 hours for 14 days August, ActiveARIPiprazole 10 mg oral tablet (4 sources)Atypical AntipsychoticStart: 94-92-3484pngd 10 mg by mouth once daily Aripiprazole Active 10 MG PO Daily 01 15December 18, 2020 12:00amStart: 67-46-1483Armrjjhxgzyq (Abilify Maintena) 400 mg Suspension,Extended Rel Recon Active 400 MG IM Q28D December 18, 2020 12:00am Due on or around 01/12/21 atorvastatin 40 mg oral tablet (10 sources)HMG-CoA Reductase InhibitorStart: 76-20-5905foon 1 tablet by mouth once dailyatorvastatin (Lipitor) 40 MG tablet Take 40 mg by mouth Daily 09/05/2024 ActiveStart: 84-17-5364goys 1 tablet by mouth once dailyatorvastatin 40 mg Tab See Instructions, TAKE 1 TABLET BY MOUTH EVERY DAY, # 90 tab(s), Refills(s) 0, Pharmacy: [facility] STORE [id number], 160, cm, 12/22/23 12:02:00 EDT, Height/Length Dosing, 100, kg, 12/22/23 12:02:00 EDT, Weight Dosing Start Date: 03/24/24 Status: OrderedStart: 05-11-9796ajpb 1 tablet by mouth once daily atorvastatin 40 mg Tab See Instructions, TAKE 1 TABLET BY MOUTH EVERY DAY, # 90 tab(s), Refills(s) 0, Pharmacy: [id number], 160, cm, 12/12/23 15:03:00 EDT, Height/Length Dosing, 102, kg, 12/12/23 15:03:00 EDT, Weight Dosing Start Date: 12/16/23 Status: OrderedStart: 39-84-3872lbhb 1 tablet by mouth once dailyLipitor 40 mg Tab 40 mg = 1 tab(s), Oral, Daily, # 90 tab(s), Refills(s) 0, Pharmacy: [facility]/pharmacy #[id number], 160, cm, 09/26/23 12:34:00 EDT, Height/Length Dosing, 105, kg, 09/26/23 12:34:00 EDT, Weight Dosing Start Date: 09/26/23 Status: Ordered bacitracin 0.4 unt/mg / neomycin 0.0035 mg/mg / polymyxin b 5 unt/mg topical ointment (2 sources)Aminoglycoside Antibacterial, Polymyxin-class AntibacterialStart: 41-12-6842Yavewbnc-Bacitracnzn-Polymyxnb (Triple Antibiotic) 3.5mg-400 unit- 5,000 unit/gram Ointment Active 1 APPLIC TOPICAL Three times daily 0 December 18, 2020 12:00amcetirizine hydrochloride 10 mg oral tablet (4 sources)Histamine-1 Receptor AntagonistStart: 02-80-7555afzc 1 tablet by mouth once daily as neededcetirizine 10 mg Tab See Instructions, TAKE 1 TABLET BY MOUTH ONCE EVERYDAY NEEDED FOR ALLERGY SYMPTOMS, # 90 tab(s), Refills(s) 1, Pharmacy: [facility] STORE [id number], 160, cm, 12/24/22 11:04:00 EDT, Height/Length Dosing, 121.6, kg, 12/24/22 11:04:00 EDT, Weight Dosing Start Date: 01/17/23 Status: Orderedcholecalciferol 1.25 mg oral capsule (2 sources)Vitamin DStart: 07-15-6233lhgz 1250 ug by mouth every week Cholecalciferol (Vitamin D3) Active 1250 MCG PO every week December 13, 2020 12:00amContinuous Glucose Sensor (FreeStyle Rosalinda 2 Sensor) misc (2 sources)Start: 54-43-5776Mhksehqofr Glucose Sensor (FreeStyle Rosalinda 2 Sensor) [facility] USE WITH FREESTYLE ROSALINDA TO CHECK BLOOD SUGARS DAILY (E11.69) 09/01/2024 Activedextromethorphan hydrobromide 1.5 mg/ml / pyrilamine maleate 1.5 mg/ml oral solution (2 sources)Uncompetitive G-jsbxfr-G-aspartate Receptor Antagonist, Sigma-1 AgonistStart: 98-09-7988agvz 10 mL by mouth every eight hoursCapron DM 7.5-7.5 MG/5ML 10 mL Orally every 8 hours for 5 days August, Activeerythromycin 0.005 mg/mg ophthalmic ointment (1 source)Macrolide, Macrolide AntimicrobialStart: 12-22-2023 End: 94-39-6664dtnbrqhwgmkk Opth 0.5% Oint 1/4 inch ribbon, Eye-Right, TID for 7 day(s), 3.5 gm, Refill(s) 0, [facility]/pharmacy #[id number], 160, cm, 12/22/23 12:02:00 EDT, Height/Length Dosing, 100, kg, 12/22/23 12:02:00 EDT, Weight Dosing Start Date: 12/22/23 Stop Date: 12/29/23 Status: OrderedFree style Rosalinda 2 reader (1 source)Start: 80-12-3000Xxcy style Rosalinda 2 reader Free style Rosalinda 2 reader, See Instructions, 1 EA, 0, [facility], [facility]/pharmacy #[id number], Supply, 160, cm, 03/24/24 14:43:00 EST, Height/Length Dosing, 102.8, kg, 03/24/24 14:43:00 EST, Weight Dosing Start Date: 04/20/24 Status: OrderedFree Style Rosalinda 2 Sensors (10 sources)Start: 27-81-5409Bavn Style Rosalinda 2 Sensors Free Style Rosalinda 2 Sensors, See Instructions, 2 EA, 3, To be used w/FS Rosalinda to check blood sugars daily. Dx: E11.69, [facility]/pharmacy #[id number], Supply, 160, cm, 03/24/24 14:43:00EST, Height/Length Dosing, 102.8, kg, 03/24/24 14:43:00 EST, Weight Dosing Start Date: 04/20/24 Status: OrderedStart: 07-08-6544Ihjz Style Rosalinda 2 Sensors Free Style Rosalinda 2 Sensors, See Instructions, 2 EA, 3, To be used w/FS Rosalinda to check blood sugars daily. Dx: E11.69, [facility]/pharmacy #[id number], Supply, 160, cm, 12/22/23 12:02:00EDT, Height/Length Dosing, 100, kg, 12/22/23 12:02:00 EDT, Weight Dosing Start Date: 01/03/24 Status: OrderedStart: 77-15-3678Wrpg Style Rosalinda 2 Sensors Free Style Rosalinda 2 Sensors, See Instructions, 2 EA, 3, To be used w/FS Rosalinda to check blood sugars daily. Dx: E11.69, [facility]/pharmacy #[id number], Supply, 160, cm, 08/20/23 14:44:00EDT, Height/Length Dosing, 110.5, kg, 08/20/23 14:44:00 EDT, Weight Dosing Start Date: 09/19/23 Status: Orderedgemfibrozil 600 mg oral tablet (4 sources)Peroxisome Proliferator Receptor alpha AgonistStart: 80-29-6091jkwv 600 mg by mouth twice dailyGemfibrozil Active 600 MG PO Twice daily March 15, 2018 1:00amhydrocortisone 10 mg/ml / neomycin 3.5 mg/ml / polymyxin b 62685 unt/ml otic solution (2 sources)Aminoglycoside Antibacterial, Polymyxin-class Antibacterial, CorticosteroidStart: 10-08-2023 End: 84-21-4681hkhsxaczjoscbr/neomycin/polymyxin B Otic Radha 4 drop(s), Otic, TID for 7 day(s), 10 mL, Refill(s) 0,Right ear, [facility]/pharmacy #[id number], 160, cm, 10/08/23 13:02:00 EDT, Height/Length Dosing, 104.8, kg, 10/08/23 13:02:00 EDT, Weight Dosing Start Date: 10/08/23 Stop Date: 10/15/23 Status: Orderedlevothyroxine sodium 0.075 mg oral tablet (18 sources)l-ThyroxineStart: 17-50-1980gcsl 1 tablet by mouth once daily levothyroxine 75 mcg (0.075 mg) Tab See Instructions, TAKE 1 TABLET BY MOUTH EVERY DAY, # 90 tab(s), Refills(s) 0, Pharmacy: [id number], 160, cm, 12/22/23 12:02:00 EDT, Height/Length Dosing, 100, kg, 12/22/23 12:02:00 EDT, Weight Dosing Start Date: 02/10/24 Status: OrderedStart: 74-71-9434wyvf 1 tablet by mouth once dailylevothyroxine 75 mcg (0.075 mg) Tab See Instructions, TAKE 1 TABLET BY MOUTH EVERY DAY, # 90 tab(s), Refills(s) 0, Pharmacy: [id number], 160, cm, 10/31/23 15:41:00 EDT, Height/Length Dosing, 104.3, kg, 10/31/23 15:41:00 EDT, Weight Dosing Start Date: 11/04/23 Status: OrderedStart: 08-20-2023 take 1 tablet by mouth once dailylevothyroxine 75 mcg (0.075 mg) Tab 75 mcg = 1 tab(s), Oral, Daily, # 90 tab(s), Refills(s) 0, Pharmacy: [facility]/pharmacy #[id number], 160, cm, 08/20/23 14:44:00 EDT, Height/Length Dosing, 110.5, kg, 08/20/23 1 4:44:00 EDT, Weight Dosing Start Date: 08/20/23 Status: OrderedStart: 04-26-2023 take 1 tablet by mouth once dailylevothyroxine 50 mcg (0.05 mg) Tab 50 mcg = 1 tab(s), Oral, Daily, # 90 tab(s), Refills(s) 3, Pharmacy: [facility]/pharmacy #[id number], 160, cm, 03/25/23 15:22:00 EST, Height/Length Dosing, 121.2, kg, 03/25/23 15 :22:00 EST, Weight Dosing Start Date: 04/26/23 Status: OrderedStart: 08-29-2022 take 1 tablet by mouth once dailylevothyroxine 50 mcg (0.05 mg) Tab 50 mcg = 1 tab(s), Oral, Daily, Refills(s) 0 Start Date: 08/29/22Status: Orderedtake 1 tablet by mouth once dailylevothyroxine (Synthroid, Levoxyl) 75 MCG tablet Take 75 mcg by mouth Daily ActiveLevothyroxine Sodium 50 MCG Oral for 90 Days Active lisinopril 10 mg oral tablet (4 sources)Angiotensin Converting Enzyme InhibitorStart: 23-18-3653jqgp 10 mg by mouth once dailyLisinopril Active 10 MG PO Daily March 15, 2018 1:00am lithium carbonate 300 mg extended release oral tablet (20 sources)Start: 00-25-4965wwgv 1 tablet by mouth once daily, then take 1 tablet by mouth every twelve hourslithium ER (Lithobid) 300 MG 12 hr tablet Take 300 mg by mouth Daily 09/07/2024 ActiveStart: 77-46-5387cips 1 capsule by mouth once daily in the morninglithium 300 mg Cap 300 mg = 1 cap(s), Oral, Daily, in the morning, Refills(s) 0 Start Date: 12/24/22Status: OrderedStart: 12-24-2022 take 2 tablets by mouth at bedtimelithium 450 mg oral tablet, extended release 900 mg = 2 tab(s), Oral, Bedtime, Refills(s) 0 Start Date: 12/24/22 Status: OrderedStart: 48-87-0057tvpy 1 tablet by mouth every twenty-four hoursLithium Carbonate ER 450 MG 1 tablet at bedtime Orally Once a day for 30 day(s) August, ActiveLithium Carbonate ER 300 MG Oral for 30 Days Activeloratadine 10 mg oral tablet (2 sources)Start: 60-59-0098zazx 10 mg by mouth at bedtimeLoratadine Active 10 MG PO Bedtime December 13, 2020 12:00am24 hr metFORMIN hydrochloride 500 mg extended release oral tablet (14 sources)BiguanideStart: 11-18-9737daec 1 tablet by mouth every twenty-four hours in the morningmetFORMIN XR (Glucophage-XR) 500 MG 24 hr tablet Take 1,000 mg by mouth in the morning and 1,000 mgbefore bedtime. 07/15/2024 ActiveStart: 34-16-3310ihyg 2 tablets by mouth twice dailyMetFORMIN (Eqv-Glucophage XR) 500 mg oral tablet, extended release See Instructions, TAKE 2 TABLETSBY MOUTH TWICE A DAY, # 360 tab(s), Refills(s) 1, [id number], cm, 04/27/24 10:49:00 EST, Height/Length Dosing, 101.2, kg, 04/27/24 10:49:00 EST, Weight Dosing Start Date: 04/27/24 Status: OrderedStart: 48-72-0139btwl 2 tablets by mouth twice dailyMetFORMIN (Eqv-Glucophage XR) 500 mg oral tablet, extended release See Instructions, TAKE 2 TABLETSBY MOUTH TWICE A DAY, # 360 tab(s), Refills(s) 1, Pharmacy: [facility] STORE [id number], 160, cm, 12/22/23 12:02:00 EDT, Height/Length Dosing, 100, kg, 12/22/23 12:02:00 EDT, Weight Dosing Start Date: 01/28/24 Status: OrderedStart: 50-74-7513mpgo 2 tablets by mouth twice daily Glucophage XR 500 mg oral tablet, extended release 1,000 mg = 2 tab(s), Oral, BID, # 360 tab(s), Refills(s) 1, Pharmacy: [facility]/pharmacy #[id number], 160, cm, 05/22/23 12:27:00 EST, Height/Length Dosing, 120.5, kg, 05/22/23 12:27:00 EST, Weight Dosing Start Date: 05/22/23 Status: OrderedStart: 60-33-0190wfxe 2 tablets by mouth twice dailyGlucophage XR 500 mg oral tablet, extended release 1,000 mg = 2 tab(s), Oral, BID, # 180 tab(s), Refills(s) 1, Pharmacy: [facility]/pharmacy #[id number], 160, cm, 03/06/23 13:23:00 EST, Height/Length Dosing, 121.1, kg, 03/06/23 13:23:00 EST, Weight Dosing Start Date: 03/06/23 Status: Ordered methylPREDNISolone 4 mg oral tablet (2 sources)CorticosteroidStart: 02-08-8464gkjzjeEHTQAMNmjdkq 4 MG as directed Orally for daily dose take half with breakfast, half with dinner for 6 days August, Wunkrg32 hr metoprolol succinate 25 mg extended release oral tablet (20 sources)beta-Adrenergic BlockerStart: 60-29-2096jrdi 1 tablet by mouth once dailymetoprolol succinate 25 mg ER Tab 25 mg = 1 tab(s), Oral, Daily, # 90 tab(s), Refills(s) 4, [id number] 160, cm, 12/22/23 12:02:00 EDT, Height/Length Dosing, 100, kg, 12/22/23 12:02:00 EDT, Weight Dosing Start Date: 01/13/24 Status: OrderedStart: 33-68-1361bqki 1 tablet by mouth once daily metoprolol succinate 25 mg ER Tab 25 mg = 1 tab(s), Oral, Daily, # 90 tab(s), Refills(s) 1, Pharmacy: [facility]/pharmacy #[id number], 160, cm, 10/31/23 15:41:00 EDT, Height/Length Dosing, 104.3, kg, 10/31/23 15:41:00 EDT, Weight Dosing Start Date: 11/04/23 Status: OrderedStart: 45-06-8666uegb 1 tablet by mouth once daily metoprolol 25 mg ER Tab 25 mg = 1 tab(s), Oral, Daily, # 90 tab(s), Refills(s) 0, [id number] 160, cm, 06/24/23 14:13:00 EDT, Height/Length Dosing, 117.3, kg, 06/24/23 14:13:00 EDT,Weight Dosing Start Date: 07/17/23 Status: OrderedStart: 98-42-3336yagw 1 tablet by mouth once dailymetoprolol 25 mg ER Tab 25 mg = 1 tab(s), Oral, Daily, # 90 tab(s), Refills(s) 0, Pharmacy: [facility]/pharmacy #[id number], 160, cm, 05/22/23 12:27:00 EST, Height/Length Dosing, 120.5, kg, 05/22/23 12:27:00 EST,Weight Dosing Start Date: 05/22/23 Status: Ordered Start: 03-15-2018 End: 54-90-5858kzco 25 mg by mouth twice dailyMetoprolol Tartrate Active 25 MG PO Twice daily December 13, 2020 12:00amnicotine 2 mg chewing gum (4 sources)Cholinergic Nicotinic AgonistStart: 76-66-5657Qdncgxpe (Polacrilex) Active 2 MG BUCCAL Q2H 60 December 18, 2020 12:00amStart: 03-21-2018 End: 48-11-8750Ebvggvww (Polacrilex) (Nicorelief) 2 mg Gum Discontinued 2 MG BUCCAL Q2H March 21, 2018 1:00amAugust 2018 2:28pmOLANZapine 20 mg oral tablet (20 sources)Atypical AntipsychoticStart: 55-48-6598lmyb 1 tablet by mouth at bedtimeolanzapine 20 mg oral tablet 20 mg = 1 tab(s), Oral, Bedtime, Refills(s) 0 Start Date: 12/24/22 Status: OrderedStart: 84-71-6237uanz 1 tablet by mouth once daily at bedtime, then take 2 tablets by mouth at bedtimeolanzapine 10 mg Tab 10 mg = 1 tab(s), Oral, Once a day (at bedtime), along with 20mg at bedtime, Refills(s) 0 Start Date: 12/24/22 Status: OrderedOLANZapine 15 MG Oral for 90 Days ActiveOzempic, 1 MG/DOSE, 4 MG/3ML solution pen-injector (2 sources)inject 1 mg by subcutaneous injection every weekOzempic, 1 MG/DOSE, 4 MG/3ML solution pen-injector INJECT 1MG SUBCUTANEOUSLY ONCE A WEEK Active pantoprazole 40 mg delayed release oral tablet (20 sources)Proton Pump InhibitorStart: 81-14-0710nsnc 1 tablet by mouth once dailyPantoprazole [address] Tab 40 mg = 1 tab(s), Oral, Daily, # 90 tab(s), Refills(s) 4, Pharmacy: [facility]/pharmacy #[id number], 160, cm, 03/25/23 15:22:00 EST, Height/Length Dosing, 121.2, kg, 03/25/23 15:22:00 EST, Weight Dosing Start Date: 05/15/23 Status: OrderedProtonix Active Completed/Discontinued Medications MedicationDrug Class(es)DatesSig (Normalized)Sig (Original)Asenapine (2 sources)Atypical AntipsychoticStart: 11-17-2018 End: 65-62-8940hwpe 5 mg under the tongue twice dailyAsenapine Maleate Discontinued 5 MG SUBLINGUAL Twice daily November 17, 2018 12:00am December 8:36pmcariprazine 3 mg oral capsule (6 sources)Atypical AntipsychoticStart: 12-13-2020 End: 55-09-4055clbj 1 capsule by mouth once dailyCariprazine (Vraylar) 3 mg capsule Discontinued 3 MG PO Daily December 13, 2020 12:00am 2020 10:35amStart: 03-15-2018 End: 86-20-2522eogu 3 mg by mouth once dailyCariprazine Discontinued 3 MG PO Daily March 15, 2018 1:00am November 17, 2018 2:26pmVraylar Not-Taking glucose meter (11 sources)Start: 43-78-3992rirjawp meter glucose meter, See Instructions, 1 EA, 0, to check BS daily E11.9, [facility]/pharmacy #[id number], Supply, 160, cm, 03/25/23 15:22:00 EST, Height/Length Dosing, 121.2, kg, 03/25/23 15:22:00 EST, Weight Dosing Start Date: 05/15/23 Status: Orderedlurasidone hydrochloride 120 mg oral tablet (10 sources)Atypical AntipsychoticStart: 12-13-2020 End: 12-66-6626mpqc 1 tablet by mouth once dailyLurasidone (Latuda) 120 mg tablet Discontinued 120 MG PO Daily with supper December 13, 2020 12:00am December 18, 2020 10:35amStart: 03-21-2018 End: 20-54-2300fxfe 1 tablet by mouth once dailyLurasidone (Latuda) 40 mg tablet Discontinued 120 MG PO Daily with supper November 17, 2018 2:27pm December 13, 2020 8:32pmStart: 03-15-2018 End: 04-78-1374jwhu 1 tablet by mouth once dailyLurasidone (Latuda) 80 mg tablet Discontinued 80 MG PO Daily March 15, 2018 1:00am March 21, 2018 12:03pmmedroxyPROGESTERone acetate 10 mg oral tablet (17 sources)ProgestinStart: 12-13-2020 End: 60-01-8898jrjf 1 tablet by mouth once daily at mealtimemedroxyPROGESTERone (Provera) 10 MG tablet Indications: History of irregular menstrual cycles , Irre gular menstruation, unspecified TAKE 1 TABLET BY MOUTH ONCE A DAY WITH FOOD on Day #1 to Day #10 ofthe month 30 tablet 4 09/18/2023 09/22/2024 Discontinued (Reorder)mupirocin 0.02 mg/mg topical ointment (2 sources)RNA Synthetase Inhibitor AntibacterialStart: 20-81-6398Nfdvdtwyw 2 % 1 application with Qtip to affected area Externally 2 times a day for 7 days Nov, Not-TakingQUEtiapine 200 mg oral tablet (4 sources)Atypical AntipsychoticStart: 12-13-2020 End: 82-19-8843vshs 200 mg by mouth at bedtimeQuetiapine Discontinued 200 MG PO Bedtime December 13, 2020 12:00am December 18, 2020 10:35amSEROquel Not-Takingreader (7 sources)Start: 45-70-8611bqkjpx reader, See Instructions, 1 EA, 0, freestyle rosalinda reader, [id number], Supply, 160, cm, 09/26/23 12:34:00 EDT, Height/Length Dosing, 105, kg, 09/26/23 12:34:00 EDT, Weight Dosing StartDate: 09/30/23 Status: Fwelkeu78 hr divalproex sodium 500 mg extended release oral tablet (6 sources)Mood Stabilizer, Anti-epileptic AgentStart: 03-21-2018 End: 64-39-5041gbtj 2500 mg by mouth at bedtimeDivalproex Discontinued 2500 MG PO Bedtime 70 March 21, 2018 1:00am November 17, 2018 2:27pmStart: 03-15-2018 End: 99-20-6306Sywrefhvno Discontinued March 15, 2018 1:00am March 15, 2018 12:04pmStart: 03-15-2018 End: 63-92-1595pixy 1500 mg by mouth at bedtimeDivalproex Discontinued 1500 MG PO Bedtime March 15, 2018 1:00am March 21, 2018 11:59amziprasidone 80 mg oral capsule (4 sources)Atypical AntipsychoticStart: 03-15-2018 End: 19-13-1408gjwc 80 mg by mouth twice daily at mealtimeZiprasidone Hcl Discontinued 80 MG PO Twice daily with meals March 15, 2018 1:00am December 13, 2020 8:37pm Problems Active Problems Problem ClassificationProblemDateDocumented DateEpisodic/Chronic Administrative/social admission (1 source)Counseling procedure with explicit context; Translations: [Dietary counseling and surveillance]EpisodicChronic obstructive pulmonary disease and bronchiectasis (1 source)Bronchitis, not specified as acute or chronicEpisodicContraceptive and procreative management (2 sources)Oral contraception; Translations: [Encounter for surveillance of contraceptive pills]38-70-3499ZtxymrdnMgnuavfn mellitus with complications (13 sources)Type 2 diabetes mellitus in obese; Translations: [Complication due to diabetes mellitus]21-18-2631LuxlzkhFvzpqnr on above:linked DM with morbid obesity per OP CDI policy.Diabetes mellitus without complication (1 source)Type 2 diabetes vxvpmufi95-14-3588OuccikpTooszhby of white blood cells (1 source)Qxlgvskfylsi86-92-9937VwkomrqJvegjthqh of lipid metabolism (2 sources)Hypertriglyceridemia; Translations: [Pure hyperglyceridemia] 53-49-7910McnklxyYwahiontal disorders (3 sources)Gastro-esophageal reflux disease without esophagitis; Translations: [Gastro-esophageal reflux disease with esophagitis]Onset: 80-30-7365Btkdewa Essential hypertension (17 sources)Essential (primary) hypertension; Translations: [Hypertensive disorder]Onset: [id number]xaj hemorrhage (4 sources)Hematemesis; Translations: [Hematemesis]14-91-9276Cjftadvg Genitourinary symptoms and ill-defined conditions (14 sources)Mixed urinary bmvcnomfpfjl00-12-7563SphdpmiWipliucfkkvr; infection of eye (except that caused by tuberculosis or sexually transmitteddisease) (1 source)External hordeolum; Translations: [Hordeolum externum unspecified eye, unspecified eyelid]Onset: 67-33-5771BpinmwieIvohrej and fatigue (1 source)Other fatigue; Translations: [OTHER FATIGUE]Onset: 26-02-2984Jwtbnreb Menstrual disorders (2 sources)Irregular periods; Translations: [Irregular menstruation, unspecified]91-97-2673KsrivhvCowl disorders (20 sources)Bipolar disorder, unspecified; Translations: [Bipolar affective disorder, currently manic, severe, with psychosis]Onset: 09-19-0970PbzvspnZacpyr and vomiting (4 sources)Nausea and vomiting; Translations: [Nausea with vomiting, unspecified]EpisodicOther aftercare (1 source)Other intermediate (current) drug therapy; Translations: [OTH [employer] ASSOCIATE CURRENT DRUG THERAPY]Onset: 75-46-7614TqpmtqqpOszqn aftercare (1 source)Long-term current use of oral hypoglycemic medication; Translations: [nursing home (current) use of oral hypoglycemic drugs]EpisodicOther and unspecified benign neoplasm (5 sources)Polyp of colon; Translations: [Polyp of colon]Onset: 12-12-2023 EpisodicOther ear and sense organ disorders (1 source)Otitis externa of right ear; Translations: [Unspecified otitis externa, right ear]Onset: 23-33-1130FtulzjtAlaoy female genital disorders (2 sources)History of clinical finding in subject; Translations: [Personal history of other diseases of the female genital tract]22-78-0682VomvjcrqBxcud gastrointestinal disorders (10 sources)Loose czaax25-44-4922KimerqagDycrk gastrointestinal disorders (2 sources)Abnormal feces; Translations: [Other fecal abnormalities]Onset: 24-29-5204VyztmbvuHbilw lower respiratory disease (14 sources)Nsbfs12-95-1090JbtsmeklIjvfk nervous system disorders (9 sources)Romero's igycb83-45-0830AxmxksenZnspw nervous system disorders (1 source)Eqjqey45-73-5892LipwgomsTbyon nutritional; endocrine; and metabolic disorders (1 source)Morbid (severe) obesity due to excess calories; Translations: [MORBID SEVERE OBES D/T EXCESS RADHA]Onset: 04-79-5867BgmgvhwTjzqe nutritional; endocrine; and metabolic disorders (1 source)Body mass index (BMI) 31.0-31.9, adult; Translations: [BODY MASS INDEX BMI 31.0-31.9 ADULT]Onset: 22-98-5556PejjtnpHzjnv nutritional; endocrine; and metabolic disorders (2 sources)Body mass index 30+ - obesity; Translations: [Body mass index (BMI) 39.0-39.9, adult]ChronicOther nutritional; endocrine; and metabolic disorders (17 sources)Body mass index 40+ - severely obese; Translations: [Body mass index (BMI) 40.0-44.9, adult]Onset: 490158-00-4879BqblhnhQaatn nutritional; endocrine; and metabolic disorders (14 sources)Obese class DBD52-80-0790CipyurbSbopi nutritional; endocrine; and metabolic disorders (1 source)Obese class II; Translations: [Body mass index (BMI) 39.0-39.9, adult] Onset: 84-75-1430NtxztfnVzypt nutritional; endocrine; and metabolic disorders (2 sources)Morbid obesity; Translations: [Morbid (severe) obesity due to excess calories]45-76-0368DgfverxFdwxt upper respiratory infections (1 source)Acute pharyngitis, unspecifiedEpisodicResidual codes; unclassified (13 sources)Obstructive sleep apnea syndrome; Translations: [Obstructive sleep apnea (adult) (pediatric)]Onset: 582268-76-5842TzvralzGomfaeoq codes; unclassified (14 sources)Sleep -63-3378EytqojzwCfhmchtqbbgzc and other psychotic disorders (6 sources)Paranoid schizophrenia; Translations: [Unspecified psychosis not due to a substance or known physiological condition]Onset: 06-83-2301Majzdvj Substance-related disorders (17 sources)Tobacco user; Translations: [Nicotine dependence, unspecified, uncomplicated]Onset: 308590-27-4295SpcpalnImmydgs on above:Added secondary to documentation in Social History.Thyroid disorders (20 sources)Thyroiditis, unspecified; Translations: [Hypothyroidism, unspecified]Onset: 11-72-2273BslhccyWjliwvrkzmal (1 source)CONTACT W/AND (SUSP) EXPOS COVID-19; Translations: [CONTACT W/AND (SUSP) EXPOS COVID-19]Onset: 36-31-9115Zeppnnairxkm (20 sources)Patient encounter acebhf38-31-7256Mfugdlenbxnv (5 sources)Sebaceous cyst of vful04-62-3149 Past or Other Problems Problem ClassificationProblemDateDocumented DateEpisodic/ChronicFluid and electrolyte disorders (1 source)Hypokalemia; Translations: [HYPOKALEMIA]Onset: 09-28-7154LwxhqhwbSyhce screening for suspected conditions (not mental disorders or infectious disease) (4 sources)Screening for malignant neoplasm of colon done; Translations: [Encounter for screening for malignant neoplasm of colon]Onset: 09-20-2023 EpisodicResidual codes; unclassified (1 source)Patient's other noncompliance with medication regimen; Translations: [PT OTH NONCOMPLIANCE W/ MED REGIMEN]Onset: 43-62-2196Vralzicq Results Test NameValueInterpretationReference RangeFacilityAmbulatory Visit Summaryon 32-09-1972Xfgiznsxhe Visit SummaryAmbulatory Visit Summary WENDY ERAZO :1975 Visit Date:10/26/2024 [...] Rosalinda 2 reader) Misc Prescription (Freestyle Precision Reddy test Strips) Misc Prescription (LANCETS) Misc Prescription (TEST STRIPS) Misc Prescription (glucose meter) Misc Prescription (reader) albuterol (Albuterol (Eqv-Proventil HFA) 90 mcg/inh inhalation aerosol) atorvastatin (atorvastatin 40 mg Tab) levothyroxine (levothyroxine 75 mcg (0.075 mg) Tab) lithium (lithium 300 mg Cap) lithium (lithium 450 mg oral tablet, extended release) lithium (lithium 450 mg oral tablet, extended release) medroxyPROGESTERone medroxyPROGESTERone (medroxyPROGESTERone 10 mg Tab) metformin (MetFORMIN (Eqv-Glucophage XR) 500 mg oral tablet, extended release) metoprolol (metoprolol succinate 25 mg ER Tab) olanzapine (olanzapine 10 mg Tab) olanzapine (olanzapine 20 mg oral tablet) pantoprazole (Pantoprazole [address] Tab) semaglutide (Ozempic (1 mg dose) 4 mg/3 mL subcutaneous solution) Procedures Performed Colonoscopy (11/05/2023), Colonoscopy (10/08/2023), EGD - esophagogastroduodenoscopy (10/08/2023), Biopsy of vulva, Colonoscopy, Colposcopy, EGD (esophagogastroduodenoscopic) electrohydraulic lithotripsy of bezoar in stomach. Discharge Vitals Temperature (Temporal Artery) 36.4 ???C Heart Rate (Peripheral) 88 Respiratory Rate 18 Blood Pressure 128/84 Height 160.0 cm Height 63 in Weight 102.8 kg Weight 226.635 lb BMI 40.16 What to do next Scheduled Follow-Up Appointments Saturday 1:00 PM EST With: Where: [place] [phone]- Saturday 2:20 PM EST With: MICHELLE YUN CNP Where: [address] [address]- You Need to Schedule the Following Appointments Follow Up with MICHELLE YUN CNP, FAM When: In 149 days 03/24/2025 EST Comments: Diabetes Where: [address] [place] [phone] Business (1) Medications What How Much When Instructions Unchanged albuterol (Albuterol (Eqv-Proventil HFA) 90 mcg/ inh inhalation aerosol) See instructionsINHALE 2 PUFFS BY MOUTH EVERY 6 HOURS [...] physician if questions or concerns Unchanged medroxyPROGESTERone (medroxyPROGESTERone 10 mg Tab) 30 EA, 0 Refill(s), [...] Rosalinda 2 reader) See instructions use to romanior bs Contact prescribing physician if questions or concerns Unchanged Misc Prescription (Free Style Rosalinda 2 Sensors) See instructions To be used w/ FS Rosalinda tocheck blood sugars daily. Dx: E11.69 Contact prescribing physician if questions or concerns Unchanged Misc Prescription (Freestyle Precision Reddy test Strips) See instructions Use with Freestyle Rosalinda 2 reader once daily Contact prescribing physician if questions or concerns (more content not included)...[facility] Medicine Office/Clinic Noteon 48-00-9688Gzdtrr Medicine Office/Clinic NoteFamclean southeast Medicine Office/Clinic Note Chief Complaint The patient [...] reports issues with her Rosalinda sensor not lastingthe full 14 days, requiring fingerstick calibrations. Her last HgbA1C was 5.2%. The patient also has morbid obesity due to excess caloric intake. She is aware of the need for regular foot care and attends appointments with a clinical orthoptist for nail trimming and callus management. Review [...] 6 months Ordered: HgbA1c Lab Specimen Collect 53015 2. Smoker (F17.200: Nicotine dependence, unspecified, uncomplicated) [...] medical support in addressing this problem. Your BMIand weight management will be followed at subsequent visits. Body mass index [BMI] 40.0-44.9, adult (Z68.41: Body mass index [BMI] 40.0-44.9, adult) bmi 40.16 Follow-up With When Contact Information MICHELLE YUN CNP, FAM In 149 days 03/24/[address] [address] Business (1) Additional Instructions: Diabetes [...] History Colonoscopy (11/05/2023), Colonoscopy (10/08/2023), EGD - esophagogastroduodenoscopy (10/08/2023), Biopsy of vulva, Colonoscopy, Colposcopy, EGD (esophagogastroduodenoscopic) electrohydraulic lithotripsy of bezoar i (more content not included)...NormalMiddletown HospitalComment on above:Result Comment: Electronically Signed By: MICHELLE YUN CNP\.br\Date and Time Signed: 10/26/24 14:50 PAHKzkG1axx 55-28-3099PaU9g (Bld) [Mass fraction]5.5 %Normal<=5.9Middletown HospitalComment on above: Performed By: #### [id number] #### [facility] [address] [place], [place] [address]Qxtbm Office/Clinic Noteon 42-83-8785Iylow Office/Clinic Note Sleep Office/Clinic Note History of [...] bruising tendency, no petechiae, no swollen nodes Allergy/Immunologic: no seasonal allergies, no food allergies, no recurrent infections, no impairedimmunity Additional ROS info: Except as noted in [...] regularly and change supplies as needed. Avoid drivingwhile sleepy and avoid sedatives and hypnotics such as alcohol. We will continue with same pressure unless new issues develop and see the patient back after 1 year. The patient will call us back in the meantime if any issues. Follow-up With When Contact Information Дмитрий MEDELLIN, Amarjit Martinez, PUL, JAS Within 1 year [address] [facility] [place] [address]- Additional Instructions: Problem List/Past Medical [...] History Colonoscopy (11/05/2023), Colonoscopy (10/08/2023), EGD - esophagogastroduodenoscopy (10/08/2023), Biopsy of vulva, Colonoscopy, Colposcopy, EGD (esophagogastroduodenoscopic) electrohydraulic lithotripsy of bezoar in stomach. Medications #####, 0 Albuterol (Eqv-ProAir HFA) 90 mcg/inh inhalation aerosol, 180 mcg= 2 inh, Inhalation, q6hr, 2 refills atorvastatin 40 mg Tab, See Instructions, 3 refills Free style Rosalinda 2 reader, See Instructions Free Style Rosalinda 2 Sensors, See Instructions, 3 refills Freestyle Precision Reddy test Strips, See Instructions, 11 refills glucose meter, See Instructions LANCETS, See Instructions, 4 refills levothyroxine 75 mcg (0.075 mg) Tab, See Instructions lithium 300 mg Cap, 300 mg= 1 cap(s), Oral, Daily lithium 300 mg oral tablet, extended release lithium 450 mg oral tablet, extended release, 900 mg= 2 tab(s), Oral, Bedtime medroxyPROGESTERone, 10 mg, Oral medroxyPROGESTERone 10 mg Tab [...] per day. Started age (more content not included)...[facility] ColumbusComment on above:Result Comment: Electronically Signed By: Дмитрий MEDELLIN, Amarjit Martinez\.br\Date and Time Signed: 10/16/24 10:05 EDTAmbulatory Visit Summaryon 02-88-8527Dfaubknihn Visit SummaryAmbulatory Visit Summary WENDY ERAZO :1975 Visit Date:07/17/2024 [...] Rosalinda 2 reader) Misc Prescription (Freestyle Precision Reddy test Strips) Misc Prescription (LANCETS) Misc Prescription (TEST STRIPS) Misc Prescription (glucose meter) Misc Prescription (reader) atorvastatin (atorvastatin 40 mg Tab) levothyroxine (levothyroxine 75 mcg (0.075 mg) Tab) lithium (lithium 300 mg Cap) lithium (lithium 300 mg oral tablet, extended release) lithium (lithium 450 mg oral tablet, extended release) medroxyPROGESTERone medroxyPROGESTERone (medroxyPROGESTERone 10 mg Tab) metformin (MetFORMIN (Eqv-Glucophage XR) 500 mg oral tablet, extended release) metoprolol (metoprolol succinate 25 mg ER Tab) olanzapine (olanzapine 10 mg Tab) olanzapine (olanzapine 20 mg oral tablet) pantoprazole (Pantoprazole [address] Tab) semaglutide (Ozempic (1 mg dose) 4 mg/3 mL subcutaneous solution) Procedures Performed Colonoscopy (11/05/2023), Colonoscopy (10/08/2023), EGD - esophagogastroduodenoscopy (10/08/2023), Biopsy of vulva, Colonoscopy, Colposcopy, EGD (esophagogastroduodenoscopic) electrohydraulic lithotripsy of bezoar in stomach. Discharge Vitals Temperature (Oral) 36.5 ???C Heart Rate (Peripheral) 114 Respiratory Rate 20 Blood Pressure 128/84 Height 160.0 cm Height 63 in Weight 101.1 kg Weight 222.887 lb BMI 39.49 What to do next Scheduled Follow-Up Appointments Saturday 1:00 PM EDT With: Eligio MEDELLIN, Yeison Harris Where: [address] [address]- Saturday 1:00 PM EST With: Where: [address] [address]- Medications What How Much When Instructions New Misc Prescription (#####) 0 2 EA, 0 Refill(s), USE TO CHECK BLOOD SUGARS DAILY *TO BE USED WITHFRDARNELLTYLE ROSALINDA* Changed lithium (lithium 300 mg Cap) 1 Capsules By Mouth Every day in the morning Changed lithium (lithium 300 mg oral tablet, extended release) 30 EA, 0 Refill(s), TAKE 1 TABLET BYMOUTH EVERY DAY Changed lithium (lithium 450 mg oral tablet, extended release) 2 Tablets By Mouth At bedtime Changed medroxyPROGESTERone 10 Milligram By Mouth Changed medroxyPROGESTERone (medroxyPROGESTERone 10 mg Tab) 30 EA, 0 Refill(s), [...] instructions To be used w/ FS Rosalinda tocheck blood sugars daily. Dx: E11.69 Unchanged Misc Prescription (Freestyle Precision Reddy test Strips) See instructions Use with Freestyle [...] incontinence urge and s (more content not included)...[facility] Medicine Office/Clinic Noteon 77-01-9839Klyslp Medicine Office/Clinic NoteFami Medicine Office/Clinic Note Chief Complaint Respiratory symptoms [...] noted she felt warm. Her use of jcbu-kbk-cijtmuv medications includes Mucinex and Zyrtec, taken in possibly suboptimal doses. The patient's smoking habit is noted, and recent weather conditions raise concerns about mold affecting her symptoms. Initial tests for influenza and COVID-19 were negative; however, testingmay have been prematurely conducted. The management plan [...] Symptomatic relief with Mucinex and Zyrtec. - [place] antibiotics for any symptoms persisting beyond seven [...] # 21 cap(s), Refills(s) 0, Pharmacy: [facility]/pharmacy #[id number], 160, cm, 07/17/24 11:44:00 EDT, Height/Length Dosing, 101.1, kg, 07/17/24 11:44:00 EDT,Weight Dosing 2. BMI 40.0-44.9, adult (Z68.41: Body mass index [BMI] 40.0-44.9, adult) The standard range for ages 18 and older is >=18.5 and < 25 kg/m2. Your BMI today was above this range, this falls in the overweight to obese category and there are medical benefits to weight loss. We can offer counselling, referral, and/or medical support in addressing this problem. Your BMIand weight management will be followed at subsequent visits. Ordered: albuterol, 180 mcg, 2 inh, Inhalation, q6hr, 18 gm, Refill(s) 2, [facility]/pharmacy #[id number], 160, cm, 07/17/24 11:44:00 EDT, Height/Length Dosing, 101.1, kg, 07/17/24 11:44:00 EDT, Weight Dosing benzonatate, 100 mg = 1 cap(s), Oral, TID, X 7 day(s), # 21 cap(s), Refills(s) 0, Pharmacy: [facility]/pharmacy #[id number], 160, cm, 07/17/24 11:44:00 EDT, Height/Length Dosing, 101.1, kg, 07/17/24 11:44:00 EDT,Weight Dosing 3. Class 3 obesity, (E66.01: Morbid (severe) obesity due to excess calories)Morbid (severe) obesitydue to excess calories - Implement lifestyle modifications [...] day(s), # 21 cap(s), Refills(s) 0, Pharmacy: [facility]/pharmacy #[id number], 160, cm, 07/17/24 11:44:00 EDT, Height/Length Dosing, 101.1, kg, 04/11/25 11:44:00 EDT,Weight Dosing 4. BMI 39.0-39.9,adult, (Z68.39: Body mass index [BMI] 39.0-39.9, adult)Body mass index [BMI] 39.0-39.9, adult Ordered: albuterol, 180 mcg, 2 inh, Inhalation, q6hr, 18 gm, Refill(s) 2, [facility]/pharmacy #[id number], 160, cm, 07/17/24 11:44:00 EDT, Height/Length Dosing, 101.1, kg, 07/17/24 11:44:00 EDT, Weight Dosing benzonatate, 100 mg = 1 cap(s), Oral, TID, X 7 day(s), # 21 cap(s), Refills(s (more content not included)...[facility] ColumbusComment on above: Result Comment: Electronically Signed By: MICHELLE YUN CNP\.br\Date and Time Signed: 07/17/24 11:58 EDTAmbulatory Visit Summaryon 84-60-2594Bfapreeixq Visit SummaryAmbulatory Visit Summary WENDY ERAZO :1975 Visit Date:04/27/2024 [...] Performed Biopsy of vulva, Colonoscopy, Colposcopy, EGD (esophagogastroduodenoscopic) electrohydraulic lithotripsy of bezoar in stomach. Discharge Vitals Temperature (Oral) 36.6 ???C Heart Rate (Peripheral) 82 Respiratory Rate 18 Blood Pressure 124/82 Height 160.0 cm Height 63 in Weight 101.2 kg Weight 223.108 lb BMI 39.53 What to do next Scheduled Follow-Up Appointments Saturday 1:00 PM EDT With: Eligio MEDELLIN, Yeison Harris Where: [address] [address]- Saturday 1:00 PM EST With: Where: [address] [address]- Medications What How Much When Instructions Unchanged metformin (MetFORMIN (Eqv-Glucophage XR) 500 mg oral tablet, extended release) See instructions TAKE 2 TABLETS BY MOUTH TWICE A DAY Pickup at [facility]/pharmacy #[id number] Unchanged atorvastatin (atorvastatin 40 mg Tab) See [...] Rosalinda 2 reader) See instructions [facility] Contact prescribing physician if questions or concerns Unchanged Misc Prescription (Free Style Rosalinda 2 Sensors) See instructions To be used w/ FS Rosalinda tocheck blood sugars daily. Dx: E11.69 Contact prescribing [...] 1 Tablets By Mouth Every day Contact prescribingphysician if questions or concerns Unchanged semaglutide (Ozempic (1 mg dose) 4 mg/ 3 mL subcutaneous solution) See instructions INJECT 1 MG SUBCUTANEOUSLY WEEKLY Contact prescribing physician if questions or concerns Pharmacy Information [facility]/pharmacy #[id number]: [address] [place], [place] [phone] Allergies No Known Allergies Problems Ongoing - Any problem that you are currently receiving treatment for. Bipolar disorder, current episode mixed, moderate BMI 40.0-44.9, adult (more content not included)...[facility] Hospital of ColumbusCHEMISTRYOrdered By: SYSTEM SYSTEM on 30-83-3203Hhuaglr [Mass/Vol]4.5 g/dL Normal3.3 - 5.0 gm/dLRemisol ChemAlbumin/Globulin [Mass ratio]1.6 {ratio}Normal 1.1 - 2.2Remisol ChemALP [Catalytic activity/Vol]113 [iU]/dHigh21 - 98 Int._Unit/LRemisol ChemALT No additional P-5'-P [Catalytic activity/Vol]16 [iU]/dNormal6 - 46 Int._Unit/LRemisol ChemAnion gap [Moles/Vol]14 mmol/LNormal6 - 16 mEq/LRemisol ChemAST [Catalytic activity/Vol]22 [iU]/dNormal5 - 43 Int._Unit/LRemisol ChemBilirubin [Mass/Vol]0.9 mg/dLNormal0.0 - 1.1 mg/dLRemisol ChemCalcium [Mass/Vol]9.9 mg/dLNormal8.9 - 11.1 mg/dLRemisol ChemChloride [Moles/Vol]106 mmol/SNsgacy518 - 111 mmol/LRemisol ChemCO2 [Moles/Vol]21 mmol/L Jgfjua12 - 31 mmol/LRemisol ChemCreatinine [Mass/Vol]0.7 mg/dLNormal0.5 - 1.3 mg/dLRemisol CbtnaWLN649 mL/min/1.73 h8Ritcfx>=59mL/min/1.73 p2Wshrfqr Chem Globulin (S) [Mass/Vol]2.9 g/dLNormal1.4 - 4.0 gm/dLRemisol ChemGlucose [Mass/Vol]102 mg/jSIhqqsm71 - 199 mg/dLRemisol ChemPotassium [Moles/Vol]4.2 mmol/LNormal3.5 - 5.3 mmol/LRemisol ChemProtein [Mass/Vol]7.4 g/dLNormal6.0 - 7.8 gm/dLRemisol ChemSodium [Moles/Vol]137 mmol/WJbidef243 - 145 mmol/LRemisol ChemUrea nitrogen [Mass/Vol]8 mg/dLNormal5 - 21 mg/dLRemisol ChemUrea nitrogen/Creatinine [Mass ratio]11 mg/hpCojtkh04 - 20Remisol ChemCMPon 56-94-3499Xgzvypz [Mass/Vol]4.5 g/dLNormal3.3-5.0[facility] Comment on above:Performed By: #### [id number] #### [facility] [address], [place] [address]Bpwxtmm/Globulin (S) [Mass conc ratio]1.9Mglcpx7.1-2.2[facility] HospitalComment on above:Performed By: #### [id number] #### [facility] [address], [place] [address]GVP [Catalytic activity/Vol]113 Int._Unit/OWoge67-64YboczmMiddletown HospitalComment on above:Performed By: #### [id number] #### [facility] [address], [place] [address]WVY No additional P-5'-P [Catalytic activity/Vol]16 Int._Unit/L Normal6-46M[facility]letown HospitalComment on above:Performed By: #### [id number] #### [facility] [address], [place] [address]Imerf gap [Moles/Vol]14 mmol/LNormal6-16M[facility]letown HospitalComment on above:Performed By: #### [id number] #### [facility] [address] [place], [place] [address]QNM [Catalytic activity/Vol]22 Int._Unit/LNormal5-43M[facility]own HospitalComment on above:Performed By: #### [id number] #### [facility] [address] [place], [place] [address]Fjgiraykf [Mass/Vol]0.9 mg/dLNormal0.0-1.1FSelect Medical OhioHealth Rehabilitation HospitalComment on above:Performed By: #### [id number] #### [facility] [address], [place] [address]Ynemnsq [Mass/Vol]9.9 mg/dLNormal8.9-11.1FSelect Medical OhioHealth Rehabilitation HospitalComment on above:Performed By: #### [id number] #### [facility] [address], [place] [address]Ijnyucfc [Moles/Vol]106 mmol/ZIigtad527-523ZcxctvMiddletown HospitalComment on above:Performed By: #### [id number] #### [facility] [address], [place] [address]UL8 [Moles/Vol]21 mmol/KHfjhko52-06BikdbhMiddletown Hospital Comment on above:Performed By: #### [id number] #### [facility] [address], [place] [address]Peqjehibou [Mass/Vol]0.7 mg/dLNormal0.5-1.3FSelect Medical OhioHealth Rehabilitation HospitalComment on above:Performed By: #### [id number] #### [facility] [address], [place] [address]Idogtsjh (S) [Mass/Vol]2.9 g/dLNormal1.4-4.0M[facility] HospitalComment on above:Performed By: #### [id number] #### [facility] [address], [place] [address]Trrnlfj [Mass/Vol]102 mg/yQPgiima70-673YpdugqMiddletown HospitalComment on above:Performed By: #### [id number] #### [facility] [address] [place] [address]Pgxqwjtcf [Moles/Vol]4.2 mmol/LNormal3.5-5.3FSelect Medical OhioHealth Rehabilitation HospitalComment on above:Performed By: #### [id number] #### [facility] [address] [place] [address]Nenggxe [Mass/Vol]7.4 g/dLNormal6.0-7.8M[facility] HospitalComment on above:Performed By: #### [id number] #### [facility] [address] [place] [address]Jtafdb [Moles/Vol]137 mmol/HKuusxz698-271QngzotMiddletown HospitalComment on above:Performed By: #### [id number] #### [facility] [address] [place] [address]Oyve nitrogen [Mass/Vol]8 mg/dLNormal5-21M[facility]own HospitalComment on above:Performed By: #### [id number] #### [facility] [address] [place] [address]Kezu nitrogen/Creatinine [Mass ratio]11 No YrfguOibhnl55-06 [facility] HospitalComment on above:Performed By: #### [id number] #### [facility] [address] [place] [address]Hrhsez Medicine Office/Clinic Noteon [phone] Medicine Office/Clinic NoteSturdy Memorial Hospital Medicine Office/Clinic Note Chief Complaint The patient [...] her psychiatrist, but no clear etiology was established.She is currently managing these symptoms without significant [...] machine regularly, which is pertinent for her comorbidconditions. Recent laboratory evaluations are largely reassuring, with normal creatinine levels andfavorable cholesterol profiles. Review of Systems PHQ Score [...] level of consciousness appropriate for age, CN II- XII intact, motor strength equal & normal bilaterally, [...] # 360 tab(s), Refills(s) 1, Pharmacy: [facility]/pharmacy #[id number], 160, cm, 04/27/24 10:49:00 EST, Height/Length Dosing, 101.2, kg, 04/27/24 10:49:00 EST, Weight Dosing 48 year old female with history of bipolar disorder, controlled with observed shaking, and type 2 diabetes mellitus presenting with concerns regarding the management of these chronic conditions. The episodic tremors seem to have a psychological component, considering absence during examination. Thediabetes mellitus management is complicated b (more content not included)...NormalMiddletown HospitalComment on above:Result Comment: Electronically Signed By: Eligio MEDELLIN, Yeison Khanna\Date and Time Signed: 04/27/24 11:12 ESTeGFRon 04-27-2024 mLCF907 mL/min/1.73 p8Qvrend>=59Middletown HospitalComment on above: Performed By: #### [id number] #### [facility] [address], [place] [address]GMC w/ Auto Diffon 81-45-2220Anygqmzif/100 WBC (Bld)0.6 %Normal 0.0-2.0M[facility]letown HospitalComment on above:Performed By: #### [id number] #### [facility] [address], [place] [address]Fyhcxfwhe/Leukocytes Auto (Bld) [Pure # fraction]0.1 E9/LNormal 0.0-0.2FSelect Medical OhioHealth Rehabilitation HospitalComment on above:Performed By: #### [id number] #### [facility] [address], [place] [address]Zikojvaelvi (Bld) [#/Vol]1.2 E9/LHigh0.0-0.5FSelect Medical OhioHealth Rehabilitation HospitalComment on above:Performed By: #### [id number] #### [facility] [address], [place] [address]Itlwlhqijjk/100 WBC (Bld)9.8 %High0.0-8.0M[facility]own HospitalComment on above:Performed By: #### [id number] #### [facility] [address], [place] [address]Xndkcrbhddn distribution width (RBC) [Ratio]15.2 %High10.9-14.2 [facility] HospitalComment on above:Performed By: #### [id number] #### [facility] [address], [place] [address]Orpndntvng (Bld) [Volume fraction]40.0 %Scbcrk71.0-46.0M[facility]own HospitalComment on above:Performed By: #### [id number] #### [facility] [address] [place] [address]Igxczqkiww (Bld) [Mass/Vol]13.2 g/aCMwzplr28.0-16.0M[facility]own HospitalComment on above:Performed By: #### [id number] #### [facility] [address] [place] [address]Rwofmovgdac (Bld) [#/Vol]3.6 E9/LNormal1.0-4.0[facility]own HospitalComment on above:Performed By: #### [id number] #### [facility] [address] [place] [address]Tfycuuwaokm/100 WBC (Bld)30.0 %Azmjdu95.0-50.0M[facility]own HospitalComment on above:Performed By: #### [id number] #### [facility] [address] [place] [address]SGO (RBC) [Entitic mass]29.9 eyLtccex05.0-34.0M[facility]own HospitalComment on above:Performed By: #### [id number] #### [facility] [address] [place] [address]ONZB (RBC) [Mass/Vol]33.0 g/qARwqgsy09.4-36.0M[facility]own HospitalComment on above:Performed By: #### [id number] #### [facility] [address] [place] [address]BQI (RBC) [Entitic vol]90.6 lDNrsode55.0-100.0M[facility]own HospitalComment on above:Performed By: #### [id number] #### [facility] [address] [place] [address]Ikxwvvipv (Bld) [#/Vol]0.6 E9/LNormal0.2-1.0M[facility]own HospitalComment on above:Performed By: #### [id number] #### [facility] [address] [place] [address]Jizpreiyose (Bld) [#/Vol]6.6 E9/LNormal2.0-7.5FSelect Medical OhioHealth Rehabilitation HospitalComment on above:Performed By: #### [id number] #### [facility] [address] [place] [address]Jtjlpqayswr/100 WBC (Bld)54.6 %Hnpiot27.0-75.0M[facility]own HospitalComment on above:Performed By: #### [id number] #### [facility] [address] [place] [address]Fwcjgdtk mean volume (Bld) [Entitic vol]9.0 fLNormal6.4-10.8 [facility]own HospitalComment on above:Performed By: #### [id number] #### [facility] [address] [place] [address]Tfgqhyjsk (Bld) [#/Vol]235.0 E9/TDklsmu263.0-500.0M[facility]own HospitalComment on above:Performed By: #### [id number] #### [facility] [address] [place] [address]RXA (Bld) [#/Vol]4.4 E12/LNormal4.3-5.9M[facility]letown HospitalComment on above:Performed By: #### [id number] #### [facility] [address] [place] [address]FWH corrected for nucl RBC Auto (Bld) [#/Vol]12.0 E9/LHigh 4.0-11.0M[facility]letown HospitalComment on above:Performed By: #### [id number] #### [facility] [address] [place] [address]SRDCHOBMBVfzkesh By: SYSTEM SYSTEM on 69-28-2102Jrpdxzo DL <= 20 mg/L (U) [Mass/Vol]10.0 mg/dLHigh0.0 - 1.9 mg/dLRemisol Chem Albumin/Creatinine DL <= 20 mg/L (U) [Mass ratio]104.9 mg/gm CrHigh0.0 - 30.0 mg/gm CrRemisol ChemComment on above:Interpretive Data: 30-300 mg/g Cr indicates an increased risk for diabetic nephropathy. >300 mg/g Cr is consistent with clinical nephropathy.Cholesterol [Mass/Vol]83 mg/hUCaq840 - 200 mg/dLRemisol ChemCholesterol in HDL [Mass/Vol]31 mg/dLInvalid Interpretation CodeRemisol ChemComment on above:Result Comment: '>= 60 LOW RISK' '<= 40 HIGH RISK'Cholesterol in LDL [Mass/Vol]30 mg/dLNormal<=129mg/dLRemisol ChemCholesterol in VLDL [Mass/Vol]55 mg/dLHigh7 - 40 mg/dLRemisol Chem Triglyceride [Mass/Vol]276 mg/dLHigh<=149mg/dLRemisol ChemTSH Qn4.66 m[IU]/L Normal0.34 - 5.60 mcIU/mLRemisol ChemU Sdokznjyig73.3 mg/dLInvalid Interpretation CodeRemisol ChemCHEMISTRYOrdered By: Dang Robertson on 04-13-2024 HbA1c (Bld) [Mass fraction]5.2 %Normal<=5.9%[facility] ChemAutoSSHEMATOLOGYOrdered By: SYSTEM SYSTEM on 14-40-3347Sxntspcne/100 WBC (Bld)0.6 %Normal0.0 - 2.0 %Remisol HemeBasophils/Leukocytes Auto (Bld) [Pure # fraction]0.1 E9/LNormal0.0 - 0.2 E9/LRemisol HemeEosinophils (Bld) [#/Vol]1.2 E9/LHigh0.0 - 0.5 E9/LRemisol Heme Eosinophils/100 WBC (Bld)9.8 %High0.0 - 8.0 %Remisol HemeErythrocyte distribution width (RBC) [Ratio]15.2 %High10.9 - 14.2 %Remisol HemeHematocrit (Bld) [Volume fraction]40.0 %Lmfhkq72.0 - 46.0 %Remisol HemeHemoglobin (Bld) [Mass/Vol]13.2 g/wSFgpifz41.0 - 16.0 gm/dLRemisol HemeLymphocytes (Bld) [#/Vol] 3.6 E9/LNormal1.0 - 4.0 E9/LRemisol HemeLymphocytes/100 WBC (Bld)30.0 %Normal 14.0 - 50.0 %Remisol HemeMCH (RBC) [Entitic mass]29.9 zhDhycmi70.0 - 34.0 pg Remisol HemeMCHC (RBC) [Mass/Vol]33.0 g/mIBmgdbr78.4 - 36.0 gm/dLRemisol HemeMCV (RBC) [Entitic vol]90.6 cCXdyeun21.0 - 100.0 fLRemisol HemeMonocytes (Bld) [#/Vol]0.6 E9/LNormal0.2 - 1.0 E9/LRemisol HemeMonocytes/100 WBC (Bld)5.0 % Normal4.0 - 14.0 %Remisol HemeNeutrophils (Bld) [#/Vol]6.6 E9/LNormal2.0 - 7.5 E9/LRemisol HemeNeutrophils/100 WBC (Bld)54.6 %Btgupn23.0 - 75.0 %Remisol Heme Platelet mean volume (Bld) [Entitic vol]9.0 fLNormal6.4 - 10.8 fLRemisol Heme Platelets (Bld) [#/Vol]235.0 E9/EShzoow824.0 - 500.0 E9/LRemisol HemeRBC (Bld) [#/Vol]4.4 E12/LNormal4.3 - 5.9 E12/LRemisol HemeWBC corrected for nucl RBC Auto (Bld) [#/Vol]12.0 E9/LHigh4.0 - 11.0 E9/LRemisol EbcqWapZ0bao 05-95-6992RqU5v (Bld) [Mass fraction]5.2 %Normal<=5.9Middletown HospitalComment on above:Performed By: #### [id number] #### [facility] [address] [place] [address]Ludzu Panelon 02-68-9847Qezyqrgjrmk [Mass/Vol]83 mg/dLLow 120-200M[facility]letown HospitalComment on above:Performed By: #### [id number] #### [facility] [address], [place] [address]Batqmfjexzz in HDL [Mass/Vol]31 mg/dLInvalid Interpretation CodeMiddletown HospitalComment on above:Result Comment: '>= 60 LOW RISK' '<= 40 HIGH RISK'Performed By: #### [id number] #### [facility] [address], [place] [address]Zuooghwxlwy in LDL [Mass/Vol]30 mg/dLNormal<=129M[facility]letown HospitalComment on above:Performed By: #### [id number] #### [facility] [address], [place] [address]Fhkllmucyfy in VLDL [Mass/Vol]55 mg/dLHigh7-40M[facility]letown HospitalComment on above:Performed By: #### [id number] #### [facility] [address], [place] [address]Okjkvesjsami [Mass/Vol]276 mg/dLHigh<=149M[facility]letown HospitalComment on above:Performed By: #### [id number] #### [facility] [address], [place] [address]HSHlz 67-20-3194BXV Qn4.66 m[IU]/LNormal0.34-5.60M[facility]own HospitalComment on above:Performed By: #### [id number] #### [facility] [address], [place] [address]N MA/Cr Ratioon 01-45-2644Ifzxqqz DL <= 20 mg/L (U) [Mass/Vol] 10.0 mg/dLHigh0.0-1.9M[facility]own HospitalComment on above:Performed By: #### [id number] #### [facility] [address], [place] [address]Cokcjwh/Creatinine DL <= 20 mg/L (U) [Mass ratio]104.9 mg/gm Cr High.0-30.0M[facility]letown HospitalComment on above:Result Comment: 30-300 mg/g Cr indicates an increased risk for diabetic nephropathy. >300 mg/g Cr is consistent with clinical nephropathy.Performed By: #### [id number] #### [facility] [address], [place] [address]T Dgpaorggfv90.3 mg/dLInvalid Interpretation CodeMiddletown HospitalComment on above:Performed By: #### [id number] #### [facility] [address], [place] [address]Ruxjkgqnpa Visit Summaryon 42-84-7736Dsuoqrojch Visit Summary Ambulatory Visit Summary WENDY ERAZO :1975 Visit Date:03/24/2024 Ambulatory Visit Instructions Your Diagnosis Encounter for subsequent annual wellness visit (AWV) in Medicare patient Type 2 diabetes mellitus with morbid obesity Class 3 obesity BMI 40.0-44.9, adult Bipolar disorder, current episode mixed, moderate Hypothyroidism Primary hypertension Screening for ischemic heart disease On statin therapy Advanced directives, counseling/discussion Immunization declined Your Care Team Attending Physician - Yeison Del Valle MD. Primary Care Physician - Yeison Del Valle MD. This Is Your Medications List Misc Prescription [...] Performed Biopsy of vulva, Colonoscopy, Colposcopy, EGD (esophagogastroduodenoscopic) electrohydraulic lithotripsy of bezoar in stomach. Discharge Vitals Heart Rate (Peripheral) 84 Blood Pressure 136/74 Height 160 cm Height 63 in Weight 102.82 kg Weight 226.679 lb BMI 40.16 What to do next Scheduled Follow-Up Appointments Saturday 9:20 AM EST With: Where: [address] [id number]- Saturday 10:45 AM EST With: Eligio MEDELLIN, Yeison Harris Where: [address] [address]- Saturday 1:00 PM EST With: Where: [address] [address]- You Need to Complete the Following CBC [...] collect, 03/24/24, Order for future visit, Lab Collect,Hypothyroidism, Print Label By Order Location Urine Microalbumin/Creatinine Ratio, Urine, Routine collect, 03/24/24, Order for future visit, Nurse collect, Primary hypertension Type 2 diabetes mellitus with morbid obesity, Print Label By OrderLocation Medications What How Much When Instructions Unchanged [...] instructions To be used w/ FS Rosalinda tocheck blood sugars daily. Dx: E11.69 Unchanged Misc [...] 40.0-44.9, adult Breast c (more content not included)...[facility] Medicine Office/Clinic Noteon 19-38-6319Mzyftr Medicine Office/Clinic NoteFamclean southeast Medicine Office/Clinic Note Chief Complaint Subsequent Medicare [...] and all current CDC recommended immunizations, relevant riskrecommendations and the following patient brochures were given. Reviewed Medicare Prevention Services checklist. CDC-Falls Prevention and home safety screening reviewed. Patient denies any falls in last 12 months, voices no worry about falling. Exhibits no problems with sitting, standing or ambulation. Patient aware with keeping walk way area free of clutter to prevent tripping and/or falling. [place] Advance Directives reviewed. Documents provided, see #9. [...] PCP visit. Labs to be completed with [facility]. No concerns with bowel/ bladder. Colonoscopy last [...] AUDIT risk assessment screening completed, risk score (0)with patient denying concerns with use. Completed PHQ-2 [...] medications: Metformin and Semaglutide. Patient does monitors BSat home: DM stoplight handout reviewed with s/s [...] chart for review. A1C ordered and urine microalbumin/creatinine. see #3 3. Class 3 obesity (E66.01: [...] adult (Z68.41: Body mass (more content not included)...Normal [facility]own HospitalComment on above:Result Comment: Electronically Signed By: Alexa Kendall\.br\Date and Time Signed: 03/26/24 11:09 EST\.br\Electronically Co-Signed By: Aliyah Washington\.br\Date and Time Co-Signed: 03/24/24 15:55 ESTMM screening mammo BI w/CADon 38-79-4897SN screening mammo BI w/[facility] [address] [place] [address] Mammography Report Signed Patient: Wendy Erazo MR#: [id number] : 1975 Acct:[id number] Age/Sex: 48 / F ADM Date: 01/13/24 Loc: [place] Room: Type: [facility] Attending Dr: Beulah Gordon DO Copies to: BEULAH GORDON MD Ordering Provider: BEULAH GORDON DO Date of Service: 01/13/24 MM/MM screening mammo BI w/CAD: screening CLINICAL DATA: Screening for malignancy. SCREENING MAMMOGRAM - FULL FIELD DIGITAL WITH TOMOSYNTHESIS AND CAD COMPARISON:Mammograms dating back to 2015 Tomosynthesis craniocaudal and [...] Huerta Jr., D.O.01/13/2024 3:33 PM Dictation Location: [facility] Transcribed By: [facility] 01/13/24 1533 Dictated By: Vikas Huerta Jr, DO 01/13/24 1532 Signed By: 01/13/24 [facility] Physician GroupAmbulatory Visit Summaryon [id number] Visit SummaryAmbulatory Visit Summary WENDY ERAZO :1975 Visit Date:12/22/2023 [...] Performed Biopsy of vulva, Colonoscopy, Colposcopy, EGD (esophagogastroduodenoscopic) electrohydraulic lithotripsy of bezoar in stomach. Discharge Vitals Heart Rate (Peripheral) 100 Blood Pressure 120/60 Height 160 cm Height 63 in Weight 100 kg Weight 220 lb BMI 39.06 What to do next Scheduled Follow-Up Appointments Saturday 11:00 AM EST Where: [facility] [place] [id number]- Medications What How Much When Instructions Unchanged [...] extended release) 2 Tablets By Mouth 2 timesa day Contact prescribing physician if questions or concerns Unchanged metoprolol (metoprolol succinate 25 mg ER Tab) 1 Tablets By Mouth Every day Contact prescribing physician if questions or concerns Unchanged Misc Prescription (Free Style Rosalinda 2 Sensors) See instructions To be used w/ FS Rosalinda tocheck blood sugars daily. Dx: E11.69 Contact prescribing [...] 1 Tablets By Mouth Every day Contact prescribingphysician if questions or concerns Unchanged semaglutide (Ozempic [...] appreciate your feedback and (more content not included)...[facility] Medicine Office/Clinic Noteon 64-30-4167Zqlygt Medicine Office/Clinic NoteFamclean southeast Medicine Office/Clinic Note Chief Complaint rt eye swelling HPI Staff complaints of rt eye pain Onset: 2 days Characteristics: swelling and drainage OTC tried: none History of Present Illness I have reviewed and verified the staff HPI to be accurate for this encounter. Portions of this record may have been created with voice recognition artificial intelligence software, specifically [employer], [employer] and or [employer]. Substitutions may have occurred due to the inherent limitations of voice recognition and artificial intelligence software. Patient presents in office today with complaints of right eyelid swelling, discomfort x 2 days. Shedenies any known injury or trauma. Denies any [...] Canals and TM appear normal bilaterally. TM?s intact,not inflamed, with normal light reflex. Hearing grossly [...] patient styes generally resolve on their own. Mayuse Tylenol/ibuprofen for discomfort. Encouraged use of warm compresses TID - QID to facilitate drainage. Will Rx erythromycin ophthalmic ointment to prevent further secondary infection. Patient to f/u with PCP if no gradual improvement over the next 1-2 weeks, sooner if significantly worsening. Patient verbalized understanding of tx plan. Ordered: erythromycin ophthalmic, 1/4 inch ribbon, Eye-Right, TID for 7 day(s), 3.5 gm, Refill(s) 0, [facility]/pharmacy #[id number], 160, cm, 12/22/23 12:02:00 EDT, Height/Length [...] medical support in addressing this problem. Your BMIand weight management will be followed at subsequent visits. Ordered: Body Mass Index (BMI) documented 3008F Follow-up With When Contact Information Eligio MEDELLIN, Yeison Harris, [facility], MED Only if needed Additional Instructions: [...] History Biopsy of vulva, Colonoscopy, Colposcopy, EGD (esophagogastroduodenoscopic) electrohydraulic lithotripsy of bezoar in stomach. Medications atorvastatin 40 mg Tab, See Instructions erythromycin Opth 0.5% Oint, 1/4 inch ribbon (more content not included)... [facility] ColumbusComment on above:Result Comment: Electronically Signed By: ZHENG Beverly APRN, Alyx Segura\.mariano\Date and Time Signed: 12/22/23 12:40 EDTAmbulatory Visit Summaryon 61-20-4064Ibhqwsotbm Visit SummaryAmbulatory Visit Summary WENDY ERAZO :1975 Visit Date:12/12/2023 [...] Performed Biopsy of vulva, Colonoscopy, Colposcopy, EGD (esophagogastroduodenoscopic) electrohydraulic lithotripsy of bezoar in stomach. Discharge Vitals Heart Rate (Peripheral) 76 Respiratory Rate 16 Blood Pressure 109/70 Height 160 cm Height 63 in Weight 102 kg Weight 224.4 lb BMI 39.84 What to do next Scheduled Follow-Up Appointments Saturday 11:00 AM EST Where: [place] [id number]- Medications What How Much When Why Instructions [...] extended release) 2 Tablets By Mouth 2 timesa day Contact prescribing physician if questions or concerns Unchanged metoprolol (metoprolol succinate 25 mg ER Tab) 1 Tablets By Mouth Every day Contact prescribing physician if questions or concerns Unchanged Misc Prescription (Free Style Rosalinda 2 Sensors) See instructions To be used w/ FS Rosalinda tocheck blood sugars daily. Dx: E11.69 Contact prescribing [...] 1 Tablets By Mouth Every day Contact prescribingphysician if questions or concerns Unchanged semaglutide (Ozempic [...] your feedback and than (more content not included)...[facility] ColumbusGastroenterology Office/Clinic Noteon 43-51-1747Zoosjjetgipktpmw Office/Clinic NoteGastroenterology Office/Clinic Note Chief Complaint follow up to [...] fecal abnormalities) over a year, likely d/t [place], DDx include celiac, IBS-D, MC... Increase Imodium to 4 mg daily, take 30 minutes before meals- If this doesn't work we will talk to Behavior health to see if we can change [place] Thyroid was normal We will proceed with [...] loose, taking lithium We discussed using fibers xwcw-goz-uexravd Given she does not have any significant [...] History Biopsy of vulva, Colonoscopy, Colposcopy, EGD (esophagogastroduodenoscopic) electrohydraulic lithotripsy of bezoar in stomach. Medications [...] tab(s), Oral, Bedtime medroxyPROGESTERone, 10 mg, Oral metoprolol succinate 25 mg [...] 12/13/2020 Ready to ch (more content not included)...[facility] Comment on above:Result Comment: Electronically Signed By: Shahrzad MEDELLIN, Melissa Osorio\.br\Date and Time Signed: 12/12/23 15:19 EDTReminderson 11-11-2023 RemindersReminders From: Derick Cota To: [facility] - Reminders/Recalls; Sent: 11/11/2023 17:16:13 EDT Show up: 10/06/2030 17:16:00 EDT Subject: Ambulatory Reminder Due Date/Time: 11/04/2030 17:16:00 EDT Reminder/Recall Repeat colonoscopy in 7 years(2030) due to tubular adenomaNormAultman Alliance Community HospitalResult Letter Officeon [id number] Letter OfficeResult Letter Office November 11, 2023 WENDY ERAZO [address] [place] [id number] : 1975 Below is a summary of the results of your recent colonoscopy. Your results have been sent to your primary care provider along with recommendations on when the procedure should be repeated. COLONOSCOPY WITH POLYP REMOVAL OR BIOPSY Type of polyp tubular adenoma - not cancer but can become cancer if not removed. Additional colonoscopies will benecessary to monitor your condition and assure that new polyps have not developed. Based on your results we are recommending you repeat the procedure in 7 years You will be placed in our reminder system and will receive a reminder letter prior to your next duedate. [facility] [phone] Community Hospitalurgical Pathology Reporton [id number] Pathology ReportFishGrace Medical Center [address] [place] [address]- Surgical Pathology Report Collected Date/Time: 11/05/2023 09:40 [...] is entirely submitted in one cassette. (DC) DC:[facility] Microscopic Description A&B: Microscopic examination performed unless gross only specified.Normal [facility] HospitalComment on above:Performed By: #### [id number] #### [facility] [address] [place], [place] [address]Tvyrxz Medicine Office/Clinic Noteon 34-70-1988Xixjhf Medicine Office/Clinic NoteFamclean southeast Medicine Office/Clinic Note HPI Staff Wendy is [...] how to proceed Did make appt with pediatric allergist who did it in past but can't [...] qWeek, # 3 EA, Refills(s) 0, Pharmacy: [facility]/pharmacy #[id number], 160, cm, 08/20/23 14:44:00 EDT, Height/Length Dosing, 110.5, kg, 08/20/23 14:44:00 EDT, Weight Dosing semaglutide, See Instructions, INJECT 1 MG SUBCUTANEOUSLY WEEKLY, # 9 Unspecified/Unknown, Refills(s) 0, Pharmacy: [id number], 160, cm, 10/22/23 14:00:00 EDT, Height/Length Dosing, [...] History Biopsy of vulva, Colonoscopy, Colposcopy, EGD (esophagogastroduodenoscopic) electrohydraulic lithotripsy of bezoar in stomach. Medications [...] tab(s), Oral, Bedtime medroxyPROGESTERone, 10 mg, Oral metoprolol 25 mg ER [...] 06/21/2020 Recorded influenza virus vaccine, inactivated 02/21/2015 RecordedNormalFisher Khanh Medical CenterComment on above:Result Comment: Electronically Signed By: Yeison Del Valle MD\.br\Date and Time Signed: 10/31/23 15:51 EDTAmbulatory Visit Summaryon [id number] Visit SummaryAmbulatory Visit Summary ERAZOWENDY :1975 Visit Date:10/22/2023 Ambulatory Visit Instructions Your [...] Performed Biopsy of vulva, Colonoscopy, Colposcopy, EGD (esophagogastroduodenoscopic) electrohydraulic lithotripsy of bezoar in stomach. Discharge Vitals Temperature (Temporal Artery) 37.2 ?C Heart Rate (Peripheral) 92 Respiratory Rate 18 Blood Pressure 124/72 Height 160 cm Height 63 in Weight 105.0 kg Weight 231 lb BMI 41.02 What to do next Scheduled Follow-Up Appointments Saturday 11:00 AM EST [facility] [place]Invalid Interpretation CodeType 2 diabetes mellitus with morbid obesityMiddletown HospitalFamclean southeast Medicine Office/Clinic Noteon 03-15-8562Pnpnfo Medicine Office/Clinic NoteFamclean southeast Medicine Office/Clinic Note HPI Staff Wendy is [...] on meds as before Ordered: A1c POC 60397 Body Mass Index (BMI) documented 3008F Current tobacco smoker 1034F [facility] External Ambulatory Referral Influenza immunization administered or [...] sugars range from 50-200. Ordered: A1c POC 98705 Body Mass Index (BMI) documented 3008F Current tobacco smoker 1034F [facility] External Ambulatory Referral Influenza immunization administered or previously received 4274F Most recent diastolic blood pressure <80 mm Hg 3078F Systolic BP <130 mm Hg (Most Recent) 3074F 3. BMI 40.0-44.9, adult (Z68.41: Body mass index [BMI] 40.0-44.9, adult) - BMI education added to the chart Ordered: A1c POC 85397 Body Mass Index (BMI) documented 3008F Current tobacco smoker 1034F [facility] External Ambulatory Referral Influenza immunization administered or previously received 4274F Most recent diastolic blood pressure <80 mm Hg 3078F Systolic BP <130 mm Hg (Most Recent) 3074F 4. Class 3 severe obesity due to excess calories with body mass index (BMI) of 40.0 to 44.9 in adult (E66.01: Morbid (severe) obesity due to excess calories) - Diet and exercise advised. Ordered: A1c POC 70964 Body Mass Index (BMI) documented 3008F Current tobacco smoker 1034F [facility] External Ambulatory Referral Influenza immunization administered or previously received 4274F Most recent diastolic blood pressure <80 mm Hg 3078F Systolic BP <130 mm Hg (Most Recent) 3074F 5. Smoker (F17.200: Nicotine dependence, unspecified, uncomplicated) - Encouraged the patient to stop smoking. Patient is wheezing today. Not on any inhalers or diagnosed with COPD. Ordered: A1c POC 92267 Body Mass Index (BMI) documented 3008F Current tobacco smoker 1034F [facility] External Ambulatory Referral Influenza immunization administered or [...] History Biopsy of vulva, Colonoscopy, Colposcopy, EGD (esophagogastroduodenoscopic) electrohydraulic lithotripsy of bezoar in stomach. Medications [...] tablet, extended release, (more content not included)... [facility] ColumbusComment on above:Result Comment: Electronically Signed By: Eligio MEDELLIN, Yeison Devries.br\Date and Time Signed: 10/22/23 14:22 EDT07 Addendum Reporton Addendum ReportMem[facility] [address] [place] [address]- Surgical Pathology Report Collected Date/Time: 10/08/2023 10:40 [...] is entirely submitted in one cassette. (DC) DC:[facility] Microscopic Description Microscopic examination performed unless gross only specified. The use of one or more reagents in the above tests is regulated as an analyte specific reagent (ASR). The test or tests are ordered following initial H&E microscopic examination. The performance characteristics were determined by the Laboratory of [facility]. They have not been cleared or approved by the US Food and Drug Administration. The FDA has determined that such clearance or approval is not necessary. These tests are used for clinical purposes. They should not be regarded as investigational or for research. Appropriate positive and negative controls are performed and are acceptable. [facility] Hospital of ColumbusComment on above:Performed By: #### [id number] #### Herrera [facility] [address] [place], [place] [address]Gsekrchp Pathology Reporton [id number] Pathology Report [facility] [address] [place] [address]- Surgical Pathology Report Collected Date/Time: 10/08/2023 10:40 [...] is entirely submitted in one cassette. (DC) DC:[facility] Microscopic Description Microscopic examination performed unless gross only specified. The use of one or more reagents in the above tests is regulated as an analyte specific reagent (ASR). The test or tests are ordered following initial H&E microscopic examination. The performance characteristics were determined by the Laboratory of [facility]. They have not been cleared or approved by the US Food and Drug Administration. The FDA has determined that such clearance or approval is not necessary. These tests are used for clinical purposes. They should not be regarded as investigational or for research. Appropriate positive and negative controls are performed and are acceptable. NormalMiddletown HospitalComment on above:Performed By: #### [id number] #### Javier [facility] [address] [place], [place] [address]Wzbydaxssy Visit Summaryon [id number] Visit Summary Ambulatory Visit Summary WENDY ERAZO :1975 Visit Date:10/08/2023 Ambulatory Visit Instructions Your Diagnosis Right otitis externa BMI 40.0-44.9, adult Your Care Team Attending Physician - Rodney VÁZQUEZ, Kian Florentino Primary Care Physician - Eligio MEDELLIN, Yeison Harris This Is Your Medications List hydrocortisone/neomycin/polymyxin B otic (hydrocortisone/neomycin/polymyxin B Otic Radha) Contact prescribing physician if [...] Procedures Performed Biopsy of vulva, Colposcopy, EGD (esophagogastroduodenoscopic) electrohydraulic lithotripsy of bezoar in stomach. Discharge Vitals Heart Rate (Peripheral) 96 Blood Pressure 124/86 Height 160 cm Height 63 in Weight 104.8 kg Weight 230.56 lb BMI 40.94 What to do next Scheduled Follow-Up Appointments Saturday 2:00 PM EDT With: Eligio MEDELLIN, Yeison Harris Where: [facility] [address] [address]- \.br\ Medications\.br\ What How Much When Why Instructions\.br\ New hydrocortisone/ neomycin/ polymyxin B otic (hydrocortisone/ neomycin/ polymyxin B Otic Radha) 4 Drops Otic 3 times a day Right otitis externa Duration: 7 Days Right ear Pickup at [facility]/pharmacy #[id number]\.br\ Unchanged atorvastatin (Lipitor 40 mg Tab) 1 [...] 1 Tablets By Mouth Every day Contact prescribingphysician if questions or concerns \.br\ Unchanged Misc Prescription (Free Style Rosalinda 2 Sensors) See instructions To be used w/ FS Rosalinda to check blood sugars daily. Dx: E11.69 Contact prescribing physician if questions or concerns \.br\ Unchanged Misc Prescription (glucose meter) See instructionsto check BS daily E11.9 Contact prescribing physician if questions or concerns \.br\ Unchanged MiscPrescription (LANCETS) See instructions use to check BS [...] pantoprazole (Pantoprazole [address] Tab) 1 TabletsBy Mouth Every day Contact prescribing physician if questions or concerns \.br\ Unchanged semaglutide (Ozempic (1 mg dose) 4 mg/ 3 mL subcutaneous solution) 1 Milligram Subcutaneous Every week Contact prescribing physician if questions or concerns \.br\ Pharmacy Information\.br\ [facility]/pharmacy #[id number]:[address], [place] [id number] [phone]\.br\ Allergies\.br\ No Known Allergies\.br\ Problems\.br\ Ongoing - Any problem that you are currently receiving treatment for.\.br\ Romero's palsy\.br\ Bipolar disorder, current episode mixed, moderate\.br\ BMI 45.0-49.9, adult\.br\ Breast cancerscreening by mammogram\.br\ Class 3 obesity\.br\ Colon cancer [...] you for choosing us for your care.\.br\ \.br\[facility] Medicine Office/Clinic Noteon [id number] Medicine Office/Clinic NoteFamclean southeast Medicine Office/Clinic Note Chief Complaint R ear [...] created with voice recognition software. Occasional wrong-word or?wepyy-z-xvvd? substitutions may have occurred due to the inherent limitations of voice recognitionsoftware. 48 yo female with history of Romero's [...] next-door states her ate over him of [place] but came over to see if she [...] be some trauma [facility] the [facility] on the left-hand side most likely due [...] Patient verbalized understanding of treatment plan. Ordered: hydrocortisone/neomycin/polymyxin B otic, 4 drop(s), Otic, TID for 7 day(s), 10 mL, Refill(s) 0, Right ear, [facility]/pharmacy #[id number], 160, cm, 10/08/23 13:02:00 EDT, Height/Length [...] medical support in addressing this problem. Your BMIand weight management will be followed at subsequent visits. Ordered: Body Mass Index (BMI) documented 3008F Follow-up With When Contact Information Eligio MEDELLIN, Yeison Harris, [facility], [facility] Additional Instructions: Patient Education Otitis Externa, Aaee-bq-Rmat Problem List/Past Medical History Ongoing Romero's palsy Bipolar disorder, current episode mixed, moderate BMI 45.0-49. (more content not included)...[facility] Comment on above:Result Comment: Electronically Signed By: Rodney VÁZQUEZ, Kian Florentino\.br\Date and Time Signed: 10/07/2412:26 EDTInsurance Correspondenceon [id number] Correspondence [id number]#1.00TIFFNoSelect Medical Specialty Hospital - Boardman, IncAmbulatory Visit Summaryon [id number] Visit Summary WENDY ERAZO :1975 Visit Date:09/26/2023 [...] Procedures Performed Biopsy of vulva, Colposcopy, EGD (esophagogastroduodenoscopic) electrohydraulic lithotripsy of bezoar in stomach. Discharge Vitals Heart Rate (Peripheral) 76 Respiratory Rate 18 Blood Pressure 136/70 Height 160 cm Height 63 in Weight 105 kg Weight 231 lb BMI 41.02 What to do next Scheduled Follow-Up Appointments Saturday 2:00 PM EDT With: Eligio MEDELLIN, Yeison Harris Where: [facility] [place] [id number]- \.br\ You Need to Complete the Following\.br\ [...] See instructions use to check BS daily dxE11.9 Contact prescribing physician if questions or concerns \.br\ Unchanged Misc Prescription (TEST STRIPS) See instructions use to check BS daily dx E11.9 Contact prescribing physician if questionsor concerns \.br\ Unchanged olanzapine (olanzapine 10 mg Tab) 1 Tablets By Mouth Once a day (at bedtime) along with 20mg at bedtime Contact prescribing physician if questions or concerns \.br\ Unchanged olanzapine (olanzapine 20 mg oral tablet) 1 Tablets By Mouth At bedtime Contact prescribing physician if questions or concerns \.br\ Unchanged pantoprazole (Pantoprazole [address] Tab) 1 Tablets ByMouth Every day Contact prescribing physician if questions [...] Class 3 obesity\.br\ Colon cancer screening\.br\ Cough\.br\ Hypothyroidism\.br\Loose stools\.br\ Mixed incontinence urge and stress\.br\ MANNY [...] you for choosing us for your care.\.br\ \.br\Javier [facility] 09-26-2023 [id number]#1.00TIFFNoSelect Medical Specialty Hospital - Boardman, IncConsent for Procedure/Surgeryon [id number] for Procedure/[id number]#1.00TIFLima City HospitalGastroenterology Office/Clinic Noteon 09-26-2023 Gastroenterology Office/Clinic NoteChief Complaint loose stools HPI Staff Patient is [...] a year started metformin Apr 2023 Taking Belle[place] for about 2-3 years tried imodium 1 [...] fecal abnormalities) over a year, likely d/t Belle[place], DDx include celiac, IBS-D, MC... Increase Imodium to 4 mg daily, take 30 minutes before meals- If this doesn't work we will talk to Behavior health to see if we can change [place] Thyroid was normal We will proceed with Celiac panel and Colonoscopy w/ Duodenal, random colon and TI intubation 2. Colon cancer screening (Z12.11: Encounter for screening for malignant neoplasm of colon) Proceed with Colonoscopy- hold Ozempic for a week prior- Discussed risk and benefits with patient- agreeable to proceeding IMoraima, personally scribed for Melissa Markham MD on [...] Procedure/Surgical History Biopsy of vulva, Colposcopy, EGD (esophagogastroduodenoscopic) electrohydraulic lithotripsy of bezoar in stomach. Medications [...] tab(s), Oral, Bedtime medroxyPROGESTERone, 10 mg, Oral metoprolol 25 mg ER [...] 06/21/2020 Recorded influenza virus vaccine, inactivated 02/21/2015 RecordedChildren's Hospital of ColumbusComment on above:Result Comment: Electronically Signed By: Melissa Markham MD\.br\Date and Time Signed: 09/26/23 13:08 EDT\.br\Electronically Co-Signed By: Moraima Hall MA\.br\Date and Time Co- Signed: 09/26/23 13:07 EDTPatient Eval Forms Officeon [id number] Eval Forms [id number]#1.00TIFLima City HospitalConsent for Treatmenton [id number] for Treatment [id number]#1.00TIFUC Medical Centerle Office/Clinic Noteon 24-17-8025Wboou Office/Clinic NoteHistory of Present Illness Here to establish care for underlying obstructive sleep apnea. The patient apparently was told by her mother that she snores loudly at night and stops breathing frequently while asleep. She herself felt that her sleep was quite disrupted and has significant fatigue and daytime sleepiness throughoutthe day. Given the above the patient underwent a sleep study which confirmed underlying obstructivesleep apnea. I have arranged for a BiPAP machine at a pressure of 24/18 cm which she has been usingvia a fullface mask over the past few [...] bruising tendency, no petechiae, no swollen nodes Allergy/Immunologic: no seasonal allergies, no food allergies, no recurrent infections, no impairedimmunity Additional ROS info: Except as noted in [...] an apnea hypotony index of 125/hour with mildoxygen desaturation noted. The etiology of obstructive sleep [...] regularly and change supplies as needed. Avoid drivingwhile sleepy and avoid sedatives and hypnotics such as alcohol. We will continue with same pressure unless new issues develop and see the patient back after 1 year. The patient will call us back in the meantime if any issues. Follow-up With When Contact Information Дмитрий MEDELLIN, Amarjit Martinez, PULJAS Within 1 year [address] [facility] [place] [address]- Additional Instructions: Problem List/Past Medical [...] Procedure/Surgical History Biopsy of vulva, Colposcopy, EGD (esophagogastroduodenoscopic) electrohydraulic lithotripsy of bezoar in stomach. Medications [...] tab(s), Oral, Bedtime medroxyPROGESTERone, 10 mg, Oral metoprolol 25 mg ER Tab, 25 mg= 1 tab(s), (more content not included)...Normal Middletown HospitalComment on above:Result Comment: Electronically Signed By: Дмитрий MEDELLIN, Amarjit Martinez\.br\Date and Time Signed: 09/23/23 11:51 EDT Ambulatory Visit Summaryon [id number] Visit Summary ERAZOWENDY MOLINA Ingacio :1975 Visit Date:08/20/2023 Ambulatory Visit Instructions Your [...] Procedures Performed Biopsy of vulva, Colposcopy, EGD (esophagogastroduodenoscopic) electrohydraulic lithotripsy of bezoar in stomach. Discharge Vitals Temperature (Temporal Artery) 36.8 ?C Heart Rate (Peripheral) 90 Respiratory Rate 18 Blood Pressure 136/82 Height 160 cm Height 63 in Weight 110.5 kg Weight 243.1 lb BMI 43.16 What to do next Scheduled Follow-Up Appointments 2023 12:30 PM EDT With: Shahrzad MEDELLIN, Melissa Osorio [facility] Interpretation Code [address] [place] [address]- \.br\ Saturday 11:00 AM EST \.br\ With:\.br\ Where: [facility] Medicine Office/Clinic Noteon [id number] Medicine Office/Clinic NoteHPI Staff Wendy is a 48 year old [...] SYMPTOMS, # 90 tab(s), Refills(s) 1, Pharmacy: [id number], 160, cm, 12/24/22 11:04:00 EDT, Height/Length Dosing, 121.6, kg, 12/24/22 11:04:00 EDT, Weight Dosing levothyroxine, 75 mcg = 1 tab(s), Oral, Daily, # 90 tab(s), Refills(s) 0, [id number], 160, cm, 08/20/23 14:44:00 EDT, Height/Length Dosing, 110.5, kg, 08/20/23 14:44:00 EDT, Weight Dosing semaglutide, 1 mg, SubCutaneous, qWeek, # 3 EA, Refills(s) 0, [id number], 160, cm, 08/20/23 14:44:00 EDT, Height/Length [...] Procedure/Surgical History Biopsy of vulva, Colposcopy, EGD (esophagogastroduodenoscopic) electrohydraulic lithotripsy of bezoar in stomach. Medications [...] tab(s), Oral, Bedtime medroxyPROGESTERone, 10 mg, Oral metoprolol 25 mg ER [...] 12/13/2020 Ready to odalis (more content not included)...[facility] Comment on above:Result Comment: Electronically Signed By: Eligio MEDELLIN, Yeison Devries.br\Date and Time Signed: 08/20/23 15:11 EDTPatient Educationon 08-20-2023 Patient EducationNutrition BMI for Adults What is BMI? Body mass index (BMI) is a number that is calculated from a person's weight and height. BMI can help estimate how much of a person's weight is composed of fat. BMI does not measure body fat directly.Rather, it is an alternative to procedures that [...] your height. Both height and weight are measured,and the BMI is calculated from those numbers. This can be done either in [place] or metric measurements. Note that charts and online BMI calculators are available to help you find your BMI quickly and easily without having to do these calculations yourself. To calculate your BMI in [place] measurements: 1. Measure your weight in [...] meters squared number. In this example: 70 ?3.1 = 22.6. This is your BMI. What [...] for Disease Control and Prevention: www.cdc.gov ? [place] Heart Association: www.heart.org ? National Heart, Lung, and Blood [place]: www.nhlbi.nih.gov Summary ? Body mass index (BMI) is a number that is calculated from a person's weight and height. ? BMI may help estimate how much of a person's weight is composed of fat. BMI can help identify those who may be at higher risk for certain medical problems. ? BMI can be measured using [place] measurements or metric measurements. ? BMI charts are used to identify whether you are underweight, normal weight, overweight, or obese. This information is not intended to replace advice given to you by your health care provider. Make sure you discuss any questions you have with your health care provider. Document Revised: 12/16/2019 Document Reviewed: 10/23/2019 [employer] Patient Education ? 2022 [employer].[facility] Lab Reportson [id number] Reports [id number]#1.00[facility] HospitalDiabetic Self Management Educationon 59-22-9195Jyszrehn Self Management [id number]#1.00[facility] HospitalAmbulatory Visit Summaryon [id number] Visit Summary WENDY ERAZO :1975 Visit Date:06/24/2023 [...] Procedures Performed Biopsy of vulva, Colposcopy, EGD (esophagogastroduodenoscopic) electrohydraulic lithotripsy of bezoar in stomach. Discharge Vitals Temperature (Temporal Artery) 36.8 ?C Heart Rate (Peripheral) 100 Respiratory Rate 18 Blood Pressure 132/80 Height 160 cm Height 63 in Weight 117.3 kg Weight 258.06 lb BMI 45.82 What to do next Scheduled Follow-Up Appointments Saturday 9:00 AM EDT With: Where: [facility] Saturday 2:45 PM EDT With: Yeison Del Valle MD Where[facility] Office/Clinic Noteon [id number] Medicine Office/Clinic NoteHPI Staff Wendy is a 47 year old [...] qWeek, # 6 EA, Refills(s) 0, Pharmacy: [facility]/pharmacy #[id number], 160, cm, 06/24/23 14:13:00 EDT, Height/Length [...] Procedure/Surgical History Biopsy of vulva, Colposcopy, EGD (esophagogastroduodenoscopic) electrohydraulic lithotripsy of bezoar in stomach. Medications [...] tab(s), Oral, Bedtime medroxyPROGESTERone, 10 mg, Oral metoprolol 25 mg ER [...] See Instructions, 4 refil (more content not included)...Normal Middletown HospitalComment on above:Result Comment: Electronically Signed By: Eligio MEDELLIN, Yeison Harris\.br\Date and Time Signed: 06/24/23 14:36 EDT Patient Educationon [id number] EducationNutrition BMI for Adults What is BMI? Body mass index (BMI) is a number that is calculated from a person's weight and height. BMI can help estimate how much of a person's weight is composed of fat. BMI does not measure body fat directly.Rather, it is an alternative to procedures that [...] your height. Both height and weight are measured,and the BMI is calculated from those numbers. This can be done either in [place] or metric measurements. Note that charts and online BMI calculators are available to help you find your BMI quickly and easily without having to do these calculations yourself. To calculate your BMI in [place] measurements: 1. Measure your weight in [...] meters squared number. In this example: 70 ?3.1 = 22.6. This is your BMI. What [...] for Disease Control and Prevention: www.cdc.gov ? [place] Heart Association: www.heart.org ? National Heart, Lung, and Blood [place]: www.nhlbi.nih.gov Summary ? Body mass index (BMI) is a number that is calculated from a person's weight and height. ? BMI may help estimate how much of a person's weight is composed of fat. BMI can help identify those who may be at higher risk for certain medical problems. ? BMI can be measured using [place] measurements or metric measurements. ? BMI charts are used to identify whether you are underweight, normal weight, overweight, or obese. This information is not intended to replace advice given to you by your health care provider. Make sure you discuss any questions you have with your health care provider. Document Revised: 12/16/2019 Document Reviewed: 10/23/2019 [employer] Patient Education ? 2022 [employer].[facility] Pre-Certification Formon 24-31-7877Bga-Certification Form [id number]#1.00TIFFNoSelect Medical Specialty Hospital - Boardman, IncProgress Note - Nutritionon 01-23-9211Ykssetja Note - NutritionNutrition Assessment. Food and Nutrition-Related History. NEW dm [...] for swim pass and can walk PMH: Perdido Palsy, bipolar, hypothyroid, HTN, depression Anthropometric: Ht: [...] Nutrition-Related Knowledge Deficit R/T Lack of prior nutrition- related education AEB inconsistent carbohydrate timing, excess simple [...] Dietetics, [facility], Sasha Nordisk, and [place] Association of Diabetes Educators. Referral of Care: [...] change behavior to change w goal setting, self- monitoring and/or problem solving. 5. Monitor total energy [...] f/u for complete assessment. CB Aranda, RD, [facility] HospitalAmbulatory Visit Summaryon [id number] Visit Summary WENDY ERAZO :1975 Visit Date:05/22/2023 [...] Procedures Performed Biopsy of vulva, Colposcopy, EGD (esophagogastroduodenoscopic) electrohydraulic lithotripsy of bezoar in stomach. What to do next Scheduled Follow-Up Appointments Saturday 1:00 PM EST With: Yeison Del Valle MD Where: [facility] HospitalCHEMISTRYOrdered By: SYSTEM SYSTEM on 05-22-2023U Phsiiybdja965.7 mg/dLInvalid Interpretation CodeRemisol ChemU Microalbmicrogram/mLNormal0.0 - 19.0 mcg/mLRemisol ChemU Prot/Creat Ratio13.90 mg/gm CrNormal0.00 - 200.00 mg/gm CrRemisol ChemUr Total Dqqxfgh51.3 mg/dLInvalid Interpretation CodeRemisol Chem TSH Qn4.90 m[IU]/LNormal0.34 - 5.60 mcIU/mLRemisol ChemCHEMISTRYOrdered By: Marco A Jones on 41-41-7900MhV4v (Bld) [Mass fraction]8.3 %High<=5.9%[facility] ChemAutoSSSturdy Memorial Hospital Medicine Office/Clinic Noteon 56-91-2770Oufidf Medicine Office/Clinic NoteHPI Staff Wendy is a 47 year old [...] home did for a while and got outof doing it What are your average readings? [...] as before. Ordered: HgbA1c Lab Specimen Collect [id number] Microalbumin Level Urine TSH With T4fr Reflex U Protein/Creat Ratio 2. Type 2 diabetes mellitus with morbid obesity (E11.69: Type 2 diabetes mellitus with other specified complication) - Will recheck labs today. - Adjust meds based on labs. - Gave samples of freestyle rosalinda to help patient recognize which foods cause her BS to spike. Ordered: HgbA1c Lab Specimen Collect [id number] Microalbumin Level Urine TSH With T4fr Reflex U Protein/Creat Ratio 3. BMI 45.0-49.9, adult (Z68.42: Body mass index [BMI] 45.0-49.9, adult) - BMI education given. Ordered: HgbA1c Lab Specimen Collect 12517 Microalbumin Level Urine TSH With T4fr Reflex U Protein/Creat Ratio 4. Hypothyroidism (E03.9: Hypothyroidism, unspecified) - Will recheck today. Ordered: HgbA1c Lab Specimen Collect 64489 Microalbumin Level Urine TSH With T4fr Reflex U Protein/Creat Ratio 5. Morbid (severe) obesity due to excess calories (E66.01: Morbid (severe) obesity due to excess calories) - Diet and exercise advised Ordered: HgbA1c Lab Specimen Collect [id number] Microalbumin Level Urine TSH With T4fr Reflex U Protein/Creat Ratio 6. Smoker (F17.200: Nicotine dependence, unspecified, uncomplicated) - Please stop smoking. Ordered: HgbA1c Microalbumin Level Urine TSH With T4fr Reflex U Protein/Creat Ratio 7. Bipolar disorder, current episode mixed, moderate (F31.62: Bipolar disorder, current episode mixed, moderate) - [place] level was WNL last time. - Pt states she is doing better. Ordered: HgbA1c Microalbumin Level Urine TSH With T4fr Reflex U Protein/Creat Ratio Orders: metformin, 1,000 mg = 2 tab(s), Oral, BID, # 360 tab(s), Refills(s) 1, Pharmacy: [facility]/pharmacy #[id number], 160, cm, 05/22/23 12:27:00 EST, Height/Length Dosing, 120.5, kg, 05/22/23 12:27:00 EST, Weight Dosing metoprolol, 25 mg = 1 tab(s), Oral, Daily, # 90 tab(s), Refills(s) 0, Pharmacy: [facility] #[id number],160, cm, 05/22/23 12:27:00 EST, Height/Length Dosing, 120.5, [...] Procedure/Surgical History Biopsy of vulva, Colposcopy, EGD (esophagogastroduodenoscopic) electrohydraulic lithotripsy of bezoar in stomach. Medications [...] tab(s), Oral, Bedtime medroxyPROGESTERone, 10 mg, Oral metoprolol 25 mg ER [...] Abuse - Denies Jerome (more content not included)...NormalMiddletown HospitalComment on above:Result Comment: Electronically Signed By: Eligio MEDELLIN, Yeison Devries.br\Date and Time Signed: 05/22/23 14:12 [id number] 05-22-2023 HbA1c (Bld) [Mass fraction]8.3 %High<=5.9Middletown HospitalComment on above:Performed By: #### [id number] ####Javier [facility] [address] [place], [place] [address]JCF With T4fr Reflexon [id number] Qn4.90 m[IU]/LNormal0.34-5.60Middletown HospitalComment on above: Performed By: #### [id number], [id number] ####[facility] [address] [place] [address] [id number] Microalbon 05-22-2023U Microalb<2.0 Normal0.0-19.0M[facility]letown HospitalComment on above:Performed By: #### [id number] ####[address] [id number] Protein/Creat Ratioon 05-22-2023U Vewjuucvxr415.7 mg/dL Invalid Interpretation [facility] HospitalComment on above:Performed By: #### [id number], [id number] ####[address] [id number] Prot/Creat Ratio13.90 mg/gm CrNormal.00-200.00 [facility] HospitalComment on above:Performed By: #### [id number], [id number] ####[address] [address]Sb Total Htirlab37.3 mg/dLInvalid Interpretation [facility] HospitalComment on above:Performed By: #### [id number], [id number] ####[address] [id number] Orderon [id number] [id number]#1.00TIFF NormalMiddletown HospitalConsent for Treatmenton 86-22-3548Tvbxdia for [id number]#1.00TIFFNormalMiddletown HospitalPhysician Orderon [id number] Order [id number]#1.00TIFFNormAultman Alliance Community HospitalPhysician [id number]#1.00TIFFNormal [facility] HospitalCHEMISTRYOrdered By: SYSTEM SYSTEM on 01-23-2023 Albumin [Mass/Vol]3.7 g/dLNormal3.3 - 5.0 gm/dLFTMC RemisolAlbumin/Globulin [Mass ratio]1.0 {ratio}Low1.1 - 2.2[facility] RemisolALP [Catalytic activity/Vol]102 [iU]/dHigh21 - 98 Int._Unit/LFTMC RemisolALT No additional P-5'-P [Catalytic activity/Vol]45 [iU]/dNormal6 - 46 Int._Unit/LFTMC RemisolAnion gap [Moles/Vol] 15 mmol/LNormal6 - 16 mEq/LFTMC RemisolAST [Catalytic activity/Vol]72 [iU]/dHigh 5 - 43 Int._Unit/LFTMC RemisolBilirubin [Mass/Vol]0.3 mg/dLNormal0.0 - 1.1 mg/dL [facility] RemisolCalcium [Mass/Vol]9.7 mg/dLNormal8.9 - 11.1 mg/dLFTMC Remisol Chloride [Moles/Vol]99 mmol/YVht709 - 111 mmol/LFTMC RemisolCholesterol [Mass/Vol]163 mg/qPNptbgz849 - 200 mg/dLFTMC RemisolCholesterol in HDL [Mass/Vol]34 mg/dLInvalid Interpretation CodeFTMC RemisolComment on above: Interpretive Data: HDL > or equal to 60 mg/dL: Low cardiovascular risk HDL < 40 mg/dL : High cardiovascular riskCholesterol in LDL [Mass/Vol]91 mg/dL Normal<=129mg/dLFTMC RemisolCholesterol in VLDL [Mass/Vol]51 mg/dLHigh7 - 40 mg/dLFTMC RemisolCO2 [Moles/Vol]25 mmol/CPehqof50 - 31 mmol/LFTMC Remisol Creatinine [Mass/Vol]0.8 mg/dLNormal0.5 - 1.3 mg/dLFTMC RemisolGFR/1.73 sq M.predicted among non-blacks MDRD (S/P/Bld) [Vol rate/Area]93 mL/min/1.73 m2 Normal>=59mL/min/1.73 m2[facility] Chem SComment on above:Interpretive Data: Chronic kidney disease could be indicated at eGFR's of less than 60 mL/min/1.73m2. Kidney failure is indicated at less than 15 mL/min/1.73m2.Globulin (S) [Mass/Vol]3.6 g/dLNormal1.4 - 4.0 gm/dLFT RemisolGlucose [Mass/Vol]219 mg/dL High55 - 199 mg/dLFT RemisolComment on above:Interpretive Data: If this glucose result represents a fasting glucose, interpretation should referto the following reference range: 55-99 mg/dLPotassium [Moles/Vol]4.0 mmol/LNormal3.5 - 5.3 mmol/LFTMC RemisolProtein [Mass/Vol]7.3 g/dLNormal6.0 - 7.8 gm/dLFT RemisolSodium [Moles/Vol]135 mmol/BTzfboh511 - 145 mmol/LFTMC Remisol Triglyceride [Mass/Vol]255 mg/dLHigh<=149mg/dLELKVIEW [facility] RemisolTSH Qn4.17 m[IU]/L Normal0.34 - 5.60 mcIU/mLELKVIEW [facility] RemisolUrea nitrogen [Mass/Vol]10 mg/dLNormal5 - 21 mg/dLELKVIEW [facility]AL [facility] RemisolUrea nitrogen/Creatinine [Mass ratio]12 mg/xtQszmmh12 - 20 [facility] RemisolCOVID + FLU Quick Testingon [id number]-CoV-2 (COVID-19) RNA NARCISA+probe Ql (Unsp spec)NegativeSajan Other COVID + FLU Quick TestingNegativeSajan Other Quick Strepon 08-13-2022S. pyogenes Org specific cx Ql (Throat)NegativeSajan Other quick [employer] Other LITHIUMon 36-82-8766Pvmjgpz (Eskalith(R)), Serum0.9 mmol/LNormal0.5-1.2The [facility] CenterComment on above:Result Comment: A concentration of 0.5-0.8 mmol/L is advised for long-term use; concentrations of up to 1.2 mmol/L may be necessary during acute treatment. Detection Limit = 0.1 <0.1 indicates None DetectedPerformed By: #### CVDTBH #### [facility] [address] [place] [address] Dr. Peter RamirezTHIUMon 71-43-7303Velnrjh (Eskalith(R)), Serum0.4 mmol/L Critically low0.5-1.2The [facility] CenterComment on above:Result Comment: A concentration of 0.5-0.8 mmol/L is advised for long-term use; concentrations of up to 1.2 mmol/L may be necessary during acute treatment. Detection Limit = 0.1 <0.1 indicates None DetectedPerformed By: #### CVDTBH #### [facility] [address] [place] [address] Dr. Peter RamosCREATININEon 77-68-1350Qcyvfrrkpu [Mass/Vol]0.75 mg/dLNormal 0.55-1.02The [facility] CenterComment on above:Performed By: #### CVDTBH #### [facility] [address] [place] [address] Dr. Peter ArrietaGFR-AF GREEK>60Normal>=60The [facility] CenterComment on above:Performed By: #### CVDTBH #### [facility] [address] [place] [address] Dr. Peter ArrietaGFR-NON AF GREEK>60Normal>=60[facility] on above:Performed By: #### CVDTBH #### [facility] [address] [place] [address] Dr. Peter DaiRECT LDLon 62-75-9843Danyqyvpluk in LDL [Mass/Vol]79 mg/dL NormalThe Penny HospitalComment on above:Performed By: #### CVDTBH #### [facility] [address] [address] [address] Peter RamosDLDL NORMALSEKettering Health Greene MemorialComment on above: Result Comment: <100 mg/dl OPTIMAL 100 - 129 mg/dl NEAR OR ABOVE OPTIMAL 130 - 159 mg/dl BORDERLINE HIGH 160 - 189 mg/dl HIGH >190 mg/dl VERY HIGHPerformed By: #### CVDTBH #### [facility] [address] [place] [address] Dr. Peter RamosGLUCOSE BLOODon 88-34-1049Uddpjtl [Mass/Vol]114 mg/dLCritically fyqo56-896ZvyShelby Memorial HospitalComment on above:Performed By: #### CVDTBH #### [facility] [address] [place] [address] Dr. Peter RamosLIPID PROFILEon [id number]-HDL RATIO NORMSEE [facility] HospitalComment on above:Result Comment: 3.3 - 4.4 LOW RISK 4.4 - 7.1 AVERAGE RISK 7.1 - 11.0 MODERATE RISK >11.0 HIGH RISKPerformed By: #### CVDTBH #### [facility] [address] [place] [address] Dr. Peter RamosCholesterol [Mass/Vol]167 mg/dLNormal<=200[facility] Comment on above:Performed By: #### CVDTBH #### [facility] [address] [place] [address] Dr. Peter RamosCholesterol in HDL [Mass/Vol]35 mg/dLCritically bjn32-99SlyShelby Memorial HospitalComment on above:Performed By: #### CVDTBH #### [facility] [address] [place] [address] Dr. Peter RamosCholesterol in LDL [Mass/Vol]47.0 mg/dLMemorial Health System Selby General HospitalComment on above:Performed By: #### CVDTBH #### [facility] [address] [place] [address] Dr. Yilan ChangCholesterol.total/Cholesterol in HDL [Mass ratio]4.8 {ratio} NormalThe [facility] Campusment on above:Performed By: #### CVDTBH #### [facility] [address] [place] [address] Dr. Peter Gil NORMAL> or = 60 mg/dl - LOW CARDIOVASCULAR RISK <40 mg/dl - HIGH CARDIOVASCULAR RISKMemorial Health System Selby General HospitalComment on above:Performed By: #### CVDTBH #### [facility] [address] [place] [address] Dr. Peter RamosLDL CALC NORMALSEE BELOWMemorial Health System Selby General HospitalComment on above:Result Comment: <100 mg/dl OPTIMAL 100 - 129 mg/dl NEAR OR ABOVE OPTIMAL 130 - 159 mg/dl BORDERLINE HIGH 160 - 189 mg/dl HIGH >190 mg/dl VERY HIGH Performed By: #### CVDTBH #### [facility] [address] [place] [address] Dr. Peter RamosTriglyceride [Mass/Vol]425 mg/dLCritically high<=150The [facility] CenterComment on above:Performed By: #### CVDTBH #### [facility] [address] [place] [address] Dr. Peter RosadoLDL CALC85.0 mg/dLNoMarietta Osteopathic ClinicCommclaren flint on above: Performed By: #### CVDTBH #### [facility] [address] [place] [address] Dr. Peter Galvan 70-87-3332FXZ1.826 uIU/mLNormal0.358-3.740The [facility] CenterComment on above:Performed By: #### CVDTBH #### [facility] [address] [place] [address] Dr. Peter Abdi AUTO DIFFon [id number] #0.1 103/ulNormal0.0-0.1The [facility] CenterComment on above:Performed By: #### CVDTBH #### [facility] [address] [place] [address] Dr. Yilan ChangBasophils/100 WBC (Bld)0.5 %Normal0.2-2.0The [facility] Comment on above:Performed By: #### CVDTBH #### [facility] [address] [place] [address] Dr. Peter Mortensen #0.3 103/ulNormal0.0-0.7The [facility] CenterComment on above: Performed By: #### CVDTBH #### [facility] [address] [place] [address] Dr. Peter Arrietaosinophils/100 WBC (Bld)3.1 %Normal0.9-7.0The [facility] Comment on above:Performed By: #### CVDTBH #### [facility] [address] [place] [address] Dr. Peter Arrietarythrocyte distribution width (RBC) [Ratio]15.5 %Critically high 11.0-15.0The [facility] CenterComment on above:Performed By: #### CVDTBH #### [facility] [address] [place] [address] Dr. Peter RamosHematocrit (Bld) [Volume fraction]37.8 %Iaashk39.0-48.0The [facility] CenterComment on above:Performed By: #### CVDTBH #### [facility] [address] [place] [address] Dr. Peter RamosHemoglobin (Bld) [Mass/Vol]12.6 g/jXOwqmmy82.0-16.0The [facility] CenterComment on above:Performed By: #### CVDTBH #### [facility] [address] [place] [address] Dr. Peter Blanco #0.07 10e3/ulCritically high0.00-0.03The [facility] Comment on above:Performed By: #### CVDTBH #### [facility] [address] [place] [address] Dr. Peter Blanco %0.7 %Critically high0.0-0.5The [facility] CenterComment on above:Performed By: #### CVDTBH #### [facility] [address] [place] [address] Dr. Peter Colunga #2.6 103/ulNormal1.2-3.8The [facility] CenterComment on above:Performed By: #### CVDTBH #### [facility] [address] [place] [address] Dr. Peter Salvadormphocytes/100 WBC (Bld)27.4 %Qjpfqr65.5-60.0The [facility] CenterComment on above:Performed By: #### CVDTBH #### [facility] [address] [place] [address] Dr. Peter Foley DIFF REQNONormalThe [facility] CenterComment on above: Performed By: #### CVDTBH #### [facility] [address] [place] [address] Dr. Peter Lawson (RBC) [Entitic mass]28.1 foGblldp62.7-34.0The [facility] CenterComment on above:Performed By: #### CVDTBH #### [facility] [address] [place] [address] Dr. Peter Minaya (RBC) [Mass/Vol]33.3 g/cMVyxpnm34.9-35.2The [facility] CenterComment on above:Performed By: #### CVDTBH #### [facility] [address] [place] [address] Dr. Peter Minaya (RBC) [Entitic vol]84.2 jUKkmntl08.0-99.0The [facility] CenterComment on above:Performed By: #### CVDTBH #### [facility] [address] [place] [address] Dr. Peter Conroy #0.5 103/ulNormal0.3-0.8The [facility] CenterComment on above:Performed By: #### CVDTBH #### [facility] [address] [place] [address] Dr. Peter Sullivanocytes/100 WBC (Bld)5.5 %Normal1.7-12.0The [facility] Comment on above:Performed By: #### CVDTBH #### [facility] [address] [place] [address] Dr. Peter Avendano #5.9 103/ulNormal1.4-6.5The [facility] CenterComment on above:Performed By: #### CVDTBH #### [facility] [address] [place] [address] Dr. Peter Betancourtutrophils/100 WBC (Bld)62.8 %Jkgzcp81.0-75.0The [facility] CenterComment on above:Performed By: #### CVDTBH #### [facility] [address] [place] [address] Dr. Peter Lucas mean volume (Bld) [Entitic vol]10.4 fLNormal9.5-13.5The [facility] CenterComment on above:Performed By: #### CVDTBH #### [facility] [address] [place] [address] Dr. Peter HallT236 103/kyAzjdui214-354Szt [facility] CenterComment on above: Performed By: #### CVDTBH #### [facility] [address] [place] [address] Dr. Peter RamosRBC4.49 106/ulNormal4.20-5.40The [facility] CenterComment on above:Performed By: #### CVDTBH #### [facility] [address] [place] [address] Dr. Peter RamosWBC9.4 103/ulNormal4.0-11.0The [facility] CenterComment on above: Performed By: #### CVDTBH #### [facility] [address] [place] [address] Dr. Peter RamosFRANALIA T3on 44-26-2192JBDE T32.14 pg/mlLCritically low2.18-3.98The [facility] CenterComment on above:Performed By: #### CVDTBH #### [facility] [address] [place] [address] Dr. Peter Vaz T4on 45-86-2349Vjwv T4 [Mass/Vol]0.65 ng/dLCritically low 0.76-1.46The [facility] CenterComment on above:Performed By: #### CBC #### [facility] [address] [address] [address] Peter RamosPROF 14(COMP METB)on 90-38-6493Mlwbelm [Mass/Vol]3.0 g/dL Critically low3.4-5.0The [facility] CenterComment on above:Performed By: #### CBC #### [facility] [address] [address] [address] Peter RamosAlbumin/Globulin [Mass ratio]0.8 {ratio}NormalThe [facility] CenterComment on above:Performed By: #### CBC #### [facility] [address] [place] [address] Dr. Peter MendozaP [Catalytic activity/Vol]105 U/HAccnfv74-660Xtp [facility] CenterComment on above:Performed By: #### CBC #### [facility] [address] [address] [address] Peter Melton [Catalytic activity/Vol]20 U/CMitnlo49-39Quw [facility] CenterComment on above:Performed By: #### CBC #### [facility] [address] [address] [address] Pteer Bro gap [Moles/Vol]11.3 mmol/LNormalThe [facility] Comment on above:Performed By: #### CBC #### [facility] [address] [address] [address] Peter RamsoAST [Catalytic activity/Vol]13 U/LCritically wgl18-96Tii [facility] CenterComment on above:Performed By: #### CBC #### [facility] [address] [address] [address] Peter RamosBilirubin [Mass/Vol]0.3 mg/dLNormal0.2-1.0The [facility] Comment on above:Performed By: #### CBC #### [facility] [address] [address] [address] Peter RamosCalcium [Mass/Vol]9.0 mg/dLNormal8.5-10.1The [facility] Comment on above:Performed By: #### CBC #### [facility] [address] [address] [address] Peter RamosChloride [Moles/Vol]107 mmol/QEwiynw68-600Cdu [facility] Comment on above:Performed By: #### CBC #### [facility] [address] [address] [address] Peter RamosCO2 [Moles/Vol]27.2 mmol/JGdpzuk11.0-32.0The [facility] Comment on above:Performed By: #### CBC #### [facility] [address] [address] [address] Peter RamosCreatinine [Mass/Vol]0.71 mg/dLNormal0.55-1.02The [facility] CenterComment on above:Performed By: #### CBC #### [facility] [address] [address] [address] Peter ArrietaGFR-AF GREEK>60Normal>=60The [facility] CenterComment on above:Performed By: #### CBC #### [facility] [address] [address] [address] Peter ArrietaGFR-NON AF GREEK>60Normal>=60The [facility] CenterComment on above:Performed By: #### CBC #### [facility] [address] [address] [address] Peter RamosGlobulin (S) [Mass/Vol]3.6 g/dLNormalThe [facility] CenterComment on above:Performed By: #### CBC #### [facility] [address] [address] [address] Peter RamosGlucose [Mass/Vol]122 mg/dLCritically fszi57-745Afj [facility] CenterComment on above:Performed By: #### CBC #### [facility] [address] [address] [address] Peter RamosPotassium [Moles/Vol]3.5 mmol/LNormal3.5-5.1The [facility] Comment on above:Performed By: #### CBC #### [facility] [address] [address] [address] Peter RamosProtein [Mass/Vol]6.6 g/dLNormal6.4-8.2The [facility] Comment on above:Performed By: #### CBC #### [facility] [address] [address] [address] Peter RamosSodium [Moles/Vol]142 mmol/CBhyqsf008-977Huj [facility] Comment on above:Performed By: #### CBC #### [facility] [address] [place] [address] Dr. Peter RamosUrea nitrogen [Mass/Vol]10.0 mg/dLNormal7.0-18.0The [facility] CenterComment on above:Performed By: #### CBC #### [facility] [address] [address] [address] Peter Woody nitrogen/Creatinine [Mass ratio]14.1 mg/mgNormalThe [facility] CenterComment on above:Performed By: #### CBC #### [facility] [address] [place] [address] Dr. Peter Galvan 55-69-3854GNX2.010 uIU/mLNormal0.358-3.740The [facility] CenterComment on above:Performed By: #### CVDTBH #### [facility] [address] [place] [address] Dr. Peter RamosLITHIUMon 10-26-9075Gfusmxr (Eskalith(R)), Serum<0.1Critically low0.5-1.2The [facility] Medical CenterComment on above:Result Comment: Plasma concentration of 0.5 - 0.8 mmol/L are advised for long-term use; concentrations of up to 1.2 mmol/L may be necessary during acute treatment. Verified by repeat analysis Detection Limit = 0.1 <0.1 indicates None DetectedPerformed By: #### LITHIUM #### [facility] [address] [place] [address] Dr. Peter RamosACETAMINOPHENon 75-03-7273Edhoghxowxnum [Mass/Vol]ug/mLCritically low10.0-30.0[facility] HospitalComment on above:Performed By: #### CVDTBH #### [facility] [address] [place] [address] Dr. Peter AlejandroC AUTO DIFFon 55-59-9267JNWY #0.0 103/ulNormal0.0-0.1The [facility] CenterComment on above:Performed By: #### CVDTBH #### [facility] [address] [place] [address] Dr. Peter RamosBasophils/100 WBC (Bld)0.2 %Normal0.2-2.0[facility] Comment on above:Performed By: #### CVDTBH #### [facility] [address] [place] [address] Dr. Peter Mortensen #0.2 103/ulNormal0.0-0.7The [facility] CenterComment on above: Performed By: #### CVDTBH #### [facility] [address] [place] [address] Dr. Peter Arrietaosinophils/100 WBC (Bld)1.7 %Normal0.9-7.0The [facility] Comment on above:Performed By: #### CVDTBH #### [facility] [address] [place] [address] Dr. Peter Arrietarythrocyte distribution width (RBC) [Ratio]14.6 %Aavuho58.0-15.0 The [facility] CenterComment on above:Performed By: #### CVDTBH #### [facility] [address] [place] [address] Dr. Peter RamsoHematocrit (Bld) [Volume fraction]38.9 %Hrmkev09.0-48.0The [facility] CenterComment on above:Performed By: #### CVDTBH #### [facility] [address] [place] [address] Dr. Peter RamosHemoglobin (Bld) [Mass/Vol]13.1 g/uPLlpzwr17.0-16.0The [facility] CenterComment on above:Performed By: #### CVDTBH #### [facility] [address] [place] [address] Dr. Peter Blanco #0.02 10e3/ulNormal0.00-0.03The [facility] CenterComment on above:Performed By: #### CVDTBH #### [facility] [address] [place] [address] Dr. Peter Blanco %0.2 %Normal0.0-0.5The [facility] CenterComment on above: Performed By: #### CVDTBH #### [facility] [address] [place] [address] Dr. Peter Colunga #2.6 103/ulNormal1.2-3.8The [facility] CenterComment on above:Performed By: #### CVDTBH #### [facility] [address] [place] [address] Dr. Peter Sandovalhocytes/100 WBC (Bld)27.1 %Nubnes67.5-60.0The [facility] CenterCommclaren flint on above:Performed By: #### CVDTBH #### [facility] [address] [place] [address] Dr. Peter AguilarUAL DIFF REQNONormalThe [facility] CenterComment on above: Performed By: #### CVDTBH #### [facility] [address] [place] [address] Dr. Peter Minaya (RBC) [Entitic mass]27.9 vcGpodwv28.7-34.0The [facility] CenterComment on above:Performed By: #### CVDTBH #### [facility] [address] [place] [address] Dr. Peter Minaya (RBC) [Mass/Vol]33.7 g/wWHvliyv56.9-35.2The [facility] CenterComment on above:Performed By: #### CVDTBH #### [facility] [address] [place] [address] Dr. Peter Kay (RBC) [Entitic vol]82.9 dJKffzgz70.0-99.0The [facility] CenterComment on above:Performed By: #### CVDTBH #### [facility] [address] [place] [address] Dr. Peter Conroy #0.8 103/ulNormal0.3-0.8The [facility] CenterComment on above:Performed By: #### CVDTBH #### [facility] [address] [place] [address] Dr. Peter Sullivanocytes/100 WBC (Bld)7.9 %Normal1.7-12.0The [facility] Comment on above:Performed By: #### CVDTBH #### [facility] [address] [place] [address] Dr. Peter Avendano #6.0 103/ulNormal1.4-6.5The [facility] CenterComment on above:Performed By: #### CVDTBH #### [facility] [address] [place] [address] Dr. Peter Betancourtutrophils/100 WBC (Bld)62.9 %Dwicur76.0-75.0The [facility] CenterComment on above:Performed By: #### CVDTBH #### [facility] [address] [place] [address] Dr. Peter Vanessalet mean volume (Bld) [Entitic vol]9.8 fLNormal9.5-13.5The [facility] CenterComment on above:Performed By: #### CVDTBH #### [facility] [address] [place] [address] Dr. Peter HallT240 103/pdQftwrg220-881Ouy [facility] CenterComment on above: Performed By: #### CVDTBH #### [facility] [address] [place] [address] Dr. Peter CrossC4.69 106/ulNormal4.20-5.40The [facility] CenterComment on above:Performed By: #### CVDTBH #### [facility] [address] [place] [address] Dr. Peter RamosWBC9.6 103/ulNormal4.0-11.0The [facility] CenterComment on above: Performed By: #### CVDTBH #### [facility] [address] [place] [address] Dr. Peter RamosCovid-19 PCR ([facility])on [id number]-CoV-2 (COVID-19) RNA NARCISA+probe Ql (Unsp spec)Not detectedNormalNOT DETECTEDThe [facility] Comment on above:Result Comment: When diagnostic testing is negative, the [...] for this test is supported by the [place] [employer] Health and Human Service's declaration that circumstances exist to justify the emergency use of in vitro diagnostics for the detection and/or diagnosis of the virus that causes COVID-19. This EUA will remain in effect for the duration of the COVID-19 declaration justifying emergency of IVDs, unless it is terminated or revoked by the FDA (after which the test may no longer be used).Performed By: #### CVDTBH #### [facility] [address] [place] [address] Dr. Peter RamosDRUG SCREEN RAPID (URINE)on 51-01-7809AHGDmdopfxtBfjexrNPCCFSJC The [facility] CenterComment on above:Performed By: #### CBC #### [facility] [address] [place] [address] Dr. Peter RamosBARNegativeNormalNEGATIVEThe [facility] CenterComment on above: Performed By: #### CBC #### [facility] [address] [place] [address] Dr. Peter RamosBUPNegativeNormalNEGATIVEShelby Memorial HospitalComment on above: Performed By: #### CBC #### [facility] [address] [place] [address] Dr. Peter LarkinZONegativeNonovant health pender medical centerNEGATIVEShelby Memorial HospitalComment on above: Performed By: #### CBC #### [facility] [address] [place] [address] Dr. Peter RojasCNegativeNormalNEGATIVEShelby Memorial HospitalComment on above: Performed By: #### CBC #### [facility] [address] [place] [address] Dr. Peter TaverasCleveland ClinicComment on above: Result Comment: AMP (Amphetamine): 500ng/mL, BAR (Barbituates): 200 ng/mL, BZO (Benzodiazepines): 150 ng/mL, BUP (Buprenorphine): 10 ng/mL, NEEMA (Cocaine): 150 ng/mL, mAMP (Methamphetamine): 500 ng/mL, MTD (Methadone): 200 ng/mL, OPI (Opiates): 100 ng/mL, OXY (Oxycodone): 100 ng/mL, PCP (Phencyclidine): 25 ng/mL, PPX (Propoxyphene): 300 ng/mL, THC (Cannabinoids): 50 ng/mL, TCA (Trycyclic Antidepressants): 300 ng/mLPerformed By: #### CBC #### [facility] [address] [place] [address] Dr. Peter RamosDRUG CUT HEADERDRUG CLASS TEST SYSTEM CUT-OFF CONCENTRATIONS ARE FOLLOWS:NormalThe [facility] Medical CenterCommclaren flint on above:Performed By: #### CBC #### [facility] [address] [place] [address] Dr. Peter RamosmAMPNegativeNormalNEGATIVEShelby Memorial HospitalCommclaren flint on above: Performed By: #### CBC #### [facility] [address] [place] [address] Dr. Peter RamosMTDNegativeNormalNEGUniversity Hospitals Health SystemComment on above: Performed By: #### CBC #### [facility] [address] [address] [address] Peter RamosOPINegativeNormalNEGUniversity Hospitals Health SystemCommclaren flint on above: Performed By: #### CBC #### [facility] [address] [address] [address] Peter RamosOXYNegativeNormalNEGUniversity Hospitals Health SystemComment on above: Performed By: #### CBC #### [facility] [address] [address] [address] Peter RamosPCPNegativeNormalNEGUniversity Hospitals Health SystemCommclaren flint on above: Performed By: #### CBC #### [facility] [address] [address] [address] Peter RamosPPXNegativeNormalNEGUniversity Hospitals Health SystemCommclaren flint on above: Performed By: #### CBC #### [facility] [address] [address] [address] Peter RamosTCANegativeNormalNEGUniversity Hospitals Health SystemCommclaren flint on above: Performed By: #### CBC #### [facility] [address] [place] [address] Dr. Peter AgeeCNegativeNormalNEGUniversity Hospitals Health SystemCommclaren flint on above: Performed By: #### CBC #### [facility] [address] [address] [address] Peter Plunkett (BLD ALC)on [id number] NOTENOTE: 80 mg/dl is the legal limit for a blood alcohol levelNoMarietta Osteopathic ClinicComment on above: Performed By: #### CBC #### [facility] [address] [place] [address] Dr. Peter Baroneanol [Mass/Vol]mg/dLNoMarietta Osteopathic ClinicComment on above:Performed By: #### CBC #### [facility] [address] [address] [address] Peter Whitfield HCG QUALon 31-01-6709QIFNVLXAD, QUALNegativeNormalNEGATIVE The [facility] CenterComment on above:Performed By: #### CBC #### [facility] [address] [place] [address] Dr. Peter Allen 14(COMP METB)on 64-14-4768Wrmslbc [Mass/Vol]3.6 g/dLNormal 3.4-5.0The [facility] CenterComment on above:Performed By: #### CVDTBH #### [facility] [address] [place] [address] Dr. Peter RamosAlbumin/Globulin [Mass ratio]1.1 {ratio}NormalThe [facility] Medical CenterComment on above:Performed By: #### CVDTBH #### [facility] [address] [place] [address] Dr. Peter MendozaP [Catalytic activity/Vol]102 U/NPgdymm27-171Vqx [facility] CenterComment on above:Performed By: #### CVDTBH #### [facility] [address] [place] [address] Dr. Peter MendozaT [Catalytic activity/Vol]37 U/JAnxbnt71-37Dac [facility] CenterComment on above:Performed By: #### CVDTBH #### [facility] [address] [place] [address] Dr. Peter Bro gap [Moles/Vol]11.3 mmol/LNormalThe [facility] Comment on above:Performed By: #### CVDTBH #### [facility] [address] [place] [address] Dr. Peter RamosAST [Catalytic activity/Vol]27 U/KIkcqbh66-70Pay [facility] CenterComment on above:Performed By: #### CVDTBH #### [facility] [address] [place] [address] Dr. Peter RamosBilirubin [Mass/Vol]0.4 mg/dLNormal0.2-1.0The [facility] Comment on above:Performed By: #### CVDTBH #### [facility] [address] [place] [address] Dr. Yilan ChangCalcium [Mass/Vol]9.0 mg/dLNormal8.5-10.1The [facility] Comment on above:Performed By: #### CVDTBH #### [facility] [address] [address] [address] Peter RamosChloride [Moles/Vol]104 mmol/OKctxty40-763Vet [facility] Comment on above:Performed By: #### CVDTBH #### [facility] [address] [address] [address] Peter RamosCO2 [Moles/Vol]25.6 mmol/PQkkqyp21.0-32.0The [facility] Comment on above:Performed By: #### CVDTBH #### [facility] [address] [place] [address] Dr. Peter RamosCreatinine [Mass/Vol]0.87 mg/dLNormal0.55-1.02The [facility] CenterComment on above:Performed By: #### CVDTBH #### [facility] [address] [place] [address] Dr. Peter ArrietaGFR-AF GREEK>60Normal>=60The [facility] CenterComment on above:Performed By: #### CVDTBH #### [facility] [address] [place] [address] Dr. Peter ArrietaGFR-NON AF GREEK>60Normal>=60The [facility] CenterComment on above:Performed By: #### CVDTBH #### [facility] [address] [place] [address] Dr. Peter RamosGlobulin (S) [Mass/Vol]3.4 g/dLNormalThe [facility] CenterComment on above:Performed By: #### CVDTBH #### [facility] [address] [place] [address] Dr. Peter RamosGlucose [Mass/Vol]138 mg/dLCritically vpsz75-090Euo [facility] CenterComment on above:Performed By: #### CVDTBH #### [facility] [address] [place] [address] Dr. Peter RamosPotassium [Moles/Vol]2.9 mmol/LCritically low3.5-5.1The [facility] CenterComment on above:Performed By: #### CVDTBH #### [facility] [address] [address] [address] ePter RamosProtein [Mass/Vol]7.0 g/dLNormal6.4-8.2The [facility] Comment on above:Performed By: #### CVDTBH #### [facility] [address] [place] [address] Dr. Peter RamosSodium [Moles/Vol]138 mmol/TMgxfqg033-577Rhu [facility] Comment on above:Performed By: #### CVDTBH #### [facility] [address] [place] [address] Dr. Peter RamosUrea nitrogen [Mass/Vol]4.0 mg/dLCritically low7.0-18.0The [facility] CenterComment on above:Performed By: #### CVDTBH #### [facility] [address] [place] [address] Dr. Peter Woody nitrogen/Creatinine [Mass ratio]4.6 mg/mgNormalThe [facility] CenterComment on above:Performed By: #### CVDTBH #### [facility] [address] [place] [address] Dr. Peter RamosSALICYLATEon 72-58-4437CEQKZOIUYF1.2 mg/dLNormal<=19.9The [facility] CenterComment on above:Performed By: #### CVDTBH #### [facility] [address] [place] [address] Dr. Peter RamosTSHon 21-39-0907ENC5.901 uIU/mLNormal0.358-3.740The [facility] CenterComment on above:Performed By: #### TSH #### [facility] [address] [place] [address] Dr. Peter Chamorro THYROIDon 06-77-3363BQ THYROIDEXAMINATION: US THYROID HISTORY: Hypothyroidism COMPARISON: No relevant [...] Electronically authenticated by: WIL FORMAN Date: 2021-12-12 19:49NormalThe [facility] CenterFR T3on 25-87-8366CSTY T32.17 pg/mlLCritically low2.18-3.98 The [facility] Campusment on above:Performed By: #### CVDTBH #### [facility] [address] [place] [address] Dr. Peter Vaz T4on 46-25-7810Wrhf T4 [Mass/Vol]0.78 ng/dLNormal0.76-1.46 The [facility] Campusment on above:Performed By: #### FT4 #### [facility] [address] [place] [address] Dr. Peter RamosLITHIUMon 36-29-9884Cokcodf (Eskalith(R)), Serum0.9 mmol/LNormal 0.5-1.2The [facility] on above:Result Comment: Plasma concentration of 0.5 - 0.8 mmol/L are advised for long-term use; concentrations of up to 1.2 mmol/L may be necessary during acute treatment. Detection Limit = 0.1 <0.1 indicates None DetectedPerformed By: #### CBC #### [facility] [address] [place] [address] Dr. Peter RamosCREATININEon 04-01-7276Fppvdfgsyo [Mass/Vol]0.99 mg/dLNormal 0.55-1.02The [facility] Campusment on above:Performed By: #### CVDTBH #### [facility] [address] [place] [address] Dr. Green ChangEGFR-AF GREEK>60Normal>=60The Penny HospitalComment on above:Performed By: #### CVDTBH #### [facility] [address] [address] [address] Peter ArrietaGFR-NON AF GREEK>60Normal>=60The [facility] CenterComment on above:Performed By: #### CVDTBH #### [facility] [address] [address] [address] Peter RamosGLUCOSE BLOODon 90-19-3627Zjkcpsp [Mass/Vol]102 mg/nYOfwttx55-759 The [facility] CenterComment on above:Performed By: #### GLUC #### [facility] [address] [address] [address] Peter RamosLIPID PROFILEon 80-54-7168SLUJ-HDL RATIO NORMSEE [facility] HospitalCommclaren flint on above:Result Comment: 3.3 - 4.4 LOW RISK 4.4 - 7.1 AVERAGE RISK 7.1 - 11.0 MODERATE RISK >11.0 HIGH RISKPerformed By: #### CVDTBH #### [facility] [address] [address] [address] Peter RamosCholesterol [Mass/Vol]175 mg/dLNormal<=200[facility] Comment on above:Performed By: #### CVDTBH #### [facility] [address] [address] [address] Peter RamosCholesterol in HDL [Mass/Vol]49 mg/eQZplylz58-26LzhCleveland Clinic [facility] on above:Performed By: #### CVDTBH #### [facility] [address] [address] [address] Peter RamosCholesterol in LDL [Mass/Vol]100.6 mg/dLMemorial Health System Selby General HospitalCommclaren flint on above:Performed By: #### CVDTBH #### [facility] [address] [place] [address] Dr. Peter RamosCholesterdeisy.total/Cholesterol in HDL [Mass ratio]3.6 {ratio} NormalShelby Memorial HospitalComment on above:Performed By: #### CVDTBH #### [facility] [address] [place] [address] Dr. Peter Gil NORMAL> or = 60 mg/dl - LOW CARDIOVASCULAR RISK <40 mg/dl - HIGH CARDIOVASCULAR RISKMemorial Health System Selby General HospitalComment on above:Performed By: #### CVDTBH #### [facility] [address] [place] [address] Dr. Peter RamosLDL CALC NORMALSEE BELOWNoMarietta Osteopathic ClinicComment on above:Result Comment: <100 mg/dl OPTIMAL 100 - 129 mg/dl NEAR OR ABOVE OPTIMAL 130 - 159 mg/dl BORDERLINE HIGH 160 - 189 mg/dl HIGH >190 mg/dl VERY HIGH Performed By: #### CVDTBH #### [facility] [address] [place] [address] Dr. Peter RamosTriglyceride [Mass/Vol]127 mg/dLNormal<=150The [facility] Comment on above:Performed By: #### CVDTBH #### [facility] [address] [place] [address] Dr. Peter RosadoLDL CALC25.4 mg/dLNoMarietta Osteopathic ClinicComment on above: Performed By: #### CVDTBH #### [facility] [address] [place] [address] Dr. Peter WatsonHosean 23-56-0106BOM4.336 uIU/mLCritically high0.358-3.740The [facility] CenterComment on above:Performed By: #### CVDTBH #### [facility] [address] [place] [address] Dr. Peter RamosACETAMINOPHENon 21-30-4067Busmkhpfyvgho [Mass/Vol]ug/mLCritically low10.0-30.0The [facility] CenterComment on above:Performed By: #### ACET, SALYC, ETH, CMP #### [facility] [address] [place] [address] Dr. Peter Abdi AUTO DIFFon 40-76-0579BSDA #0.0 103/ulNormal0.0-0.1The [facility] CenterComment on above:Performed By: #### CBC #### [facility] [address] [address] [address] Peter RamosBasophils/100 WBC (Bld)0.3 %Normal0.2-2.0The [facility] Comment on above:Performed By: #### CBC #### [facility] [address] [place] [address] Dr. Peter Mortensen #0.1 103/ulNormal0.0-0.7The [facility] CenterComment on above: Performed By: #### CBC #### [facility] [address] [place] [address] Dr. Peter Arrietaosinophils/100 WBC (Bld)1.2 %Normal0.9-7.0[facility] Comment on above:Performed By: #### CBC #### [facility] [address] [place] [address] Dr. Peter Arrietarythrocyte distribution width (RBC) [Ratio]15.6 %Critically high 11.0-15.0The [facility] CenterComment on above:Performed By: #### CBC #### [facility] [address] [place] [address] Dr. Peter RamosHematocrit (Bld) [Volume fraction]38.2 %Fkzure61.0-48.0The [facility] CenterComment on above:Performed By: #### CBC #### [facility] [address] [place] [address] Dr. Peter RamosHemoglobin (Bld) [Mass/Vol]12.8 g/sXFlgabx02.0-16.0The [facility] CenterComment on above:Performed By: #### CBC #### [facility] [address] [place] [address] Dr. Peter Blanco #0.05 10e3/ulCritically high0.00-0.03The [facility] Comment on above:Performed By: #### CBC #### [facility] [address] [place] [address] Dr. Peter Blanco %0.5 %Normal0.0-0.5The [facility] CenterComment on above: Performed By: #### CBC #### [facility] [address] [place] [address] Dr. Peter Colunga #2.2 103/ulNormal1.2-3.8The [facility] CenterComment on above:Performed By: #### CBC #### [facility] [address] [place] [address] Dr. Peter Sandovalhocytes/100 WBC (Bld)22.7 %Msibjs10.5-60.0The [facility] CenterComment on above:Performed By: #### CBC #### [facility] [address] [place] [address] Dr. Peter Foley DIFF REQNONormalThe [facility] CenterComment on above: Performed By: #### CBC #### [facility] [address] [place] [address] Dr. Peter Lawson (RBC) [Entitic mass]28.7 vuMweodi01.7-34.0The [facility] CenterComment on above:Performed By: #### CBC #### [facility] [address] [place] [address] Dr. Peter Minaya (RBC) [Mass/Vol]33.5 g/yCGfraag65.9-35.2The [facility] CenterComment on above:Performed By: #### CBC #### [facility] [address] [place] [address] Dr. Peter Kay (RBC) [Entitic vol]85.7 oQMvarbi79.0-99.0The [facility] CenterComment on above:Performed By: #### CBC #### [facility] [address] [place] [address] Dr. Peter Conroy #0.7 103/ulNormal0.3-0.8The [facility] CenterComment on above:Performed By: #### CBC #### [facility] [address] [place] [address] Dr. Yilan ChangMonocytes/100 WBC (Bld)7.4 %Normal1.7-12.0The [facility] Comment on above:Performed By: #### CBC #### [facility] [address] [place] [address] Dr. Peter Avendano #6.7 103/ulCritically high1.4-6.5The [facility] Comment on above:Performed By: #### CBC #### [facility] [address] [place] [address] Dr. Peter Betancourtutrophils/100 WBC (Bld)67.9 %Qjccqi16.0-75.0The [facility] CenterComment on above:Performed By: #### CBC #### [facility] [address] [place] [address] Dr. Peter Vanessalet mean volume (Bld) [Entitic vol]9.6 fLNormal9.5-13.5The [facility] CenterComment on above:Performed By: #### CBC #### [facility] [address] [place] [address] Dr. Peter RamosPLT246 103/qiHfjwvd063-489Xku [facility] CenterComment on above: Performed By: #### CBC #### [facility] [address] [place] [address] Dr. Peter RamosRBC4.46 106/ulNormal4.20-5.40The [facility] CenterComment on above:Performed By: #### CBC #### [facility] [address] [place] [address] Dr. Peter RamosWBC9.9 103/ulNormal4.0-11.0The [facility] CenterComment on above: Performed By: #### CBC #### [facility] [address] [place] [address] Dr. Peter Rojasvid-19 PCR (CVDTB)on 28-60-0899AWCV-CoV-2 (COVID-19) RNA NARCISA+probe Ql (Unsp spec)Not detectedNormalNOT DETECTEDThe [facility] Comment on above:Result Comment: When diagnostic testing is negative, the [...] for this test is supported by the [place] of Health and Human Service's declaration that circumstances exist to justify the emergency use of in vitro diagnostics for the detection and/or diagnosis of the virus that causes COVID-19. This EUA will remain in effect for the duration of the COVID-19 declaration justifying emergency of IVDs, unless it is terminated or revoked by the FDA (after which the test may no longer be used).Performed By: #### CVDTB #### [facility] [address] [place] [address] Dr. Peter Yates SCREEN RAPID (URINE)on 62-24-0999SPQDymfzgbmTrbkuvVAOIXOII [facility] HospitalComment on above:Performed By: #### CBC #### [facility] [address] [place] [address] Dr. Peter RamosBARNegativeNormalNEGATIVEShelby Memorial HospitalComment on above: Performed By: #### CBC #### [facility] [address] [place] [address] Dr. Peter RamosBUPNegativeNormalNEGATIVEShelby Memorial HospitalComment on above: Performed By: #### CBC #### [facility] [address] [place] [address] Dr. Peter RamosBZONegativeNormalNEGATIVEShelby Memorial HospitalComment on above: Performed By: #### CBC #### [facility] [address] [place] [address] Dr. Peter RamosCOCNegativeNormalNEGATIVEShelby Memorial HospitalComment on above: Performed By: #### CBC #### [facility] [address] [place] [address] Dr. Peter TaverasCleveland ClinicComment on above: Result Comment: AMP (Amphetamine): 500ng/mL, BAR (Barbituates): 200 ng/mL, BZO (Benzodiazepines): 150 ng/mL, BUP (Buprenorphine): 10 ng/mL, NEEMA (Cocaine): 150 ng/mL, mAMP (Methamphetamine): 500 ng/mL, MTD (Methadone): 200 ng/mL, OPI (Opiates): 100 ng/mL, OXY (Oxycodone): 100 ng/mL, PCP (Phencyclidine): 25 ng/mL, PPX (Propoxyphene): 300 ng/mL, THC (Cannabinoids): 50 ng/mL, TCA (Trycyclic Antidepressants): 300 ng/mLPerformed By: #### CBC #### [facility] [address] [place] [address] Dr. Peter RamosDRUG CUT HEADERDRUG CLASS TEST SYSTEM CUT-OFF CONCENTRATIONS ARE FOLLOWS:NormalThe [facility] on above:Performed By: #### CBC #### [facility] [address] [place] [address] Dr. Peter RamosmAMPNegativeNormalNEGATIVECleveland Clinic [facility] on above: Performed By: #### CBC #### [facility] [address] [place] [address] Dr. Peter RamosMTDNegativeNormalNEGATIVECleveland Clinic [facility] on above: Performed By: #### CBC #### [facility] [address] [place] [address] Dr. Peter RamosOPINegativeNormalNEGATIVECleveland Clinic [facility] on above: Performed By: #### CBC #### [facility] [address] [place] [address] Dr. Peter RamosOXYNegativeNormalNEGATIVECleveland Clinic [facility] on above: Performed By: #### CBC #### [facility] [address] [place] [address] Dr. Peter RamosPCPNegativeNormalNEGATIVECleveland Clinic [facility] on above: Performed By: #### CBC #### [facility] [address] [place] [address] Dr. Peter LaureanoXNegativeNormalNEGATIVEShelby Memorial HospitalComment on above: Performed By: #### CBC #### [facility] [address] [place] [address] Dr. Peter RamosTCANegativeNormalNEGATIVECleveland Clinic [facility] on above: Performed By: #### CBC #### [facility] [address] [address] [address] Peter RamosTHCNegativeNormalNEGATIVECleveland Clinic [facility] on above: Performed By: #### CBC #### [facility] [address] [place] [address] Dr. Peter Cuevas URINE PROFILEon 26-12-0959Xrjztrhfb Ql (U)NegativeNormal NEGATIVEShelby Memorial HospitalCommclaren flint on above:Performed By: #### CBC #### [facility] [address] [place] [address] Dr. Peter Tianarity (U)CLEARNormalCLEARShelby Memorial HospitalComment on above: Performed By: #### CBC #### [facility] [address] [place] [address] Dr. Peter Mo (U)LT. YELLOWNormalYELLOWCleveland Clinic [facility] on above:Performed By: #### CBC #### [facility] [address] [place] [address] Dr. Peter Meyer micrscopic examination will be performed if indicated. NormalThe [facility] CenterComment on above:Performed By: #### CBC #### [facility] [address] [place] [address] Dr. Peter RamosGlucose Ql (U)NegativeNormalNEGATIVEShelby Memorial HospitalCommclaren flint on above:Performed By: #### CBC #### [facility] [address] [place] [address] Dr. Peter RamosHemoglobin Ql (U)NegativeNormalNEGATIVEOhiohealth Dublin Methodist Hospital on above:Performed By: #### CBC #### [facility] [address] [place] [address] Dr. Peter Regalado Ql (U)15 mg/dlAbnormalNEGATIVEShelby Memorial Hospital Comment on above:Performed By: #### CBC #### [facility] [address] [place] [address] Dr. Peter RamosLEUKOCYTESNegativeNormalNEGATIVEShelby Memorial HospitalComment on above:Performed By: #### CBC #### [facility] [address] [address] [address] Peter Zaratetrite Ql (U)NegativeNormalNEGATIVEThe [facility] CenterComment on above:Performed By: #### CBC #### [facility] [address] [place] [address] Dr. Peter RamospH (U)6.0 [pH]Normal5-9The [facility] CenterComment on above: Performed By: #### CBC #### [facility] [address] [place] [address] Dr. Peter RamosSPEC GRAVITY1.857Xpdlkb6.005-<=1.025The [facility] CenterComment on above:Performed By: #### CBC #### [facility] [address] [place] [address] Dr. Peter Johnson PROTEINNegativeNormalNEGATIVE/ TRACEShelby Memorial Hospital Comment on above:Performed By: #### CBC #### [facility] [address] [place] [address] Dr. Peter Fall MICRO INDNOT INDICATEDMemorial Health System Selby General HospitalComment on above:Performed By: #### CBC #### [facility] [address] [place] [address] Dr. Peter Clemonsbilinogen Qn (U)0.2 {Lula'U}/dLNormal0.2 - 1.0The [facility] CenterComment on above:Performed By: #### CBC #### [facility] [address] [place] [address] Dr. Green ChangETHANOL (BLD ALC)on 53-96-5746YQR NOTENOTE: 80 mg/dl is the legal limit for a blood alcohol levelNoMarietta Osteopathic ClinicComment on above: Performed By: #### ACET, SALYC, ETH, CMP #### [facility] [address] [address] [address] Peter Arrietathanol [Mass/Vol]mg/dLNormalThe [facility] CenterComment on above:Performed By: #### ACET, SALYC, ETH, CMP #### [facility] [address] [address] [address] Peter Whitfield HCG QUALon 17-55-9262DQUGIEUDG, QUALNegativeNormalNEGATIVE The [facility] CenterComment on above:Performed By: #### CVDTBH #### [facility] [address] [address] [address] Peter Allen 14(COMP METB)on 50-21-4977Secumki [Mass/Vol]3.7 g/dLNormal 3.4-5.0The [facility] Campusment on above:Performed By: #### CBC #### [facility] [address] [address] [address] Peter RamosAlbumin/Globulin [Mass ratio]1.0 {ratio}NormalThe [facility] Campusment on above:Performed By: #### CBC #### [facility] [address] [address] [address] Peter De León [Catalytic activity/Vol]102 U/QGmjxsx67-956Sgm [facility] on above:Performed By: #### CBC #### [facility] [address] [address] [address] Peter Melton [Catalytic activity/Vol]29 U/GLexyix94-09Pnh [facility] CenterComment on above:Performed By: #### CBC #### [facility] [address] [address] [address] Peter Bro gap [Moles/Vol]17.7 mmol/LNormalThe [facility] on above:Performed By: #### CBC #### [facility] [address] [address] [address] Peter Urbano [Catalytic activity/Vol]23 U/WLlofay03-57Rcp [facility] Campusment on above:Performed By: #### CBC #### [facility] [address] [address] [address] Peter RamosBilirubin [Mass/Vol]0.9 mg/dLNormal0.2-1.0[facility] Comment on above:Performed By: #### CBC #### [facility] [address] [address] [address] Peter RamosCalcium [Mass/Vol]9.6 mg/dLNormal8.5-10.1[facility] Comment on above:Performed By: #### CBC #### [facility] [address] [address] [address] Peter RamosChloride [Moles/Vol]99 mmol/YDpbhqj11-282EzfShelby Memorial Hospital Comment on above:Performed By: #### CBC #### [facility] [address] [address] [address] Peter RamosCO2 [Moles/Vol]21.3 mmol/LEreznm90.0-32.0The [facility] Comment on above:Performed By: #### CBC #### [facility] [address] [address] [address] Peter RamosCreatinine [Mass/Vol]0.92 mg/dLNormal0.55-1.02The [facility] CenterComment on above:Performed By: #### CBC #### [facility] [address] [address] [address] Peter ArrietaGFR-AF GREEK>60Normal>=60The [facility] CenterComment on above:Performed By: #### CBC #### [facility] [address] [address] [address] Peter ArrietaGFR-NON AF GREEK>60Normal>=60The [facility] CenterComment on above:Performed By: #### CBC #### [facility] [address] [address] [address] Peter RamosGlobulin (S) [Mass/Vol]3.7 g/dLNormalThe [facility] HospitalComment on above:Performed By: #### CBC #### [facility] [address] [address] [address] Peter RamosGlucose [Mass/Vol]117 mg/dLCritically xgwp14-440Fcw [facility] CenterComment on above:Performed By: #### CBC #### [facility] [address] [address] [address] Peter RamosPotassium [Moles/Vol]3.0 mmol/LCritically low3.5-5.1The [facility] HospitalComment on above:Performed By: #### CBC #### [facility] [address] [address] [address] Peter RamosProtein [Mass/Vol]7.4 g/dLNormal6.4-8.2The [facility] Comment on above:Performed By: #### CBC #### [facility] [address] [address] [address] Peter RamosSodium [Moles/Vol]135 mmol/LCritically hey608-043Csj [facility] CenterComment on above:Performed By: #### CBC #### [facility] [address] [address] [address] Peter RamosUrea nitrogen [Mass/Vol]11.0 mg/dLNormal7.0-18.0The [facility] CenterComment on above:Performed By: #### CBC #### [facility] [address] [address] [address] Peter RamosUrea nitrogen/Creatinine [Mass ratio]12.0 mg/mgNormalThe [facility] CenterComment on above:Performed By: #### CBC #### [facility] [address] [address] [address] Peter RamosPROF CHEM 8 (BAS METB)on 49-15-9946Swbgp gap [Moles/Vol]12.5 mmol/LNormalThe [facility] CenterComment on above:Performed By: #### CVDTBH #### [facility] [address] [address] [address] Peter RamosCalcium [Mass/Vol]9.3 mg/dLNormal8.5-10.1The [facility] Comment on above:Performed By: #### CVDTBH #### [facility] [address] [place] [address] Dr. Peter RamosChloride [Moles/Vol]102 mmol/VZutlxs32-482Skg [facility] Comment on above:Performed By: #### CVDTBH #### [facility] [address] [address] [address] Peter RamosCO2 [Moles/Vol]24.8 mmol/UWchkwv77.0-32.0The [facility] Comment on above:Performed By: #### CVDTBH #### [facility] [address] [place] [address] Dr. Peter RamosCreatinine [Mass/Vol]0.73 mg/dLNormal0.55-1.02The [facility] CenterComment on above:Performed By: #### CVDTBH #### [facility] [address] [place] [address] Dr. Peter ArrietaGFR-AF GREEK>60Normal>=60The [facility] CenterComment on above:Performed By: #### CVDTBH #### [facility] [address] [place] [address] Dr. Peter ArrietaGFR-NON AF GREEK>60Normal>=60The [facility] CenterComment on above:Performed By: #### CVDTBH #### [facility] [address] [place] [address] Dr. Peter RamosGlucose [Mass/Vol]86 mg/kBDynvuo51-546XcxShelby Memorial Hospital Comment on above:Performed By: #### CVDTBH #### [facility] [address] [address] [address] Peter RamosPotassium [Moles/Vol]3.3 mmol/LCritically low3.5-5.1The [facility] CenterComment on above:Performed By: #### CVDTBH #### [facility] [address] [place] [address] Dr. Yilan ChangSodium [Moles/Vol]136 mmol/MVvfima410-263Clf [facility] Comment on above:Performed By: #### CVDTBH #### [facility] [address] [address] [address] Peter Woody nitrogen [Mass/Vol]11.0 mg/dLNormal7.0-18.0The [facility] CenterComment on above:Performed By: #### CVDTBH #### [facility] [address] [address] [address] Peter Woody nitrogen/Creatinine [Mass ratio]15.1 mg/mgNormalThe [facility] CenterComment on above:Performed By: #### CVDTBH #### [facility] [address] [place] [address] Dr. Peter RamosSALICYLATEon 06-85-1518LUUXKSCVAQ8.6 mg/dLNormal<=19.9The [facility] CenterComment on above:Performed By: #### ACET, SALYC, ETH, CMP #### [facility] [address] [place] [address] Dr. Peter Ramos Vital Signs Date TimeVital SignValuePerforming QgsrhrseqBtlgkxeb08-87-4141 13:52-0400Body mass index (BMI) [Ratio]41.52 kg/m2Mona Nataprawira DO Work Phone: [facility] LouisZakfqscdff86-97-5619 13:52-0400Body .97 kgMona Nataprawira DO Work Phone: [facility] St. LouisTsldyjquuo66-26-5123 13:52-0400Diastolic blood kwksktei97 mm[Hg]Beulah Nataprawira DO Work Phone: noSaint John's Regional Health CenterYuatvuvtxk43-05-6166 13:52-0400Systolic blood uurpwhsg666 mm[Hg]Beulah Nataprawira DO Work Phone: noSaint John's Regional Health CenterHfwcsxriji95-74-7116 11:58-0400Diastolic blood pjujejij96 mm[Hg]Alyx Garciablowing rock hospital [phone]-RllboUniversity [facility]als [facility]09-15-2024 11:58-0400Heart ashs584 /minAurora Orzech 300-3357Hxujmh-JflbbMemorial Hospital [facility] Woph96-53-7313 11:58-5961KwV5% (BldA) [Mass fraction]97 %Alyx Beverly [phone]-VnwidMemorial Hospital [facility] Xnpe92-44-3421 11:58-0400Systolic blood mm[Hg]Alyx Beverly 557-4307Tltvdw-DgslfMemorial Hospital [facility]ven[facility] Evxa84-84-4396 15:01-0400Blood Pressure LocationMuhammad Sarmini 937-0722Hqiqza-AvsasRegency Hospital [facility]09-05-2024 15:01-0400Diastolic blood fxmqqmri41 mm[Hg]Torres Sarmini [phone]-HktihRegency Hospital [facility]09-05-2024 15:01-0400Heart rate76 /minMuhammad Sarmini 543-2764Xbrdqo-FkkhkRegency Hospital [facility]09-05-2024 15:01-0400Respiratory rate16 /minMuhammad Sarmini 125-2573Rqtohx-LkftaRegency Hospital [facility]09-05-2024 15:01-0400Systolic blood fozdokii492 mm[Hg]Torres Sarmini 841-2642Vfqtgm-EdqeaRegency Hospital [facility]07-02-2024 12:58-0400Blood Pressure LocationJamie Rodney 502-7177Vwdgjh-CntgqMemorial Hospital [facility] Hkhq58-75-5845 12:58-0400Diastolic blood mvglecoq02 mm[Hg]Kian Stevens 801-4166Rdlqhn-SbrmvMemorial Hospital [facility] Kkrz04-19-4340 12:58-0400Heart rate96 /minJamie Rodney 046-1912Arwzsy-OxelfMemorial Hospital [facility] Aaau70-03-3546 12:58-0400Systolic blood plbczsqu311 mm[Hg]Kian Stevens 655-7287Otubhn-AszxcUniversity [facility]als [facility]06-20-2024 12:28-0400Blood Pressure LocationMuhammad Sarmini 489-8825Pmhtdf-SlbbeRegency Hospital [facility]06-20-2024 12:28-0400Diastolic blood pmuwrsvj01 mm[Hg]Torres Sarmini [phone]-KuaprRegency Hospital [facility]06-20-2024 12:28-0400Heart rate76 /minMuhammad Sarmini [phone]-MpsqeRegency Hospital [facility]06-20-2024 12:28-0400Respiratory rate18 /minMuhammad Sarmini 826-2107Jsfjin-XvztnRegency Hospital [facility]06-20-2024 12:28-0400Systolic blood kynucbem470 mm[Hg]Torres Sarmini 389-1099Lqqznc-FexleRegency Hospital [facility] West05-08-2023 16:20-0400Body didjfl791.12 cmAnehemiah May Other [employer] Other 05-08-2023 16:20-0400Body mass index (BMI) [Ratio] 48.44 kg/u1NgoovLisandra May Other [employer] Other 05-08-2023 16:20-0400Body lsyfucjfdew988 [degF]Lisandra May Other [employer] Other 05-08-2023 16:20-0400Body ehjith651.11 kgLisandra May Other [employer] Other 05-08-2023 16:20-0400Respiratory rate18 /minAmber Lalo Other [facility] [employer] Other 192489-29-8936 16:20-8849AwL3% (BldA) [Mass fraction]97 % Lisandra May Other [facility]aint [facility] [employer] [facility] Other Encounters Encounter DateEncounter TypeCare ProviderFacilityStart: 43-98-6953gtxttfuvxq Yeison Del ValleFacility:[facility] BellevueStart: 69-43-1068mdaaszhjzrKrrogioszmo AbdelazizFacility:[facility] Centertart: 10-26-2024 End: 07-37-1668ilopknemuaGLI SHELLY A LEHMANNFacility:FTMCStart: 10-16-2024 End: 43-21-1087mllxenghliKkefr G. HaddadFacility:FTMCStart: 09-22-2024 End: 23-55-6195Nwebhty encounter statusBeulah Gordon DO Work Phone: noms HealthcareStart: 09-22-2024 End: 99-58-0766Vqrhhlaj preventive med est patient 40-64yrsMesmer Auguste Vijayatommy DO Work Phone: noms NB OBComment on above:Encounter for gynecological examination without abnormal finding (Primary Dx); Other screening mammogram; Encounter for surveillance of contraceptive pills; History of irregular menstrual cycles; Irregular menstruation, unspecified; Obesity, morbid (CMS-HCC)Start: 09-22-2024 End: 35-65-0756apdvxojdaeVHWB J NATAPRAWIRANot AvailableStart: 07-17-2024 End: 73-17-5766chlotusxonVLSUUY A LEHMANNFacility:[facility] BellevueStart: 04-27-2024 End: 00-65-1520Gbc Drop offSsherwin Del [facility]le [facility] Start: 04-27-2024 End: 59-68-2084iiiwflmsajItvbri E. EligioFacility:[facility] BellevueStart: 04-13-2024 End: 84-92-3276Jnp Drop offSsherwin Del [facility]le [facility] Start: 04-13-2024 End: 42-59-7488vmyrshbloyRseorc E. EligioFacility:[facility] BellevueStart: 03-24-2024 End: 74-77-1538cvpjrithlfOA Yeison FlowerEarl EligioFacility:[facility] BellevueStart: 01-13-2024 End: 49-45-2629Pxftffd encounter procedurePHYSICIAN NO [facility] CtrWyandot [facility] Work Phone: Start: 01-13-2024 End: 32-72-0456mupqkavzfhSVVZKXAFN [facility] Work Phone: Start: 14-42-8074Usigisoiwd RecurringPHYSICIAN [facility] CtrREG[facility]AL [facility] CredibleStart: 12-22-2023 End: 58-86-4794dfuoviycsbTxkadp X OrzechFacility:CC [place]walkStart: 12-22-2023 End: 83-99-9928Tctxmnf encounter procedureAurora X Orzech [phone]-VqfswMemorial Hospital Conven[facility] Care Start: 12-12-2023 End: 75-84-0113bseiohlyopGkcsygqm Talal SarminiFacility:[facility] DHStart: 12-12-2023 End: 15-14-0367Gqrznpe encounter procedureMuhammad Talal Sarmini [phone]-LsiacMemorial Hospital Digestive [facility] Start: 11-05-2023 End: 91-25-9826Ulu Drop offMuhammad Talal Sarmini [facility] Start: 11-05-2023 End: 00-81-2055zarssfvelvIvelrnsf Talal SarminiFacility:FTMCStart: 11-05-2023 End: 88-31-2181eajblojiqcPqjzvjyy Talal SarminiFacility:CD:[id number]: 10-31-2023 End: 76-19-9990yklfnfpaapQeuafp MundoEarl EligioFacility:[facility] FM BellevueStart: 10-22-2023 End: 70-44-4818lbxgbgqfepHP Yeison EEarl EligioFacility:FT FM BellevueStart: 10-08-2023 End: 76-43-5095Obl Drop offMuhammad Talal Sarmini [facility] Start: 10-08-2023 End: 05-74-9399jylvyldksqKnwxl M. DempseyFacility:CC LenniekStart: 10-08-2023 End: 41-73-1652Swufdpj encounter procedureKian Stevens [phone]-QddzdMemorial Hospital Convenient Care Start: 10-08-2023 End: 21-20-6654qrimgpxoyyPtyptkxp Talal SarminiFacility:FTMCStart: 10-08-2023 End: 11-66-2183nvepyamzwqTrjpyicw Talal SarminiFacility:CD:[id number]: 09-26-2023 End: 71-69-3817ncahzjotiyOlzjfnvd Talal SarminiFacility:[facility] DHStart: 09-26-2023 End: 58-09-6120Utngcsn encounter procedureMuhammad Talal Sarmini [phone]-KrcpuMemorial Hospital Digestive Health Start: 09-23-2023 End: 42-84-5079whqockldewMrfza G. HaddadFacility:FTMCStart: 09-23-2023 End: 24-44-4804Mvslzog encounter procedureBasem Juan Choe [facility] Start: 08-20-2023 End: 48-00-9970azaimqbuljYRDerrick Del ValleFacility:FT BellevueStart: 48-74-8783upuzmsyuanVsogb Juan McdowelldFacility:[facility] DHStart: 06-24-2023 End: 34-28-5921ightkhhosuHJ Samuel E. RossFacility:FT BellevueStart: 05-22-2023 End: 76-63-6908Brf Drop offSshrewin Del [facility]le [facility] Start: 05-22-2023 End: 20-60-7656bdzesalrqdRU Samuel E. RossFacility:FTMCStart: 04-23-2023 End: 99-39-9704fvlpflowcrOR Samuel E. RossFacility:FTMCStart: 04-23-2023 End: 41-02-3854DylpeamqyCmamyv E. Ross [facility] Start: 03-07-2023 End: 47-09-9928Gudtqkg encounter procedureBasem Juan [facility] Start: 02-11-2023 End: 21-73-3370Fvagacb encounter procedureBasem Juan [facility]oe [facility] Start: 01-23-2023 End: 89-51-4811Ixt Drop offSsherwin Del [facility]le [facility] start: 08-16-2022 End: 91-62-6286erlkhdaakfBtqkq Keller Other [employer] Other Start: 51-60-6935Pysvxrhfw encounterAmbgerman Russ [facility] David RoadStart: 08-13-2022 End: 37-44-5488Khytxiym ReferredAPRSean May Work Phone: [facility] [address] Work Phone: Start: 08-13-2022 End: 02-43-3165vdmqxvqweaFZMG Lisandra May Work Phone: [facility] Work Phone: Start: 71-59-3430Kuopet outpatient visit 15 minutes Lisandra [facility] ClydeStart: 07-30-2022 End: 79-90-4087qeyvssmoltKTTPU SPROUTFacility:L2Rbvja: 06-28-2022 End: 28-62-6732nagyzpkkdxCVYQH SPROUTFacility:A1Wddau: 04-26-2022 End: 62-07-6892hmyiafwufrZV KIM E KNIGHT .Facility:J9Wzmax: 12-28-2021 End: 07-95-8707hrqwiidbicHE KIM E KNIGHT .Facility:I6Obphz: 12-12-2021 End: 15-85-2702ihybuffxhjOF KIM E KNIGHT .Facility:O5Cnrxb: 12-01-2021 End: 71-53-0413xhatlofyidHS KIM E KNIGHT .Facility:G1Njjum: 11-25-2021 End: 59-47-4570mujctwgzcyBJ DOCTOR MISCFacility:R4Jtwmg: 09-06-2021 End: 19-09-2157diodtunoluMS KIM E KNIGHT .Facility:B8Pbtlx: 01-18-2021 End: 78-08-4371Pgxuqbkjj department patient visitSouth[facility] Procedures DateProcedureProcedure DetailPerforming ClinicianStart: 01-13-2024 End: 20-19-6088Prwdimyix mammography of bilateral breastsPHYSICIAN NO FAMILY Start: 09-79-7041TvxenhqynrsHvrp Nataprawira DO Work Phone: start: 68-83-0798Wjhoqtktaai observation [Identifier] in Cervix by Cyto stainMona Vijayatommy DO Work Phone: biopsy of vulvaSamuel Eligio ColonoscopyMuhammad Shahrzad Comment on above:beginning OctoberColposcopySamuel Eligio Diabetes mellitus screeningLisandra May Other Esophagogastroduodenoscopic electrohydraulic lithotripsy of bezoar in stomachSamuel Eligio Hyperlipidemia screeningLisandra May Other Plan of Treatment DateCare ActivityDetailAuthorStart: 66-04-9816Ddvtypheq for malignant neoplasm of colonNOMS HealthcareStart: 98-16-6238Vgytkoumo for malignant neoplasm of cervixNOMS HealthcareStart: 09-27-2025 End: 27-16-2237Uwsxaqr encounter bsvbifjtk29/22/2026 2:00 PM EDT Office Visit BETSY ORTEGA OB [address] [place] D [address] [address] Beulah Gordon DO [address] [address] NOMSandi ORTEGA OBStart: 15-68-9253Mullfkmeq for malignant neoplasm of cervixPap SmearNOMS Healthcare Start: 01-13-2025 End: 77-17-9884YRP Breast - bilateral screeningBilateral screening mammogram with tomosynthesis Imaging Routine Other screening mammogram Expected: 01/13/2025, Expires: 11/21/2025[facility] Work Phone: comment on above:Expected: 01/13/2025, Expires: 11/21/2025Start: 10-15-6164Gzrhtoqpm for malignant neoplasm of breastMammogram NOMS HealthcareStart: 78-48-5389Nedfrnxzw vaccinationInfluenza Vaccine (Season Ended)NOM HealthcareStart: 59-73-2144Dsjuky cultureThroat The MetroHealth Systemtart: 20-32-8743Yhcfqlghl for malignant neoplasm of colonNOMS HealthcareBacteria identified in Throat by [facility] Immunizations Immunization DateImmunizationNotesCare EbyzfgmaTnkofjhe40-59-3500GDQT-KjL-1 (COVID-19) mRNA-1273 vaccineSjo-annmary ellen [place] [phone]-PdelaChildren'S Hospital For Rehabilitation03-26-2021COVID-19 mRNA-1273 (Moderna)SAVANNAH May Work Phone: [facility]03-16-2021SARS-CoV-2 (COVID-19) mRNA-1273 vaccineSjo-annmary ellen Eligio [phone]-QiensChildren'S Hospital For Rehabilitation11-16-2015 influenza, injectable, quadrivalent, preservative Al May Other [place] [employer] Other [id number] virus vaccine, unspecified formulationSsherwin Eligio [phone]-CbvxyChildren'S Hospital For Rehabilitation11-16-2015 influenza, injectable, quadrivalent, contains preservativePHYSICIAN NO [facility] HospitalNEGATED: Highlighted row has not occurred! 69-93-4343fpxjhnjge virus vaccine, unspecified formulationAurora Rush [phone]-GduqpMemorial Hospital Convenient CareNEGATED: Highlighted row has not occurred!63-25-0386wapuffjqm virus vaccine, unspecified formulationMuhamjamia Markham [phone]-DhizcMemorial Hospital Digestive HealthNEGATED: Highlighted row has not occurred!17-33-6293sqspwbrcy virus vaccine, unspecified formulationSsherwin Del Valle [phone]-UueztChildren'S Hospital For Rehabilitation Payers DatePayer CategoryPayerPolicy [id number]-sig [id number] [place] .[id number] 2014MedicareMEDICARE ..[id number] [id number] 2.1.529129.3.57[id number] ..1.764596.3.57[id number] ..1.996038.3.57[id number] ..1.000885.3.57[id number] ..1.223134.3.579.2.91157-87-7306Ahdekjr1014053 2.840.1.203626.3.579.[id number] 2.840.1.385180.3.579.2.09611-41-0737Zcqepkn7893730 2.840.1.990339.3.579.2.95010-35-9648Shztmeh1563574 2.840.1.464311.3.579.2.23405-63-0377Ueerwoz37092025 2.0.1.072954.3.579.[id number] 2.0.1.674342.3.579.2.68205-08-2363Xntsiwy58902108 2.0.1.347516.3.579.2.84964-40-4820Tkbdypp78837958 2.0.1.190080.3.579.2.46844-81-9576Vjqahif03733489 2..1.988779.3.579.2.83924-45-0337Zxirrll03686644 2..1.557939.3.579.2.94149-46-8572Wwwpstt16583879 2..1.459504.3.579.2.91592-79-9814Emxeauu28920346 2.840.1.113652.3.579.2.13345-79-3767Pqwxzcd68011405 2.0.1.126573.3.579.2.41567-55-4681Bsfteha75324665 2.0.1.408751.3.579.2.44157-79-3858Csipreh00629297 2.840.1.500368.3.579.2.69674-64-4001Vlbtmbc43650884 2.0.1.195619.3.579.2.70894-67-3428Lfnyvkf54033166 2.0.1.690658.3.579.2.85480-50-6922Uspjhql02243219 2..1.431614.3.579.[id number] 2.0.1.393167.3.579.2.43763-15-6891Kswmeiz04775309 2..1.363876.3.579.2.02972-38-4647Jhwoeqg60545070 2..1.669980.3.579.2.68638-66-0721Ievvqwv11036511 2..1.583454.3.579.2.28619-72-7228Jrajrdr96431731 2..1.861316.3.579.2.28605-97-6944Hrmxxwg96426242 2..1.014152.3.579.2.78906-82-3463Luvcver72894090 2..1.695034.3.579.2.25499-55-7784Kgbnbvj75707569 2..1.176225.3.579.2.70151-48-3611Uwxpofe28241754 2..1.432981.3.579.2.87369-44-3457Elryldd02885763 2..1.916613.3.579.2.259710-18-6018Rjzixam73313363 2..1.770358.3.579.2.77632-64-8427Ebrotxv76008547 2..1.651598.3.579.2.67602-53-6140Vscoult62709515 2.0.1.676080.3.579.2.42192-57-5568Tzrozrr41772330 2.0.1.046655.3.579.2.41928-48-7157Dieamvp37107097 2.0.1.695868.3.579.2.67110-34-0102Esnwmoy60951552 2.0.1.115048.3.579.2.727 [id number] 1960Medicare [id number] Mammogram [id number] 35cp32kq-b992-155h-tkv6-3843673393xwLqzusyh38451687 2.0.1.774920.3.579.2.300Oqzrbhd29476792 2.0.1.826209.3.579.2.531 Social History DateTypeDetailFacilityStart: 37-12-9294Iubwher smoking status NHISSmoker (finding)[facility] Centertart: 39-95-5222Mxz Assigned At [facility] Shawtart: 68-22-8774Lxh Assigned At [facility] CenterStart: 01-23-2023 End: 86-57-5683Xqljjer smoking statusHeavy tobacco smoker (finding)[facility] BellevueComment on above:patient smokes 0.5 ppd since she was 19 Tobacco smoking statusNeverC[facility] Clinic [facility] BellevueComment on above:patient smokes 0.5 ppd since she was 17Start: 22-21-0118Eusffrw smoking status NHISEx-smoker (finding)[facility]ertart: 12-29-1995 Tobacco smoking status NHISSmokes tobacco dailyNOMS HealthcareStart: 12-29-1995 History of tobacco useCigarette SmokerNOMS HealthcareStart: 09-18-2023 End: 28-31-5206Nyfksvqhvf smoked current (pack per day) - Reported0.5[facility]Start: 14-86-2080Wudzecm use and exposureSmokeless tobacco non-user [facility] LouisStart: 27-50-6697Jfhvdeleh beverage intakeLifetime non-drinker (finding)[facility] LouisStart: 14-71-8964Xzm assigned at birthNot on fileTenet St. LouisStart: 35-82-1860Qghsvu identityIdentifies as female gender (finding) [facility] LouisStart: 84-37-6479Nlmcwq orientationChoose not to discloseTenet St. Louis Medical Equipment Procedure CodeEquipment CodeEquipment Original TextEquipment IdentifierDates LANCETS, See Instructions, 100 EA, 4, use to check BS daily dx E11.9, [facility]/pharmacy #6177, Supply, 160, cm, 03/25/23 15:22:00 EST, Height/Length Dosing, 121.2, kg, 03/25/23 15:22:00 EST, Weight DosingStart: 96-16-8035MTAH STRIPS, See Instructions, 100 EA, 4, use to check BS daily dx E11.9, [facility], Supply, 160, cm, 03/25/23 15:22:00 EST, Height/Length Dosing, 121.2, kg, 03/25/23 15:22:00 EST, Weight DosingStart: 12-38-1583LORZKQD, See Instructions, 100 EA, 4, use to check BS daily dx E11.9, [facility], Supply, 160, cm, 03/25/23 15:22:00 EST, Height/Length Dosing, 121.2, kg, 03/25/23 15:22:00 EST, Weight DosingStart: 00-00-6582KLSD STRIPS, See Instructions, 100 EA, 4, use to check BS daily dx E11.9, [facility]/pharmacy #6177, Supply, 160, cm, 03/25/23 15:22:00 EST, Height/Length Dosing, 121.2, kg, 03/25/23 15:22:00 EST, Weight DosingStart: 41-07-3498FVIQIOD, See Instructions, 100 EA, 4, use to check BS daily dx E11.9, [facility], Supply, 160, cm, 03/25/23 15:22:00 EST, Height/Length Dosing, 121.2, kg, 03/25/23 15:22:00 EST, Weight DosingStart: 40-33-4662MMEI STRIPS, See Instructions, 100 EA, 4, use to check BS daily dx E11.9, [facility], Supply, 160, cm, 03/25/23 15:22:00 EST, Height/Length Dosing, 121.2, kg, 03/25/23 15:22:00 EST, Weight DosingStart: 14-63-2297RKIKIDX, See Instructions, 100 EA, 4, use to check BS daily dx E11.9, [facility], Supply, 160, cm, 03/25/23 15:22:00 EST, Height/Length Dosing, 121.2, kg, 03/25/23 15:22:00 EST, Weight DosingStart: 44-95-2276TFFW STRIPS, See Instructions, 100 EA, 4, use to check BS daily dx E11.9, [facility], Supply, 160, cm, 03/25/23 15:22:00 EST, Height/Length Dosing, 121.2, kg, 03/25/23 15:22:00 EST, Weight DosingStart: 27-39-6743FWFWYPU, See Instructions, 100 EA, 4, use to check BS daily dx E11.9, [facility], Supply, 160, cm, 03/25/23 15:22:00 EST, Height/Length Dosing, 121.2, kg, 03/25/23 15:22:00 EST, Weight DosingStart: 51-84-8748ESEP STRIPS, See Instructions, 100 EA, 4, use to check BS daily dx E11.9, [facility], Supply, 160, cm, 03/25/23 15:22:00 EST, Height/Length Dosing, 121.2, kg, 03/25/23 15:22:00 EST, Weight DosingStart: 93-50-0736LPCGJSN, See Instructions, 100 EA, 4, use to check BS daily dx E11.9, [facility], Supply, 160, cm, 03/25/23 15:22:00 EST, Height/Length Dosing, 121.2, kg, 03/25/23 15:22:00 EST, Weight DosingStart: 99-17-2097WXUB STRIPS, See Instructions, 100 EA, 4, use to check BS daily dx E11.9, [facility], Supply, 160, cm, 03/25/23 15:22:00 EST, Height/Length Dosing, 121.2, kg, 03/25/23 15:22:00 EST, Weight DosingStart: 43-86-9416WWXWOKK, See Instructions, 100 EA, 4, use to check BS daily dx E11.9, [facility], Supply, 160, cm, 03/25/23 15:22:00 EST, Height/Length Dosing, 121.2, kg, 03/25/23 15:22:00 EST, Weight DosingStart: 43-39-2917KMMM STRIPS, See Instructions, 100 EA, 4, use to check BS daily dx E11.9, [facility], Supply, 160, cm, 03/25/23 15:22:00 EST, Height/Length Dosing, 121.2, kg, 03/25/23 15:22:00 EST, Weight DosingStart: 87-81-9463KZLFUSL, See Instructions, 100 EA, 4, use to check BS daily dx E11.9, [facility], Supply, 160, cm, 03/25/23 15:22:00 EST, Height/Length Dosing, 121.2, kg, 03/25/23 15:22:00 EST, Weight DosingStart: 57-08-4315TETD STRIPS, See Instructions, 100 EA, 4, use to check BS daily dx E11.9, [facility], Supply, 160, cm, 03/25/23 15:22:00 EST, Height/Length Dosing, 121.2, kg, 03/25/23 15:22:00 EST, Weight DosingStart: 81-80-3957FANXLQF, See Instructions, 100 EA, 4, use to check BS daily dx E11.9, [facility], Supply, 160, cm, 03/25/23 15:22:00 EST, Height/Length Dosing, 121.2, kg, 03/25/23 15:22:00 EST, Weight DosingStart: 16-63-8753QSDH STRIPS, See Instructions, 100 EA, 4, use to check BS daily dx E11.9, [facility], Supply, 160, cm, 03/25/23 15:22:00 EST, Height/Length Dosing, 121.2, kg, 03/25/23 15:22:00 EST, Weight DosingStart: 32-24-5963XZLVZBT, See Instructions, 100 EA, 4, use to check BS daily dx E11.9, [facility], Supply, 160, cm, 03/25/23 15:22:00 EST, Height/Length Dosing, 121.2, kg, 03/25/23 15:22:00 EST, Weight DosingStart: 18-45-6563XEMH STRIPS, See Instructions, 100 EA, 4, use to check BS daily dx E11.9, [facility], Supply, 160, cm, 03/25/23 15:22:00 EST, Height/Length Dosing, 121.2, kg, 03/25/23 15:22:00 EST, Weight DosingStart: 14-03-2543CUIIMLJ, See Instructions, 100 EA, 4, use to check BS daily dx E11.9, [facility], Supply, 160, cm, 03/25/23 15:22:00 EST, Height/Length Dosing, 121.2, kg, 03/25/23 15:22:00 EST, Weight DosingStart: 47-66-1283DELZ STRIPS, See Instructions, 100 EA, 4, use to check BS daily dx E11.9, [facility], Supply, 160, cm, 03/25/23 15:22:00 EST, Height/Length Dosing, 121.2, kg, 03/25/23 15:22:00 EST, Weight DosingStart: 99-78-1713WKQ DIRECTED WITH Lake Homes RealtyE 2 READERStart: 08-04-2024 Functional Status HdxlJjcyvjokvxPtlccsHzttbpel93-28-0301Yznrefpoap StatusN/[facility]LEChildren[facility] Enjxzn97-78-5548Ljmhyvvmva StatusN/[facility] Usgt57-56-6219Zaorxkwpef [facility] Clinical Notes 08-13-2022 to 10-26-2024 Note Date & KeqpRyobCpafhfjp46-41-0804 NotePatient Education Endocrinology Type 2 Diabetes Mellitus, Self-Care, [...] treatment goals for you. Generally, the goal oftreatment is to maintain the following blood glucose levels: ? Before meals: 80?130 mg/dL (4.4?7.2 mmol/L). ? After meals: below 180 mg/dL (10 mmol/L). ? A1C level: less than 7%. How to manage hyperglycemia and hypoglycemia Hyperglycemia symptoms Hyperglycemia, also called high blood glucose, occurs when blood glucose is too high. Make sure youknow the early signs of hyperglycemia, such as: ??? Increased thirst. ??? Hunger. ??? Feeling very tired. ??? Needing to urinate more often than usual. ??? Blurry vision. Hypoglycemia symptoms Hypoglycemia, also called low blood glucose, occurs with a blood glucose level at or below 70 mg/dL(3.9 mmol/L). Diabetes medicines lower your blood glucose and can cause hypoglycemia. The risk for hypoglycemia increases during or after exercise, during sleep, during illness, and when skipping meals or not eating for a long time (fasting). It is important to know the symptoms of hypoglycemia and treat it right away. Always have a 65-ucpsjhqkg-tgkopi carbohydrate snack with you to treat low [...] drink, you may need glucagon. A family memberor close friend should learn how to check your blood glucose and how to give you glucagon. Ask yourhealth care provider if you need to have [...] how to adjust your dosage. ??? Take mtlh-ufu-bzuubms and prescription medicines only as told by [...] of the week. ? (more content not included)...[facility]06-17-2025 History of Present illness Narrative* Beulah Gordon DO - 09/22/2024 2:00 PM EDT Images from the original note were not [...] refill. LMP 08/18/24 Mammogram order sent to [facility]. Colonoscopy 2023-normal ) Control Contraception: abstinence. LMP: Patient's last menstrual period was 08/18/2024. Last Mammogram Results for orders placed in visit on 09/18/23 Bilateral screening mammogram with tomosynthesis Narrative [facility] [address] [place] [address] Mammography Report Signed Patient: Wendy Erazo MR#: [id number] 7 : 1975 Acct:[id number] Age/Sex: 48 / F ADM Date: 01/13/24 Loc: [place] Room: Type: [facility] Attending Dr: Beulah Gordon DO Copies to: BEULAH GORDON MD Ordering Provider: BEULAH GORDON DO Date of Service: 01/13/24 MM/MM screening mammo BI w/CAD: screening CLINICAL DATA: Screening for malignancy. SCREENING MAMMOGRAM - FULL FIELD DIGITAL WITH TOMOSYNTHESIS AND CAD COMPARISON:Mammograms dating back to 2015 Tomosynthesis craniocaudal and [...] mammogram. Impression dictated by: Vikas Huerta Jr., D.OEarl01/13/2024 3:33 PM Dictation Location: [facility] Transcribed By: [facility] 01/13/24 1533 Dictated By: Vikas Huerta Jr, DO 01/13/24 1532 Signed By: <Electronically signed by Vikas Huerta Jr, DO in OV> 01/13/24 1533 Current Outpatient Medications on File Prior to Visit Medication Sig Dispense Refill albuterol HFA 90 mcg/act inhaler atorvastatin (Lipitor) 40 MG tablet Take 40 mg by mouth Daily Continuous Glucose Sensor (FreeStyle Rosalinda 2 Sensor) [facility] USE WITH Mochi MediaSTYLE ROSALINDA TO CHECK BLOOD SUGARS DAILY (E11.69) FreeStyle Precision Reddy Test test strip USE DIRECTED WITH FREESTYLE ROSALINDA 2 READER lithium ER (Lithobid) 300 MG 12 hr tablet Take 300 mg by mouth Daily metFORMIN XR (Glucophage-XR) 500 MG 24 hr tablet Take 1,000 mg by mouth in the morning and 1,000 mgbefore bedtime. 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 Obesity, morbid (CMS-HCC) - medroxyPROGESTERone (Provera) 10 MG tablet; TAKE 1 TABLET BY MOUTH ONCE A DAY WITH FOOD on Day #1to Day #10 of the month Dispense: 30 tablet; Refill: 4 ICD-10-CM 1. Encounter for gynecological examination without abnormal finding Z01.419 2. Other screening mammogram Z12.31 Bilateral screening mammogram with tomosynthesis 3. Encounter for surveillance of contraceptive pills Z30.41 4. History of irregular menstrual cycles Z87.42 medroxyPROGESTERone (Provera) 10 MG tablet 5. Irregular menstruation, unspecified N92.6 medroxyPROGESTERone (Provera) 10 MG tablet 6. Obesity, morbid ([facility]-H[facility]) E66.01 medroxyPROGESTERone (Provera) 10 MG tablet Follow up in about 1 year (around 09/22/2025) for Yearly. Beulah Gordon DO 09/22/2024 2:28 PM documented in this encounterTenet St. LouisUggepibijs61-30-6170 NotePatient Education Infectious Disease Upper Respiratory Infection, Adult [...] to help relieve symptoms, such as: ??? Uzrz-ift-fxqqojp cold medicines. ??? Medicines to reduce coughing [...] dissolve ??1 tsp (3?6 g) of salt in1 cup (237 mL) of warm water. ??? Use a cool-mist humidifier to add moisture to the air. This can help you breathe more easily. Eating and drinking ??? Drink enough fluid to keep your pee (urine) pale yellow. ??? Eat soups and other clear broths. General instructions ??? Take vfny-sza-xjwpfej and prescription medicines only as told by [...] use soap and water, use hand parts consultant. ??? Avoid touching your mouth, face, eyes, or nose. ??? Cough or sneeze into a tissue or your sleeve or elbow. Do not cough or sneeze into your hand orinto the air. Contact a doctor if: ??? [...] get better within 7?10 days. ??? Take gzbw-uro-pxkwzhj and prescription med (more content not included)... [facility]01-06-2025 NoteNurse Consultation Note Reason for Visit Pt presents today for [...] 06/21/2020 Recorded influenza virus vaccine, inactivated 02/21/2015 [facility]ed[facility] NotePatient Education Emergency Medicine Heart Attack A heart attack occurs when blood and oxygen supply to the heart is cut off. A heart attack can cause damage to the heart that cannot be fixed. A heart attack is also called a myocardial infarction, or NM. If you think you are having a heart attack, do not wait to see if the symptoms will go away. Get medical help right away. What are the causes? This condition may be caused by: ??? A fatty substance (plaque) in the blood vessels (arteries). This can block the flow of blood tothe heart. ??? A blood clot in the blood vessels that go to the heart. The blood clot blocks blood flow. ??? An abnormal heartbeat. ??? Some diseases, such as problems in red blood cells (anemia)orproblems in breathing (respiratoryfailure). ??? Tightening (spasm) of a blood vessel [...] these instructions at home: Medicines ??? Take ejrk-itf-dycdkyp and prescription medicines only as told by [...] vomit. ??? You fe (more content not included)...[facility]09-15-2024 Hospital Discharge instructions Patient Education 12/22/2023 12:40:38 [...] health care provider may drain pus from thestye using a thin blade or needle. This may be done if the stye is large, causing a lot of pain, oraffecting your vision. Follow these instructions at home: Take bvla-cyk-nhjmrru and prescription medicines only as told by your health care provider. This includes eye drops or ointments. If you were prescribed an antibiotic medicine, steroid medicine, or both, apply or use them as toldby your health care provider. Do not stop [...] outside the eyelid (external stye). A stye cancause redness, swelling, and pain on the eyelid. [...] provider. Document Revised: 05/31/2021 Document Reviewed: 05/31/2021 [employer] Patient Education 2023 [employer]. 12/22/2023 12:40:34 Steps to Quit Smoking Steps [...] health care provider if you have any questionsor concerns. How do I get ready to [...] require a prescription. You can also purchase robi-tnb-fnikbas medicines. Medicines may have nicotine in them [...] and encouragement. Call telephone quitlines, such as 3-386-SQFQ-NOW, reach out to support groups, or work [...] provider. Document Revised: 03/16/2022 Document Reviewed: 03/16/2022 [employer] Patient Education 2023 [employer]. 12/22/2023 12:40:33 BMI for Adults BMI for [...] can help you reach a healthy weight. BMIscreening can be done again to see if these changes are working. How is BMI calculated? Your height and weight are measured. The BMI is found from those numbers. This can be done with U.[place]. or metric measurements. Note that charts and online BMI calculators are available to help you findyour BMI quickly and easily without doing these [...] Centers for Disease Control and Prevention: cdc.gov [place] Heart Association: heart.org National Heart, Lung, and Blood [place]: nhlbi.nih.gov This information is not intended to replace advice given to you by your health care provider. Make sure you discuss any questions you have with your health care provider. Document Revised: 12/13/2022 Document Reviewed: 12/06/2022 [employer] Patient Education 2023 [employer]. Follow Up Care 12/22/2023 10:49:21 With:Eligio MEDELLIN, GRACY Junior, MED Address: When: only if needed Comments:2 weeks [facility] 09-15-2024 NotePatient Education Infectious Disease Stye A stye, also [...] health care provider may drain pus from thestye using a thin blade or needle. This may be done if the stye is large, causing a lot of pain, oraffecting your vision. Follow these instructions at home: ? Take jlpa-bhv-zdanflh and prescription medicines only as told by [...] stye has healed and your health care providersays that it is safe. ? Do not [...] provider. Document Revised: 05/31/2021 Document Reviewed: 05/31/2021 [employer] Patient Education ? 2023 [employer] Nutrition BMI for Adults Body mass index [...] online BMI calculators are (more content not included)...[facility] 10-23-2023 NotePatient Education Nutrition BMI for Adults What is BMI? Body mass index (BMI) is a number that is calculated from a person's weight and height. BMI can help estimate how much of a person's weight is composed of fat. BMI does not measure body fat directly.Rather, it is an alternative to procedures that [...] your height. Both height and weight are measured,and the BMI is calculated from those numbers. This can be done either in [place] or metric measurements. Note that charts and online BMI calculators are available to help you find your BMI quickly and easily without having to do these calculations yourself. To calculate your BMI in [place] ([place] measurements: 1. Measure your weight in [...] meters squared number. In this example: 70 ?3.1 = 22.6. This is your BMI. What [...] for Disease Control and Prevention: www.cdc.gov ? [place] Heart Association: www.heart.org ? National Heart, Lung, and Blood [place]: www.nhlbi.nih.gov Summary ? Body mass index (BMI) is a number that is calculated from a person's weight and height. ? BMI may help estimate how much of a person's weight is composed of fat. BMI can help identify those who may be at higher risk for certain medical problems. ? BMI can be measured using [place] measurements or metric measurements. ? BMI charts are used to identify whether you are underweight, normal weight, overweight, or obese. This information is not intended to replace advice given to you by your health care provider. Make sure you discuss any questions you have with your health care provider. Document Revised: 12/16/2019 Document Reviewed: 10/23/2019 [employer] Patient Education ? 2022 [employer].[facility] 10-08-2023 Hospital Discharge instructions Patient Education 10/08/2023 13:25:39 Otitis Externa, Pupn-oz-Vlcx Otitis Externa Otitis externa is an infection [...] if you start to feel better. Take [id number]-[id number]-uclbyzt and prescription medicines only as told by your doctor. Avoid getting water in your ears as told by your doctor. You may be told to avoid swimming or watersports for a few days. Keep all follow-up [...] provider. Document Revised: 06/07/2021 Document Reviewed: 06/07/2021 [employer] Patient Education 2022 [facility]. Follow Up Care 10/08/2023 07:41:20 With:Eligio MEDELLIN, GRACY Junior, [facility] Address:Unknown When: Unknown [facility] 07-02-2024 NotePatient Education Infectious Disease Otitis Externa Otitis externa [...] you start to feel better. ? Take mxxr-whf-wpclaol and prescription medicines only as told by [...] provider. Document Revised: 06/07/2021 Document Reviewed: 06/07/2021 [employer] Patient Education ? 2022 [facility] 09-23-2023 Hospital Discharge instructions Follow Up Care 09/23/2023 10:53:06 With:Дмитрий MEDELLIN, Amarjit Martinez, PUL, JAS Address: [address] [place] [address] [place] [address]- When:1 year [facility]05-08-2023 Evaluation note* Encounter Date Diagnosis Assessment Notes Treatment Notes Treatment Clinical Notes August, Sore throat (ICD-10 - J02.9) [...] water gargles. Follow above treatment plan recommendations. August,ronchitis (ICD-10 - J40) Advise patient that rapid [...] rest, may use Tylenol as needed for fever/discomfort, cool mist humidifier. May use [place] as needed for cough, do not take any other OTCs while using [place]. Patient to follow up with PCP in 2-3 days. Immediate eval if SOB, difficulty breathing, chest pain, dizziness, or other concerning symptoms. Patient verbalizes understanding and is agreeable to treatment plan. Sajan Other Evaluation + Plan note Future Appointments Appointment Date:02/11/2023 08:15:00 PM Scheduled Provider: Location:.SLEEP LAB_ Appointment Type:[employer] Sleep Study PSG () Appointment Date:03/06/2023 01:20:00 PM Scheduled Provider:Yeison Del Valle MD Location:[facility] Appointment Type: Open Appointment Date:03/25/2023 01:00:00 PM Scheduled Provider: Location:[facility] Appointment Type:FM Medicare Wellness Initial Appointment Date:03/25/2023 01:40:00 PM Scheduled Provider:Yeison Del Valle MD Location:[facility] Appointment Type: Open Diagnostic Tests Pending * [place] Level 01/23/23 Future Scheduled Tests Laboratory* CBC w/ Auto Diff [facility]23/23 [facility] Future Appointments Appointment Date:03/06/2023 01:20:00 PM Scheduled Provider:Yeison Del Valle MD [facility]: Open Appointment Date:03/25/2023 01:00:00 PM Scheduled Provider: Location:[facility] Appointment Type:FM Medicare Wellness Initial Appointment Date:03/25/2023 01:40:00 PM Scheduled Provider:Yeison Del Valle MD Location:[facility] Appointment Type: Open Future Scheduled Tests Laboratory* CBC w/ Auto Diff [facility]23/[facility] Future Appointments Appointment Date:03/25/2023 01:00:00 PM Scheduled Provider: [facility] Type: Medicare Wellness Initial Appointment Date:03/25/2023 01:40:00 PM Scheduled Provider:Yeison Del Valle MD [facility] Type: Open Appointment Date:06/06/2023 01:15:00 PM Scheduled Provider:Yeison Del Valle MD [facility] Type: Open Future Scheduled Tests Laboratory* CBC w/ Auto Diff [facility]23/23 [facility] Future Appointments Appointment Date:06/03/2023 01:00:00 PM Scheduled [facility]DM Diabetes Group_C Appointment Date:06/12/2023 01:00:00 PM Scheduled Provider: [facility] Type:DM Diabetes Group_A Future Scheduled Tests Laboratory* CBC w/ Auto Diff 01/23/23 [facility] Future Appointments Appointment Date:09/26/2023 12:30:00 PM Scheduled Provider:Melissa Markham MD Location:[facility] Appointment Type:[facility] New Patient Appointment Date:10/22/2023 02:00:00 PM Scheduled Provider:Yeison Del Valle MD Location:[facility] Appointment Type: Open Appointment Date:03/30/2024 11:00:00 AM Scheduled Provider: Location:[facility] Appointment Type:FM Medicare Wellness Subsequent Future Scheduled Tests Laboratory* CBC w/ Auto Diff 01/23/23 [facility] Future Appointments Appointment Date:10/22/2023 02:00:00 PM Scheduled Provider:Yeison Del Valle MD [facility]: Open Appointment Date:03/30/2024 11:00:00 AM Scheduled Provider: Location:[facility] Appointment Type:FM Medicare Wellness Subsequent Future Scheduled Tests Laboratory* Celiac Disease Comprehensive 09/26/23 * CBC w/ Auto Diff 01/23/23 [facility] evaluation + Plan note Future Appointments Appointment Date:03/30/2024 11:00:00 AM Scheduled Provider: Location:[facility] Appointment Type: Medicare Wellness Subsequent Future Scheduled Tests Laboratory* Celiac Disease Comprehensive 09/26/23 * CBC w/ Auto Diff 01/23/23 [facility] evaluation + Plan note Future Appointments Appointment Date:04/27/2024 10:45:00 AM Scheduled Provider:Yeison Del Valle MD Location:[facility] Appointment Type: Open Appointment Date:03/24/2025 01:00:00 PM Scheduled Provider: Location:[facility] Appointment Type: Medicare Wellness Subsequent Future Scheduled Tests Laboratory* Celiac Disease Comprehensive 09/26/23 [facility] evaluation + Plan note Future Appointments Appointment Date:10/26/2024 01:00:00 PM Scheduled Provider:Yeison Del Valle MD Location:[facility] Appointment Type: Open Appointment Date:03/24/2025 01:00:00 PM Scheduled Provider: Location:[facility] Appointment Type:FM Medicare Wellness Subsequent Future Scheduled Tests Laboratory* Celiac Disease Comprehensive 09/26/23 [facility] evaluation noteNo assessment information available [facility] Work Phone: evaluation noteNo InformationNort Argon [facility] [employer] Facility Other evaluation note* Diagnosis Encounter for gynecological examination without abnormal finding- Primary Other screening mammogram Encounter for surveillance of contraceptive pills History of irregular menstrual cycles Irregular menstruation, unspecified Obesity, morbid (CMS-HCC) Morbid obesity documented in this encounter [facility] Narrative - Reported* Type Description Date Medical History HYPERTENSION Medical HistoryHYPERLIPIDEMIAMedical HistoryBIPOLAR DISORDERMedical History URINARY INCONTINENCESurgical HistoryWISDOM TEETHSurgical HistoryEGD Hospitalization HistoryMENTAL HEALTHHospitalization Historysee above Sajan Other Hospital course Narrative No data available for this section [facility] No data available for this section [facility] No data available for this section [facility] Summary Purpose Family History No Family History Records Found Relationship Condition Age at Onset Recorded Date/T ivan Not Specified No pertinent family history Unknown Relationship Condition Age at Onset Recorded Date/T ivan Not Specified No pertinent family history Unknown fatherHypertensionUnknownMalignant neoplasm of skinUnknownMalignant neoplasm UnknowngrandparentHistory of strokeUnknownDeceasedUnknowngrandparentHeart diseaseUnknownHistory of strokeUnknown Advance Directives No Advanced Directives Records Found Advance Directive Response Recorded Date/ Time Advance Directives No December 02, 2017 9:36am Chief Complaint and Reason for Visit Chief Complaint Sore throat Chief Complaint BH Z12.31 Additional Source Comments INFORMATION SOURCE (unrecogn ized section and content) DATE CREATED AUTHOR 01/23/2021 [facility] DATE CREATED AUTHOR AUTHOR'S ORGANIZ ATION 07/31/2022 [facility] DATE CREATED AUTHOR AUTHOR'S ORGANIZ ATION 10/12/2023 [facility] DATE CREATED AUTHOR AUTHOR'S ORGANIZ ATION 10/15/2023 [facility] DATE CREATED AUTHOR AUTHOR'S ORGANIZ ATION 11/10/2023 [facility] DATE CREATED AUTHOR AUTHOR'S ORGANIZ ATION 11/26/2023 [facility] DATE CREATED AUTHOR AUTHOR'S ORGANIZ ATION 03/29/2024 [facility] DATE CREATED AUTHOR AUTHOR'S ORGANIZ ATION 04/19/2024 [facility] DATE CREATED AUTHOR AUTHOR'S ORGANIZ ATION 04/28/2024 [facility] DATE CREATED AUTHOR AUTHOR'S ORGANIZ ATION 04/29/2024 [facility] DATE CREATED AUTHOR AUTHOR'S ORGANIZ ATION 09/25/2024 [facility] DATE CREATED AUTHOR AUTHOR'S ORGANIZ ATION 11/04/2024 [facility] DATE CREATED AUTHOR AUTHOR'S ORGANIZ ATION 11/28/2024 [facility] DATE CREATED AUTHOR AUTHOR'S ORGANIZ ATION 01/11/2025 [facility] DATE CREATED AUTHOR AUTHOR'S ORGANIZ ATION 02/16/2025 [facility] Care Teams (unrecognized sec tion and content) Team Status: Inactive Member Role Status Dates Lisandra May APRN Attending Provider Active Team Status: Active Member Role Status Dates Yeison Del Valle MD Primary Care Provider Active Team Status: Active Member Role Status Dates PHYSICIAN NO FAMILY Primary Care Provider Active Start: December 31, 2023 Jerry Aponte MDAttending ProviderActiveStart: December 31, 2023 Team Status: Inactive Member Role Status Dates Beulah Gordon DO Attending Provider Active Start: January 13, 2024 End: January 13, 2024Sarah Shrestha Care ProviderActiveStart: January 13, 2024 End: January 13, 2024Team MemberRelationshipSpecialtyStart DateEnd Date Yeison Del Valle MD [address] [place] [address] PCP - GeneralFamily Medicine09/22/24 Goals (unrecognized section and content) Goals may [...] FOR VISIT (unrecogniz ed section and content) ReasonCommentsGynecologic ExamPatient here for yearly. Patient states that she has been having a period every month up until now.She has not started a period yet for September, Currently on on Provera-needs refill. LMP 08/18/24 Mammogram order sent to [facility]. Colonoscopy 2023-normal FOR RECORDS PERTAINING TO PATIENTS [...] BE BASED ON THE PRIMARY CLINICAL RECORDS. [employer] [facility]. provides no warranty or guarantee of the accuracy or completeness of information in this document.
--- NOTE | 2025-02-18 14:08 | PM.WCHP ---
Wound Care H&P: HPI History of Present Illness Narrative: The patient is a 49-year-old female with history of type 2 diabetes, last hemoglobin A1c was 5.5. She presents for routine nail care today. She complains of painful elongated toenails. Exam Narrative: Exam Narrative: Derm: Toenails 1 through 10 are elongated, thickened, and dystrophic. The 1st and 5th toenails on each foot are mycotic. No ulcerative or preulcerative lesions are noted. Skin is diffusely dry. Vascular: DP and PT pulses are 2/4 bilaterally. Capillary refills less than 3 seconds bilaterally. Superficial varicosities are noted but no significant edema. Skin is warm to the touch. Digital hair is present. Neuro: Protective sensation is intact in 5/5 areas tested on each foot. Vibratory sensation is intact bilaterally. 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 Follow-up in 3 months or as needed. Acute Procedures Podiatry Nail Debridement Class B Findings Advanced trophic changes as evidenced by any three of the following: decreased hair growth, nail changes (thickening) and skin texture (thin or shiny) Class C Findings Claudication: No Temperature changes: No Edema: No Nail debridement paresthesia (abnormal spontaneous sensations in the feet): No Burning: No Qualifies If: Qualifiers If:: A patient qualifies for nail debridement if they have: 1 class A finding (Q7) 2 class B findings (Q8) OR 1 class B & 2 class C findings in addition to a primary condition (Q9) Nail Procedure Nail Procedure Time out: Yes Nail procedure: other (Toenail debridement toes 1 through 10) Number of affected nails: 10 Location (toes): left and right Procedure successful: Yes Patient tolerated procedure: well and no complications Additional comments: Toenails 1 through 10 were sharply debrided without incident with nail nippers
== END 2025-02-18 13:38 | disposition home or self-care (01) ==
LOC: WC 13:37
PROVIDERS: PCP Family Medicine; Visit Provider Physician Assistant
DX: B35.1 Tinea unguium (principal); E13.39 Other specified diabetes mellitus with other diabetic ophthalmic complication; L60.8 Other nail disorders
CPT/HCPCS: 11721